=== PATIENT | female | born 1965 | race Caucasian/White ===

== ENCOUNTER 2023-07-02 16:24 | Emergency (ER) | payer BC, OTHER, SELFPAY ==
[2023-07-02 16:40] VITALS: BP 133/91; PULSE 61; RESP 18; TEMP 36.5; O2SAT 100; BMI 34.4
--- NOTE | 2023-07-02 17:03 | ED_ITS ---
Discharge Plan Disposition Patient Disposition: Home, Self-Care Condition: Good Prescriptions Prescriptions: New ibuprofen [IBU] 800 mg tablet 800 mg PO Q8HP PRN (Reason: Moderate Pain) Qty: 30 0RF No Action potassium chloride 10 mEq capsule, extended release 10 meq PO DAILY Patient Comments: TAKE 1 CAPSULE BY MOUTH ONCE DAILY FOR 90 DAYS tizanidine 2 mg tablet See Rx Instructions .ROUTE .COMPLEX Patient Comments: TAKE 1 TABLET BY MOUTH EVERY 6 HOURS FOR 10 DAYS Rx Instructions: TAKE 1 TABLET BY MOUTH EVERY 6 HOURS FOR 10 DAYS atorvastatin 10 mg tablet 10 mg PO DAILY Patient Comments: TAKE 1 TABLET BY MOUTH ONCE DAILY sertraline 100 mg tablet 100 mg PO DAILY Patient Comments: TAKE 1 & 1/2 (ONE & ONE-HALF) TABLETS BY MOUTH ONCE DAILY tramadol 50 mg tablet See Rx Instructions .ROUTE .COMPLEX Patient Comments: TAKE 1 TABLET BY MOUTH EVERY 6 HOURS NEEDED FOR PAIN Rx Instructions: TAKE 1 TABLET BY MOUTH EVERY 6 HOURS NEEDED FOR PAIN gabapentin 800 mg tablet See Rx Instructions .ROUTE .COMPLEX Patient Comments: TAKE 1 TABLET BY MOUTH THREE TIMES DAILY Rx Instructions: TAKE 1 TABLET BY MOUTH THREE TIMES DAILY lisinopril 10 mg tablet 10 mg PO DAILY Patient Comments: TAKE 1 TABLET BY MOUTH ONCE DAILY diclofenac sodium 75 mg tablet,delayed release (DR/EC) See Rx Instructions .ROUTE .COMPLEX Patient Comments: TAKE 1 TABLET BY MOUTH TWICE DAILY Rx Instructions: TAKE 1 TABLET BY MOUTH TWICE DAILY ergocalciferol (vitamin D2) 1,250 mcg (50,000 unit) capsule See Rx Instructions .ROUTE .COMPLEX Patient Comments: TAKE 1 CAPSULE BY MOUTH ONCE A WEEK Rx Instructions: TAKE 1 CAPSULE BY MOUTH ONCE A WEEK prazosin 2 mg capsule 2 mg PO DAILY Patient Comments: TAKE 1 CAPSULE BY MOUTH AT BEDTIME buspirone 15 mg tablet See Rx Instructions .ROUTE .COMPLEX Patient Comments: TAKE 1 TABLET BY MOUTH TWICE DAILY NEEDED Rx Instructions: TAKE 1 TABLET BY MOUTH TWICE DAILY NEEDED aripiprazole 10 mg tablet 10 mg PO DAILY Patient Comments: TAKE 1 TABLET BY MOUTH ONCE DAILY FOR 90 DAYS quetiapine 50 mg tablet 50 mg PO DAILY Patient Comments: TAKE 1 TABLET BY MOUTH ONCE DAILY AT BEDTIME levocetirizine 5 mg tablet 5 mg PO DAILY Patient Comments: TAKE 1 TABLET BY MOUTH ONCE DAILY Ajovy Autoinjector 225 mg/1.5 mL auto-injector See Rx Instructions .ROUTE .COMPLEX Patient Comments: INJECT 1 AUTO INJECTOR SUBCUTANEOUSLY ONCE MONTHLY Rx Instructions: INJECT 1 AUTO INJECTOR SUBCUTANEOUSLY ONCE MONTHLY Referrals Follow up/Referrals: Tayler Bravo [Primary Care Provider] - See instructions Activity Restrictions/Add. Instructions Additional Instructions/Restrictions: Drink plenty of fluids. Take tylenol or ibuprofen for pain or fever. Take the medications as directed. Follow up with your regular doctor within the next 24 to 48 hours. GO TO THE ER FOR ANY WORSENING SYMPTOMS OR CONTINUED SYMPTOMS Clinical Impressions Clinical Impression: Left flank pain Instructions Patient Instructions: DI for Kidney Stones, Ketorolac Injection Discharge ED Provider: Israel Rodriguez [facility] General Stated complaint: abd pain, back pain Time Seen by Provider: 07/02/23 17:13 History of Present Illness Provider Complaint: She states that that for the past 1 day she has had low back pain and left flank pain. She has had a kidney stone in the past and that is what she feels like is happening now. She denies any dysuria. She refuses transfer to the ER at this time. Related Data Home Medications Medication Instructions Recorded Confirmed aripiprazole 10 mg tablet 10 mg PO DAILY 07/02/23 07/02/23 atorvastatin 10 mg tablet 10 mg PO DAILY 07/02/23 07/02/23 buspirone 15 mg tablet See Rx Instructions .Route .COMPLEX 07/02/23 07/02/23 diclofenac sodium 75 mg See Rx Instructions .Route .COMPLEX 07/02/23 07/02/23 tablet,delayed release ergocalciferol (vitamin D2) 1,250 See Rx Instructions .Route .COMPLEX 07/02/23 07/02/23 mcg (50,000 unit) capsule fremanezumab-vfrm 225 mg/1.5 mL See Rx Instructions .Route .COMPLEX 07/02/23 07/02/23 subcutaneous auto-injector (Ajovy) gabapentin 800 mg tablet See Rx Instructions .Route .COMPLEX 07/02/23 07/02/23 levocetirizine 5 mg tablet 5 mg PO DAILY 07/02/23 07/02/23 lisinopril 10 mg tablet 10 mg PO DAILY 07/02/23 07/02/23 potassium chloride 10 mEq 10 meq PO DAILY 07/02/23 07/02/23 capsule,extended release prazosin 2 mg capsule 2 mg PO DAILY 07/02/23 07/02/23 quetiapine 50 mg tablet 50 mg PO DAILY 07/02/23 07/02/23 sertraline 100 mg tablet 100 mg PO DAILY 07/02/23 07/02/23 tizanidine 2 mg tablet See Rx Instructions .Route .COMPLEX 07/02/23 07/02/23 tramadol 50 mg tablet See Rx Instructions .Route .COMPLEX 07/02/23 07/02/23 Previous Rx's Medication Instructions Recorded ibuprofen 800 mg tablet (IBU) 800 mg PO Q8HP PRN Moderate Pain 07/02/23 #30 tabs Allergies Allergy/AdvReac Type Severity Reaction Status Date / Time Penicillins Allergy Verified 07/02/23 17:09 [facility] Disclaimer: The information contained in this section may have been updated after the patient was seen, as this information can be updated by other users. Social History Smoking Status: Never smoker alcohol intake: never current occupational status: retired Travel in the last 8 weeks: None ROS Obtained: Yes All systems reviewed & no additional complaints except as documented Constitutional Constitutional: Denies chills and Denies fever(s) Eyes Eyes: Denies eye discharge ENT Ears, Nose, Mouth, and Throat: Denies dizziness, Denies otalgia and Denies sore throat Cardiovascular Cardiovascular: Denies chest pain Respiratory Respiratory: Denies shortness of breath, Denies chest congestion, Denies cough, Denies stridor and Denies wheezing Gastrointestinal Gastrointestingal: Denies nausea or vomiting Genitourinary Female Genitourinary: Reports as per HPI, Denies difficulty voiding, Denies dysuria, Reports urinary frequency, Denies urinary incontinence, Denies urinary hesitancy and Denies urinary urgency Musculoskeletal Musculoskeletal: Reports system reviewed and no additional complaints, except as documented and Denies arthralgias Integumentary/Breasts Skin/Breast: Denies rash Neurologic Neurologic: Denies dizziness and Denies paresthesias Allergic/Immunologic Allergic/Immunologic: Denies wheezing Physical Exam General General appearance: alert and in no apparent distress Head Head exam: atraumatic, normocephalic and normal inspection Eye Eye exam: Present normal appearance, PERRL and EOMI ENT ENT exam: Present normal exam, normal oropharynx, mucous membranes moist, TM's normal bilaterally and normal external ear exam Neck Neck exam: Present normal inspection, full ROM and trachea midline; Absent meningismus or lymphadenopathy Chest Chest inspection: Present normal inspection and symmetric chest wall rise; Abs ent tenderness Respiratory Respiratory exam: Present normal lung sounds bilaterally; Absent respiratory distress Cardiovascular Cardiovascular exam: Present regular rate and normal rhythm; Absent JVD Abdominal Exam Abdominal exam: Present soft and normal bowel sounds; Absent distention, tenderness, guarding, psoas sign, obturator sign, heel tap sign, Rajput's sign, Rovsing's sign or tenderness at McBurney's Point Extremities Exam Extremities exam: Present normal inspection, full ROM and normal capillary refill; Absent calf tenderness Back Exam Back exam: Present normal inspection; Absent tenderness Neurological Exam Neurological exam: Present alert and oriented X3 Psychiatric Psychiatric exam: Present normal affect and normal mood Skin Skin exam: Present warm, dry, intact and normal color Lymphatic Lymphatic Findings: no adenopathy Medical Decision Making Medical Records Medical records reviewed: No I reviewed the patient's medical records. Tommy Inquiry Pt receiving controlled substance: No Lab Data Lab results reviewed: Yes I reviewed the patient's lab results.
[2023-07-02 17:15] LABS: Apearance,Urine Cloudy (Clear); Color,Urine Dark Yellow (Yellow); PH,Urine 5.5 (5.0-8.5); Protein,Urine 1+ (Negative)
[2023-07-02 17:16] LABS: Bilirubin,Urine 1+ (Negative); Blood, Urine 2+ (Negative); Glucose,Urine (UA) Negative (Negative); Ketones,Urine Negative (Negative); UTC Leukocyte Esterase,Urine Negative (Negative); UTC Nitrate,Urine Negative (Negative); Urobilinogen,Urine 1 EU/dl (0.2)
[2023-07-02] MEDS: KETOROLAC 60MG/2ML VIAL 60 MG IM (17:18)
[2023-07-02 17:46] VITALS: BP 133/91; PULSE 61; RESP 18; TEMP 36.5; O2SAT 100
== END 2023-07-02 17:46 | disposition home or self-care (01) ==
PROVIDERS: Emergency Provider Nurse Practitioner Family; PCP Family Medicine
DX: M54.59 Other low back pain (principal); R10.32 Left lower quadrant pain; B96.89 Other specified bacterial agents as the cause of diseases classified elsewhere; Z87.442 Personal history of urinary calculi
CPT/HCPCS: 81003; 87086; 96372; 99204; 99212; G0463

== ENCOUNTER 2023-07-03 12:19 | Emergency (ER) | payer BC, OTHER, SELFPAY ==
[2023-07-03 12:20] VITALS: BP 121/56; PULSE 71; RESP 16; TEMP 36.8; O2SAT 95; BMI 34.4
--- NOTE | 2023-07-03 12:27 | CT_ITS ---
FINAL REPORT CLINICAL HISTORY: left CVA/flank pain, difficulty urinating COMPARISON: None FINDINGS: Axial CT images of the abdomen and pelvis were obtained without intravenous contrast. Coronal reformatted images were also obtained.This study was performed with techniques to keep radiation doses as low as reasonably achievable (ALARA). Individualized dose reduction techniques using automated exposure control or adjustment of mA and/or kV according to the patient''s size were employed. Abdomen: The lung bases are clear. There are several left renal stones measuring up to 8 mm. No right renal stone is seen. There is mild left hydronephrosis and hydroureter secondary to a 3 mm left UVJ stone. The liver, spleen and pancreas have an unremarkable, unenhanced appearance. No mass or adenopathy is seen. No inflammatory process is identified. There are postoperative changes in the abdomen. Pelvis: Images of the pelvis reveal no evidence of ureteral dilation or ureteral stone.No mass or abnormal fluid collection is identified. There is streak artifact from right hip arthroplasty. There is postoperative change of the lower lumbar spine. IMPRESSION: Mild left hydronephrosis and hydroureter secondary to a 3 mm left UVJ stone. Nonobstructing left renal stones. Reviewed, Interpreted and Dictated by James Galdamez III, MD Transcribed by Patricia Tomlin Authenticated and [facility]
[2023-07-03 12:30] VITALS: BP 110/81; PULSE 76; RESP 20; O2SAT 97
--- NOTE | 2023-07-03 12:35 | HMH.EDGENADL ---
Discharge Plan Disposition Patient Disposition: Home, Self-Care Condition: Good Prescriptions Prescriptions: New ketorolac 10 mg tablet 10 mg PO Q6H PRN (Reason: pain) 5 Days Qty: 20 0RF ondansetron 4 mg tablet,disintegrating 4 mg PO Q8H 4 Days Qty: 12 0RF tamsulosin 0.4 mg capsule 0.4 mg PO DAILY Qty: 14 0RF No Action potassium chloride 10 mEq capsule, extended release 10 meq PO DAILY Patient Comments: TAKE 1 CAPSULE BY MOUTH ONCE DAILY FOR 90 DAYS tizanidine 2 mg tablet See Rx Instructions .ROUTE .COMPLEX Patient Comments: TAKE 1 TABLET BY MOUTH EVERY 6 HOURS FOR 10 DAYS Rx Instructions: TAKE 1 TABLET BY MOUTH EVERY 6 HOURS FOR 10 DAYS atorvastatin 10 mg tablet 10 mg PO DAILY Patient Comments: TAKE 1 TABLET BY MOUTH ONCE DAILY sertraline 100 mg tablet 100 mg PO DAILY Patient Comments: TAKE 1 & 1/2 (ONE & ONE-HALF) TABLETS BY MOUTH ONCE DAILY tramadol 50 mg tablet See Rx Instructions .ROUTE .COMPLEX Patient Comments: TAKE 1 TABLET BY MOUTH EVERY 6 HOURS NEEDED FOR PAIN Rx Instructions: TAKE 1 TABLET BY MOUTH EVERY 6 HOURS NEEDED FOR PAIN gabapentin 800 mg tablet See Rx Instructions .ROUTE .COMPLEX Patient Comments: TAKE 1 TABLET BY MOUTH THREE TIMES DAILY Rx Instructions: TAKE 1 TABLET BY MOUTH THREE TIMES DAILY lisinopril 10 mg tablet 10 mg PO DAILY Patient Comments: TAKE 1 TABLET BY MOUTH ONCE DAILY diclofenac sodium 75 mg tablet,delayed release (DR/EC) See Rx Instructions .ROUTE .COMPLEX Patient Comments: TAKE 1 TABLET BY MOUTH TWICE DAILY Rx Instructions: TAKE 1 TABLET BY MOUTH TWICE DAILY ergocalciferol (vitamin D2) 1,250 mcg (50,000 unit) capsule See Rx Instructions .ROUTE .COMPLEX Patient Comments: TAKE 1 CAPSULE BY MOUTH ONCE A WEEK Rx Instructions: TAKE 1 CAPSULE BY MOUTH ONCE A WEEK prazosin 2 mg capsule 2 mg PO DAILY Patient Comments: TAKE 1 CAPSULE BY MOUTH AT BEDTIME buspirone 15 mg tablet See Rx Instructions .ROUTE .COMPLEX Patient Comments: TAKE 1 TABLET BY MOUTH TWICE DAILY NEEDED Rx Instructions: TAKE 1 TABLET BY MOUTH TWICE DAILY NEEDED aripiprazole 10 mg tablet 10 mg PO DAILY Patient Comments: TAKE 1 TABLET BY MOUTH ONCE DAILY FOR 90 DAYS quetiapine 50 mg tablet 50 mg PO DAILY Patient Comments: TAKE 1 TABLET BY MOUTH ONCE DAILY AT BEDTIME levocetirizine 5 mg tablet 5 mg PO DAILY Patient Comments: TAKE 1 TABLET BY MOUTH ONCE DAILY Ajovy Autoinjector 225 mg/1.5 mL auto-injector See Rx Instructions .ROUTE .COMPLEX Patient Comments: INJECT 1 AUTO INJECTOR SUBCUTANEOUSLY ONCE MONTHLY Rx Instructions: INJECT 1 AUTO INJECTOR SUBCUTANEOUSLY ONCE MONTHLY ibuprofen [IBU] 800 mg tablet 800 mg PO Q8HP PRN (Reason: Moderate Pain) Qty: 30 0RF Referrals Follow up/Referrals: Alejandro Villarreal MD [Staff Physician] - See instructions Tayler Bravo [Primary Care Provider] - See instructions Activity Restrictions/Add. Instructions Additional Instructions/Restrictions: You were seen in the ED today due to kidney stone. You have a 3 mm left-sided stone at the junction of the ureter and the bladder which we expect to pass. Prescriptions for Toradol, Zofran and Flomax have been provided. Do not take Flomax with prazosin. Do not take Toradol with ibuprofen or other nonsteroidal anti-inflammatory drugs. Please drink plenty of water. If you develop any signs concerning for infection such as fever, pain with urination, foul-smelling urine, please return to the ED immediately. Return if symptoms worsen or if any other concerning signs arise. Please contact the urology office for follow-up. Follow-up with your primary care provider as well. Clinical Impressions Clinical Impression: Left flank pain, Kidney stone Instructions Patient Instructions: DI for Kidney Stones Discharge ED Provider: Joshua Lundy General Adult HPI General Chief complaint: PAIN Stated complaint: abd pain/ was in [facility] for kidney stones 07/02/23 Time Seen by Provider: 07/03/23 12:24 Mode of Arrival: Ambulatory Source of Information: Patient Limitations: No Limitations Description of Symptoms (Recalled from ER Triage Doc. by RN): Patient reports being seen in the [facility] yesterday for a possible kidney stone. States that the pain is getting worse so she came to the ER. Complaint of left flank pain. History of Present Illness HPI narrative: Patient is a 57-year-old female with history of HTN, HLD, prior kidney stone who presents due to flank pain. Patient states she began having left back and flank pain yesterday which wraps around to her pelvic region. She was seen at urgent care and was told she may have a kidney stone. Patient states she did have a left-sided kidney stone approximately 4 months ago and this feels identical. States she feels like she has to urinate but has had trouble urinating. Denies any dysuria. States her urine has been browner. Denies any fevers at home. States she has been nauseous but has not had any vomiting. Denies any changes in bowel movements. Related Data Home Medications Medication Instructions Recorded Confirmed aripiprazole 10 mg tablet 10 mg PO DAILY 07/02/23 07/02/23 atorvastatin 10 mg tablet 10 mg PO DAILY 07/02/23 07/02/23 buspirone 15 mg tablet See Rx Instructions .Route .COMPLEX 07/02/23 07/02/23 diclofenac sodium 75 mg See Rx Instructions .Route .COMPLEX 07/02/23 07/02/23 tablet,delayed release ergocalciferol (vitamin D2) 1,250 See Rx Instructions .Route .COMPLEX 07/02/23 07/02/23 mcg (50,000 unit) capsule fremanezumab-vfrm 225 mg/1.5 mL See Rx Instructions .Route .COMPLEX 07/02/23 07/02/23 subcutaneous auto-injector (Ajovy) gabapentin 800 mg tablet See Rx Instructions .Route .COMPLEX 07/02/23 07/02/23 levocetirizine 5 mg tablet 5 mg PO DAILY 07/02/23 07/02/23 lisinopril 10 mg tablet 10 mg PO DAILY 07/02/23 07/02/23 potassium chloride 10 mEq 10 meq PO DAILY 07/02/23 07/02/23 capsule,extended release prazosin 2 mg capsule 2 mg PO DAILY 07/02/23 07/02/23 quetiapine 50 mg tablet 50 mg PO DAILY 07/02/23 07/02/23 sertraline 100 mg tablet 100 mg PO DAILY 07/02/23 07/02/23 tizanidine 2 mg tablet See Rx Instructions .Route .COMPLEX 07/02/23 07/02/23 tramadol 50 mg tablet See Rx Instructions .Route .COMPLEX 07/02/23 07/02/23 Previous Rx's Medication Instructions Recorded ibuprofen 800 mg tablet (IBU) 800 mg PO Q8HP PRN Moderate Pain 07/02/23 #30 tabs ketorolac 10 mg tablet 10 mg PO Q6H PRN pain 5 days #20 07/03/23 tabs ondansetron 4 mg disintegrating 4 mg PO Q8H 4 days #12 tabs 07/03/23 tablet tamsulosin 0.4 mg capsule 0.4 mg PO DAILY #14 caps 07/03/23 Allergies Allergy/AdvReac Type Severity Reaction Status Date / Time Penicillins Allergy Verified 07/02/23 17:09 [facility] Disclaimer: The information contained in this section may have been updated after the patient was seen, as this information can be updated by other users. Social History (Updated 07/02/23 @ 17:40 by Israel Rodriguez APRN) Smoking Status: Never smoker alcohol intake: never current occupational status: retired Travel in the last 8 weeks: None ROS Obtained: Yes All systems reviewed & no additional complaints except as documented Gastrointestinal Gastrointestingal: Reports abdominal pain Genitourinary Female Genitourinary: Reports flank pain, Reports hematuria and Reports urinary urgency Physical Exam General General appearance: alert and in no apparent distress Head Head exam: atraumatic, normocephalic and normal inspection Eye Eye exam: Present normal appearance, PERRL and EOMI ENT ENT exam: Present normal exam, normal oropharynx, mucous membranes moist, TM's normal bilaterally and normal external ear exam Neck Neck exam: Present normal inspection, full ROM and trachea midline; Absent meningismus or lymphadenopathy Chest Chest inspection: Present normal inspection and symmetric chest wall rise; Absent tenderness Respiratory Respiratory exam: Present normal lung sounds bilaterally; Absent respiratory distress Cardiovascular Cardiovascular exam: Present regular rate and normal rhythm; Absent JVD Abdominal Exam Abdominal exam: Present soft, tenderness and normal bowel sounds; Absent distention or guarding Abdominal tenderness: Present LLQ and suprapubic Comment: Tenderness to palpation of left CVA, flank, lower quadrant and suprapubic region. Abdomen soft, nondistended. Extremities Exam Extremities exam: Present normal inspection, full ROM and normal capillary refill; Absent calf tenderness Back Exam Back exam: Present normal inspection; Absent tenderness Neurological Exam Neurological exam: Present alert and oriented X3 Psychiatric Psychiatric exam: Present normal affect and normal mood Skin Skin exam: Present warm, dry, intact and normal color Lymphatic Lymphatic Findings: no adenopathy Medical Decision Making Tommy Inquiry Pt receiving controlled substance: No Vital Signs: 07/03/23 12:20 07/03/23 12:30 Temperature 98.2 F Temperature Source Oral Pulse Rate 76 Pulse Rate [Radial] 71 Respiratory Rate 16 20 Blood Pressure 110/81 Blood Pressure [Right Arm] 121/56 L Blood Pressure Mean 89 Blood Pressure Mean [Right Arm] 77 Blood Pressure Source [Right Arm] Automatic Cuff Blood Pressure Position [Right Arm] Sitting 02 Sat by Pulse Oximetry 95 97 Oxygen Delivery Method Room Air Lab Data Lab Results 07/03/23 12:30: WBC 5.5, RBC 4.64, Hgb 12.9, Hct 40.3, MCV 86.8, MCH 27.8, MCHC 32.0, RDW 13.4, Plt Count 272, MPV 8.6, Neut % (Auto) 52.7, Lymph % (Auto) 37.0, [place] % (Auto) 4.1, Eos % (Auto) 4.6, Baso % (Auto) 1.6, Neut # (Auto) 2.9, Lymph # (Auto) 2.0, [place] # (Auto) 0.2, Eos # (Auto) 0.3, Baso # (Auto) 0.1, Sodium 141, Potassium 4.0, Chloride 111 H, Carbon Dioxide 26, Anion Gap 8.0, BUN 18 H, Creatinine 1.00, Estimated Creat Clear 86, Estimated GFR 58 L, Est GFR ( Amer) 70, Glucose 73 L, Calcium 9.3, Total Bilirubin 0.5, AST 34, ALT 22, Alkaline Phosphatase 76, Total Protein 6.2 L, Albumin 3.7, Globulin 2.5, Albumin/Globulin Ratio 1.5, Lipase 152 07/03/23 14:23: Urine Color Yellow, Urine Appearance Clear, Urine pH 6.0, Ur Specific [place] >= 1.030, Urine Protein Negative, Urine Glucose (UA) Negative, Urine Ketones Negative, Urine Blood 1+, Urine Nitrate Negative, Urine Bilirubin Negative, Urine Urobilinogen 1.0, Ur Leukocyte Esterase 1+ A, Urine RBC 3-5, Urine WBC 3-5, Ur Squamous Epith Cells 3-5, Urine Bacteria Trace 07/03/23 12:30 07/03/23 12:30 Orders (Tests/Meds): ED MEDICATIONS Discontinued Medications Generic Name Dose Route Start Last Admin Trade Name Freq PRN Reason Stop Dose Admin Lactated Ringer's 1,000 mls @ 999 mls/hr 07/03/23 12:27 07/03/23 13:00 Lactated Ringer's 1000 Ml Bag IV 07/03/23 13:27 999 mls/hr .Q1H1M ONE Administration Ketorolac Tromethamine 15 mg 07/03/23 14:58 07/03/23 15:41 Ketorolac 30mg/Ml Vial IV 07/03/23 14:59 15 mg ONCE ONE Administration Morphine Sulfate 4 mg 07/03/23 12:27 07/03/23 12:59 Morphine 4mg/Ml Syringe IV 07/03/23 12:28 4 mg ONCE ONE Administration Ondansetron HCl 4 mg 07/03/23 12:27 07/03/23 12:59 Ondansetron 4mg/2ml Vial IV 07/03/23 12:28 4 mg ONCE ONE Administration Ondansetron HCl 4 mg 07/03/23 14:30 07/03/23 14:42 Ondansetron 4mg/2ml Vial IV 07/03/23 14:31 4 mg ONCE ONE Administration ORDERS Category Date Time Status CT abdomen pelvis wo con Stat Cat Scan 07/03/23 12:27 Taken CBC w/Auto Diff [Complete Blood Count Auto Diff] Stat Lab 07/03/23 12:30 Completed CMP [Comprehensive Metabolic Panel] Stat Lab 07/03/23 12:30 Completed Lipase Stat Lab 07/03/23 12:30 Completed Urinalysis and Microscopic Stat Lab 07/03/23 14:23 Completed Medical Decision Narrative: In summary, patient is a 57-year-old female with history of HTN, HLD, evaluated in the emergency department today due to left flank pain and difficulty urinating. On arrival, patient is hemodynamically stable with normal vital signs. On examination, patient has tenderness to palpation of the left CVA, flank, lower quadrant and suprapubic region. Differential diagnosis includes but is not limited to kidney stone, pyelonephritis, cystitis, pelvic organ dysfunction, aortic pathology, musculoskeletal strain. Patient given 1 L LR bolus, IV morphine, IV Zofran x2, IV Toradol. Workup initiated including CBC, CMP, lipase, urinalysis, CT Abdo/pelvis without contrast. Labs independently interpreted by me and significant for creatinine 1.00, urinalysis with 1+ leuk esterase, negative nitrite, 3-5 WBCs, 3-5 squamous cells. Overall no concern for infection at this time. Imaging independently interpreted by me and significant for CT abdomen/pelvis without contrast showing 3 mm left UVJ stone with resulting mild left hydroureter and hydronephrosis, as well as nonobstructing left renal stones. On reevaluation, patient reports significant improvement in symptoms. Given size of stone and urinalysis not concerning for infection, she is appropriate for discharge with expectant management at this time. Prescriptions for Toradol, Zofran, Flomax provided. Referral for urology provided. Patient counseled on home care, given strict return precautions and agreeable to plan. I considered the utility of obtaining contrasted scan, but decided against this because this would not change of address clerk. I considered the utility of treatment with prescription for narcotics, but decided against this because risks outweigh benefits. I considered admitting the patient to the hospital for observation, and in shared decision-making with patient, decided on outpatient management. Critical Care Critical Care Time Critical Care Time: No
[2023-07-03 12:46] LABS: Chloride 111 mmol/L (98-107); Sodium 141 mmol/L (136-145)
[2023-07-03 12:48] LABS: Basophils # 0.1 K/mm3 (0-0.2); Basophils % 1.6 % (0.1-2.0); Eosinophils # 0.3 K/mm3 (0.0-0.4); Eosinophils % 4.6 % (0.1-12.0); Hematocrit 40.3 % (37.0-47.0); Hemoglobin 12.9 g/dL (12.2-16.2); Mean Corpuscular Hemoglobin 27.8 pg (27.0-31.2); Mean Corpuscular Volume 86.8 fl (81-99); Mean Platelet Volume 8.6 fl (7.4-10.4); Monocytes # 0.2 K/mm3 (0.1-1.0); Monocytes % 4.1 % (1.7-9.3); Neutrophils # 2.9 K/mm3 (1.8-7.8); Neutrophils % 52.7 % (37.0-80.0); Platelet Count 272 K/mm3 (142-424); Red Blood Count 4.64 M/mm3 (4.20-5.40); Red Cell Distribution Width 13.4 % (11.5-17.5); White Blood Count 5.5 K/mm3 (4.8-10.8)
[2023-07-03 12:49] LABS: Alanine Aminotransferase 22 U/L (12-78); Albumin Level 3.7 g/dl (3.5-5.0); Albumin/Globulin Ratio 1.5 (1.1-1.8); Alkaline Phosphatase 76 U/L (38-126); Aspartate Amino Transferase 34 U/L (14-36); Bilirubin,Total 0.5 mg/dl (0.2-1.3); Blood Urea Nitrogen 18 mg/dl (7-17); Calcium 9.3 mg/dl (8.4-10.2); Carbon Dioxide 26 mmol/L (22.0-30.0); Creatinine Clearance Estimated 86 mL/min (50-200); Estimated Glomerular Filt Rate 58 ml/min (>60); GFR (African American) 70 ML/MIN (>60); Globulin 2.5 g/dL (1.3-3.2); Glucose 73 mg/dl (74-100); Total Protein,Serum 6.2 g/dl (6.3-8.2)
[2023-07-03] MEDS: ONDANSETRON 4MG/2ML VIAL 4 MG IV ×2 (12:59→14:42)
[2023-07-03] MEDS: MORPHINE 4MG/ML SYRINGE 4 MG IV (12:59)
[2023-07-03] MEDS: LACTATED RINGERS 1000ML 1,000 ML 999 ML IV (13:00)
[2023-07-03 13:08] LABS: Lipase 152 U/L (23-300)
--- NOTE | 2023-07-03 14:18 | PC.NURSE ---
rounded on pt, she will attempt to give urine sample. She also reports to be still nauseated, notified
[2023-07-03 14:32] LABS: Microscopic, Urine URINE MICROSCOPIC (MICROSCOPIC)
[2023-07-03 14:35] LABS: Appearance,Urine CLEAR (Clear); Bilirubin,Urine Negative (Negative); Blood, Urine 1+ (Negative); Color,Urine YELLOW (Yellow); Glucose,Urine (UA) Negative (Negative); Ketones,Urine Negative (Negative); Leukocyte Esterase,Urine 1+ (Negative); Nitrate,Urine Negative (Negative); Protein,Urine Negative (Negative); Specific Gravity, Urine >= 1.030 (1.005-1.030)
--- NOTE | 2023-07-03 14:40 | PC.NURSE ---
Gave pt zofran and placed back on hemodynamic monitoring.
[2023-07-03 15:41] LABS: Bacteria,Urine Trace /lpf
[2023-07-03] MEDS: KETOROLAC 30MG/ML VIAL 15 MG IV (15:41)
[2023-07-03 15:51] VITALS: BP 114/58; PULSE 60; RESP 18; TEMP 36.4; O2SAT 95
== END 2023-07-03 15:53 | disposition home or self-care (01) ==
PROVIDERS: Emergency Provider Student in an Organized Health Care Education/Training Program; PCP Family Medicine
DX: N13.0 Hydronephrosis with ureteropelvic junction obstruction (principal); R10.32 Left lower quadrant pain; M54.59 Other low back pain; N20.0 Calculus of kidney; I10 Essential (primary) hypertension; E78.5 Hyperlipidemia, unspecified
CPT/HCPCS: 74176; 80053; 81001; 83690; 85025; 96361; 96374; 96375; 96376; 99285; J2405

== ENCOUNTER 2023-07-11 16:11 | Outpatient (CLI) | payer BC, OTHER, SELFPAY ==
--- NOTE | 2023-07-11 16:14 | XR_ITS ---
FINAL REPORT CLINICAL HISTORY: renal stone, left sided pain FINDINGS: ABDOMEN SINGLE VIEW There is a nonspecific, nonobstructive bowel gas pattern. No bowel dilation is identified. Posterior fusion hardware is seen bridging L5-S1. Multiple surgical clips are seen in the abdomen. No definite renal stone is identified. IMPRESSION: No acute process. Reviewed, Interpreted and Dictated by Atul Mathews MD Transcribed by Elsa Goddard Authenticated and [facility]
== END 2023-07-11 23:59 | disposition home or self-care (01) ==
LOC: RAD 16:12
PROVIDERS: PCP Family Medicine; Visit Provider Urology
DX: N20.0 Calculus of kidney (principal)
CPT/HCPCS: 74018

== ENCOUNTER 2023-07-17 11:29 | Outpatient (CLI) | payer BC, OTHER, SELFPAY | END 2023-07-17 23:59 | disposition home or self-care (01) | PROVIDERS: PCP Family Medicine; Visit Provider Urology | DX: N20.0 Calculus of kidney (principal) ==

== ENCOUNTER 2023-08-14 10:55 | Outpatient (POV) | payer BC, OTHER, SELFPAY ==
--- NOTE | 2023-08-14 11:56 | A.OFFVIS_ITS ---
HPI Data of Consult Patient: new to practice Consult date: 08/14/23 Requesting Physician: Lyndsay Siegel APRN Primary Care Provider: Tayler Bravo Consult Narrative Reason for consult: Chronic low back pain History of present illness: Ms. Kelly is a 57 year old female who presents today as a new patient. She is a referral from Dr. Hess's office. Today she rates her pain a 7 out of 10. Patient does state that she continues to have chronic pain throughout her back. Patient denies any radiating symptoms into her legs. Patient states this is been going on for years and progressively worsened over time. Patient has had even a prior lumbar fusion. Patient does describe her pain as a sharp throbbing sensation that is worse with prolonged positioning such as standing or sitting. Patient does state that she frequently has to change positions in order to have any relief. Patient has tried injections in the past and states some of these would help more so than others. Patient has also tried [id number] Tylenol and ibuprofen along with heat and ice. Patient does have an [employer] stimulator i n place and just had it reprogrammed about 3 months ago with no additional relief. Patient is interested in any help we may be able to provide. She states that the pain does interfere with her overall ability to perform activities of daily living such as cooking and cleaning. She is prescribed gabapentin,Diazepam from outside providers. Her Tommy has been reviewed and is appropriate. CC: Lyndsay Siegel APRN [facility] Disclaimer: The information contained in this section may have been updated after the patient was seen, as this information can be updated by other users. Medical History (Updated 08/16/23 @ 08:35 by Lyndsay Siegel APRN) HTN (hypertension) Vitamin D deficiency HLD (hyperlipidemia) Depression Surgical History History of right shoulder replacement History of lumbar surgery History of colonoscopy History of right hip replacement History of bilateral knee replacement History of appendectomy Family History (Updated 08/14/23 @ 12:12 by Leora Vazquez RN) Other Unknown family medical history Social History (Updated 08/14/23 @ 12:13 by Leora Vazquez RN) Smoking Status: Never smoker alcohol intake: never current occupational status: employed Travel in the last 8 weeks: None Review of Systems Review of Systems Review of systems:: pertinent systems reviewed and negative unless documented below Review of systems (narrative): Review of Systems: General: No recent weight changes, no fever, no sleep disturbances Respiratory: No cough, no shortness of air, no recurring pulmonary infections Cardiovascular/peripheral vascular: No chest pain, no palpitations, no edema, no shortness of breath Gastrointestinal: No new onset incontinence, normal bowel movements reported Genitourinary: No new onset incontinence Musculoskeletal: Low back pain Psychiatric: [Normal mood/affect] Neurological: [Denies weakness in extremities], [denies balance issues] Meds Home Medications and Allergies Home Medications Medication Instructions Recorded Confirmed Type aripiprazole 10 mg tablet 10 mg PO DAILY 07/02/23 08/14/23 History atorvastatin 10 mg tablet 10 mg PO DAILY 07/02/23 08/14/23 History buspirone 15 mg tablet See Rx Instructions .Route .COMPLEX 07/02/23 08/14/23 History diclofenac sodium 75 mg See Rx Instructions .Route .COMPLEX 07/02/23 08/14/23 History tablet,delayed release ergocalciferol (vitamin D2) 1,250 See Rx Instructions .Route .COMPLEX 07/02/23 08/14/23 History mcg (50,000 unit) capsule fremanezumab-vfrm 225 mg/1.5 mL See Rx Instructions .Route .COMPLEX 07/02/23 08/14/23 History subcutaneous auto-injector (Ajovy) gabapentin 800 mg tablet See Rx Instructions .Route .COMPLEX 07/02/23 08/14/23 History ibuprofen 800 mg tablet (IBU) 800 mg PO Q8HP PRN Moderate Pain 07/02/23 08/14/23 Rx #30 tabs levocetirizine 5 mg tablet 5 mg PO DAILY 07/02/23 08/14/23 History lisinopril 10 mg tablet 10 mg PO DAILY 07/02/23 08/14/23 History potassium chloride 10 mEq 10 meq PO DAILY 07/02/23 08/14/23 History capsule,extended release prazosin 2 mg capsule 2 mg PO DAILY 07/02/23 08/14/23 History quetiapine 50 mg tablet 50 mg PO DAILY 07/02/23 08/14/23 History sertraline 100 mg tablet 100 mg PO DAILY 07/02/23 08/14/23 History tizanidine 2 mg tablet See Rx Instructions .Route .COMPLEX 07/02/23 08/14/23 History tramadol 50 mg tablet See Rx Instructions .Route .COMPLEX 07/02/23 08/14/23 History ketorolac 10 mg tablet 10 mg PO Q6H PRN pain 5 days #20 07/03/23 08/14/23 Rx tabs ondansetron 4 mg disintegrating 4 mg PO Q8H 4 days #12 tabs 07/03/23 08/14/23 Rx tablet tamsulosin 0.4 mg capsule 0.4 mg PO DAILY #14 caps 07/03/23 08/14/23 Rx New Prescriptions to Start Prescriptions: Allergies Allergy/AdvReac Type Severity Reaction Status Date / Time Penicillins Allergy Verified 08/14/23 10:28 Objective Narrative: Physical Exam: General: Alert and oriented x3, no acute distress, pleasant and cooperative Lungs: Respirations even and unlabored, symmetrical chest expansion Eyes: PERRL Musculoskeletal: Flexion and extension of lumbar [spine] somewhat guarded secondary to pain, [antalgic gait noted] Neurological: Speech clear, no gross sensory deficit Additional findings Additional findings: Lumbar MRI Findings: Transitional lumbosacral anatomy. There are 6 nonrib-bearing bearing lumbar type vertebra bodies. Most inferior is designated as S1. Lumbosacral junction was identified by lumbosacral angle. The iliolumbar ligaments were also used to identify the L5. Alignment unremarkable. Spinal canal developmental stenosis absent. Laminectomy at L5. Bilateral pedicle screws at L5 and S1. There is an intervertebral disc spacer at this level. There does ap pear to be osseous bridging trabeculae along the posterior cortex as seen on image 9 of series 2. Remainder of the osseous structures are intact. SI joints incompletely visualized. Conus medullaris is normal in location terminating at L1-L2. Muscles moderate to marked symmetrical fatty replacement of the inferior erector spinae muscles of the lower back.. Prevertebral soft tissues appear unremarkable. No abnormal enhancement is appreciated. Abdomen and retroperitoneum are unremarkable. T10-11: Disc desiccation central canal and foramen are patent T11-12: Disc desiccation with subtle disc bulge. Canal and foramen are patent T12-L1: Disc desiccation with small disc bulge. Patent central canal and foramina L1-L2: Disc desiccation. Central canal and foramen are patent L2-L3: Disc desiccation with small disc bulge. Central canal and foramen are patent L3-L4: Disc desiccation with small disc bulge. Moderate ligamentum flavum hypertrophy. Central canal is patent. Mild left neuroforaminal narrowing L4-L5: Disc desiccation with small disc bulge. Moderate ligamentum flavum hypertrophy. Central canal and foramen are patent L5-S1: Posterior decompression no recurrent disc herniation there appears to be osseous bridging along the posterior cortex at the L5 and S1 vertebral bodies. Central canal is widely patent. Foramina are patent. Evaluation is slightly limited due to susceptibility artifact from spinal hardware. 07/26/2023 Assessment and Plan *Assessment and plan (1) Degenerative disc disease, lumbar: Status: Acute Category: Medical Code(s): M51.36 - Other intervertebral disc degeneration, lumbar region (2) Chronic low back pain: Status: Acute Qualifiers: Back pain laterality: bilateral Sciatica presence: without sciatica Qualified Code(s): M54.50 - Low back pain, unspecified; G89.29 - Other chronic pain Category: Medical Code(s): M54.50 - Low back pain, unspecified; G89.29 - Other chronic pain Plan Patient does have chronic pain throughout her low back with prior back surgery. I have discussed with patient in future she may benefit from a intrathecal pain pump trial. Risk and benefits were discussed with the patient and she would like to proceed forward with this plan of care. Educational handouts were given on the pain pump trial and symptoms. I will order the patient a psychological evaluation and if she is deemed an appropriate candidate we will proceed forward with a trial at a later date. Patient has tried and failed conservative therapies including prior back surgery. Patient will return to clinic in 1 month for reevaluation of symptoms and plan of care. Patient has been instructed to contact the clinic with any concerns before the next appointment. Dr. Rondon has reviewed this note and agrees with this plan of care. This note was dictated using voice recognition software and make contain errors or omissions.
[2023-08-14 11:57] VITALS: BP 110/81; PULSE 78; RESP 18; O2SAT 100; BMI 33.5
== END 2023-08-14 23:59 | disposition home or self-care (01) ==
LOC: SC.PAIN 10:55
PROVIDERS: PCP Family Medicine; Visit Provider Nurse Practitioner Family
DX: M51.36 Other intervertebral disc degeneration, lumbar region (principal); M54.50 Low back pain, unspecified; G89.29 Other chronic pain
CPT/HCPCS: 99202; G0463

== ENCOUNTER 2023-08-22 16:21 | Outpatient (CLI) | payer BC, OTHER, SELFPAY | END 2023-08-22 23:59 | disposition home or self-care (01) | LOC: LAB 16:22 | PROVIDERS: PCP Family Medicine; Visit Provider Urology | DX: N20.1 Calculus of ureter (principal) ==

== ENCOUNTER 2023-08-27 09:28 | Emergency (ER) | payer BC, OTHER, SELFPAY ==
--- NOTE | 2023-08-27 09:56 | ED_ITS ---
Discharge Plan Disposition Patient Disposition: Home, Self-Care Condition: Good Prescriptions Prescriptions: New azithromycin [Zithromax] 250 mg tablet 250 mg PO UD DOSE PK Qty: 6 0RF Rx Instructions: Take two (2) tablets today, then one (1) tablet days #2 thru #5 fluconazole 150 mg tablet 150 mg PO ONCE Qty: 1 3RF benzonatate 100 mg capsule 100 mg PO TIDP PRN (Reason: Cough) Qty: 30 0RF methylprednisolone 4 mg Tablets,Dose Pack 4 mg PO DIRECTED 6 Days Qty: 21 0RF Rx Instructions: Take 1 pack as directed for 6 days wfxxusga-jyfhridsj-DG 3.5-10,000-1 mg/mL-unit/mL-% solution 4 drp Ear-Left Q8H 7 Days Qty: 10 0RF No Action potassium chloride 10 mEq capsule, extended release 10 meq PO DAILY Patient Comments: TAKE 1 CAPSULE BY MOUTH ONCE DAILY FOR 90 DAYS tizanidine 2 mg tablet See Rx Instructions .ROUTE .COMPLEX Patient Comments: TAKE 1 TABLET BY MOUTH EVERY 6 HOURS FOR 10 DAYS Rx Instructions: TAKE 1 TABLET BY MOUTH EVERY 6 HOURS FOR 10 DAYS atorvastatin 10 mg tablet 10 mg PO DAILY Patient Comments: TAKE 1 TABLET BY MOUTH ONCE DAILY sertraline 100 mg tablet 100 mg PO DAILY Patient Comments: TAKE 1 & 1/2 (ONE & ONE-HALF) TABLETS BY MOUTH ONCE DAILY tramadol 50 mg tablet See Rx Instructions .ROUTE .COMPLEX Patient Comments: TAKE 1 TABLET BY MOUTH EVERY 6 HOURS NEEDED FOR PAIN Rx Instructions: TAKE 1 TABLET BY MOUTH EVERY 6 HOURS NEEDED FOR PAIN gabapentin 800 mg tablet See Rx Instructions .ROUTE .COMPLEX Patient Comments: TAKE 1 TABLET BY MOUTH THREE TIMES DAILY Rx Instructions: TAKE 1 TABLET BY MOUTH THREE TIMES DAILY lisinopril 10 mg tablet 10 mg PO DAILY Patient Comments: TAKE 1 TABLET BY MOUTH ONCE DAILY diclofenac sodium 75 mg tablet,delayed release (DR/EC) See Rx Instructions .ROUTE .COMPLEX Patient Comments: TAKE 1 TABLET BY MOUTH TWICE DAILY Rx Instructions: TAKE 1 TABLET BY MOUTH TWICE DAILY ergocalciferol (vitamin D2) 1,250 mcg (50,000 unit) capsule See Rx Instructions .ROUTE .COMPLEX Patient Comments: TAKE 1 CAPSULE BY MOUTH ONCE A WEEK Rx Instructions: TAKE 1 CAPSULE BY MOUTH ONCE A WEEK prazosin 2 mg capsule 2 mg PO DAILY Patient Comments: TAKE 1 CAPSULE BY MOUTH AT BEDTIME buspirone 15 mg tablet See Rx Instructions .ROUTE .COMPLEX Patient Comments: TAKE 1 TABLET BY MOUTH TWICE DAILY NEEDED Rx Instructions: TAKE 1 TABLET BY MOUTH TWICE DAILY NEEDED aripiprazole 10 mg tablet 10 mg PO DAILY Patient Comments: TAKE 1 TABLET BY MOUTH ONCE DAILY FOR 90 DAYS quetiapine 50 mg tablet 50 mg PO DAILY Patient Comments: TAKE 1 TABLET BY MOUTH ONCE DAILY AT BEDTIME levocetirizine 5 mg tablet 5 mg PO DAILY Patient Comments: TAKE 1 TABLET BY MOUTH ONCE DAILY Ajovy Autoinjector 225 mg/1.5 mL auto-injector See Rx Instructions .ROUTE .COMPLEX Patient Comments: INJECT 1 AUTO INJECTOR SUBCUTANEOUSLY ONCE MONTHLY Rx Instructions: INJECT 1 AUTO INJECTOR SUBCUTANEOUSLY ONCE MONTHLY tamsulosin 0.4 mg capsule 0.4 mg PO DAILY Qty: 14 0RF ropinirole 0.5 mg tablet See Rx Instructions .ROUTE .COMPLEX Patient Comments: TAKE 1/2 TABLET BY MOUTH ONCE DAILY AT BEDTIME FOR 3 DAYS, THEN INCREASE TO 1 TABLET BY MOUTH ONCE DAILY AT BEDTIME Rx Instructions: TAKE 1/2 TABLET BY MOUTH ONCE DAILY AT BEDTIME FOR 3 DAYS, THEN INCREASE TO 1 TABLET BY MOUTH ONCE DAILY AT BEDTIME armodafinil 150 mg tablet 150 mg PO DAILY Patient Comments: TAKE 1 TABLET BY MOUTH ONCE DAILY IN THE MORNING Referrals Follow up/Referrals: Tayler Bravo [Primary Care Provider] - See instructions Activity Restrictions/Add. Instructions Additional Instructions/Restrictions: Drink plenty of fluids. Take tylenol or ibuprofen for pain or fever. Take the medications as directed. Follow up with your regular doctor. GO TO THE ER FOR ANY WORSENING SYMPTOMS Clinical Impressions Clinical Impression: Sinusitis, Bronchitis Instructions Patient Instructions: Sinusitis, DI for Sinusitis Discharge ED Provider: Israel Rodriguez [facility] General Stated complaint: body ache cough congestion fever Time Seen by Provider: 08/27/23 09:56 Related Data Home Medications Medication Instructions Recorded Confirmed aripiprazole 10 mg tablet 10 mg PO DAILY 07/02/23 08/27/23 atorvastatin 10 mg tablet 10 mg PO DAILY 07/02/23 08/27/23 buspirone 15 mg tablet See Rx Instructions .Route .COMPLEX 07/02/23 08/27/23 diclofenac sodium 75 mg See Rx Instructions .Route .COMPLEX 07/02/23 08/14/23 tablet,delayed release ergocalciferol (vitamin D2) 1,250 See Rx Instructions .Route .COMPLEX 07/02/23 08/14/23 mcg (50,000 unit) capsule fremanezumab-vfrm 225 mg/1.5 mL See Rx Instructions .Route .COMPLEX 07/02/23 08/27/23 subcutaneous auto-injector (Ajovy) gabapentin 800 mg tablet See Rx Instructions .Route .COMPLEX 07/02/23 08/27/23 levocetirizine 5 mg tablet 5 mg PO DAILY 07/02/23 08/27/23 lisinopril 10 mg tablet 10 mg PO DAILY 07/02/23 08/27/23 potassium chloride 10 mEq 10 meq PO DAILY 07/02/23 08/27/23 capsule,extended release prazosin 2 mg capsule 2 mg PO DAILY 07/02/23 08/27/23 quetiapine 50 mg tablet 50 mg PO DAILY 07/02/23 08/27/23 sertraline 100 mg tablet 100 mg PO DAILY 07/02/23 08/27/23 tizanidine 2 mg tablet See Rx Instructions .Route .COMPLEX 07/02/23 08/14/23 tramadol 50 mg tablet See Rx Instructions .Route .COMPLEX 07/02/23 08/14/23 armodafinil 150 mg tablet 150 mg PO DAILY 08/27/23 08/27/23 ropinirole 0.5 mg tablet See Rx Instructions .Route .COMPLEX 08/27/23 08/27/23 Previous Rx's Medication Instructions Recorded tamsulosin 0.4 mg capsule 0.4 mg PO DAILY #14 caps 07/03/23 azithromycin 250 mg tablet 250 mg PO UD DOSE PK #6 tabs 08/27/23 (Zithromax) benzonatate 100 mg capsule 100 mg PO TIDP PRN Cough #30 caps 08/27/23 fluconazole 150 mg tablet 150 mg PO ONCE 1 dose #1 tab 08/27/23 methylprednisolone 4 mg tablets in 4 mg PO DIRECTED 6 days #21 tabs 08/27/23 a dose pack ztjzsnxo-qjoqbdjgw-ctmfuggec 3.5 4 drp Ear-Left Q8H 7 days #10 mL 08/27/23 mg/mL-10,000 unit/mL-1 % ear solution Allergies Allergy/AdvReac Type Severity Reaction Status Date / Time Penicillins Allergy Verified 08/27/23 10:09 [facility] Disclaimer: The information contained in this section may have been updated after the patient was seen, as this information can be updated by other users. Medical History (Updated 08/27/23 @ 10:58 by Israel Rodriguez APRN) HTN (hypertension) Vitamin D deficiency HLD (hyperlipidemia) Depression Surgical History History of right shoulder replacement History of lumbar surgery History of colonoscopy History of right hip replacement History of bilateral knee replacement History of appendectomy Family History Other Unknown family medical history Social History Smoking Status: Never smoker alcohol intake: never current occupational status: employed Travel in the last 8 weeks: None ROS Obtained: Yes All systems reviewed & no additional complaints except as documented Constitutional Constitutional: Denies chills and Denies fever(s) Eyes Eyes: Denies eye discharge ENT Ears, Nose, Mouth, and Throat: Denies dizziness, Denies otalgia and Denies sore throat Cardiovascular Cardiovascular: Denies chest pain Respiratory Respiratory: Denies shortness of breath, Denies chest congestion, Denies cough, Denies stridor and Denies wheezing Gastrointestinal Gastrointestingal: Denies nausea or vomiting Musculoskeletal Musculoskeletal: Reports system reviewed and no additional complaints, except as documented and Denies arthralgias Integumentary/Breasts Skin/Breast: Denies rash Neurologic Neurologic: Denies dizziness and Denies paresthesias Allergic/Immunologic Allergic/Immunologic: Denies wheezing Physical Exam General General appearance: alert and in no apparent distress Eye Eye exam: Present normal appearance, PERRL and EOMI ENT ENT exam: Present mucous membranes moist and normal external ear exam Expanded ENT Exam External ear exam: Present normal external inspection TM/Canal exam: Bilateral TM: erythema and bulging Nose exam: Absent sinus tenderness Nasal speculum exam: Bilateral: normal Mouth exam: Present normal external inspection; Absent drooling Teeth exam: Present normal inspection Throat exam: Present tonsillar erythema and tonsillomegaly Neck Neck exam: Present normal inspection, full ROM and trachea midline; Absent tenderness, lymphadenopathy or thyromegaly Chest Chest inspection: Present normal inspection and symmetric chest wall rise; Absent tenderness or rash Respiratory Respiratory exam: Present normal lung sounds bilaterally; Absent respiratory distress, wheezes, stridor or accessory muscle use Cardiovascular Cardiovascular exam: Present regular rate, normal rhythm and normal heart sounds Abdominal Exam Abdominal exam: Present soft; Absent distention, tenderness, guarding, rebound or rigidity Extremities Exam Extremities exam: Present normal inspection, full ROM and normal capillary refill; Absent tenderness or calf tenderness Back Exam Back exam: Present normal inspection and full ROM; Absent tenderness Neurological Exam Neurological exam: Present alert and oriented X3 Psychiatric Psychiatric exam: Present normal affect and normal mood Skin Skin exam: Present warm, dry, intact and normal color Lymphatic Lymphatic Findings: no adenopathy Medical Decision Making Medical Records Medical records reviewed: No I reviewed the patient's medical records. Tommy Inquiry Pt receiving controlled substance: No
[2023-08-27 10:00] VITALS: PULSE 88; RESP 18; TEMP 36.8; O2SAT 100; BMI 32.9
[2023-08-27 11:02] VITALS: BP 0/0; PULSE 88; RESP 18; TEMP 36.8; O2SAT 100
== END 2023-08-27 11:02 | disposition home or self-care (01) ==
PROVIDERS: Emergency Provider Nurse Practitioner Family; PCP Family Medicine
DX: J20.9 Acute bronchitis, unspecified (principal); J01.90 Acute sinusitis, unspecified; R50.9 Fever, unspecified; R05.9 Cough, unspecified; R09.81 Nasal congestion
CPT/HCPCS: 99212; 99214; G0463

== ENCOUNTER 2023-09-14 08:56 | Outpatient (POV) | payer BC, OTHER, SELFPAY ==
--- NOTE | 2023-09-14 09:02 | A.OFFVIS_ITS ---
[facility] Pain Management SOAP Note Subjective:: Patient is a pleasant 57-year-old female who presents today for follow-up of psychological evaluation. Patient states that she did go to this visit recently. Patient states that her pain today and today got out of 10 and denies any new trauma or injury. She states she continues to have the chronic pain throughout her low back. Patient states she did read up on the intrathecal pain pump trial and does want to proceed forward with this option. Patient has had back surgery however did not get significant relief with this. Patient does have an [employer] stimulator in place however she states that the company said that they have done all they could not. Patient is prescribed gabapentin and diazepam from outside providers. Patient is also prescribed Flexeril however she states that she really does not notice any improvement with this. Her Tommy has been reviewed and is appropriate. Review of Systems: General: No recent weight changes, no fever, no sleep disturbances Respiratory: No cough, no shortness of air, no recurring pulmonary infections Cardiovascular/peripheral vascular: No chest pain, no palpitations, no edema, no shortness of breath Gastrointestinal: No new onset incontinence, normal bowel movements reported Genitourinary: No new onset incontinence Musculoskeletal: Low back pain Psychiatric: [Normal mood/affect] Neurological: [Denies weakness in extremities], [denies balance issues] Objective:: Physical Exam: General: Alert and oriented x3, no acute distress, pleasant and cooperative Lungs: Respirations even and unlabored, symmetrical chest expansion Eyes: PERRL Musculoskeletal: Flexion and extension of lumbar [spine] somewhat guarded secondary to pain, [antalgic gait noted] Neurological: Speech clear, no gross sensory deficit Assessment:: Degenerative disc disease of lumbar spine with chronic low back pain Plan:: I did review over with the patient the risk and benefits of the intrathecal pain pump trial and she would like to proceed forward with this plan of care. Patient was told that she was an appropriate candidate for this device and we will call down and get the report where her psychological evaluation was done. Patient has tried and failed conservative treatment such as oral medication, heat and ice, topicals, physical therapy, at home exercising and stretching for longer than 3 months as well as injection therapy and previous back surgery. Patient will be submitted to insurance for the intrathecal pain pump trial and we will do this in [place] due to the fact that Dr. Rondon is not scheduled to be here at our location until October. Patient is agreeable to this plan of care. I will order the patient a compounded cream and standing and baclofen 10 mg 3 times daily with a 14-day supply of this medication. Patient will be scheduled for follow-up of her pump trial here in [place]. Patient has been instructed to contact the clinic with any concerns before the next appointment. Dr. Rondon has reviewed this note and agrees with this plan of care. This note was dictated using voice recognition software and make contain errors or omissions. [facility] Disclaimer: The information contained in this section may have been updated after the patient was seen, as this information can be updated by other users. Medical History (Updated 08/27/23 @ 10:58 by Israel Rodriguez APRN) HTN (hypertension) Vitamin D deficiency HLD (hyperlipidemia) Depression Surgical History History of right shoulder replacement History of lumbar surgery History of colonoscopy History of right hip replacement History of bilateral knee replacement History of appendectomy Family History Other Unknown family medical history Social History Smoking Status: Never smoker alcohol intake: never current occupational status: other Travel in the last 8 weeks: None
[2023-09-14 09:11] VITALS: BP 112/73; PULSE 96; RESP 18; O2SAT 98; BMI 33.3
== END 2023-09-14 23:59 | disposition home or self-care (01) ==
PROVIDERS: PCP Family Medicine; Visit Provider Nurse Practitioner Family
DX: M51.36 Other intervertebral disc degeneration, lumbar region (principal); M54.50 Low back pain, unspecified; G89.29 Other chronic pain
CPT/HCPCS: 99212; G0463

== ENCOUNTER 2023-09-16 16:08 | Emergency (ER) | payer BC, OTHER, SELFPAY ==
[2023-09-16 16:09] VITALS: BP 113/80; PULSE 94; RESP 20; TEMP 37.1; O2SAT 98; BMI 33.5
--- NOTE | 2023-09-16 16:40 | EXP.UTC ---
Discharge Plan Disposition Patient Disposition: Home, Self-Care Condition: Good Prescriptions Prescriptions: New guaifenesin 400 mg tablet 400 mg PO QID PRN (Reason: cough) Qty: 60 0RF No Action potassium chloride 10 mEq capsule, extended release 10 meq PO DAILY Patient Comments: TAKE 1 CAPSULE BY MOUTH ONCE DAILY FOR 90 DAYS tizanidine 2 mg tablet See Rx Instructions .ROUTE .COMPLEX Patient Comments: TAKE 1 TABLET BY MOUTH EVERY 6 HOURS FOR 10 DAYS Rx Instructions: TAKE 1 TABLET BY MOUTH EVERY 6 HOURS FOR 10 DAYS atorvastatin 10 mg tablet 10 mg PO DAILY Patient Comments: TAKE 1 TABLET BY MOUTH ONCE DAILY sertraline 100 mg tablet 100 mg PO DAILY Patient Comments: TAKE 1 & 1/2 (ONE & ONE-HALF) TABLETS BY MOUTH ONCE DAILY tramadol 50 mg tablet See Rx Instructions .ROUTE .COMPLEX Patient Comments: TAKE 1 TABLET BY MOUTH EVERY 6 HOURS NEEDED FOR PAIN Rx Instructions: TAKE 1 TABLET BY MOUTH EVERY 6 HOURS NEEDED FOR PAIN gabapentin 800 mg tablet See Rx Instructions .ROUTE .COMPLEX Patient Comments: TAKE 1 TABLET BY MOUTH THREE TIMES DAILY Rx Instructions: TAKE 1 TABLET BY MOUTH THREE TIMES DAILY lisinopril 10 mg tablet 10 mg PO DAILY Patient Comments: TAKE 1 TABLET BY MOUTH ONCE DAILY diclofenac sodium 75 mg tablet,delayed release (DR/EC) See Rx Instructions .ROUTE .COMPLEX Patient Comments: TAKE 1 TABLET BY MOUTH TWICE DAILY Rx Instructions: TAKE 1 TABLET BY MOUTH TWICE DAILY ergocalciferol (vitamin D2) 1,250 mcg (50,000 unit) capsule See Rx Instructions .ROUTE .COMPLEX Patient Comments: TAKE 1 CAPSULE BY MOUTH ONCE A WEEK Rx Instructions: TAKE 1 CAPSULE BY MOUTH ONCE A WEEK prazosin 2 mg capsule 2 mg PO DAILY Patient Comments: TAKE 1 CAPSULE BY MOUTH AT BEDTIME buspirone 15 mg tablet See Rx Instructions .ROUTE .COMPLEX Patient Comments: TAKE 1 TABLET BY MOUTH TWICE DAILY NEEDED Rx Instructions: TAKE 1 TABLET BY MOUTH TWICE DAILY NEEDED aripiprazole 10 mg tablet 10 mg PO DAILY Patient Comments: TAKE 1 TABLET BY MOUTH ONCE DAILY FOR 90 DAYS quetiapine 50 mg tablet 50 mg PO DAILY Patient Comments: TAKE 1 TABLET BY MOUTH ONCE DAILY AT BEDTIME levocetirizine 5 mg tablet 5 mg PO DAILY Patient Comments: TAKE 1 TABLET BY MOUTH ONCE DAILY Ajovy Autoinjector 225 mg/1.5 mL auto-injector See Rx Instructions .ROUTE .COMPLEX Patient Comments: INJECT 1 AUTO INJECTOR SUBCUTANEOUSLY ONCE MONTHLY Rx Instructions: INJECT 1 AUTO INJECTOR SUBCUTANEOUSLY ONCE MONTHLY tamsulosin 0.4 mg capsule 0.4 mg PO DAILY Qty: 14 0RF baclofen 10 mg tablet 10 mg PO TID Qty: 42 0RF ropinirole 0.5 mg tablet See Rx Instructions .ROUTE .COMPLEX Patient Comments: TAKE 1/2 TABLET BY MOUTH ONCE DAILY AT BEDTIME FOR 3 DAYS, THEN INCREASE TO 1 TABLET BY MOUTH ONCE DAILY AT BEDTIME Rx Instructions: TAKE 1/2 TABLET BY MOUTH ONCE DAILY AT BEDTIME FOR 3 DAYS, THEN INCREASE TO 1 TABLET BY MOUTH ONCE DAILY AT BEDTIME armodafinil 150 mg tablet 150 mg PO DAILY Patient Comments: TAKE 1 TABLET BY MOUTH ONCE DAILY IN THE MORNING azithromycin [Zithromax] 250 mg tablet 250 mg PO UD DOSE PK Qty: 6 0RF Rx Instructions: Take two (2) tablets today, then one (1) tablet days #2 thru #5 fluconazole 150 mg tablet 150 mg PO ONCE Qty: 1 3RF benzonatate 100 mg capsule 100 mg PO TIDP PRN (Reason: Cough) Qty: 30 0RF methylprednisolone 4 mg Tablets,Dose Pack 4 mg PO DIRECTED 6 Days Qty: 21 0RF Rx Instructions: Take 1 pack as directed for 6 days kjpxnqst-zbczioyqg-QG 3.5-10,000-1 mg/mL-unit/mL-% solution 4 drp Ear-Left Q8H 7 Days Qty: 10 0RF Referrals Follow up/Referrals: Tayler Bravo [Primary Care Provider] - See instructions Activity Restrictions/Add. Instructions Additional Instructions/Restrictions: Call in morning for x-ray results. If you have increased shortness of air go to the ER. Follow up with primary care provider on Monday. Clinical Impressions Clinical Impression: Cough present for greater than 3 weeks Instructions Patient Instructions: Cough Discharge ED Provider: Britt Stover [facility] [place] HPI General Stated complaint: Cough,tired,SOA Mode of Arrival: Ambulatory Source of Information: Patient Limitations: No Limitations Time Seen by Provider: 09/16/23 16:40 Description of Symptoms (Recalled from Triage Doc. by RN): COUGH X 1 MONTH WITH SHORTNESS OF BREATH AND FATIGUE HEENT Symptoms (Recalled from RN notes): No Resp Symptoms (Recalled from RN notes): Yes Skin Symptoms (Recalled from RN notes): No MS Symptoms (Recalled from RN notes): No Functional Status (Recalled from RN notes): WNL History of Present Illness Provider Complaint: Pt reports that she has had a cough for the last month. She was treated 20 days ago with a Z-renetta, steroids, Tessalon Perles for her symptoms. She reports that the cough has continued and she will feel SOA at times and has fatigue. Related Data Home Medications Medication Instructions Recorded Confirmed aripiprazole 10 mg tablet 10 mg PO DAILY 07/02/23 09/14/23 atorvastatin 10 mg tablet 10 mg PO DAILY 07/02/23 09/14/23 buspirone 15 mg tablet See Rx Instructions .Route .COMPLEX 07/02/23 09/14/23 diclofenac sodium 75 mg See Rx Instructions .Route .COMPLEX 07/02/23 09/14/23 tablet,delayed release ergocalciferol (vitamin D2) 1,250 See Rx Instructions .Route .COMPLEX 07/02/23 09/14/23 mcg (50,000 unit) capsule fremanezumab-vfrm 225 mg/1.5 mL See Rx Instructions .Route .COMPLEX 07/02/23 09/14/23 subcutaneous auto-injector (Ajovy) gabapentin 800 mg tablet See Rx Instructions .Route .COMPLEX 07/02/23 09/14/23 levocetirizine 5 mg tablet 5 mg PO DAILY 07/02/23 09/14/23 lisinopril 10 mg tablet 10 mg PO DAILY 07/02/23 09/14/23 potassium chloride 10 mEq 10 meq PO DAILY 07/02/23 09/14/23 capsule,extended release prazosin 2 mg capsule 2 mg PO DAILY 07/02/23 09/14/23 quetiapine 50 mg tablet 50 mg PO DAILY 07/02/23 09/14/23 sertraline 100 mg tablet 100 mg PO DAILY 07/02/23 09/14/23 tizanidine 2 mg tablet See Rx Instructions .Route .COMPLEX 07/02/23 09/14/23 tramadol 50 mg tablet See Rx Instructions .Route .COMPLEX 07/02/23 09/14/23 armodafinil 150 mg tablet 150 mg PO DAILY 08/27/23 09/14/23 ropinirole 0.5 mg tablet See Rx Instructions .Route .COMPLEX 08/27/23 09/14/23 Previous Rx's Medication Instructions Recorded tamsulosin 0.4 mg capsule 0.4 mg PO DAILY #14 caps 07/03/23 azithromycin 250 mg tablet 250 mg PO UD DOSE PK #6 tabs 08/27/23 (Zithromax) benzonatate 100 mg capsule 100 mg PO TIDP PRN Cough #30 caps 08/27/23 fluconazole 150 mg tablet 150 mg PO ONCE 1 dose #1 tab 08/27/23 methylprednisolone 4 mg tablets in 4 mg PO DIRECTED 6 days #21 tabs 08/27/23 a dose pack fnicwfgr-sdtbbncbf-utvwjehyn 3.5 4 drp Ear-Left Q8H 7 days #10 mL 08/27/23 mg/mL-10,000 unit/mL-1 % ear solution baclofen 10 mg tablet 10 mg PO TID #42 tabs 09/14/23 guaifenesin 400 mg tablet 400 mg PO QID PRN cough #60 tabs 09/16/23 Allergies Allergy/AdvReac Type Severity Reaction Status Date / Time Penicillins Allergy Verified 08/27/23 10:09 Worker's Comp Is this a Worker's Comp case?: No [facility] Disclaimer: The information contained in this section may have been updated after the patient was seen, as this information can be updated by other users. Medical History (Updated 09/16/23 @ 18:47 by Britt Stover APRN) HTN (hypertension) Vitamin D deficiency HLD (hyperlipidemia) Depression Surgical History History of right shoulder replacement History of lumbar surgery History of colonoscopy History of right hip replacement History of bilateral knee replacement History of appendectomy Family History Other Unknown family medical history Social History Smoking Status: Never smoker alcohol intake: never current occupational status: other Travel in the last 8 weeks: None ROS Obtained: Yes All systems reviewed & no additional complaints except as documented Constitutional Constitutional: Reports system reviewed and no additional complaints, except as documented, Reports fatigue and Reports malaise Eyes Eyes: Reports system reviewed and no additional complaints, except as documented ENT Ears, Nose, Mouth, and Throat: Reports system reviewed and no additional complaints, except as documented Cardiovascular Cardiovascular: Reports system reviewed and no additional complaints, except as documented Respiratory Respiratory: Reports system reviewed and no additional complaints, except as documented, Reports shortness of breath and Reports non-productive cough Gastrointestinal Gastrointestingal: Reports system reviewed and no additional complaints, except as documented Genitourinary Female Genitourinary: Reports system reviewed and no additional complaints, except as documented Musculoskeletal Musculoskeletal: Reports system reviewed and no additional complaints, except as documented Integumentary/Breasts Skin/Breast: Reports system reviewed and no additional complaints, except as documented Neurologic Neurologic: Reports system reviewed and no additional complaints, except as documented Endocrine Endocrine: Reports system reviewed and no additional complaints, except as documented and Reports fatigue Hematologic/Lymphatic Henatologic/Lymphatic: Reports system reviewed and no additional complaints, except as documented Allergic/Immunologic Allergic/Immunologic: Reports system reviewed and no additional complaints, except as documented Physical Exam General General appearance: alert and in no apparent distress Head Head exam: atraumatic and normocephalic Eye Eye exam: Present normal appearance ENT ENT exam: Present normal exam Neck Neck exam: Present normal inspection Chest Chest inspection: Present normal inspection and symmetric chest wall rise Respiratory Respiratory exam: Present normal lung sounds bilaterally Cardiovascular Cardiovascular exam: Present regular rate, normal rhythm and normal heart sounds Abdominal Exam Abdominal exam: Present soft and normal bowel sounds Extremities Exam Extremities exam: Present normal inspection Back Exam Back exam: Present normal inspection Neurological Exam Neurological exam: Present alert and oriented X3 Psychiatric Psychiatric exam: Present normal affect and normal mood Skin Skin exam: Present warm, dry and intact Lymphatic Lymphatic Findings: no adenopathy Medical Decision Making Tommy Inquiry Pt receiving controlled substance: No Tommy was queried for this patient: No Vital Signs: 09/16/23 16:09 Temperature 98.7 F Temperature Source Oral Pulse Rate [Radial] 94 H Respiratory Rate 20 Blood Pressure [Right Arm] 113/80 Blood Pressure Mean [Right Arm] 91 Blood Pressure Source [Right Arm] Automatic Cuff Blood Pressure Position [Right Arm] Sitting 02 Sat by Pulse Oximetry 98 Oxygen Delivery Method Room Air
--- NOTE | 2023-09-16 16:45 | XR_ITS ---
PROCEDURE INFORMATION: Exam: XR Chest Exam date and time: 09/16/2023 4:47 PM Age: 57 years old Clinical indication: Cough TECHNIQUE: Imaging protocol: Radiologic exam of the chest. Views: 2 views. COMPARISON: CR XR KUB 07/11/2023 4:16 PM FINDINGS: Lungs: There is mild coarsening of the bronchovascular markings with hyperinflation suggesting underlying obstructive airways disease. Calcified granuloma in the right mid lung. Pleural spaces: No large effusion or pneumothorax. Heart/Mediastinum: No evidence of mediastinal widening or cardiac silhouette enlargement; the mediastinum and heart appear within normal limits for contour and size. Bones/joints: Status post right shoulder arthroplasty. There are spinal leads. Intraperitoneal space: There are right upper quadrant surgical clips suggesting prior cholecystectomy. IMPRESSION: No dense parenchymal consolidation, pleural effusion, or pneumothorax.
[2023-09-16 18:55] VITALS: BP 117/82; PULSE 90; RESP 20; TEMP 37.1; O2SAT 100
== END 2023-09-16 18:55 | disposition home or self-care (01) ==
PROVIDERS: Emergency Provider Nurse Practitioner Family; PCP Family Medicine
DX: R05.3 Chronic cough (principal); R06.02 Shortness of breath; R53.83 Other fatigue
CPT/HCPCS: 71046; 99212; 99214; G0463

== ENCOUNTER 2023-11-10 16:07 | Outpatient (CLI) | payer BC, SELFPAY ==
[2023-11-10 16:27] LABS: Basophils # 0.1 K/mm3 (0-0.2); Basophils % 2.3 % (0.1-2.0); Eosinophils # 0.1 K/mm3 (0.0-0.4); Eosinophils % 2.5 % (0.1-12.0); Hemoglobin 13.2 g/dL (12.2-16.2); Lymphocytes # 2.1 K/mm3 (0.7-4.5); Lymphocytes % 40.6 % (10-50); Mean Corpuscular HGB Conc 32.1 g/dL (31.8-35.4); Mean Corpuscular Hemoglobin 27.8 pg (27.0-31.2); Mean Corpuscular Volume 86.5 fl (81-99); Mean Platelet Volume 8.4 fl (7.4-10.4); Monocytes # 0.2 K/mm3 (0.1-1.0); Monocytes % 4.4 % (1.7-9.3); Neutrophils # 2.6 K/mm3 (1.8-7.8); Neutrophils % 50.2 % (37.0-80.0); Platelet Count 338 K/mm3 (142-424); Red Blood Count 4.75 M/mm3 (4.20-5.40); Red Cell Distribution Width 14.5 % (11.5-17.5); White Blood Count 5.2 K/mm3 (4.8-10.8)
[2023-11-10 16:48] LABS: Anion Gap 11.1 mEq/L (5-15); Blood Urea Nitrogen 14 mg/dl (7-17); Calcium 9.2 mg/dl (8.4-10.2); Carbon Dioxide 22 mmol/L (22.0-30.0); Chloride 110 mmol/L (98-107); Estimated Glomerular Filt Rate 74 ml/min (>60); GFR (African American) 90 ML/MIN (>60); Glucose 126 mg/dl (74-100); Potassium 4.1 mmoL/L (3.5-5.1); Sodium 139 mmol/L (136-145)
== END 2023-11-10 23:59 | disposition home or self-care (01) ==
PROVIDERS: PCP Family Medicine; Visit Provider Anesthesiology
DX: Z01.818 Encounter for other preprocedural examination (principal); M96.1 Postlaminectomy syndrome, not elsewhere classified
CPT/HCPCS: 36415; 80048; 85025

== ENCOUNTER 2023-11-17 10:17 | Day surgery (SDC) | payer BC, SELFPAY ==
--- OUTSIDE RECORDS SUMMARY | 2023-11-07 16:06 | XMS_ITS | Continuity of Care Document ---
Author Organization [facility] Phone Care Team Providers Care Golf Ball Molder Name Role Phone VINAY BOWMAN Primary Attending TYESHA MUÑIZ Primary Care VINAY BOWMAN Unavailable VINAY BOWMAN Admitting ALLERGIES AND ADVERSE REACTIONS ALLERGIES AND ADVERSE REACTIONS Code System Allergy Substance Adverse Reaction Date Reaction (Severity) Comment Status Reported By [place] [id number] SNOMED CT Penicillins Rash active [id number] on October 11, 2021 2:05:47 PM [facility] [id number] RXNorm CYMBALTA Adverse reaction to substance out of body experience active [id number] on October 11, 2021 2:05:47 PM [facility] FAMILY HISTORY RELATION: Father Status: Cause of : Unknown Age at : Unknown SNOMED-CT Diagnosis Age At Onset [id number] Hypertensive disorder [id number] Hypercholesterolemia RELATION: Mother Status: LIVING SNOMED-CT Diagnosis Age At Onset [id number] Hypertensive disorder [id number] Heart disease TREATMENT PLAN DISCHARGE MEDICATIONS Status RXNORM Medication Dose Route Frequency Dates Comments U pdated By Patient discharge medication information is not available. PATIENT OPEN ORDERS Code System Description Frequency Occurrences Priority [place] [address] [facility] Spine Lumbar MRI W and WO contrast IV ONE TIME 0 Routine July 25, 2023 12:58:0 0 PM [facility] MUSIC VINAY FLEMING [id number] on July 25, 2023 1:56:00 PM [facility] SCHEDULED PROCEDURES Code System Description Status Scheduled Date Upd ated By Patient scheduled procedure information is not available. MEDICATIONS HOME MEDICATIONS Status RXNORM NDC Medication Dose Route Frequency Dates Comments Reported By Updated By Drug Treatment Unknown DISCHARGE MEDICATIONS Status RXNORM NDC Medication Dose Route Frequency Dates Comments Physician Updated By No Discharge Medication Info rmation Available INPATIENT MEDICATIONS Status RXNORM NDC Medication Dose Route Frequency Rat e Quantity Dates Comments Physician Updated By No Inpatient Medication Info rmation Available SOCIAL HISTORY SOCIAL HISTORY SNOMED-CT Social History Element Description Effective Dates Offered Cessation Comment UpdatedBy [id number] Historical Tobacco smoking status Never Smoked [id number] on October 07, 2021 5:39:34 PM [facility] SOCIAL HISTORY - Gender Sex: Female SOCIAL HISTORY - Status : status i nformation is not available Intention in Next Year: intention information is not available SOCIAL HISTORY - Sexual Behavior Sexual Orientation Gender Identity SNOMED-CT Description SNO MED -CT Description Activity Level No of Partners Partner Type UpdatedBy Information is not available HEALTH CONCERNS Problems Concern Status Health Concern problem infor mation not available. Smoking Status Status Years Used Consumed packs p er day Health Concern smoking histo ry information not available. Family History Concern Status Health Concern family histor y information not available. ENCOUNTERS ENCOUNTER INFORMATION Reason for Visit MRI Admission July 25, 2023 12:48:00 PM [place] [id number] Discharge Patient Not Discharg ed ENCOUNTER DIAGNOSES Notes information is not bea ilable. Code System Diagnosis Onset Date Diagnosis information is not available. 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 Role on Team Status Start Date End Date Update d By MARY KAY Roth DO PCP normal July 19, 2023 5:23:52 PM [facility] [id number] on July 19, 2023 5:23:52 PM [facility] COLBY FLEMING Referring normal July 19, 2023 5:23:52 PM [facility] [id number] on July 19, 2023 5:23:52 PM [facility] COLBY FLEMING Attending normal July 19, 2023 5:23:52 PM [facility] [id number] on July 19, 2023 5:23:52 PM [facility] COLBY FLEMING Admitting normal July 19, 2023 5:23:52 PM [facility] [id number] on July 19, 2023 5:23:52 PM [facility]
--- OUTSIDE RECORDS SUMMARY | 2023-11-07 16:06 | XMS_ITS | Continuity of Care Document ---
Author Organization [facility] Phone Care Team Providers Care Collections Curator Name Role Phone VINAY BOWMAN Primary Attending TYESHA MUÑIZ Primary Care VINAY BOWMAN Unavailable VINAY BOWMAN Admitting ALLERGIES AND ADVERSE REACTIONS ALLERGIES AND ADVERSE REACTIONS Code System Allergy Substance Adverse Reaction Date Reaction (Severity) Comment Status Reported By [place] [id number] SNOMED CT Penicillins Rash active [id number] on October 11, 2021 2:05:47 PM [facility] [id number] RXNorm CYMBALTA Adverse reaction to substance out of body experience active [id number] on October 11, 2021 2:05:47 PM [facility] FAMILY HISTORY RELATION: Father Status: Cause of : Unknown Age at : Unknown SNOMED-CT Diagnosis Age At Onset [id number] Hypertensive disorder [id number] Hypercholesterolemia RELATION: Mother Status: LIVING SNOMED-CT Diagnosis Age At Onset [id number] Hypertensive disorder [id number] Heart disease RESULTS Patient: GWEN Joe Date of : November [birth year] LABORATORY RESULTS Information is not available LABORATORY NARRATIVE RESULTS Information is not available RADIOLOGY RESULTS ORDER 100: MRI SPINE LUMBAR WOW (LOINC: 59533-9) ORDER DATE: July 25, 2023 12:58:00 PM [place] PERFORMING LAB: [address] [id number] Final Result Date: July 25 7:00:14 PM [place] (TECH: [id number]) [address] [address] (Phone) IMAGING REPORT Name: STACIA HIDALGO : 1965 Age: 57 Years Patient Type: Outpatient Sex: F Exam Description: MRI SPINE LUMBAR WOW Exam Reason: M54.59 LBP Order Date/Time: 07/25/2023 08:58:00 AM Dictated By: Dilip Chacko MD Ordering Physician: VINAY BOWMAN Attending Physician: VINAY BOWMAN EXAM: MRI SPINE LUMBAR WOW INDICATION: M54.59 LBP COMPARISON: Lumbar spine radiographs from May 16, 2014. TECHNIQUE: Multiplanar multisequence imaging of the lumbar spine was obtained before after intravenous administration of gadolinium based contrast agent. FINDINGS: Transitional lumbosacral anatomy. There are 6 nonrib-bearing lumbar-type vertebral bodies. The most inferior is designated as S1. Lumbosacral junction was identified by lumbosacral angle. The iliolumbar ligaments were also used to identify L5. Alignment: Unremarkable. Spinal Canal: Developmental stenosis: absent. Bone: Laminectomy at L5. Bilateral pedicle screws at L5 and S1. There is an intervertebral disc spacer at this level. There does appear to be osseous bridging trabeculae along the posterior cortex as seen on image PAGE 1 OF 3 Name: STACIA HIDALGO : 1965 Age: 57 Years Patient Type: Outpatient Sex: F Exam Description: MRI SPINE LUMBAR WOW Exam Reason: M54.59 LBP Order Date/Time: 07/25/2023 08:58:00 AM 9 of series 2. Remainder of the osseous structures are intact. Sacroiliac Joints: Incompletely visualized. Conus: Conus medullaris is normal in location terminating at L1-2. Muscles: Moderate to marked symmetrical fatty replacement of the inferior erector spinae muscles. This is a nonspecific finding. Soft Tissues: Postoperative changes in the erector spinae muscles of the lower back. Prevertebral soft tissues appear unremarkable. Postcontrast images: No abnormal enhancement is appreciated. Abdomen/Retroperitoneum: Unremarkable. T10-11: Disc desiccation. Central canal and the foramina are patent. T11-12: Disc desiccation with a subtle disc bulge. Central canal and the foramina are patent. T12-L1: Disc desiccation with a small disc bulge. Patent central canal and foramina. L1-2: Disc desiccation. Central canal and the foramina are patent. L2-3: Disc desiccation with a small disc bulge. Central canal and the foramina are patent. L3-4: Disc desiccation with a small disc bulge. Moderate ligamentum flavum hypertrophy. Central canal is patent. Mild left neural foraminal narrowing. L4-5: Disc desiccation with a small disc bulge. Moderate ligamentum flavum hypertrophy. Central canal and the foramina are patent. PAGE 2 OF 3 : 1965 Age: 57 Years Patient Type: Outpatient Sex: F Exam Description: MRI SPINE LUMBAR WOW Exam Reason: M54.59 LBP Order Date/Time: 07/25/2023 08:58:00 AM L5-S1: Posterior decompression. No recurrent disc herniation. There appears to be osseous bridging along the posterior cortex of the L5 and S1 vertebral bodies. Central canal is widely patent. Foramina are patent. Evaluation is slightly limited due to susceptibility artifact from spinal hardware. IMPRESSION: 1. Transitional lumbosacral anatomy. 2. Postoperative changes at L5-S1. 3. No significant central canal or neural foraminal narrowing. Electronically signed by: Dilip Chacko MD 07/26/2023 03:00 PM EDT [employer] In[employer] Name: Dilip Chacko Provider ID: [id number] PAGE 3 OF 3 PATHOLOGY NARRATIVE RESULTS Information is not available MICROBIOLOGY RESULTS No Micro Labs/Results Exist for Patient BLOOD ADMIN RESULTS Information is not available MEDICATIONS HOME MEDICATIONS Status RXNORM NDC Medication [...] Description Effective Dates Offered Cessation Comment UpdatedBy [id number] Historical Tobacco smoking status Never Smoked [id number] on October 07, 2021 5:39:34 PM [facility] SOCIAL HISTORY - Gender Sex: Female [...] MRI Admission July 25, 2023 12:48:00 PM [place] [id number] Discharge July 25, 2023 4:48:00 PM UTC DI SCHARGED TO HOME OR SELF CARE ENCOUNTER DIAGNOSES Notes information is not bea ilable. Code System Diagnosis Onset Date Diagnosis information is not available. 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
--- NOTE | 2023-11-17 10:30 | EXP.ANES.CKL ---
[facility] Disclaimer: The information contained in this section may have been updated after the patient was seen, as this information can be updated by other users. Medical History Migraine Multiple sclerosis HTN (hypertension) Vitamin D deficiency HLD (hyperlipidemia) Depression Surgical History Hx of cholecystectomy Hx of tonsillectomy H/O: hysterectomy History of right shoulder replacement History of lumbar surgery History of colonoscopy History of right hip replacement History of bilateral knee replacement History of appendectomy Family History Other Unknown family medical history Social History Smoking Status: Never smoker alcohol intake: never substance use type: denies use current occupational status: employed Travel in the last 8 weeks: None [facility] Anesthesia Checklist Patient Identification Patient Identification: Arm Band and Verbal (Name & ) Structural Data Admitted From: Home Planned Operative Procedure/s: Intrathecal pain pump placement Consent for Planned Operative Procedure(s) Verified: Yes Verified Documents: Surgical Consent and History and Physical NPO Status Verified Time NPO: 00:00 Additional verifications Anesthesia Reactions: No Airway Assessment Mallampati Score:: Class II C-Spine Mobility Assessed: Yes TMJ Mobility Assessed: Yes Dentition: Edentulous Neurological Assessment Level of Consciousness: Awake Hx Seizures: No Numbness or tingling in extremities: No Anesthesia Plan Anesthesia Risk discussed: Yes Anesthesia Plan: Verified ASA Class: II Anesthesia Type: MAC
[2023-11-17] MEDS: VANCOMYCIN/WATER FOR INJ (PEG) 1.5 GM/300 ML PIGGYBACK IV (10:38)
[2023-11-17] MEDS: LACTATED RINGERS 1000ML 1,000 ML 50 ML IV (10:38)
[2023-11-17 10:46] VITALS: BMI 31.8
[2023-11-17] MEDS: GENTAMICIN 80 MG/2 ML VIAL 160 MG (11:13)
[2023-11-17] MEDS: LIDOCAINE 1% W/EPI 1:100,000 20ML VIAL 40 ML (11:13)
[2023-11-17] MEDS: SODIUM CHLORIDE 0.9% 20ML VIAL 40 ML IV (11:13)
[2023-11-17 11:49] VITALS: BP 115/64; PULSE 78; RESP 18; TEMP 36.8; O2SAT 98
[2023-11-17 11:59] VITALS: BP 132/76; PULSE 72; RESP 18; O2SAT 98
[2023-11-17 12:09] VITALS: BP 122/72; PULSE 72; RESP 18; O2SAT 98
[2023-11-17 12:19] VITALS: BP 130/72; PULSE 71; RESP 18; O2SAT 98
--- NOTE | 2023-11-17 15:33 | P.OP_ITS ---
Date of procedure: 11/17/23 Pre-op Diagnosis:: Postlaminectomy syndrome lumbar spine with lumbar radiculopathy symptoms Post-op Diagnosis:: Same Procedure performed:: Permanent placement intrathecal pain pump with tunneled intrathecal catheter and pain pump generator placed Surgeon:: Chandan Rondon MD SUPPLIER QUALITY ENGINEER:: Andres De Leon Anesthesia: MAC Estimated blood loss (mL): 5 Clinical Note:: This patient is a pleasant 57-year-old white female who we are treating for low back pain with lumbar radiculopathy symptoms and postlaminectomy syndrome lumbar spine. She has failed all previous conservative treatments including injections, oral medications, physical therapy and she is not a candidate for any further surgery. She has had a successful intrathecal pump trial. She has had a successful psychological evaluation. She presents for permanent placement of intrathecal pain pump today. Operative findings:: None Operative note:: Informed consent was obtained risk and benefits of the procedure with explained to the patient. The patient was taken the operating room placed prone on the procedure table. She was prepped and draped in sterile fashion. C-arm fluoroscopy was used to view of the right flank. Beemer between the 12th rib and iliac crest the skin and subcutaneous tissues were anesthetized using lidocaine. I made an incision and created the pump generator pocket. C arm fluoroscopy was then used to view the lumbar spine at L4-L5. The skin and subcutaneous tissues were anesthetized and we made an incision and dissected down to the lumbar paraspinous fascia. A 17-gauge spinal needle was inserted and advanced into the L4-5 interspace until clear CSF was obtained. After this intrathecal catheter was inserted and advanced very easily to the T8 vertebral body. Catheter was found to be in good location. It was midline and posterior. The stylet of the catheter and the needle were withdrawn. The catheter was secured to the fascia with an anchoring device and 2-0 Prolene. I filled the pump with 20 mL of intrathecal morphine 1 mg/mL. A tunneled catheter from the back to the pump pocket and attached catheter to the pump. We are able to free withdraw clear CSF through the sideport. The pump was then placed in the pocket. This was done with an antibiotic pouch. Both incisions were then closed with 2-0 Vicryl followed by 4-0 nylon and lorena. Patient was placed in an abdominal binder and taken to recovery in stable condition. The patient tolerated the procedure well no complications. Pump was interrogated and started at 100 mcg/day of intrathecal morphine. Patient was discharged home neurologically intact with good relief of pain symptoms. Plan and disposition: Will follow-up with this patient in 1 week for wound check. Will follow-up in 2 to 3 weeks for suture and staple removal. Condition: stable Disposition: PACU Complications:: None
== END 2023-11-17 12:19 | disposition home or self-care (01) ==
PROVIDERS: PCP Family Medicine; Visit Provider Anesthesiology
PROC: (CPT 62350; principal; 2023-11-17 12:30)
DX: M96.1 Postlaminectomy syndrome, not elsewhere classified (principal); M51.16 Intervertebral disc disorders with radiculopathy, lumbar region; Z79.899 Other long term (current) drug therapy
CPT/HCPCS: 62350; 62362; 96374; C1755; C1772; J1580; J2704; J7120

== ENCOUNTER 2023-11-22 08:00 | Outpatient (POV) | payer BC, SELFPAY ==
--- NOTE | 2023-11-22 09:05 | EXP.PAIN.PRO ---
Procedure Date: 11/22/23 Time: 09:05 Anesthesiologist:: Lyndsay Siegel APRN Complications:: None Pre-procedure Diagnosis:: Degenerative disc disease of lumbar spine with lumbar radiculopathy symptoms, chronic pain syndrome Post-procedure Diagnosis:: Same Indications for Procedure:: Patient is a pleasant 58-year-old female who presents today for 1 week postop follow-up of intrathecal pain pump implant on 11/17/2023. She does rate her pain today a 2 out of 10. She states overall she is doing remarkably well and the back pain however she feels like most of her pain today is incisional. Patient did have a blister that popped up at some point and she saw him when she took her dressing off yesterday. Patient is currently managed with morphine 1 mg/mL with a daily dose of 0.0999 mg/day. She denies any side effects from this medication. Patient does have a Christina stimulator in place however is not getting good coverage with this. Patient is prescribed gabapentin and diazepam from outside providers. Her Tommy has been reviewed and is appropriate. Physical Exam: General: Alert and oriented x3, no acute distress, pleasant and cooperative Lungs: Respirations even and unlabored, symmetrical chest expansion Eyes: PERRL Musculoskeletal: Flexion and extension of lumbar [spine] somewhat guarded secondary to pain, [antalgic gait noted] Neurological: Speech clear, no gross sensory deficit Skin: Incision sites are clean, dry, well-approximated with minimal erythema noted, presence of a blister down below her midline incision Procedure Details:: Informed consent was obtained and the risk and benefits of the procedure were explained to the patient. Patient was taken to the procedure room where noninvasive monitoring was placed including noninvasive blood pressure cuff and pulse oximeter. Patient's pump was interrogated and was reprogrammed to morphine 0.1099 mg/day. The patient tolerated the procedure well with no complications. Plan and Disposition:: Patient tolerated her intrathecal increase with no complications and was discharged neurologically intact. I did discuss with the patient that we will have her come back in in 2 weeks for suture and staple removal. Patient was counseled to continue her postop restrictions the full 6 weeks. Patient will return to clinic in 2 weeks for reevaluation of symptoms and plan of care. We will see the patient back in the clinic at the next intrathecal refill. Patient has been instructed to contact the clinic with any concerns before the next appointment. Dr. Rondon has reviewed this note and agrees with this plan of care. This note was dictated using voice recognition software and make contain errors or omissions. -- It Is medically necessary for this patient to continue to have their intrathecal pump refilled at regular intervals. This patient had an intrathecal pain pump implanted after meeting criteria of chronic intractable pain for greater than 3 months and failing conservative treatments. Patient has committed and been compliant to the treatment plan and all planned follow up care. Since implantation of the intrathecal pain pump, the patient has had decreased pain and been more functional. Oral medications have been reduced including intake of oral opioids. Patient continues to do well with intrathecal therapy with decrease in pain symptoms and increase in functional status. Stopping intrathecal medications can lead to life threatening withdrawal, seizures, cardiac arrest, severe pain, and possible . Pumps that are not refilled at regular intervals can be damages and cause and need for replacement. We continually titrate dose and concentration to optimize pain relief and function. We are limited in concentration for certain drugs to safely deliver medications through the pump and stay within the recommendations from the Polyanalgesic Consensus Committee Guidelines. Depending on dose and concentration these pumps may need to be refilled sooner than 3 months as we titrate.
[2023-11-22 09:08] VITALS: BP 133/80; PULSE 70; RESP 18; O2SAT 98; BMI 32.0
== END 2023-11-22 23:59 | disposition home or self-care (01) ==
PROVIDERS: PCP Family Medicine; Visit Provider Nurse Practitioner Family
DX: M51.36 Other intervertebral disc degeneration, lumbar region (principal); G89.4 Chronic pain syndrome
CPT/HCPCS: 62368; 99213; G0463

== ENCOUNTER 2023-12-11 08:49 | Outpatient (POV) | payer BC, SELFPAY ==
[2023-12-11 09:17] VITALS: BP 107/75; PULSE 86; RESP 16; O2SAT 96; BMI 31.6
--- NOTE | 2023-12-11 09:46 | EXP.PAIN.PRO ---
Procedure Date: 12/11/23 Time: : Anesthesiologist:: Lyndsay Siegel APRN Complications:: None Pre-procedure Diagnosis:: Degenerative disc disease of lumbar spine with lumbar radiculopathy symptoms, chronic pain syndrome Post-procedure Diagnosis:: Same Indications for Procedure:: Patient is a pleasant 58-year-old female who presents today for follow-up. Today she rates her pain a 2 out of 10. Patient denies any new trauma or injury. She states she is still doing well for her pump implant and feels like the medicine is helping. Patient is currently managed with morphine 1 mg/mL with a daily dose of 0.1099 mg/day. She denies any side effects from this medication. Patient does also mention that she still has her nonfunctioning Christina stimulator in place and is interested about seeing about having it removed. Patient states that she is really never gotten good coverage with this device or company. Patient is managed with gabapentin and diazepam from outside providers. Her Tommy has been reviewed and is appropriate. Physical Exam: General: Alert and oriented x3, no acute distress, pleasant and cooperative Lungs: Respirations even and unlabored, symmetrical chest expansion Eyes: PERRL Musculoskeletal: Flexion and extension of lumbar [spine] somewhat guarded secondary to pain, [antalgic gait noted] Neurological: Speech clear, no gross sensory deficit Hand: Incisions are clean, dry, well-approximated with minimal erythema noted on the lateral incision, sutures and lorena intact Procedure Details:: Informed consent was obtained and the risk and benefits of the procedure were explained to the patient. Patient was taken to the procedure room where noninvasive monitoring was placed including noninvasive blood pressure cuff and pulse oximeter. Patient's pump was interrogated and was reprogrammed to morphine 0.1208 mg/day. The patient tolerated the procedure well with no complications. Plan and Disposition:: Patient was able to have most of her sutures and lorena removed at today's visit however we did have to keep in about 5 of the lorena. Patient has had a previous reaction to Steri-Strips causing blisters so we are not planning on using these. She was counseled to continue her postop restrictions the full 6 weeks. She acknowledges understanding. I did go over with her the risk and benefits of having her stimulator explanted and she would like to proceed forward with this. I have counseled the patient that since it is nonfunctioning we will plan on removing it however we will also make sure that she is completely healed from the pump implant before we give her an actual surgery date. Patient agrees with this. Patient tolerated her intrathecal increase with no complications and was discharged neurologically intact. Patient has been instructed to contact the clinic with any concerns before the next appointment. Dr. Rondon has reviewed this note and agrees with this plan of care. This note was dictated using voice recognition software and make contain errors or omissions. All injections are used with Lidocaine or Bupivacaine and Depo Medrol.
== END 2023-12-11 23:59 | disposition home or self-care (01) ==
PROVIDERS: PCP Family Medicine; Visit Provider Nurse Practitioner Family
DX: M51.16 Intervertebral disc disorders with radiculopathy, lumbar region (principal); G89.4 Chronic pain syndrome
CPT/HCPCS: 62368; 99213; G0463

== ENCOUNTER 2023-12-20 11:08 | Outpatient (POV) | payer BC, SELFPAY ==
[2023-12-20 11:13] VITALS: BP 122/76; PULSE 103; RESP 16; O2SAT 95; BMI 31.1
--- NOTE | 2023-12-20 11:31 | EXP.PAIN.SOA ---
[facility] Disclaimer: The information contained in this section may have been updated after the patient was seen, as this information can be updated by other users. Medical History Migraine Multiple sclerosis HTN (hypertension) Vitamin D deficiency HLD (hyperlipidemia) Depression Surgical History Hx of cholecystectomy Hx of tonsillectomy H/O: hysterectomy History of right shoulder replacement History of lumbar surgery History of colonoscopy History of right hip replacement History of bilateral knee replacement History of appendectomy Family History Other Unknown family medical history Social History Smoking Status: Never smoker alcohol intake: never substance use type: denies use current occupational status: other Travel in the last 8 weeks: None PM Subjective & Objective Subjective Subjective:: Patient is a pleasant 58-year-old female who presents today to remove the remainder of her lorena. Today she rates her pain a 1 out of 10. Patient does state that at her last visit the increase we did and her pump did seem to improve her overall back pain. She denies any side effects from it. Patient is currently managed with morphine 1 mg/mL with a daily dose of 0.0999 mg/day. She denies any new changes. Patient does state today for clarification that it was not the Steri-Strips that she had a reaction to but skin glue in the past. Her Tommy has been reviewed and is appropriate. Review of Systems: General: No recent weight changes, no fever, no sleep disturbances Respiratory: No cough, no shortness of air, no recurring pulmonary infections Cardiovascular/peripheral vascular: No chest pain, no palpitations, no edema, no shortness of breath Gastrointestinal: No new onset incontinence, normal bowel movements reported Genitourinary: No new onset incontinence Musculoskeletal: Low back pain Psychiatric: [Normal mood/affect] Neurological: [Denies weakness in extremities], [denies balance issues] Pain at rest (0-10 scale): 1 Objective Objective:: Physical Exam: General: Alert and oriented x3, no acute distress, pleasant and cooperative Lungs: Respirations even and unlabored, symmetrical chest expansion Eyes: PERRL Musculoskeletal: Flexion and extension of lumbar [spine] somewhat guarded secondary to pain, [antalgic gait noted] Neurological: Speech clear, no gross sensory deficit Skin: Incision sites are clean, dry, well-approximated with only mild erythema and [address] Has patient had previous pain injection?: No Conservative treatment options previously tried: Home exercise plan Length of treatment: Longer than 6 weeks Meds Home Medications and Allergies Home Medications ?Medication ?Instructions ?Recorded ?Confirmed ?Type aripiprazole 10 mg tablet 10 mg PO DAILY 07/02/23 12/20/23 History atorvastatin 10 mg tablet 10 mg PO DAILY 07/02/23 12/20/23 History buspirone 15 mg tablet 15 mg PO BID 07/02/23 12/20/23 History fremanezumab-vfrm 225 mg/1.5 mL See Rx Instructions .Route .COMPLEX 07/02/23 12/20/23 History subcutaneous auto-injector (Ajovy) gabapentin 800 mg tablet See Rx Instructions .Route .COMPLEX 07/02/23 12/20/23 History levocetirizine 5 mg tablet 5 mg PO DAILY 07/02/23 12/20/23 History potassium chloride 10 mEq 10 meq PO DAILY 07/02/23 12/20/23 History capsule,extended release prazosin 2 mg capsule 2 mg PO DAILY 07/02/23 12/20/23 History sertraline 100 mg tablet 150 mg PO DAILY 07/02/23 12/20/23 History tizanidine 2 mg tablet See Rx Instructions .Route .COMPLEX 07/02/23 12/20/23 History armodafinil 150 mg tablet 150 mg PO DAILY 08/27/23 12/20/23 History ofatumumab 20 mg/0.4 mL 20 mg SQ MONTHLY 11/16/23 12/20/23 History subcutaneous pen injector (Kesimpta Pen) morphine (PF) 1 mg/mL injection 1 mg intrathecal CONT Pain 11/22/23 12/20/23 History solution methylphenidate HCl 5 mg tablet 5 mg PO BID 12/11/23 12/20/23 History New Prescriptions to Start Prescriptions: Allergies Allergy/AdvReac Type Severity Reaction Status Date / Time duloxetine [From Cymbalta] Allergy Verified 11/17/23 10:29 Penicillins Allergy Verified 11/17/23 10:29 Assessment and Plan *Assessment and plan (1) Degenerative disc disease, lumbar: Status: Acute Category: Medical Code(s): M51.36 - Other intervertebral disc degeneration, lumbar region Plan Patient's incisions are doing well. We were able to remove the remaining lorena and I did go over the patient again that the reaction was previously to skin glue and not Steri-Strips. Patient did state this was correct. Patient did only have Steri-Strips applied around her lateral incision. Patient was counseled to continue her postop restrictions the full 6 weeks. Patient will return to clinic in 1 month for reevaluation of symptoms and plan of care. Patient has been instructed to contact the clinic with any concerns before the next appointment. Dr. Rondon has reviewed this note and agrees with this plan of care. This note was dictated using voice recognition software and make contain errors or omissions. All injections are used with Lidocaine or Bupivacaine and Depo Medrol.
== END 2023-12-20 23:59 | disposition home or self-care (01) ==
LOC: SC.PAIN 11:09
PROVIDERS: PCP Family Medicine; Visit Provider Nurse Practitioner Family
DX: M51.36 Other intervertebral disc degeneration, lumbar region (principal); Z96.611 Presence of right artificial shoulder joint; Z96.641 Presence of right artificial hip joint; Z96.653 Presence of artificial knee joint, bilateral
CPT/HCPCS: 99213; G0463

== ENCOUNTER 2024-01-17 10:37 | Outpatient (POV) | payer BC, SELFPAY ==
--- NOTE | 2024-01-17 11:25 | P.PCN_ITS ---
Procedure Date: 01/17/24 Time: 11:25 Anesthesiologist:: Lyndsay Siegel APRN Complications:: None Pre-procedure Diagnosis:: Degenerative disc disease of lumbar spine with lumbar radiculopathy symptoms Post-procedure Diagnosis:: Same Indications for Procedure:: Patient is a pleasant 58-year-old female who presents todayFor follow-up and intrathecal adjustment and reprogram. Today she rates her pain a any new injury however she does state that she was diagnosed with a blood clot in her left leg recently. Patient states she is now on blood thinner. Patient does have a nonfunctioning spinal cord stimulator in place that she would like to have removed. She does also have her intrathecal pain pump and that is working well however she is requesting an increase. She is currently managed with morphine 1 mg/mL with a daily dose of 0.1 to 08 mg/day. She denies any side effects from this medication. Her Tommy has been reviewed and is appropriate. Physical Exam: General: Alert and oriented x3, no acute distress, pleasant and cooperative Lungs: Respirations even and unlabored, symmetrical chest expansion Eyes: PERRL Musculoskeletal: Flexion and extension of lumbar [spine] somewhat guarded secondary to pain, [antalgic gait noted] Neurological: Speech clear, no gross sensory deficit Procedure Details:: Informed consent was obtained and the risk and benefits of the procedure were explained to the patient. Patient was taken to the procedure room where noninvasive monitoring was placed including noninvasive blood pressure cuff and pulse oximeter. Patient's pump was interrogated and was reprogrammed to morphine 0.1329 mg/day. The patient tolerated the procedure well with no complications. Plan and Disposition:: Patient tolerated her intrathecal increase with no complications and was discharged neurologically intact. I did discuss with the patient unfortunately due to the recent blood clot she would not be able to come off her blood thinners for 3 months and that we will have to wait until this timeframe to remove her spinal cord stimulator. Patient is scheduled for her pump refill in February. I did discuss with the patient that we will discuss how everything is progressing at this visit and then proceed forward from there. Patient agrees with this plan of care. We will see the patient back in the clinic at the next intrathecal refill. Patient has been instructed to contact the clinic with any concerns before the next appointment. Dr. Rondon has reviewed this note and agrees with this plan of care. This note was dictated using voice recognition software and make contain errors or omissions. -- It Is medically necessary for this patient to continue to have their intrathecal pump refilled at regular intervals. This patient had an intrathecal pain pump implanted after meeting criteria of chronic intractable pain for greater than 3 months and failing conservative treatments. Patient has committed and been compliant to the treatment plan and all planned follow up care. Since implantation of the intrathecal pain pump, the patient has had decreased pain and been more functional. Oral medications have been reduced including intake of oral opioids. Patient continues to do well with intrathecal therapy with decrease in pain symptoms and increase in functional status. Stopping intrathecal medications can lead to life threatening withdrawal, seizures, cardiac arrest, severe pain, and possible . Pumps that are not refilled at regular intervals can be damages and cause and need for replacement. We continually titrate dose and concentration to optimize pain relief and function. We are limited in concentration for certain drugs to safely deliver medications through the pump and stay within the recommendations from the Polyanalgesic Cons ensus Committee Guidelines. Depending on dose and concentration these pumps may need to be refilled sooner than 3 months as we titrate.
[2024-01-17 11:42] VITALS: BP 119/71; PULSE 94; RESP 18; O2SAT 95; BMI 31.1
== END 2024-01-17 23:59 | disposition home or self-care (01) ==
PROVIDERS: PCP Family Medicine; Visit Provider Nurse Practitioner Family
DX: M51.16 Intervertebral disc disorders with radiculopathy, lumbar region (principal)
CPT/HCPCS: 62368; 99212; 99213; G0463

== ENCOUNTER 2024-03-01 10:10 | Day surgery (SDC) | payer BC, SELFPAY ==
[2024-03-01 10:33] VITALS: BP 113/66; PULSE 111; RESP 18; TEMP 36.8; O2SAT 98; BMI 29.6
[2024-03-01 10:44] VITALS: BP 96/63; PULSE 118; RESP 18; O2SAT 96
[2024-03-01 10:46] VITALS: BP 96/63; PULSE 118; RESP 18; O2SAT 96
--- NOTE | 2024-03-01 10:53 | EXP.PAIN.PRO ---
Procedure Date: 03/01/24 Time: 10:53 Anesthesiologist:: Lyndsay Siegel APRN Complications:: None Pre-procedure Diagnosis:: Degenerative disc disease of lumbar spine with lumbar radiculopathy symptoms Post-procedure Diagnosis:: Same Indications for Procedure:: Patient is a pleasant 58-year-old female who presents today for intrathecal refill and reprogram. Today she does rate her pain a 2 out of 10. Patient does state from our last visit she did end up having an injury to her left thumb where she did fracture it and does present today with cast in place. Patient denies any other changes. Patient is currently managed with morphine 1 mg/mL with a daily dose of 0.1329 mg/day. She denies any side effects from this medication however she is requesting if we can go up on the medication. Patient did recently get diagnosed with a blood clot and is on blood thinner and until she is able to stop this medication we are waiting currently to remove her nonfunctioning spinal cord stimulator. Her Tommy has been reviewed and is appropriate. Physical Exam: General: Alert and oriented x3, no acute distress, pleasant and cooperative Lungs: Respirations even and unlabored, symmetrical chest expansion Eyes: PERRL Musculoskeletal: Flexion and extension of lumbar [spine] somewhat guarded secondary to pain, [antalgic gait noted] Neurological: Speech clear, no gross sensory deficit Procedure Details:: Informed consent was obtained and the risk and benefits of the procedure were explained to the patient. The patient had noninvasive monitoring placed including noninvasive blood pressure cuff and pulse oximeter. Patient's pump was interrogated. The area over the pump was cleansed with chlorhexidine as a cleansing solution. In sterile fashion the pump was accessed with a 22-gauge needle. Approximately 6 mls of the pump solution was removed and discarded appropriately. The pump was then refilled with 20 mL's of morphine 1 mg/mL. The needle was withdrawn and a bandage was placed over the puncture site. The infusion rate was reprogrammed and morphine 0.1528 mg/day. The patient tolerated well with no complication. Plan and Disposition:: Patient tolerated her intrathecal refill and increase with no complications and was discharged neurologically intact. Patient will return to clinic on or before her next intrathecal refill date of June 22, 2024. Patient agrees with this plan of care. We will see the patient back in the clinic at the next intrathecal refill. Patient has been instructed to contact the clinic with any concerns before the next appointment. Dr. Rondon has reviewed this note and agrees with this plan of care. This note was dictated using voice recognition software and make contain errors or omissions. -- It Is medically necessary for this patient to continue to have their intrathecal pump refilled at regular intervals. This patient had an intrathecal pain pump implanted after meeting criteria of chronic intractable pain for greater than 3 months and failing conservative treatments. Patient has committed and been compliant to the treatment plan and all planned follow up care. Since implantation of the intrathecal pain pump, the patient has had decreased pain and been more functional. Oral medications have been reduced including intake of oral opioids. Patient continues to do well with intrathecal therapy with decrease in pain symptoms and increase in functional status. Stopping intrathecal medications can lead to life threatening withdrawal, seizures, cardiac arrest, severe pain, and possible . Pumps that are not refilled at regular intervals can be damages and cause and need for replacement. We continually titrate dose and concentration to optimize pain relief and function. We are limited in concentration for certain drugs to safely deliver medications through the pump and stay within the recommendations from the Polyanalgesic Consensus Committee Guidelines. Depending on dose and concentration these pumps may need to be refilled sooner than 3 months as we titrate.
[2024-03-01 10:56] VITALS: BP 110/66; PULSE 92; RESP 16; O2SAT 94
== END 2024-03-01 10:56 | disposition home or self-care (01) ==
PROVIDERS: PCP Family Medicine; Visit Provider Nurse Practitioner Family
DX: M51.16 Intervertebral disc disorders with radiculopathy, lumbar region (principal)
CPT/HCPCS: 62370

== ENCOUNTER 2024-04-10 12:28 | Outpatient (POV) | payer BC, SELFPAY ==
[2024-04-10 13:28] VITALS: BP 139/77; PULSE 74; RESP 14; O2SAT 99; BMI 28.1
--- NOTE | 2024-04-10 13:37 | P.PCN_ITS ---
Procedure Date: 04/10/24 Time: 13:37 Anesthesiologist:: Lyndsay Siegel APRN Complications:: None Pre-procedure Diagnosis:: Degenerative disc disease of lumbar spine with lumbar radiculopathy symptoms Post-procedure Diagnosis:: Same Indications for Procedure:: Patient is a pleasant 58-year-old female who presents today for intrathecal adjustments and reprogram. Patient rates her pain today a 5 out of 10. She denies any new trauma or injury. She does state that she just feels like she h as a lot more pain in the morning across her low back. She states when she gets up and starts moving around the pain does get better however she is unsure if there is anything specific going on. She does state the pump does an exceptional job overall. She is currently managed with morphine 1 mg/mL with a daily dose of 0.15 to 8 mg/day. She denies any side effects from this medication. Patient does have a nonfunctioning spinal cord stimulator in place that we are waiting to remove once she is able to come off her blood thinner due to a recent blood clot. Her Tommy has been reviewed and is appropriate. Physical Exam: General: Alert and oriented x3, no acute distress, pleasant and cooperative Lungs: Respirations even and unlabored, symmetrical chest expansion Eyes: PERRL Musculoskeletal: Flexion and extension of lumbar [spine] somewhat guarded secondary to pain, [antalgic gait noted] Neurological: Speech clear, no gross sensory deficit Procedure Details:: Informed consent was obtained and the risk and benefits of the procedure were explained to the patient. Patient did have noninvasive monitoring was placed including noninvasive blood pressure cuff and pulse oximeter. Patient's pump was interrogated and was reprogrammed to morphine 0.1683 mg/day. The patient tolerated the procedure well with no complications. Plan and Disposition:: Patient tolerated her intrathecal increase with no complications and was discharged neurologically intact. I did discuss with the patient that I will make sure she has refills on her compounded cream as well as send in a prescription of lidocaine patches 5%. Patient was counseled to make sure her insurance covers these patches and that the cost is minimal before picking these up. She was counseled if they end up being more expensive she can call our office back and I will send a prescription in for the 4% lidocaine patches in place of them. Patient agrees with this plan of care. We did also set her up with her PTM device with 10% overall of her daily dosage and up to 4/day. Patient is already scheduled for her intrathecal refill coming up in May. She was counseled if she needs a sooner that she can call us and make an appointment between now and then. We will see the patient back in the clinic at the next intrathecal refill. Patient has been instructed to contact the clinic with any concerns before the next appointment. Dr. Rondon has reviewed this note and agrees with this plan of care. This note was dictated using voice recognition software and make contain errors or omissions. -- It Is medically necessary for this patient to continue to have their intrathecal pump refilled at regular intervals. This patient had an intrathecal pain pump implanted after meeting criteria of chronic intractable pain for greater than 3 months and failing conservative treatments. Patient has committed and been compliant to the treatment plan and all planned follow up care. Since implantation of the intrathecal pain pump, the patient has had decreased pain and been more functional. Oral medications have been reduced including intake of oral opioids. Patient continues to do well with intrathecal therapy with decrease in pain symptoms and increase in functional status. Stopping intrathecal medications can lead to life threatening withdrawal, seizures, cardiac arrest, severe pain, and possible . Pumps that are not refilled at regular intervals can be damages and cause and need for replacement. We continually titrate dose and concentration to optimize pain relief and function. We are limited in concentration for certain drugs to safely deliver medications through the pump and stay within the recommendations from the Polyanalges[employer] Consensus Committee Guidelines. Depending on dose and concentration these pumps may need to be refilled sooner than 3 months as we titrate. A UDS is needed to verify patient's compliance with our office pain contract. This is ordered based off specific treatments related to chronic pain with the potential to abuse certain medications.
== END 2024-04-10 23:59 | disposition home or self-care (01) ==
PROVIDERS: PCP Family Medicine; Visit Provider Nurse Practitioner Family
DX: M51.16 Intervertebral disc disorders with radiculopathy, lumbar region (principal)
CPT/HCPCS: 62368; 99212; 99213; G0463

== ENCOUNTER 2024-05-17 09:36 | Day surgery (SDC) | payer BC, MEDICARE, SELFPAY ==
[2024-05-17 09:51] VITALS: BP 122/75; PULSE 97; RESP 16; TEMP 36.9; O2SAT 96; BMI 28.3
--- NOTE | 2024-05-17 10:09 | EXP.PAIN.PRO ---
Procedure Date: 05/17/24 Time: 10:15 Anesthesiologist:: Lyndsay Siegel APRN Complications:: None Pre-procedure Diagnosis:: Degenerative disc disease of lumbar spine with lumbar radiculopathy symptoms Post-procedure Diagnosis:: Same Indications for Procedure:: Patient is a pleasant 58-year-old female who presents today for intrathecal refill and reprogram. Today she rates her pain a 3out of 10. She denies any new injuries or falls. Patient is currently managed with morphine 1 mg/mL with a daily dose of 0.1683 mg/day. She denies any side effects from this medication. She is prescribed compounded cream from our office. She denies any side effects. Her Tommy has been reviewed and is appropriate. Physical Exam: General: Alert and oriented x3, no acute distress, pleasant and cooperative Lungs: Respirations even and unlabored, symmetrical chest expansion Eyes: PERRL Musculoskeletal: Flexion and extension of lumbar [spine] somewhat guarded secondary to pain, [antalgic gait noted] Neurological: Speech clear, no gross sensory deficit Procedure Details:: Informed consent was obtained and the risk and benefits of the procedure were explained to the patient. The patient had noninvasive monitoring placed including noninvasive blood pressure cuff and pulse oximeter. Patient's pump was interrogated. The area over the pump was cleansed with chlorhexidine as a cleansing solution. In sterile fashion the pump was accessed with a 22-gauge needle. Approximately 6.6 mls of the pump solution was removed and discarded appropriately. The pump was then refilled with 20 mL's of morphine 1 mg/mL. The needle was withdrawn and a bandage was placed over the puncture site. The infusion rate was reprogrammed and continued at its current dosage. The patient tolerated well with no complication. Plan and Disposition:: Patient tolerated the procedure well with no complications and was discharged neurologically intact. Patient will return to clinic on or before their next intrathecal refill date. We will see the patient back in the clinic at the next intrathecal refill. Patient has been instructed to contact the clinic with any concerns before the next appointment. Dr. Rondon has reviewed this note and agrees with this plan of care. This note was dictated using voice recognition software and make contain errors or omissions. -- It Is medically necessary for this patient to continue to have their intrathecal pump refilled at regular intervals. This patient had an intrathecal pain pump implanted after meeting criteria of chronic intractable pain for greater than 3 months and failing conservative treatments. Patient has committed and been compliant to the treatment plan and all planned follow up care. Since implantation of the intrathecal pain pump, the patient has had decreased pain and been more functional. Oral medications have been reduced including intake of oral opioids. Patient continues to do well with intrathecal therapy with decrease in pain symptoms and increase in functional status. Stopping intrathecal medications can lead to life threatening withdrawal, seizures, cardiac arrest, severe pain, and possible . Pumps that are not refilled at regular intervals can be damages and cause and need for replacement. We continually titrate dose and concentration to optimize pain relief and function. We are limited in concentration for certain drugs to safely deliver medications through the pump and stay within the recommendations from the Polyanalges[employer] Consensus Committee Guidelines. Depending on dose and concentration these pumps may need to be refilled sooner than 3 months as we titrate. A UDS is needed to verify patient's compliance with our office pain contract. This is ordered based off specific treatments related to chronic pain with the potential to abuse certain medications.
[2024-05-17 10:12] VITALS: BP 131/85; PULSE 85; RESP 18; O2SAT 100
[2024-05-17 10:13] VITALS: BP 131/85; PULSE 80; RESP 18; O2SAT 100
[2024-05-17 10:48] VITALS: BP 113/71; PULSE 77; RESP 16; O2SAT 99
== END 2024-05-17 10:48 | disposition home or self-care (01) ==
PROVIDERS: PCP Family Medicine; Visit Provider Nurse Practitioner Family
DX: M51.16 Intervertebral disc disorders with radiculopathy, lumbar region (principal)
CPT/HCPCS: 62370

== ENCOUNTER 2024-07-19 08:27 | Day surgery (SDC) | payer BC, OTHER, SELFPAY ==
[2024-07-19 08:41] VITALS: BP 113/74; PULSE 84; RESP 16; TEMP 36.6; O2SAT 97; BMI 28.7
[2024-07-19 08:45] VITALS: BP 125/75; PULSE 84; RESP 18; O2SAT 97
[2024-07-19 08:47] VITALS: BP 125/75; PULSE 84; RESP 18; O2SAT 97
--- NOTE | 2024-07-19 08:56 | P.HP_ITS ---
History of Present Illness *Admission Date: 07/19/24 *Reason for visit:: Intrathecal refill; degenerative disc disease *History of present illness: Degenerative disc disease [facility] Disclaimer: The information contained in this section may have been updated after the patient was seen, as this information can be updated by other users. Medical History Migraine Multiple sclerosis HTN (hypertension) Vitamin D deficiency HLD (hyperlipidemia) Depression Surgical History Hx of cholecystectomy Hx of tonsillectomy H/O: hysterectomy History of right shoulder replacement History of lumbar surgery History of colonoscopy History of right hip replacement History of bilateral knee replacement History of appendectomy Family History Other Unknown family medical history Social History Smoking Status: Never smoker alcohol intake: never substance use type: denies use current occupational status: other Travel in the last 8 weeks: None Other Medical History Have you received the Flu Vaccine for this season: No Have you received the Pneumonia Vaccine: No Review of Systems Review of Systems Review of systems:: pertinent systems reviewed and negative unless documented below Review of systems (narrative): Review of Systems: General: No recent weight changes, no fever, no sleep disturbances Respiratory: No cough, no shortness of air, no recurring pulmonary infections Cardiovascular/peripheral vascular: No chest pain, no palpitations, no edema, no shortness of breath Gastrointestinal: No new onset incontinence, normal bowel movements reported Genitourinary: No new onset incontinence Musculoskeletal: Low back pain Psychiatric: [Normal mood/affect] Neurological: [Denies weakness in extremities], [denies balance issues] Meds Home Medications and Allergies Home Medications ?Medication ?Instructions ?Recorded ?Confirmed ?Type aripiprazole 10 mg tablet 10 mg PO DAILY 07/02/23 07/19/24 History atorvastatin 10 mg tablet 10 mg PO DAILY 07/02/23 07/19/24 History buspirone 15 mg tablet 15 mg PO BID 07/02/23 07/19/24 History fremanezumab-vfrm 225 mg/1.5 mL See Rx Instructions .Route .COMPLEX 07/02/23 07/19/24 History subcutaneous auto-injector (Ajovy) gabapentin 800 mg tablet See Rx Instructions .Route .COMPLEX 07/02/23 07/19/24 History levocetirizine 5 mg tablet 5 mg PO DAILY 07/02/23 07/19/24 History potassium chloride 10 mEq 10 meq PO DAILY 07/02/23 07/19/24 History capsule,extended release prazosin 2 mg capsule 2 mg PO DAILY 07/02/23 07/19/24 History sertraline 100 mg tablet 150 mg PO DAILY 07/02/23 07/19/24 History tizanidine 2 mg tablet See Rx Instructions .Route .COMPLEX 07/02/23 07/19/24 History armodafinil 150 mg tablet 150 mg PO DAILY 08/27/23 07/19/24 History ofatumumab 20 mg/0.4 mL 20 mg SQ MONTHLY 11/16/23 07/19/24 History subcutaneous pen injector (Kesimpta Pen) morphine (PF) 1 mg/mL injection 1 mg intrathecal CONT Pain 11/22/23 07/19/24 History solution methylphenidate HCl 5 mg tablet 5 mg PO BID 12/11/23 07/19/24 History furosemide 20 mg tablet (Lasix) 20 mg PO DAILY 01/17/24 07/19/24 History potassium chloride 10 mEq 10 meq PO DAILY 01/17/24 07/19/24 History tablet,extended release (Klor-Con) rivaroxaban 15 mg tablet (Xarelto) 15 mg PO DAILY 01/17/24 07/19/24 History lidocaine 5 % topical patch 1 patch topical DAILY #30 ea 04/10/24 07/19/24 Rx New Prescriptions to Start Prescriptions: Allergies Allergy/AdvReac Type Severity Reaction Status Date / Time duloxetine (From Cymbalta) Allergy Unknown Verified 05/17/24 09:50 allergy reaction Penicillins Allergy Unknown Verified 05/17/24 09:50 allergy reaction Exam Data for Last 24 hours Vital signs and Labs for Last 24 Hours: Temp Pulse Resp BP Pulse Ox O2 Del Method 97.9 F 84 18 125/75 97 Room Air 07/19/24 08:41 07/19/24 08:47 07/19/24 08:47 07/19/24 08:47 07/19/24 08:47 07/19/24 08:47 I & O for Last 24 hours: Intake & Output 07/16/24 07/17/24 07/18/24 07/19/24 23:59 23:59 23:59 23:59 Weight 157 lb Constitutional Constitutional: no acute distress *Routine HEENT Exam Head: Present normocephalic Eye: Present PERRL and normal accommodation ENT: Present mucous membranes moist *Routine Respiratory Exam Respiratory: Present CTA bilaterally *Routine Cardiovascular Exam Cardiovascular: Present RRR *Routine Abdominal Exam Abdominal: Present soft *Routine Rectal Exam Rectal:: deferred *Routine Genitalia Exam Genitalia:: normal female Detailed Upper Extremity Exam Shoulder/Upper Arm: bilateral: normal inspection Detailed Lower Extremity Exam Hip: bilateral: normal inspection Detailed Neurological Exam Brainstem reflexes: present: corneal reflex, present: gag reflex and present: oculocephalic reflex Assessment and Plan *Assessment and plan (1) Degenerative disc disease, lumbar: Status: Acute Category: Medical Code(s): M51.369 - Other intervertebral disc degeneration, lumbar region without mention of lumbar back pain or lower extremity pain Plan Patient has been instructed to contact the clinic with any concerns before the next appointment. Dr. Rondon has reviewed this note and agrees with this plan of care. This note was dictated using voice recognition software and make contain errors or omissions. All injections are used with Lidocaine, Bupivacaine and dexamethasone. Occasionally urine drug screen is needed to verify patient's compliance with our office pain contract. This is ordered based off specific treatments related to chronic pain with the potential to abuse certain medications.
[2024-07-19 09:01] VITALS: BP 104/63; PULSE 83; RESP 16; O2SAT 96
--- NOTE | 2024-07-19 09:01 | EXP.PAIN.PRO ---
Procedure Date: 07/19/24 Time: 09:01 Anesthesiologist:: Lyndsay Siegel APRN Complications:: None Pre-procedure Diagnosis:: Degenerative disc disease of lumbar spine with lumbar radiculopathy symptoms Post-procedure Diagnosis:: same Indications for Procedure:: Patient is a pleasant 58-year-old female who presents today for intrathecal refill and reprogram. Today she rates her pain a 5 out of 10. Patient denies any new injuries or falls. Patient is currently managed with morphine 1 mg/mL with a daily dose of 0.1683 mg/day. She denies any side effects. She is also managed with compounded cream. Her Tommy has been reviewed and is appropriate. Patient is requesting an intrathecal increase today. Physical Exam: General: Alert and oriented x3, no acute distress, pleasant and cooperative Lungs: Respirations even and unlabored, symmetrical chest expansion Eyes: PERRL Musculoskeletal: Flexion and extension of lumbar [spine] somewhat guarded secondary to pain, [antalgic gait noted] Neurological: Speech clear, no gross sensory deficit Procedure Details:: Informed consent was obtained and the risk and benefits of the procedure were explained to the patient. The patient had noninvasive monitoring placed including noninvasive blood pressure cuff and pulse oximeter. Patient's pump was interrogated. The area over the pump was cleansed with chlorhexidine as a cleansing solution. In sterile fashion the pump was accessed with a 22-gauge needle. Approximately 8.7 mls of the pump solution was removed and discarded appropriately. The pump was then refilled with 20 mL's of morphine 1 mg/mL. The needle was withdrawn and a bandage was placed over the puncture site. The infusion rate was reprogrammed and increased to morphine 0.1853 mg/day. The patient tolerated well with no complication. Plan and Disposition:: Patient tolerated the procedure well with no complications and was discharged neurologically intact. Patient will return to clinic on or before their next intrathecal refill date. We will see the patient back in the clinic at the next intrathecal refill. Patient has been instructed to contact the clinic with any concerns before the next appointment. Dr. Rondon has reviewed this note and agrees with this plan of care. This note was dictated using voice recognition software and make contain errors or omissions. -- It Is medically necessary for this patient to continue to have their intrathecal pump refilled at regular intervals. This patient had an intrathecal pain pump implanted after meeting criteria of chronic intractable pain for greater than 3 months and failing conservative treatments. Patient has committed and been compliant to the treatment plan and all planned follow up care. Since implantation of the intrathecal pain pump, the patient has had decreased pain and been more functional. Oral medications have been reduced including intake of oral opioids. Patient continues to do well with intrathecal therapy with decrease in pain symptoms and increase in functional status. Stopping intrathecal medications can lead to life threatening withdrawal, seizures, cardiac arrest, severe pain, and possible . Pumps that are not refilled at regular intervals can be damages and cause and need for replacement. We continually titrate dose and concentration to optimize pain relief and function. We are limited in concentration for certain drugs to safely deliver medications through the pump and stay within the recommendations from the Polyanalgesic Consensus Committee Guidelines. Depending on dose and concentration these pumps may need to be refilled sooner than 3 months as we titrate. A UDS is needed to verify patient's compliance with our office pain contract. This is ordered based off specific treatments related to chronic pain with the potential to abuse certain medications.
== END 2024-07-19 09:01 | disposition home or self-care (01) ==
PROVIDERS: PCP Family Medicine; Visit Provider Nurse Practitioner Family
DX: M51.16 Intervertebral disc disorders with radiculopathy, lumbar region (principal)
CPT/HCPCS: 62370; 99221

== ENCOUNTER 2024-07-24 11:20 | Outpatient (CLI) | payer BC, OTHER, SELFPAY ==
--- OUTSIDE RECORDS SUMMARY | 2024-07-24 11:23 | XMS_ITS | Data Portability ---
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 Name Role Phone TYESHA BRAVO Primary Care Provider Assessment Encounter Date Assessment Date Assessment LastModified by Organization Details LastModified Time 04/18/2024 04/18/2024 -concern for polypharmacy contributing to her hypersomnia -d/c Abilify, d/c Seroquel, limit Gabapentin, d/c Prazosin -continue Kesimpta for RRMS -referral to Endocrinology for fatigue, pituitary adenoma -f/u [place] [address] Not available 04/18/2024 15:02:17 Plan of Treatment Reminders Order Date Submit Date Provider Last Modified By Organization Details Last Modified Time Details Appointments OV EST 15 2024 03:00P Tonya Bravo, DO Not available Not available Not available OV EST 15 2024 01:45P Tonya Bravo, DO Not available Not available Not available OV EST 15 2024 09:30A Tonya Baker M.D Not available Not available Not available Lab TSH + free T4, serum 2024 025 [email or web address] [facility] (Lab Registration) , [address] [place] [address] [place], [address], 05/21/2024 09:03:51 CMP, serum or plasma 2024 025 [email or web address] [facility] (Lab Registration) , [address] [place] [address] [place], [address], 05/21/2024 09:03:51 CBC w/ auto diff [address] [facility] (Lab Registration) , [address] [place] [address] [place], [address], 05/21/2024 09:03:51 lipid panel, serum [address] [facility] (Lab Registration) , [address] [place] [address] [place], [address], 05/21/2024 09:03:51 prolacti n, serum 2023 024 [facility] (Lab Registration) , [address] [place] [address] [place], [address], 03/12/2024 10:10:56 TSH + free T4, serum [address] [facility] (Lab Registration) , [address] [place] [address] [place], [address], 03/22/2024 12:34:12 lh + FSH, serum [address] [facility] (Lab Registration) , [address] [place] [address] [place], [address], 03/22/2024 12:34:13 Referral None recorded . Procedures None recorded . Surgeries None recorded . Imaging MRI, pituitar y, w/wo contrast [address] Central Scheduling, [address] [place] [address] [place], [address], 04/05/2024 15:10:03 bone density 2023 024 [facility] (Central Scheduling), [address] [place] [address] [place], [address], 03/22/2024 17:17:23 MAMMO, screenin g, digital, bilatera l 2023 024 [facility] (Central Scheduling), [address] [place] [address] [place], [address], 03/22/2024 11:02:31 Medication Orders alendron ate 70 mg tablet 2024 025 [facility], [address] [place] [address], [address], 05/14/2024 11:02:53 levothyr oxine 25 mcg tablet 2024 025 [facility], [address] [place] [address], [address], 05/14/2024 11:02:55 atorvast atin 10 mg tablet 2024 025 [facility], [address] [place] [address], [address], 05/14/2024 11:02:57 monteluk ast 10 mg tablet 2024 025 [facility], [address] [place] [address], [address], 05/14/2024 11:02:57 fluoxeti ne 20 mg capsule 2024 025 [facility] [address] [place] [address], [address], 06/07/2024 14:04:12 esomepra zole magnesiu m 40 mg capsule, delayed release 2024 025 [facility], [address] [place] [address], [address], 05/14/2024 11:02:54 levoceti rizine 5 mg tablet 2024 025 [facility], [address] [place] [address], [address], 05/14/2024 11:02:58 buspiron e 15 mg tablet 2024 025 [facility], [address] [place] [address], [address], 05/14/2024 11:02:53 Linzess 72 mcg capsule 2024 025 [address] [facility] [address] [place] [address], [address], 05/15/2024 16:09:50 gabapent in 800 mg tablet 2024 025 [facility], [address] [place] [address], [address], 05/14/2024 11:03:14 Valium 10 mg tablet 2023 0[address] [address] [place] [address], [address], 03/13/2024 14:51:33 Linzess 72 mcg capsule 2023 [address], [address] [place] [address], [address], 02/20/2024 12:45:15 prazosin 2 mg capsule 2023 025 [facility], [address] [place] [address], [address], 04/18/2024 15:18:46 sertrali ne 100 mg tablet 2023 025 [facility]6337, [address] [place] [address], [address], 05/14/2024 11:04:55 gabapent in 800 mg tablet 2023 024 [facility], [address] [place] [address], [address], 02/20/2024 08:23:03 Patient TargetsNo targets recorded. Patient InstructionsNo instructions recorded. Reason for Referral None Reported. Results Created Date Observation Date Name Description Value Unit Range Abnormal Flag Note LastModifiedBy Organization Detail LastModifiedTime 03/11/20 24 03/11/2024 T4 FREE T4 free 1.31 NG/dL 0.78-2 .19 Not Available [facility] (Pre-Op Clinic) [address] [place] [address] [place], [address], 03/11/2024 14:50:31 03/11/20 24 03/11/2024 T4 FREE note Unles s other owen noted testi ng perfo [facility]med at: [facility] [address] [place] [address] Wily cottrell MD Not Available [facility] (Pre-Op Clinic) [address] [place] [address] [place], [address], 03/11/2024 14:50:31 03/11/20 24 03/11/2024 TSH thyroid stim hormone 6.10 uIU/m L 0.465- 4.68 high Not Available [facility] (Pre-Op Clinic) [address] [place] [address] [place], [address], 03/11/2024 15:59:07 03/11/20 24 03/11/2024 TSH note Unles s other owen noted testi ng perfo rmed at: [facility] [address] [place] [address] Wily cottrell MD Not Available [facility] (Pre-Op Clinic) [address] [place] [address] [place], [address], 03/11/2024 15:59:07 03/11/20 24 03/11/2024 FSH note Unles s other owen noted testi ng perfo rmed at: [facility] [address] [place] [address] Wily cottrell MD Not Available [facility] (Pre-Op Clinic) [address] [place] [address] [place], [address], 03/12/2024 10:10:53 03/11/20 24 03/12/2024 FSH FSH 65.3 mIU/m L Adult Femal e Range Folli cular phase 3.5 - 12.5 Ovula tion phase 4.7 - 21.5 Lutea l phase 1.7 - 7.7 Postm enopa usal 25.8 - 134.8 Perfo rmed at: - [facility] n [address] [place] [address] Lab Direc tor: Alfonso bernal PhD, Phone : [phone] Not Available [facility] (Pre-Op Clinic) [address] [facility] [place], [address], 03/12/2024 10:10:53 03/11/20 24 03/11/2024 LUTEN IZING HORMO NE (LH) note Unles s other owen noted testi ng perfo rmed at: [facility] [address] [place] [address] Wily cottrell MD Not Available [facility] (Pre-Op Clinic) [address] [place] [address] [place], [address], 03/12/2024 10:10:54 03/11/20 24 03/12/2024 LUTEN IZING HORMO NE (LH) LH 35.7 mIU/m L Adult Femal e Range Folli cular phase 2.4 - 12.6 Ovula tion phase 14.0 - 95.6 Lutea l phase 1.0 - 11.4 Postm enopa usal 7.7 - 58.5 [facility] [address] [place] [address] Lab Direc tor: Alfonso bernal PhD, Phone : [phone] Not Available [facility] (Pre-Op Clinic) [address] [place] [address] [place], [address], 03/12/2024 10:10:54 03/11/20 24 03/11/2024 PROLA CTIN note Unles s other owen noted testi ng perfo rmed at: [facility] [address] [place] [address] Wily cottrell MD Not Available [facility] (Pre-Op Clinic) [address] [place] [address] [place], [address], 03/12/2024 10:10:56 03/11/20 24 03/12/2024 PROLA CTIN prolactin 29.5 NG/mL 3.6-25 .2 high Perfo rmed at: [facility] - [facility] n [address] [place] [address] Lab Dire tor: Alfonso bernal PhD, Phone : [phone] Not Available [facility] (Pre-Op Clinic) [address] [place] [address] [place], [address], 03/12/2024 10:10:56 03/28/19 25 03/28/2024 C-YESENIA CTIVE PROTE IN (CRP) C-reactive protein 10.9 mg/L -10 high Not Available [facility] (Pre-Op Clinic) [address] [place] [address] [place], [address], 03/28/2024 17:14:09 03/28/19 25 03/28/2024 C-YESENIA CTIVE PROTE IN (CRP) note Unles s other owen noted testi ng perfo rmed at: [facility] [address] [place] [address] Wily cottrell MD Not Available [facility] (Pre-Op Clinic) [address] [place] [address] [place], [address], 03/28/2024 17:14:09 03/28/19 25 03/28/2024 SED RATE WESTE RGREN sed rate westergren 24 mm/HR 0-15 high Not Available [facility] (Pre-Op Clinic) [address] [place] [address] [place], [address], 03/28/2024 17:14:10 03/28/19 25 03/28/2024 SED RATE WESTE RGREN note Unles s other owen noted testi ng perfo rmed at: [facility] [address] [place] [address] Wily cottrell MD Not Available [facility] (Pre-Op Clinic) [address] [place] [address] [place], [address], 03/28/2024 17:14:10 03/28/19 25 03/28/2024 RHEUM ATOID ARTHR ITIS FACTO R-RA note Unles s other owen noted testi ng perfo rmed at: [facility] [address] [place] [address] Wily cottrell MD Not Available [facility] (Pre-Op Clinic) [address] [place] [address] [place], [address], 03/30/2024 09:09:29 03/28/1903/30/2024 RHEUM ATOID ARTHR ITIS FACTO R-RA RA latex turbid. 10.1 IU/mL <14.0 Perfo rmed at: - [facility]3] [address] [address] Lab Direc tor: Alfonso bernal PhD, Phone : [phone] Not Available [facility] ([facility]) [address] [place] [address] [place], [address], 03/30/2024 09:09:29 03/28/1903/28/2024 ANIA SCREE N W REFLE X note Unles s other owen noted testi ng perfo rmed at: [facility] [address] [place] [address] Wily cottrell MD Not Available [facility] (Pre-Op Clinic) [address] [place] [address] [place], [address], 04/01/2024 17:09:24 03/28/19 25 04/01/2024 ANIA SCREE N W REFLE X ANIA direct NEGATI VE negati ve Perfo rmed at: [facility] n [address] [facility] [place] [address] Lab Direc tor: Alfonso bernal PhD, Phone : [phone] Not Available [facility] (Pre-Op Clinic) [address] [place] [address] [place], [address], 04/01/2024 17:09:24 05/17/19 25 05/17/2024 CBC W/ AUTO DIFF WBC 6.42 K/uL 4.5-11 .5 Not Available [facility] (Pre-Op Clinic) [address] [place] [address] [place], [address], 05/17/2024 12:48:18 05/17/19 25 05/17/2024 CBC W/ AUTO DIFF RBC 4.31 M/uL 4.0-5. 4 Not Available [facility] (Pre-Op Clinic) [address] [place] [address] [place], [address], 05/17/2024 12:48:18 05/17/19 25 05/17/2024 CBC W/ AUTO DIFF HGB 11.6 g/dL 12.0-1 5.0 low Not Available [facility] (Pre-Op Clinic) [address] [place] [address] [place], [address], 05/17/2024 12:48:18 05/17/19 25 05/17/2024 CBC W/ AUTO DIFF HCT 36.3 % 35-49 Not Available [facility] (Pre-Op Clinic) [address] [place] [address] [place], [address], 05/17/2024 12:48:18 05/17/19 25 05/17/2024 CBC W/ AUTO DIFF MCV 84.2 fL 80.0-1 00.0 Not Available [facility] (Pre-Op Clinic) [address] [place] [address] [place], [address], 05/17/2024 12:48:18 05/17/19 25 05/17/2024 CBC W/ AUTO DIFF MCH 26.9 pg 26.0-3 2.0 Not Available [facility] (Pre-Op Clinic) [address] [place] [address] [place], [address], 05/17/2024 12:48:18 05/17/19 25 05/17/2024 CBC W/ AUTO DIFF MCHC 32.0 g/dL 32.0-3 6.0 Not Available [facility] (Pre-Op Clinic) [address] [place] [address] [place], [address], 05/17/2024 12:48:18 05/17/19 25 05/17/2024 CBC W/ AUTO DIFF RDW 14.2 % 11.5-1 4.5 Not Available [facility] (Pre-Op Clinic) [address] [place] [address] [place], [address], 05/17/2024 12:48:18 05/17/19 25 05/17/2024 CBC W/ AUTO DIFF platelet count 300 K/uL 142-42 4 Not Available [facility] ([facility]Op [facility]) [address] [place] [address] [place], [address], 05/17/2024 12:48:18 05/17/19 25 05/17/2024 CBC W/ AUTO DIFF MPV 10.8 fL 6.8-10 .2 high Not Available [facility] ([facility]Op [facility]) [address] [place] [address] [place], [address], 05/17/2024 12:48:18 05/17/19 25 05/17/2024 CBC W/ AUTO DIFF neutrophil % 53.4 % 50-70 Not Available [facility] (Pre-Op Clinic) [address] [place] [address] [place], [address], 05/17/2024 12:48:18 05/17/19 25 05/17/2024 CBC W/ AUTO DIFF lymphocyte % 31.8 % 18.0-4 2.0 Not Available [facility] (Pre-Op Clinic) [address] [place] [address] [place], [address], 05/17/2024 12:48:18 05/17/19 25 05/17/2024 CBC W/ AUTO DIFF monocyte % 10.6 % 2.0-11 .0 Not Available [facility] (Pre-Op Clinic) [address] [place] [address] [place], [address], 05/17/2024 12:48:18 05/17/19 25 05/17/2024 CBC W/ AUTO DIFF eosinophil % 2.6 % 1.0-3. 0 Not Available [facility] (Pre-Op Clinic) [address] [place] [address] [place], [address], 05/17/2024 12:48:18 05/17/19 25 05/17/2024 CBC W/ AUTO DIFF basophil % 1.1 % 0.0-2. 0 Not Available [facility] ([facility]Op [facility]) [address] [place] [address] [place], [address], 05/17/2024 12:48:18 05/17/19 25 05/17/2024 CBC W/ AUTO DIFF immature granulocytes % 0.5 % 0.0-0. 8 Not Available [facility] ([facility]Op [facility]) [address] [place] [address] [place], [address], 05/17/2024 12:48:18 05/17/19 25 05/17/2024 CBC W/ AUTO DIFF nucleated red blood cells % 0.0 % Not Available [facility] ([facility]Op Clinic) [address] [place] [address] [place], [address], 05/17/2024 12:48:18 05/17/19 25 05/17/2024 CBC W/ AUTO DIFF neutrophil # 3.43 K/uL Not Available [facility] ([facility]Op [facility]) [address] [place] [address] [place], [address], 05/17/2024 12:48:18 05/17/19 25 05/17/2024 CBC W/ AUTO DIFF lymphocyte # 2.04 K/uL Not Available [facility] ([facility]Op [facility]) [address] [place] [address] [place], [address], 05/17/2024 12:48:18 05/17/19 25 05/17/2024 CBC W/ AUTO DIFF monocyte # 0.68 K/uL Not Available [facility] ([facility]) [address] [facility] [place], [address], 05/17/2024 12:48:18 05/17/19 25 05/17/2024 CBC W/ AUTO DIFF eosinophil # 0.17 K/uL Not Available [facility] (Pre-Op Clinic) [address] [facility] [place], [address], 05/17/2024 12:48:18 05/17/19 25 05/17/2024 CBC W/ AUTO DIFF basophil # 0.07 K/uL Not Available [facility] ([facility]) [address] [place] [address] [place], [address], 05/17/2024 12:48:18 05/17/19 25 05/17/2024 CBC W/ AUTO DIFF immature gramulocytes # 0.03 K/uL Not Available [facility] (Pre-Op Clinic) [address] [place] [address] [place], [address], 05/17/2024 12:48:18 05/17/19 25 05/17/2024 CBC W/ AUTO DIFF nucleated red blood cells # 0.00 k/uL Not Available [facility] ([facility]) [address] [place] [address] [place], [address], 05/17/2024 12:48:18 05/17/19 25 05/17/2024 CBC W/ AUTO DIFF manual differential NO Not Available [facility] ([facility]Op [facility]) [address] [place] [address] [place], [address], 05/17/2024 12:48:18 05/17/19 25 05/17/2024 CBC W/ AUTO DIFF note Unles s other owen noted testi ng perfo rmed at: [facility] [address] [place] [address] Wily cottrell MD Not Available [facility] (Pre-Op Clinic) [address] [facility] [place], [address], 05/17/2024 12:48:18 05/17/19 25 05/17/2024 COMP METAB OLIC PANEL sodium 141 mmol/ L 137-14 7 Not Available [facility]) [address] [facility] [place], [address], 05/17/2024 13:31:35 05/17/19 25 05/17/2024 COMP METAB OLIC PANEL potassium 4.1 mmol/ L 3.5-5. 1 Not Available [facility]) [address] [facility] [place], [address], 05/17/2024 13:31:35 05/17/19 25 05/17/2024 COMP METAB OLIC PANEL chloride 104 mmol/ L 98-110 Not Available [facility] (Pre-Op Clinic) [address] [facility] [place], [address], 05/17/2024 13:31:35 05/17/19 25 05/17/2024 COMP METAB OLIC PANEL carbon dioxide 23 mmol/ L 21-30 Not Available [facility]) [address] [place] [address] [place], [address], 05/17/2024 13:31:35 05/17/19 25 05/17/2024 COMP METAB OLIC PANEL anion gap 14 mmol/ L 6-14 Not Available [facility]) [address] [place] [address] [place], [address], 05/17/2024 13:31:35 05/17/19 25 05/17/2024 COMP METAB OLIC PANEL glucose 91 mg/dL 70-115 Not Available [facility]) [address] [place] [address] [place], [address], 05/17/2024 13:31:35 05/17/19 25 05/17/2024 COMP METAB OLIC PANEL BUN 12 mg/dL 7-17 Not Available [facility] (Pre-Op Clinic) [address] [place] [address] [place], [address], 05/17/2024 13:31:35 05/17/19 25 05/17/2024 COMP METAB OLIC PANEL creatinine 0.6 mg/dL 0.5-1. 5 Not Available [facility] (Pre-Op Clinic) [address] [place] [address] [place], [address], 05/17/2024 13:31:35 05/17/19 25 05/17/2024 COMP METAB OLIC PANEL BUN/creatini ne ratio 20 10-20 Not Available [facility] (Pre-Op Clinic) [address] [place] [address] [place], [address], 05/17/2024 13:31:35 05/17/19 25 05/17/2024 COMP METAB OLIC PANEL glom filtration rate 105 mL/mi n >60- GFR LIMIT ATION : The eGFR equat ion CKD-E PI 2020 is not appli cable for pedia tric patie nts or great er than 90 years of age. The follo wing condi tions may alter the GFR resul t: extre mes in body size, malnu triti on or obesi ty, skele angel muscl e disea se, parap legia or quadr ipleg ia, veget diya diet or rapid ly lam ing kiney funct ion. Not Available [facility] (Pre-Op Clinic) [address] [place] [address] [place], [address], 05/17/2024 13:31:35 05/17/19 25 05/17/2024 COMP METAB OLIC PANEL osmolality (calculated) 292 mosmo l/kg 275-30 1 OSMOL ALITY IS A CALCU LATIO N UTILI ZING THE SERUM /PLAS MA SODIU M, GLUCO SE AND UREA NITRO GEN (BUN) LEVEL S. FOR THE MOST ACCUR ATE RESUL T A MEASU RED SERUM OSMOL ALITY IS SUGGE STED. Not Available [facility] (Pre-Op Clinic) [address] [place] [address] [place], [address], 05/17/2024 13:31:35 05/17/19 25 05/17/2024 COMP METAB OLIC PANEL total protein 6.1 g/dL 6.2-8. 2 low Not Available [facility] (Pre-Op Clinic) [address] [place] [address] [place], [address], 05/17/2024 13:31:35 05/17/19 25 05/17/2024 COMP METAB OLIC PANEL albumin 3.8 g/dL 3.5-5. 0 Not Available [facility] (Pre-Op Clinic) [address] [place] [address] [place], [address], 05/17/2024 13:31:35 05/17/19 25 05/17/2024 COMP METAB OLIC PANEL calcium 8.7 mg/dL 8.5-10 .8 Not Available [facility] (Pre-Op Clinic) [address] [place] [address] [place], [address], 05/17/2024 13:31:35 05/17/19 25 05/17/2024 COMP METAB OLIC PANEL bilirubin total 0.6 mg/dL 0.2-1. 3 Not Available [facility]) [address] [place] [address] [place], [address], 05/17/2024 13:31:35 05/17/19 25 05/17/2024 COMP METAB OLIC PANEL AST (SGOT) 22 IU/L 14-36 Not Available [facility] (Pre-Op Clinic) [address] [place] [address] [place], [address], 05/17/2024 13:31:35 05/17/19 25 05/17/2024 COMP METAB OLIC PANEL ALT (SGPT) 9 IU/L 0-35 Pleas e note new refer ence inter suresh for ALT. Due to a recen t manuf actur er metho dolog y lam e, the refer ence inter suresh for ALT is lower effec tive July 16, 2020. Not Available [facility] (Pre-Op Clinic) [address] [facility] [place], [address], 05/17/2024 13:31:35 05/17/19 25 05/17/2024 COMP METAB OLIC PANEL alk phosphatase 95 IU/L 38-126 Not Available [facility] (Pre-Op Clinic) [address] [facility] [place], [address], 05/17/2024 13:31:35 05/17/19 25 05/17/2024 COMP METAB OLIC PANEL note Unles s other owen noted testi ng perfo rmed at: [facility] [address] [place] [address] Wily cottrell MD Not Available [facility] (Pre-Op Clinic) [address] [facility] [place], [address], 05/17/2024 13:31:35 05/17/19 25 05/17/2024 LIPID PANEL cholesterol 228 mg/dL 0-200 high Not Available [facility]) [address] [facility] [place], [address], 05/17/2024 13:31:36 05/17/19 25 05/17/2024 LIPID PANEL HDL 58 mg/dL 40- Not Available [facility] ([facility]) [address] [place] [address] [place], [address], 05/17/2024 13:31:36 05/17/19 25 05/17/2024 LIPID PANEL total chol/HDL ratio 3.9 0-4 Not Available [facility] ([facility]Op [facility]) [address] [place] [address] [place], [address], 05/17/2024 13:31:36 05/17/19 25 05/17/2024 LIPID PANEL triglyceride 150 mg/dL 35-135 high Not Available [facility] ([facility]) [address] [place] [address] [place], [address], 05/17/2024 13:31:36 05/17/19 25 05/17/2024 LIPID PANEL LDL calculated 140 mg/dL 0-130 high Not Available [facility] (Pre-Op Clinic) [address] [place] [address] [place], [address], 05/17/2024 13:31:36 05/17/19 25 05/17/2024 LIPID PANEL VLDL calculated 30 mg/dL 0-40 Not Available [facility] (Pre-Op Clinic) [address] [place] [address] [place], [address], 05/17/2024 13:31:36 05/17/19 25 05/17/2024 LIPID PANEL note Unles s other owen noted testi ng perfo rmed at: [facility] [address] [place] [address] Wily cottrell MD Not Available [facility] (Pre-Op Clinic) [address] [place] [address] [place], [address], 05/17/2024 13:31:36 05/17/19 25 05/17/2024 T4 FREE T4 free 0.91 NG/dL 0.78-2 .19 Not Available [facility] (Pre-Op Clinic) [address] [place] [address] [place], [address], 05/17/2024 13:36:03 05/17/19 25 05/17/2024 T4 FREE note Unles s other owen noted testi ng perfo rmed at: [facility] [address] [place] [address] Wily cottrell MD Not Available [facility] ([facility]Op [facility]) [address] [place] [address] [place], [address], 05/17/2024 13:36:03 05/17/19 25 05/17/2024 TSH thyroid stim hormone 0.94 uIU/m L 0.465- 4.68 Not Available [facility] ([facility]) [address] [place] [address] [place], [address], 05/17/2024 13:53:31 05/17/19 25 05/17/2024 TSH note Unles s other owen noted testi ng perfo rmed at: [facility] [address] [place] [address] Wily cottrell MD Not Available [facility] ([facility]Op [facility]) [address] [place] [address] Dr, [place], [address], 05/17/2024 13:53:31 01/24/20 24 01/24/2024 US, yonathan x, tamanna s, [facility] mity No observ ation record ed. [facility] [address], [place], [address], 01/25/2024 14:12:09 03/22/20 24 03/22/2024 mamm scree la nena 2D [facility] [address] [place] [address] (Phone ) MAMMOG JULIANA REPORT Name: JOHANNE KELLY : 1965 Accoun t #: [id number] Age: 58 Years Patien t Type: Outpat ient Sex: F Access ion#: [id number] Exam Descri ption: MAMM SCREEN ING 2D & 3D Exam Reason : Screen ing Order Date/T santi: 2023 10:18: 00 AM Dictat ed By: Bassem Hickey MD Orderi ng Physic andi: KEILY RUBALCAVA Attend ing Physic andi: KEILY RUBALCAVA Exam: 3-D screen ing mammog theodora includ ing tomosy nthesi s and CAD (Compu ter Assist ed Detect ion). Clinic al indica tion: Asympt omatic screen ing exam Compar diana: Exams to 2016 TECHNI QUE: Routin e bilate ral 2D screen ing mammog juliana with CC and MLO views obtain ed. 3-D tomosy nthesi s and Comput er assist ed detect ion were utiliz ed for this exam. BREAST DENSIT Y: There are scatte red areas of fibrog landul ar densit ies FINDIN GS: No suspic ious mass, orville ectura l distor tion, or suspic ious calcif icatio ns are presen t. IMPRES GISSELLE: No eviden ce of malign elías in either breast Recomm endati on: Annual screen ing mammog theodora recomm ended in one year PAGE 1 OF 2 Name: JOHANNE KELLY : 1965 Accoun t #: [id number] Age: 58 Years Patien t Type: Outpat ient Sex: F Access ion#: [id number] Exam Descri ption: MAMM SCREEN ING 2D & 3D Exam Reason : Screen ing Order Date/T santi: 2023 10:18: 00 AM The result s of this report will be commun icated to the patien t by letter in layman 's terms. ACR BI-RAD S: BI-RAD S assess ment catego ry 1: Negati ve mammog juliana Mammog theodora does not detect approx imatel y 10-15% of breast cancer s. A normal mammog juliana does not exclud e breast cancer in a patien t with palpab le mass or abnorm al findin gs on physic al examin ation. These patien ts may need biopsi es and when clinic ally indica sandie a biopsy should not be postpo jose becaus e of a normal mammog juliana. If the patien t has breast surger y or biopsy , FDA/MQ SA Regula tory Guidel nia mandat e that this facili ty receiv e pathol ogic result s for follow -up correl ation. Electr onical ly signed by: Bassem Hickey MD 2023 10:57 AM EST RP Workst ation: [id number] Princi pal Interp reter Name: Bassem Hickey Provid er ID: [id number] PAGE 2 OF 2 CC'ed Logic: Orderi ng Provid er: ASHLEY PANDEY CC Provid er: ASHLEY PANDEY Attend ing Provid er: ASHLEY PANDEY Referr ing Provid er: ASHLEY PANDEY Admitt ing Provid er: ASHLEY PANDEY [email or web address] [facility] (Central Scheduling) [address] [place] [address] [place], [address], 03/22/2024 18:06:09 03/22/20 24 03/22/2024 MAMMO , scree la nena, digit al, bilat eral No observ ation record ed. [facility] [address] [place] [address] [place], [address], 03/26/2024 10:26:11 03/22/20 24 03/22/2024 bone densi ty [facility] [address] [place] [address] (Phone ) MATT Kelly REPORT Name: JOHANNE KELLY : 1965 Accoun t #: [id number] Age: 58 Years Patien t Type: Outpat ient Sex: F Access ion#: [id number] Exam Descri ption: BONE DENSIT Y Exam Reason : Screen ing Order Date/T santi: 2023 10:18: 00 AM Dictat ed By: Rafael Peralta MD Orderi ng Physic andi: KEILY RUBALCAVA Attend ing Physic andi: KEILY RUBALACVA EXAMIN ATION: DUAL X-RAY ABSORP TIOMET RY (DXA) FOR BONE MINERA L DENSIT Y. CLINIC AL INDICA TION: 58 years old, Female . Postme nopaus al. Z13.82 0. TECHNI QUE: An axial (e.g., hips, spine) and/or append icular (e.g., radius ) exam was perfor med, as approp riate, using [employer] densit ometer . Images are obtain ed for bone minera l densit y measur ement and are not obtain ed for diagno stic purpos es. [id number] COMPAR DIANA: 2021. FINDIN GS: Scan qualit y: Good. LEFT FEMORA L NECK: BMD (in g/cm*2 ): 0.742. T-scor e: -2.1. Z-scor e: -1.2. LEFT TOTAL HIP: BMD (in g/cm*2 ): 0.622. T-scor e: -3.1. Z-scor e: -2.5. Rate of change from previo us exam: -19.3% . PAGE 1 OF 3 Name: JOHANNE KELLY : 1965 Accoun t #: [id number] Age: 58 Years Patien t Type: Outpat ient Sex: F Access ion#: [id number] Exam Descri ption: BONE DENSIT Y Exam Reason : Screen ing Order Date/T santi: 2023 10:18: 00 AM RIGHT FOREAR M (RADIU S 33%): BMD (in g/cm*2 ): 0.685. T-scor e: -2.3. Z-scor e: -1.7. FRAX 10-YEA R PROBAB ILITY OF FRACTU RE: 10-yea r fractu re risk is perfor med using the Univer sitLidia carvajal FRAX calcul ator based on patien t-repo rted risk factor s. Major osteop orotic fractu re: 14.9%. Hip fractu re: 2.2%. IMPRES GISSELLE: Osteop orosis based on BMD. World Health Organi zation criter ia for BMD impres gisselle classi fy patien ts as: - Normal (T-sco re at or above -1.0). - Osteop enia (T-sco re betwee n -1.0 and -2.5). - Osteop orosis (T-sco re at or below -2.5). Per the Bone Health and Osteop orosis Founda tion the FRAX tool is most useful in patien ts with low femora l neck bone minera l densit y (osteo penia) . FRAX is calcul ated per reques t. RECOMM ENDATI ONS: 1. All patien ts should optimi ze their calciu m and vitami n D intake . 2. Consid er FDA-ap proved medica l therap ies in postme nopaus al women and men aged 50 years and older, based on the follow ing: - A hip or verteb ral (clini dm or morpho metric ) fractu re. - T-scor e less than or equal to -2.5 at the femora l neck or spine after approp riate evalua tion to exclud e second young causes . - Low bone densit y (T-sco re betwee n -1.0 and -2.5 at the femora l neck PAGE 2 OF 3 : 1965 Accoun t #: [id number] Age: 58 Years Patien t Type: Outpat ient Sex: F Access ion#: [id number] Exam Descri ption: BONE DENSIT Y Exam Reason : Screen ing Order Date/T santi: 2023 10:18: 00 AM or spine) and a 10-yea r probab ility of a hip fractu re greate r than or equal to 3% or a 10-yea r probab ility of a major osteop orosis -relat ed fractu re greate r than or equal to 20% based on FRAX calcul ation. - Clinic andi randolph nt and/or rose t prefer ences may indica te treatm ent for people with 10-yea r fractu re probab ilitie s above or below these levels . - Heydi tapia ce on treatm ent can be found at the Nation al Osteop orosis Founda tion's websit e boneso urce.o rg. 3. Patien ts with diagno sis of osteop orosis or at high risk for fractu re should have regula r bone minera l densit y tests. For patien ts eligib le for Medica re, routin e testin g is allowe d once every 2 years. The testin g freque ncy can be increa sed to one year for patien ts who have rapidl y progre ssing diseas e, those who are receiv ing or discon tinuin g medica l therap y to restor e bone mass or have additi onal risk factor s. Electr onical ly signed by: Rafael Peralta MD 2023 05:14 PM EST RP Workst ation: [id number] Princi pal Interp reter Name: Rafael Peralta Provid er ID: [id number] PAGE 3 OF 3 CC'ed Logic: Orderi ng Provid er: ASHLEY PANDEY CC Provid er: ASHLEY PANDEY Attend ing Provid er: ASHLEY PANDEY Referr ing Provid er: ASHLEY PANDEY Admitt ing Provid er: ASHLEY PANDEY [email or web address] [facility] (Central Scheduling) [address] [place] [address] [place], [address], 03/25/2024 13:16:45 03/26/20 24 03/26/2024 MRI, brain , w/wo contr ast [facility] [address] [address] (Phone ) MATT G REPORT Name: JOHANNE KELLY : 1965 Accoun t #: [id number] Age: 58 Years Patien t Type: Outpat ient Sex: F Access ion#: [id number] Exam Descri ption: MRI BRAIN WOW - ROUTIN E Exam Reason : 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 COMPAR DIANA: 024 FINDIN GS: * Redemo nstrat ed supras ellar dural based homoge neousl y enhanc ing lesion compat ible with mening ioma measur ing 0.8 x 1.5 x 1.5 cm (serie s 12 image 10/ser ies 10 image 16). Slight intras ellar extens ion at the linseed oil temperer ior margin to abut the anteri or margin of the pituit young gland. Pituit young gland demons trates homoge neous enhanc ement. Pituit young stalk is near the midlin e. Normal optic chiasm . * Stable nonspe cific dural thicke la nena at the fronta l vertex by approx imatel y 5 mm thickn ess. * No additi onal pathol ogic intrac ranial enhanc ement. * Simila r nonspe cific mild to modera te amount of nonspe cific T2 hyperi ntense foci involv ing the deep, perive ntricu lar and subcor tical with consid eratio n for chroni c ischem ic small vessel diseas e, demyel inatin g diseas e, vascul itis and other etiolo gies. 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 * Major flow voids are grossl y preser pedro at the [facility] [place] . * Mild mucosa l thicke la nena of the ethmoi ds. There is mastoi ds. IMPRES GISSELLE: 1. Simila r enhanc ing extra- axial lesion most compat ible with diaphr agma sella mening ioma. Contin ued follow -up sugges sandie. 2. Mild to modera te white matter diseas e compat ible with histor y of multip le sclero sis. No active diseas e or signif icant progre ssion. 3. Nonspe cific pachym eninge al thicke la nena and enhanc ement at the fronta l vertex . Electr onical ly signed by: Benji kwan DO 2023 09:45 PM EST RP Workst ation: [id number] Princi pal Interp reter Name: Benji kwan Provid er ID: [id number] PAGE 2 OF 2 CC'ed Logic: Orderi ng Provid er: ASHLEY PANDEY CC Provid er: ASHLEY PANDEY Attend ing Provid er: ASHLEY PANDEY Referr ing Provid er: ASHLEY PANDEY Admitt ing Provid er: ASHLEY PANDEY [email or web address] [facility] ([facility]) [address] [place] [address] [place], [address], 03/28/2024 20:03:16 Result Notes None recorded. Problems Name Problem SNOMED Code Status Onset Date Resolution Date Notes Provider Name and Address Organization Details Recorded Time Osteoporo sis 57597594 Active 2023 Tyesha Bravo, [address], [address], [place], [address] , [facility] - [facility] - [place] & [place] 4 13:17:02 Constipat ion 19639034 Active 2015 Not Available [employer] 3 07:17:25 Migraine without aura, not refractor y 906903761 Active 2018 Not Available [employer] 3 07:17:26 Postmenop ausal osteoporo sis 001335118 Active 2018 Not Available [facility] 3 07:17:25 Restless legs 69930350 Active 2014 Not Available [facility] 3 07:17:25 Headache 40663539 Active 2020 Headache Not Available [facility] 3 07:17:25 Vitamin D deficienc y 53662452 Active 2019 Vitamin D deficienc y Not Available [facility] 3 07:17:25 Status migrainos 591775080 Active 2021 Not Available [facility] 3 07:17:25 Seasonal allergic rhinitis 792887113 Active 2015 Not Available [facility] 3 07:17:25 Dizziness 485482037 Active 2020 Dizziness Not Available [facility] 3 07:17:26 Solitary nodule of lung 317514536 Active 2020 Solitary nodule of lung Not Available [facility] 3 07:17:26 Clinical finding Active 2020 ICD-10: R93.89 - Abnormal x-ray examinati on Not Available [facility] 3 07:17:25 Cramp in lower limb 875285449 Active 2020 Cramp in lower limb Not Available [facility] 3 07:17:26 Anxiety disorder 638337138 Active 2021 Anxiety disorder Not Available [facility] 3 07:17:25 Obese class II 14833197277 4105 Active 2019 Obese class II Obese class II Not Available [facility] 3 07:17:26 Multiple sclerosis 52139091 Active 2021 Not Available [facility] 3 07:17:25 Refractor y migraine with aura 041749146 Active 2019 Not Available [facility] 3 07:17:26 Long-term current use of drug therapy 035826163 Active 2021 Long-term current use of drug therapy Not Available [facility] 3 07:17:26 Filling defect of urinary bladder 350928038 Active 2015 Not Available [facility] 3 07:17:25 Pain in throat 172568057 Active 2020 Sore throat Not Available [facility] 3 07:17:25 Pain of joint 95352140 Active 2017 Joint pain Not Available [facility] 3 07:17:26 Breast neoplasm screening status 212186342 Active 2015 Not Available [facility] 3 07:17:25 Bacteriur ia 85153596 Active 2020 Bacteriur ia Not Available [facility] 3 07:17:26 Gastroeso phageal reflux disease 519707970 Active 2015 Not Available [facility] 3 07:17:25 Chronic gastritis 6037412 Active 2015 Not Available [facility] 3 07:17:26 Hypertens wilfredo disorder 74943047 Active 2014 Not Available [facility] 3 07:17:25 Disorder of endocrine system 319836804 Active 2019 Disorder of endocrine system Not Available [facility] 3 07:17:25 Neuropath y 983872650 Active 2019 Neuropath y Not Available [facility] 3 07:17:25 Requires vaccinati on 565416133 Active 2019 Requires vaccinati on Not Available [facility] 3 07:17:26 Osteoarth ritis of knee 750595562 Active 2020 Osteoarth ritis of knee Not Available [facility] 3 07:17:25 Depressiv e disorder 09456912 Active 2014 Not Available [facility] 3 07:17:25 Fatigue 23915064 Active 2019 Fatigue Not Available [facility] 3 07:17:26 Insomnia 132085391 Active 2014 Not Available [facility] 3 07:17:25 Gastritis 2912794 Active 2019 Gastritis Not Available [facility] 3 07:17:26 Migraine 86723846 Active 2019 Migraine Not Available [facility] 3 07:17:25 Anxiety 95262494 Active 2021 Not Available [facility] 3 07:17:26 Body mass index 30+ - obesity 266174608 Active 2021 Not Available [facility] 3 07:17:25 Menopausa l flushing 855508788 Active 2014 Not Available [facility] 3 07:17:25 Patient encounter status 385559990 Active 2021 Not Available [facility] 3 07:17:25 Preoperat wilfredo cardiovas cular examinati on Active 2020 Preoperat wilfredo cardiovas cular examinati on Not Available [facility] 3 07:17:26 Diarrhea 67111445 Active 2019 Diarrhea Not Available [facility] 3 07:17:26 Pain of shoulder region 34333444 Active 2016 Shoulder pain Not Available [facility] 3 07:17:26 Left temporoma ndibular joint disorder 97467438525 288128 Active 2022 Not Available [facility] 3 07:17:25 History of bariatric surgical procedure 178289857 Active 2022 Not Available [facility] 3 07:17:26 Daytime hypersomn ia 05582723209 102 Active 2023 Tyesha Bravo, DO [address], [address], [place], [address] , [place] - [facility] [place] & [place] 4 12:41:16 Notes:Some problems listed i n Document: #[id number] could not be added to this patient's chart. Please review this document and add these problems to the patient's chart manually as needed. Problem Notes None recorded. Procedures Surgical History Date Name Laterality Status Provider Name and Address Organization Details Recorded Time 2023 completed Patricia MORROW - [facility] & [place] 5 14:25:02 2023 Most Recent Mammogram completed Patricia MORROW - [facility] - [facility] & [place] 5 14:29:00 2023 Most Recent Bone Density completed Patricia MORROW - [facility] - [facility] & [place] 5 14:29:22 2022 laparoscopic sleeve gastrectomy completed Polina MORROW - [facility] - [place] 3 13:37:47 2022 Date of Last Colonoscopy completed Velia Romano [place] - [facility] - [place] & [place] 3 10:37:10 2022 Colonoscopy completed Velia Rosalina [place] - [facility] - [place] 4 10:50:27 2022 Injection Fascia/Tendon completed Evelyn MORROW - [facility] - [place] 3 08:47:08 2022 Gastrointestinal Surgery completed Velia Lamimaldi [place] - [facility] - [place] & [place] 4 10:48:31 2021 arthroscopic repair of rotator cuff completed Art MORROW - [facility] - [place] & [place] 2 13:27:55 2021 neurostimulation procedure completed Art MORROW - [facility] - [place] & [place] 2 13:29:44 2021 esophagogastroduodenoscopy completed Judy Bravo DO [address], [address], [place], [address], [place] - [facility] [place] 2 11:47:45 2020 total replacement of right knee joint completed Tyesha Bravo [address], [address], [place], [address], [place] [facility] [place] 2 11:46:13 2014 neurostimulation of spinal cord tissue completed Tyesha Bravo [address], [address], [place], [address], [place] [facility] [place] & [place] 2 11:45:18 2013 total replacement of right hip joint completed Tyesha Bravo [address], [address], [place], [address], [place] - [facility] [place] & [place] 2 11:45:02 2013 neurostimulation of spinal cord tissue completed Tyesha Bravo [address], [address], [place], [address], [place] [facility] [place] 2 11:45:42 1999 surgical procedure completed Velia Romano [place] - [facility] [place] 3 10:44:07 1992 Hysterectomy completed Tyesha Bravo [address], [address], [place], [address], [place] [facility] [place] 2 11:43:41 1982 Tonsillectomy/Adenoidectomy completed Albert Bravo [address], [address], [place], [address], [place] [facility] [place] 2 15:28:55 1977 appendectomy completed Tyesha Bravo [address], [address], [place], [address], [place] [facility] [place] 2 11:43:26 Total Colectomy completed Velia MORROW - [facility] - [place] & [place] 3 10:44:31 surgical repair completed Velia Romano [place] - [facility] [place] 3 10:45:13 Cholecystectomy completed Tyesha Bravo , [address], [address], [place], [address], [place] [facility] [place] 2 11:44:09 Carpal tunnel surgery completed Juan Carlos Bravo , [address], [address], [place], [address], [place] [facility] [place] 2 11:44:20 Joint Replacement completed Emely Bravo , [address], [address], [place], [address], [place] [facility] [place] 2 15:28:56 Imaging Results Imaging Date Name Status LastModified by Organiz ation Details LastModified Time 01/24/2024 US, duplex, venous, lower extremity completed [facility] [address], [place], [address], 01/25/2024 14:12:09 03/22/2024 mamm screening 2D completed [address] (Central Scheduling) [address] [place] [address] [place], [address], 03/22/2024 18:06:09 03/22/2024 MAMMO, screening, digital, bilateral completed TORO [facility] [address] [place], [address], 03/26/2024 10:26:11 03/22/2024 bone density completed [address] (Central Scheduling) [address] [place] [address] [place], [address], 03/25/2024 13:16:45 03/26/2024 MRI, brain, w/wo contrast completed [email or web address] (Central Scheduling) [address] [place] [address] [place], [address], 03/28/2024 20:03:16 Procedure Notes None recorded. Medical Equipment None Reported. Allergies Allergen ID Allergen Name Allergen Category Reaction Reaction Severity Criticality Documentation Date Start Date Code Code System Note Provider Name and Address Organization Details Recorded Time 267366 tomato allergeni c extract food edema mild Not available 01/20/2023 20452 9 RxNorm Art Waits [facility] & [place] 3 13:47:52 46516 Product containin g penicilli n (product) medicatio n rash Not available Not available 05/23/2022 28734 8001 SNOMED Velia Romano [facility] & [place] 3 10:42:02 9224 Penicilli n Not available Not available Not available Not available 12/06/2021 27176 RxNorm React ion: rash, sever ity: Unkno wn Not Available [facility] 2 01:57:11 9228 duloxetin e medicatio n Not available Not available Not available 12/06/2021 85409 RxNorm React ion: Unkno wn, sever ity: Unkno wn Not Available [facility] 2 01:57:11 Medications Name Sig Start Date Stop Date Status Note LastModified by Organization Details LastModified Time propylene glycol liquid 12/22 completed Not Available Not Available Not Available Prescript ion - Prior Authoriza tion Request active Not Available Not Available Not Available glycerin liquid 12/22 completed Not Available Not Available Not Available amantadin e HCl 100 mg tablet Take 1 tablet every day by oral route for 11 days. active Not Available Not Available No t Available promethaz ine-DM 6.25 mg-15 mg/5 mL oral syrup TAKE 5 ML BY MOUTH 4 TIMES DAILY NEEDED FOR COUGH FOR UP TO 7 DAYS 10/09 completed Not Available Not Available Not Available nystatin 100,000 unit/mL oral suspensio n Take 5 mL 4 times a day by oral route for 7 days. 10/23 completed Not Available Not Available Not Available potassium chloride ER 10 mEq capsule,e xtended release Take 1 capsule every day by oral route for 90 days. 04/18 completed Not Available Not Available Not Available prednison e 10 mg tablet TAKE 1 TABLET BY MOUTH TWICE A DAY FOR 3 DAYS 11/19 completed Not Available Not Available Not Available venlafaxi ne ER 75 mg capsule,e xtended release 24 hr TAKE 1 CAPSULE BY MOUTH EVERY DAY 04/18 completed Not Available Not Available Not Available doxycycli ne hyclate 100 mg capsule TAKE 1 CAPSULE BY MOUTH TWICE DAILY FOR 5 DAYS 10/23 completed Not Available Not Available Not Available ropinirol e 1 mg tablet TAKE 1 TABLET BY MOUTH AT BEDTIME 01/02 completed Not Available Not Available Not Available magnesium oxide 420 mg tablet TAKE 1 TABLET BY MOUTH EVERY DAY FOR 90 DAYS 01/02 completed Not Available Not Available Not Available ipratropi um 0.5 mg-albute rol 3 mg (2.5 mg base)/3 mL nebulizat ion soln USE 1 AMPULE IN NEBULIZE R EVERY 6 HOURS NEEDED FOR WHEEZING 01/02 completed Not Available Not Available Not Available Depo-Medr ol 40 mg/mL suspensio n for injection Take 20 mg by injectio n route. 09/15 completed left plantar fascial injectio n Not Available Not Available Not Available tizanidin e 2 mg tablet Take 1 tablet twice a day by oral route as needed. 02/07 completed Not Available Not Available Not Available atorvasta tin 10 mg tablet TAKE 1 TABLET BY MOUTH EVERY DAY active Not Available Not Available No t Available azithromy marilyn 250 mg tablet Take 1 dose pk every day by oral route as directed for 5 days. 09/24 completed Not Available Not Available Not Available ibuprofen 800 mg tablet TAKE 1 TABLET BY MOUTH EVERY 8 HOURS NEEDED FOR MODERATE PAIN 08/27 completed Not Available Not Available Not Available Lidocaine Viscous 2 % mucosal solution Take 10 mL by oral route. 10/23 completed Not Available Not Available Not Available tizanidin e 4 mg tablet Take 1 tablet every day by oral route at bedtime for 7 days. 07/12 completed Not Available Not Available Not Available fluconazo le 150 mg tablet 08/27 completed Not Available Not Available Not Available methylphe nidate 10 mg tablet Take 1 tablet twice a day by oral route for 30 days. active Not Available Not Available No t Available hydrocodo ne 5 mg-acetam inophen 325 mg tablet 04/20 completed Not Available Not Available Not Available prazosin 1 mg capsule 09/24 completed Not Available Not Available Not Available meloxicam 15 mg tablet 08/27 completed Not Available Not Available Not Available sucralfat e 1 gram tablet TAKE 1 TABLET (1 G TOTAL) BY MOUTH 4 (FOUR) TIMES DAILY BEFORE MEALS AND NIGHTLY FOR 30 DAYS. 01/02 completed Not Available Not Available Not Available ondansetr on HCl 4 mg tablet 09/24 completed Not Available Not Available Not Available famotidin e 40 mg tablet TAKE 1 TABLET BY MOUTH ONCE DAILY FOR 90 DAYS 10/23 completed Not Available Not Available Not Available methylphe nidate 5 mg tablet TAKE 1 TABLET BY MOUTH THREE TIMES A DAY FOR 30 DAYS 03/08 completed Not Available Not Available Not Available prednison e 20 mg tablet TAKE 3 TABLETS BY MOUTH ONCE DAILY FOR 1 DAY, THEN TAKE 2 TABLETS BY MOUTH ONCE DAILY FOR 5 DAYS 10/23 completed Not Available Not Available Not Available alendrona te 70 mg tablet TAKE 1 TABLET BY MOUTH WEEKLY FOR 28 DAYS active Not Available Not Available No t Available sertralin e 100 mg tablet TAKE 1 1/2 TABLETS BY MOUTH ONCE DAILY 05/14 completed Not Available Not Available Not Available potassium chloride ER 10 mEq tablet,ex tended release take one tablet by mouth daily for 90 days 06/13 completed Not Available Not Available Not Available phentermi ne 37.5 mg tablet TAKE 1/2 TABLET BY MOUTH MID MORNING AND 1/2 TAB MID AFTERNOO N TOLERATE D 02/07 completed Not Available Not Available Not Available acetamino phen 300 mg-codein e 30 mg tablet 12/22 completed Not Available Not Available Not Available sulfameth oxazole 800 mg-trimet hoprim 160 mg tablet 11/19 completed Not Available Not Available Not Available omeprazol e 40 mg capsule,d elayed release Take 1 capsule every day by oral route. 02/07 completed Not Available Not Available Not Available doxycycli ne monohydra te 100 mg tablet TAKE 1 TABLET BY MOUTH TWICE A DAY FOR 7 DAYS active Not Available Not Available No t Available tramadol 50 mg tablet TAKE 1 TABLET BY MOUTH EVERY 8 HOURS NEEDED FOR POST OP PAIN FOR UP TO 7 DAYS 04/18 completed Not Available Not Available Not Available amitripty line 50 mg tablet 04/20 completed Not Available Not Available Not Available acetamino phen 500 mg tablet TAKE 1 TABLET BY MOUTH EVERY 6 HOURS NEEDED FOR 10 DAYS 05/23 completed Not Available Not Available Not Available levothyro xine 25 mcg tablet TAKE 1 TABLET BY MOUTH EVERY DAY active Not Available Not Available No t Available ketorolac 10 mg tablet TAKE 1 TABLET BY MOUTH EVERY 6 HOURS NEEDED FOR PAIN FOR 5 DAYS 08/27 completed Not Available Not Available Not Available tamsulosi n 0.4 mg capsule TAKE 1 CAPSULE BY MOUTH ONCE DAILY 08/27 completed Not Available Not Available Not Available gabapenti n 800 mg tablet TAKE 1 TABLET BY MOUTH THREE TIMES A DAY FOR 90 DAYS active Not Available Not Available No t Available amitripty line 10 mg tablet Take by oral route for 30 days. 12/22 completed Not Available Not Available Not Available baclofen 10 mg tablet 09/24 completed Not Available Not Available Not Available benzonata te 100 mg capsule TAKE 1 CAPSULE BY MOUTH THREE TIMES DAILY FOR 10 DAYS 10/09 completed Not Available Not Available Not Available dexametha sone 2 mg tablet PLEASE SEE ATTACHED FOR DETAILED DIRECTIO NS active Not Available Not Available No t Available cephalexi n 500 mg capsule TAKE 1 CAPSULE BY MOUTH TWICE A DAY 02/07 completed Not Available Not Available Not Available pantopraz ole 40 mg tablet,de layed release TAKE 1 TABLET (40 MG TOTAL) BY MOUTH TWICE A DAY 01/02 completed Not Available Not Available Not Available cyanocoba cheyenne (vit B-12) 1,000 mcg/mL injection solution Inject 1 mL every month by subcutan eous route. 03/09 completed Not Available Not Available Not Available esomepraz ole magnesium 40 mg capsule,d elayed release TAKE 1 CAPSULE BY MOUTH EVERY DAY FOR 90 DAYS active Not Available Not Available No t Available ropinirol e 0.5 mg tablet TAKE 1/2 TABLET BY MOUTH ONCE DAILY AT BEDTIME FOR 3 DAYS, THEN INCREASE TO 1 TABLET BY MOUTH ONCE DAILY AT BEDTIME 09/24 completed Not Available Not Available Not Available lisinopri l 10 mg tablet TAKE 1 TABLET BY MOUTH ONCE DAILY 10/09 completed Not Available Not Available Not Available lansopraz ole 30 mg capsule,d elayed release 04/20 completed Not Available Not Available Not Available cabergoli ne 0.5 mg tablet TAKE 0.5 TABLETS BY MOUTH 2 (TWO) TIMES A WEEK. active Not Available Not Available No t Available omeprazol e 20 mg capsule,d elayed release 09/24 completed Not Available Not Available Not Available budesonid e 0.5 mg/2 mL suspensio n for nebulizat ion USE 1 VIAL IN NEBULIZE R TWICE DAILY 01/02 completed Not Available Not Available Not Available diclofena c sodium 75 mg tablet,de layed release TAKE 1 TABLET BY MOUTH TWICE A DAY 01/02 completed Not Available Not Available Not Available bumetanid e 1 mg tablet TAKE 1 TABLET BY MOUTH EVERY DAY active Not Available Not Available No t Available monteluka st 10 mg tablet TAKE 1 TABLET BY MOUTH EVERY DAY active Not Available Not Available No t Available hydroxyzi ne HCl 25 mg tablet 12/22 completed Not Available Not Available Not Available furosemid e 20 mg tablet TAKE 1 TABLET BY MOUTH TWICE A DAY 02/07 completed Not Available Not Available Not Available ergocalci ferol (vitamin D2) 1,250 mcg (50,000 unit) capsule 11/19 completed Not Available Not Available Not Available diazepam 10 mg tablet TAKE 1 TABLET BY MOUTH 2 TIMES A DAY NEEDED FOR ANXIETY. active Not Available Not Available No t Available benzoyl peroxide 5 % topical cleanser USE WASH 3 DAYS PRIOR TO SHOULDER SURGERY, BRING BOTTLE TO HOSPITAL THE DAY OF SURGERY 05/23 completed Not Available Not Available Not Available levofloxa marilyn 500 mg tablet TAKE 1 TABLET BY MOUTH EVERY 24 HOURS FOR 10 DAYS 05/17 completed Not Available Not Available Not Available methylpre dnisolone 4 mg tablets in a dose pack TAKE 6 TABLETS ON DAY 1 DIRECTED ON PACKAGE AND DECREASE BY 1 TAB EACH DAY FOR A TOTAL OF 6 DAYS 09/24 completed Not Available Not Available Not Available hydrocodo ne 10 mg-chlorp heniramin e 8 mg/5 mL oral susp extend.re l 12hr TAKE 5 MLS BY MOUTH TWICE DAILY NEEDED FOR UP TO 30 DAYS 11/19 completed Not Available Not Available Not Available brompheni ramine-ps eudoephed rine-DM 2 mg-30 mg-10 mg/5 mL oral syrup TAKE 10 ML BY MOUTH EVERY 4 HOURS FOR 10 DAYS active Not Available Not Available No t Available ondansetr on 4 mg disintegr ating tablet 09/24 completed Not Available Not Available Not Available cefdinir 300 mg capsule TAKE 1 CAPSULE BY MOUTH TWICE DAILY FOR 7 DAYS 04/20 completed Not Available Not Available Not Available dexametha sone sodium phosphate 10 mg/mL injection solution Take 8 mg by injectio n route. 09/24 completed Not Available Not Available Not Available fluoxetin e 20 mg capsule TAKE 3 CAPSULES BY MOUTH EVERY DAY active Not Available Not Available No t Available fluticaso ne propionat e 50 mcg/actua tion nasal spray,saloni pension USE 1 SPRAY(S) IN EACH NOSTRIL ONCE DAILY 11/19 completed Not Available Not Available Not Available sertralin e 50 mg tablet TAKE 1 TABLET BY MOUTH ONCE DAILY 04/20 completed Not Available Not Available Not Available prazosin 2 mg capsule TAKE 1 CAPSULE BY MOUTH AT BEDTIME 04/18 completed Not Available Not Available Not Available diazepam 5 mg tablet TAKE 1 TABLET BY MOUTH 30 MINUTES BEFORE MRI AND 1 TAB RIGHT BEFORE 08/27 completed Not Available Not Available Not Available metoclopr amide 10 mg tablet TAKE 1 TABLET BY MOUTH 4 TIMES A DAY (BEFORE MEALS AND AT NIGHT) FOR 30 DAYS active Not Available Not Available No t Available buspirone 15 mg tablet Take 1 tablet twice a day by oral route as needed for 90 days. 2024 active Not Available Not Available Not Avai lable oxycodone 5 mg tablet TAKE 1 TABLET BY MOUTH EVERY 6 HOURS NEEDED FOR PAIN FOR UP TO 7 DAYS MAX 4 TABS DAILY 05/23 completed Not Available Not Available Not Available Giulia-Lant a 200 mg-200 mg-20 mg/5 mL oral suspensio n Take 30 mL by oral route. 10/23 completed Not Available Not Available Not Available azithromy marilyn 500 mg tablet TAKE 1 TABLET BY MOUTH ONCE DAILY FOR 5 DAYS 10/23 completed Not Available Not Available Not Available aripipraz ole 10 mg tablet TAKE 1 TABLET BY MOUTH EVERY DAY 04/18 completed Not Available Not Available Not Available guaifenes in 400 mg tablet 09/24 completed Not Available Not Available Not Available aripipraz ole 5 mg tablet 12/22 completed Not Available Not Available Not Available Klor-Con M10 mEq tablet,ex tended release TAKE 1 TABLET BY MOUTH EVERY DAY active Not Available Not Available No t Available ketorolac 60 mg/2 mL intramusc ular syringe Inject 60 mg by intramus cular route. 09/15 completed Not Available Not Available Not Available levalbute rol HFA 45 mcg/actua tion aerosol inhaler INHALE 2 PUFFS BY MOUTH EVERY 4 HOURS NEEDED FOR SHORTNES S OF BREATH AND FOR WHEEZING 01/02 completed Not Available Not Available Not Available omeprazol e 01/20 completed Not Available Not Available Not Available BD Ultra-Fin e Short Pen Needle 31 gauge x 5/16 USE DIRECTED 12/23 completed Not Available Not Available Not Available quetiapin e 50 mg tablet TAKE 1 TABLET BY MOUTH EVERY DAY AT BEDTIME active Not Available Not Available No t Available levocetir izine 5 mg tablet Take 1 tablet every day by oral route. active Not Available Not Available No t Available oxycodone 10 mg tablet TAKE 1 TABLET BY MOUTH EVERY 8 HOURS 12/22 completed Not Available Not Available Not Available diclofena c 1 % topical gel 08/27 completed Not Available Not Available Not Available armodafin il 150 mg tablet 01/02 completed Not Available Not Available Not Available armodafin il 250 mg tablet Take 1 tablet every day by oral route in the morning for 30 days. 04/18 completed Not Available Not Available Not Available Mucus Relief ER 600 mg tablet, extended release TAKE 2 TABLETS BY MOUTH TWICE DAILY FOR 14 DAYS 11/19 completed Not Available Not Available Not Available Gilenya 0.5 mg capsule Take 1 capsule every day by oral route. 09/24 completed Not Available Not Available Not Available Xarelto 20 mg tablet TAKE 1 TABLET BY MOUTH DAILY WITH BREAKFAS T active Not Available Not Available No t Available Saxenda 3 mg/0.5 mL (18 mg/3 mL) subcutane ous pen injector 07/18 completed Not Available Not Available Not Available Linzess 72 mcg capsule Take 1 capsule every day by oral route for 90 days. 2024 active Not Available Not Available Not Avai lable Ozempic 0.25 mg or 0.5 mg (2 mg/1.5 mL) subcutane ous pen injector INJECT 0.25 MG UNDER THE SKIN ONCE EVERY WEEK active Not Available Not Available No t Available Ubrelvy 100 mg tablet Take 1 tablet every day by oral route as needed. 10/23 completed Not Available Not Available Not Available [facility] 75 mg disintegr ating tablet DISSOLVE 1 TABLET BY MOUTH ONCE DAILY NEEDED FOR HEADACHE active Not Available Not Available No t Available Ajovy 225 mg/1.5 mL subcutane ous auto-inje ctor INJECT 1 PEN SUBCUTAN EOUSLY MONTHLY active Not Available Not Available No t Available Kesimpta Pen 20 mg/0.4 mL subcutane ous pen injector INJECT 1 PEN UNDER THE SKIN EVERY MONTH 2024 active Not Available Not Available Not Avai lable Ozempic 1 mg/dose (4 mg/3 mL) subcutane ous pen injector Inject 1 mg every week by sub-q route. 04/20 completed Not Available Not Available Not Available Ozempic 0.25 mg or 0.5 mg (2 mg/3 mL) subcutane ous pen injector 09/15 completed Not Available Not Available Not Available Vitals Date Recorded Body height Body mass index (BMI) Body weight Body temperature Oxygen saturation Oxygen saturation in Arterial blood by Pulse oximetry Heart rate Systolic blood pressure Diastolic blood pressure Provider Name and Address Organization Details Last Updated DateTime 4 160.02 cm 29.1 kg/m2 33967.1 5 g 97.8 [degF] 98 % 98 % 86 /min 100 mm[Hg] 60 mm[Hg] Karli MORROW - [facility] - [place] & [place] 4 08:10:23 Date Recorded Body height Body mass index (BMI) Body weight Body temperature Oxygen saturation Oxygen saturation in Arterial blood by Pulse oximetry Heart rate Respiratory rate Systolic blood pressure Diastolic blood pressure Provider Name and Address Organization Details Last Updated DateTime 4 160.02 cm 28.1 kg/m2 04260.7 5 g 96.4 [degF] 98 % 98 % 80 /min 18 /min 110 mm[Hg] 66 mm[Hg] [facility] & [place] 4 15:55:28 Date Recorded Body height Body temperature Oxygen saturation Oxygen saturation in Arterial blood by Pulse oximetry Heart rate Systolic blood pressure Diastolic blood pressure Provider Name and Address Organization Details Last Updated DateTime 5 160.02 cm 98 [degF] 96 % 96 % 118 /min 122 mm[Hg] 70 mm[Hg] Evelyn Asher [facility] & [place] 5 14:36:05 Date Recorded Body height Body mass index (BMI) Body weight Oxygen saturation Oxygen saturation in Arterial blood by Pulse oximetry Heart rate Respiratory rate Body temperature Systolic blood pressure Diastolic blood pressure Provider Name and Address Organization Details Last Updated DateTime 5 160.02 cm 28.1 kg/m2 82355.0 3 g 98 % 98 % 84 /min 18 /min 96.9 [degF] 114 mm[Hg] 72 mm[Hg] [facility] & [place] 5 15:16:36 Date Recorded Body height Body weight Body temperature Oxygen saturation Oxygen saturation in Arterial blood by Pulse oximetry Heart rate Body mass index (BMI) Respiratory rate Systolic blood pressure Diastolic blood pressure Provider Name and Address Organization Details Last Updated DateTime 5 160.02 cm 49979.3 4 g 96.8 [degF] 99 % 99 % 79 /min 28.3 kg/m2 18 /min 122 mm[Hg] 68 mm[Hg] [facility] & [place] 5 10:10:47 Social History Question Answer Notes LastModified by Organizat ion Details LastModified Time Tobacco Smoking Status Never Smoker Not Available [employer] 12/06/2021 09:52:05 Do You Have An Advance Directive? No [email or web address] Information not available 12/25/2021 What Is Your Level Of Alcohol Consumption? None Information not available 12/22/2021 Are You Blind Or Do You Have Difficulty Seeing? No Glasses Information not available 12/23/2021 Have You Been To An Area Known To Be High Risk For COVID-19? No Information not available 04/20/2023 Are You Currently Employed? Yes Information not available 04/20/2023 Are You Deaf Or Do You Have Serious Difficulty Hearing? No Information not available 04/20/2023 Have You Processed Blood Or Body Fluids From An Ebola Virus Disease Patient Without Appropriate PPE? No Information not available 04/20/2023 Do You Reside In Or Have You Traveled To An Area Where Ebola Virus Transmission Is Active? No Information not available 04/20/2023 Have There Been Any Changes To Your Family Or Social Situation? No Information not available 04/20/2023 Have You Recently Or Are You Planning To Travel To An Area With Zika Virus? No Information not available 04/20/2023 What Was The Date Of Your Most Recent Tobacco Screening? 05/14/2024 Information not available 05/14/2024 Do You Have Any Pets? Yes Information not available 04/20/2023 Do You Have Smoke And Carbon Monoxide Detectors In Your Home? Yes Information not available 04/20/2023 Are You Passively Exposed To Smoke? No Information not available 04/20/2023 Do You Or Have You Ever Used Smokeless Tobacco? Never Used Smokeless Tobacco Information not available 05/24/2023 How Much Tobacco Do You Smoke? No Information not available 05/24/2023 Do You Feel Stressed (tense, Restless, Nervous, Or Anxious, Or Unable To Sleep At Night)? [id number] Information not available 05/24/2023 Do You Use Any Illicit Or Recreational Drugs? No Information not available 12/22/2021 Has Tobacco Cessation Counseling Been Provided? No Information not available 04/20/2023 How Many Years Have You Smoked Tobacco? 0 Information not available 11/14/2023 Are You Currently In School? No Information not available 04/20/2023 Do You Or Have You Ever Used Any Other Forms Of Tobacco Or Nicotine? No Information not available 04/20/2023 Sex: Female Functional Status Question Answer Note LastModified by Organizat ion Details LastModified Time Do you have difficulty walking or climbing stairs? No Information not available 04/20/2023 Do you have transportation difficulties? No Information not available 04/20/2023 Are you able to walk? YESWOREST Information not available 04/20/2023 Do you have difficulty doing errands alone? No Information not available 04/20/2023 Are you able to care for yourself? Yes Information not available 04/20/2023 Do you have difficulty dressing or bathing? No Information not available 04/20/2023 What is your exercise level? None Information not available 11/14/2023 Mental Status Question Answer Note LastModified by Organization D etails LastModified Time Do you have difficulty concentrating, remembering or making decisions? No Information no t available 04/20/2023 Family History Relationship Description Onset Age of this Age Resolved Age Notes LastModified by Organization Details LastModified Time Father Malignant tumor of gallbladder [email or web address] Not available 04/27 09:32:46 Father Father Cancer [email or web address] Not available 2024 09:32:46 Father Chronic obstructive pulmonary disease pt. added direct ly (10/28) [email or web address] Not available 10/29/2023 16:58:58 Father Gastroesopha geal reflux disease pt. added direct ly (10/28) [email or web address] Not available 10/29/2023 16:59:27 Mother Chronic obstructive pulmonary disease pt. added direct ly (10/28) [email or web address] Not available 10/29/2023 16:58:58 Mother Gastroesopha geal reflux disease pt. added direct ly (10/28) [email or web address] Not available 10/29/2023 16:59:27 Paternal Grandmother Disorder of endocrine system pt. added direct ly (10/28) [email or web address] Not available 10/29/2023 16:59:18 Paternal Grandfather Disorder of endocrine system pt. added direct ly (10/28) [email or web address] Not available 10/29/2023 16:59:18 Maternal Uncle Disorder of endocrine system pt. added direct ly (10/28) [email or web address] Not available 10/29/2023 16:59:18 Daughter Headache pt. added direct ly (10/28) [email or web address] Not available 10/29/2023 16:59:38 Medical History Condition Response Coronary Artery Disease N None N Other N Gout N Blood Diseases N Kidney Stones N Hyperthyroidism N Breast Cancer N Blood Transfusion N Hernia N COPD N Depression N Hypothyroidism N Lung Disease N Defects or Inherited Disease N Developmental or Behavioral Disorders N Breast Problem N Difficulty Swallowing N Anesthesia Complications N Anxiety Disorder N Meniere's disease N Muscle, Joint, or Bone Problems N Obesity N Vision or Eye Problems N Arthritis N Infertility N Polyps N Cancer N Stroke N Varicosities N Endometriosis N Bladder or Kidney Problems N High Cholesterol N Liver Disease N Headaches N Fibromyalgia N Kidney Disease N Allergies/Hayfever N Heart Problems N Weight loss or gain N Ear or Hearing Problems N Hospitalizations N Thyroid Problems N GI Problems N ADD/ADHD N Eating Disorder N Skin Problems N Osteoporosis/Osteopenia Y Anemia N Constipation N Mental Illness N Neurological Problems Y Diabetes N Ovarian Cancer N Bedwetting N Seizures/Epilepsy N Tuberculosis N Eczema N Back Problems Y Abuse/Domestic Violence N Diverticulitis N Asthma N Reflux/GERD N Jaundice N Sleep Apnea N GERD/Reflux N Hepatitis N Heart Disease N Pulmonary Embolism N Chronic Ear Infections N Pre-Eclampsia N Hypertension N Chicken Pox N Autism Spectrum Disorder (ASD) N Osteoporosis N Thrombophilias N Gynecological History Statement/Question Response Abnormal Pap N 03/26/2024 Date of Last Colonoscopy 09/15/2022 Most Recent Bone Density 03/22/2024 Date of LMP 05/01/1991 Sexually Active? N Menses Monthly N Most Recent Mammogram 03/22/2024 Obstetrics History GPAL:G 0 P 0 0 0 0 Immunizations Vaccine Type Date Status Note Provider Nam e and Address Organization Details Recorded Time Influenza, split virus, quadrivalent, preservative 3 completed Tyesha Bravo, [address], [address] [facility], [place], [address], [facility] & [place] 12/23/2022 20:43:31 Hep A, unspecified formulation 8 completed Not Available [facility] 03/23/2023 07:17:26 zoster recombinant 9 completed Not Available [facility] 03/23/2023 07:17:26 Influenza, recombinant, quadrivalent, PF 0 completed Not Available [facility] 03/23/2023 07:17:26 Influenza, split virus, trivalent, PF 6 completed Not Available [facility] 03/23/2023 07:17:26 Influenza, split virus, quadrivalent, PF 1 completed Not Available [facility] 03/23/2023 07:17:26 COVID-19, mRNA, LNP-S, PF, 30 mcg/0.3 mL dose 1 completed Patricia edgar, [place] - [facility] - [place] & [place] 04/23/2024 14:30:03 Hep A, adult 9 completed Not Available [facility] 03/23/2023 07:17:26 TST-PPD intradermal 5 completed Not Available [facility] 03/23/2023 07:17:26 COVID-19, mRNA, LNP-S, PF, 30 mcg/0.3 mL dose 1 completed Patricia edgar [place] - [facility] - [place] & [place] 04/23/2024 14:30:03 zoster recombinant 9 completed Not Available [facility] 03/23/2023 07:17:26 Influenza, split virus, quadrivalent, PF 8 completed Not Available [facility] 03/23/2023 07:17:26 COVID-19, mRNA, LNP-S, PF, 100 mcg/0.5mL dose or 50 mcg/0.25mL dose 1 completed Patricia edgar [place] - [facility] - [place] & [place] 04/23/2024 14:30:03 COVID-19, mRNA, LNP-S, PF, marilu-sucrose, 30 mcg/0.3 mL 4 completed Patricia edgar, [place] - [facility] - [place] & [place] 04/23/2024 14:30:03 Influenza, MDCK, trivalent, PF 4 completed [place] Woo - [facility] - [place] & [place] 04/23/2024 14:30:03 COVID-19, mRNA, LNP-S, bivalent, PF, 50 mcg/0.5 mL or 25mcg/0.25 mL dose 2 completed Not Available [facility] 03/23/2023 07:17:26 Influenza, split virus, quadrivalent, PF 2 completed Not Available [facility] 03/23/2023 07:17:26 Past Encounters Encounter ID Performer Location Encounter Start Date Encounter Closed Date Diagnosis/Indication Diagnosis SNOMED-CT Code Diagnosis ICD10 Code Diagnosis Note [id number] Tyesha Bravo DO [facility] Family Medicine- Floor 2, [address] [facility],[address] [place] [id number] 12/23/2021 13:14:43 12/23/2021 14:06:05 Anxiety 32617532 F41.9 Constipation 91852256 K5 9.00 Gastroesop hageal reflux disease 945145429 K21.9 Hypertensive disorder 38 403750 I10 Had labs done today Neuropathy 289474022 G62 .9 UDS and MARK reviewed. Restless legs 91614500 G 25.81 Vitamin D deficiency 347 87728 E55.9 Seasonal a llergic rhinitis 680825614 J30.2 Migraine 71926467 G43.90 9 Pain of joint 23186448 M 25.50 Multiple sclerosis 28940 007 G35 Body mass index 30+ - obesity 736765896 Z68.39 [id number] Tyesha Bravo DO [facility] Family Medicine- Floor 2, [address] [facility],[address] [place] [id number] 02/03/2022 08:10:28 02/03/2022 08:40:10 Body mass index 30+ - obesity 136048050 Z68.39 Continue Saxenda. Hyperesthesia 84110341 R 20.3 Hypertensive disorder 38 023376 I10 [id number] Tyesha Bravo DO [facility] Family Medicine- Floor 2, [address] [place] [id number] 03/10/2022 10:22:48 03/10/2022 11:17:07 Neuropathy 489810617 G62.9 UDS and MARK reviewed. Anxiety 09431499 F41.9 Hypertensive disorder 38 658000 I10 Pain of joint 51966940 M 25.50 Multiple sclerosis 45119 007 G35 Gastroesop hageal reflux disease 064853469 K21.9 Seasonal a llergic rhinitis 514438975 J30.2 Body mass index 30+ - obesity 470835632 Z68.39 Continue Saxenda. Migraine 08399081 G43.90 9 Preoperati ve cardiovascular examination 358252939 Z01.810 Apr 04, [facility] and then will ok for surgery.No issues with anesthesia in the past.No issues with needing blood transfusio ns in the past.EKG no change from previous Long-term drug therapy 082882698 Z79.899 [id number] Tyesha Bravo DO [facility] Family Medicine- Floor 2, [address] [place] [address] Drive[address] [place] [id number] 05/23/2022 15:50:13 05/23/2022 16:48:12 Body mass index 30+ - obesity 925730617 Z68.39 Continue Saxenda.BM I now 35.5 Hypertensive disorder 38 991417 I10 [id number] Tyesha Bravo DO [facility] Family Medicine- Floor 2, [address] [place] [address] Drive,[address] JUST[address] Roth [place] [address] 05/31/2022 09:31:17 05/31/2022 09:48:03 Serous otitis media 70185739 H65.92 Body mass index 30+ - obesity 007967727 Z68.34 [id number] Tyesha Bravo DO [facility] Family Medicine- Floor 2, [address] [place] [address] Drive,[address] JUST[address] Roth [place] [address] 06/17/2022 10:38:52 06/17/2022 11:16:36 Temporomandibular joint disorder 92449793 M26.609 leftAlread y on Diclofenac [id number] YARELY CASTRO MD [facility] ENT [address] [place] [address] 07/15/2022 07:58:54 07/15/2022 08:13:18 Left temporomandibular joint disorder 0842766568 4235332 M26.602 - It was explained to the patient that the ear pain is most likely due to issues related to jaw joint- Recommend avoidance of crunchy/ch ewy food, warm compresses as needed, and dental evaluation for dental guard or OTC bite guard- Recommend NSAIDs as needed for pain. Massage with icy hot as instructed - A handout with stretching exercises was provided to the patient- Discussed if the above measures do not improve pain, can discuss PT referral- Return to clinic in 1 month [id number] Tyesha Bravo, DO [facility] Family Medicine- Floor 2, 615 [address] [facility] [address] [place] [address] 07/18/2022 15:20:13 07/18/2022 16:04:47 Migraine 10224908 G43.909 Pain in lower limb 94556 006 M79.604 M79.605 [id number] YARELY CASTRO MD [facility] ENT [address] [place] [address] 08/12/2022 08:11:29 08/12/2022 08:21:31 Left temporomandibular joint disorder 4648596346 4688961 M26.602 - Instructed patient to obtain ice guard tester. Given her pain seems to be associated with joint inflammati on rather than muscle pain this is going to be more helpful for her as opposed to stretching exercises- If symptoms still not improved at follow up will refer to oral surgeon for possible joint injection- Refill for mobic sent to pharmacy [id number] Daniela Queen DPM [facility] Podiatry 225 [facility] [address] [place] [address] 09/02/2022 08:09:36 09/02/2022 08:54:40 Pain in left foot 2277712331 47169 M79.672 Radiograph s performed today. Findings reviewed and discussed with patient. Plantar fasciitis 20271027 003 M72.2 Demonstrat ed and dispensed handout regarding appropriat e stretching program for his/her condition. Instructed patient to perform without shoe gear at least twice daily. Also discussed benefit of anti-infla mmatories, ice massage and arch supportPat ient consents for injection into symptomati c heel today. Patient tolerated well. Patient instructed to refrain from strenuous activity including stretching program x at least 24 hours post injection to reduce risk of plantar fascial injury. Patient verbalizes understand ing.Methyl prednisolo ne Acetate 400mg per 10ml. Lot#[id number] . [facility]# [address] -03. Expiration 07/19. Achilles tendinitis 1165 4001 M76.62 Pain posterior heel < plantar heel. Consider PT pending progress. [id number] Tyesha Bravo DO [facility] Family Medicine- Floor 2, [address] [place] [address],[facility] te [address] [place] [address] 09/15/2022 14:30:12 09/15/2022 15:04:09 Neuropathy 354652505 G62.9 UDS and AMRK reviewed. Anxiety 66651118 F41.9 Hypertensive disorder 38 910650 I10 Pain of joint 86380175 M 25.50 Multiple sclerosis 14213 007 G35 Gastroesop hageal reflux disease 335351604 K21.9 Seasonal a llergic rhinitis 563304978 J30.2 Body mass index 30+ - obesity 395050809 Z68.39 Migraine 32395094 G43.90 9 [id number] Daniela Queen DPM [facility] Podiatry 225 [facility] [address] [place] [address] 10/17/2022 08:39:51 10/17/2022 09:17:37 Pain in left foot 1915753310 54539 M79.672 Plantar fasciitis 880735 003 M72.2 Discussed treatment options including PT and Medrol pack versus rest in BK boot. Pt elects for boot. Feels her symptoms are becoming more constant with WBing.Disp ensed pneumatic walking boot with instructio flaquito for applicatio n and use. An arch pad was added for comfort. Patient may remove pneumatic boot to bathe and sleep. This director medical economics is medically necessary to treat this patient's condition. A copy of DME POS supplier standards was dispensed with this device and the return policy was discussed. Patient verbalizes understand ing of applicatio n and removal of device and admits comfort with today's applicatio n. Patient/gu arantor sign for receipt of this device. Instructed patient to remove boot if must drive. Consider addition of crutches if pain persist in boot.Hold stretches for 1 week, then resume BID out of boot.Akshat nue BK boot with ambulation until pain improved. Counseled regarding slow transition out of BK boot once symptoms resolved.D ispensed order for crutches versus knee walker in case needed. Achilles tendinitis 1165 4001 M76.62 Strain of foot 088280902 0 9 S96.912A reduce WBing activities in BK boot until symptoms improve [id number] YARELY CASTRO MD [facility] ENT [address] [place] [address] 11/14/2022 08:08:01 11/14/2022 08:57:53 Left temporomandibular joint disorder 0795419284 9076984 M26.602 - Continues to have pain over left TMJ. Seems largely associated with the joint capsule rather than muscular. Has failed treatment with bite guard, NSAIDs, and warm compresses - Will refer to orofacial pain clinic for evaluation [id number] Francheska Azul APRN [facility] Immediate Care- Floor 1, 607 225 [facility] [address] [place] [address] 12/04/2022 09:19:45 12/04/2022 10:12:26 Submental lymphadenopathy 039823595 R59.0 Complete medication as directed. Push fluids, especially water. Encouraged salt water gargles BID. Acute pharyngitis 605506 003 J02.9 Take medication as directed. Monitor BP as we discussed, discontinu e with elevated readings. [id number] Tyesha Bravo DO [facility]- Floor 2, 615 225 [facility] [address] [employer] [place] [address] 12/23/2022 08:23:06 12/23/2022 09:01:06 Hypertensive disorder 48391479 I10 Anxiety 99104868 F41.9 Pain of joint 39656452 M 25.50 Neuropathy 536954050 G62 .9 UDS and MARK reviewed. Gastroesop hageal reflux disease 333469494 K21.9 Failed Lansoprazo le Seasonal a llergic rhinitis 907546397 J30.2 Influenza vaccine needed 0622613001 106 Z23 Body mass index 30+ - obesity 075978517 Z68.36 Screening for malignant neoplasm of breast 959187054 Z12.39 [id number] Tyesha Bravo DO [facility] Family Medicine- Floor 2, [address] [place] [address],[address] [place] [address] 01/20/2023 13:38:12 01/20/2023 14:10:22 Insomnia 989087330 G47.00 Stop Amitriptyl ine [id number] Tyesha Bravo DO [facility] Family Medicine- Floor 2, [address] [place] [address],[address] [place] [address] 02/20/2023 13:23:22 02/20/2023 14:21:04 Insomnia 566975750 G47.00 Stopped Amitriptyl ineSeroque l doing well. History of bariatric surgical procedure 045900190 Z98.84 [id number] Daniela Queen DPM [facility] Podiatry [address] [place] [address],[address] [place] [address] 02/10/2023 08:36:28 02/10/2023 09:28:23 Pain in left foot 2975451683 95490 M79.672 Counseled regarding potential benefit of anti-infla mmatories to reduce symptoms. Discussed varieties available including topical forms, OTC and prescripti on options and natural remedies including risks and benefits of each. Also provided recommenda tions for dosing. Plantar fasciitis 20271027 003 M72.2 Discussed benefit of increased support with ambulation . [facility] ed power step inserts in office today. Explained patient would need to remove prefab liners from shoes and replace with arch support.Pt reports her pain is significan t at times. Chart review reveals she wore a BK boot some with her last episode. Recommend returning to the boot during day until symptoms improve. Remove boot for HEP BID. Also dispensed order for PT, begin after 1 week. Achilles tendinitis 1165 4001 M76.62 [facility] ed again and dispensed handout regarding appropriat e stretching program for his/her condition. Instructed patient to perform without shoe gear at least twice daily. Also discussed benefit of anti-infla mmatories, ice massage and arch support. [id number] Tyesha Bravo DO [facility] Family Medicine- Floor 2, [address] [place] [address],[address] [place] [address] 04/20/2023 08:34:10 04/20/2023 09:25:04 Insomnia 326833754 G47.00 Seroquel doing well. Cough 48488155 R05.1 Acute bronchitis 7352385 2 J20.9 Work note today and tomorrow. [id number] [facility] Neurology [address] [place] [address] 05/17/2023 10:39:55 05/17/2023 11:36:57 Chronic intractable migraine without aura 7988968596 68857 G43.719 Attacks of weakness 2482 03878 R53.1 Demyelinat ing disease of central nervous system 7689360 G37.9 Mixed anxi ety and depressive disorder 983599726 F41.8 [id number] Tyesha Bravo DO [facility] [place] [address], [address] [place] [address] 200 [place] [address] 06/14/2023 09:02:48 06/14/2023 10:04:30 Insomnia 619950042 G47.00 Hypertensive disorder 38 632845 I10 Seasonal a llergic rhinitis 284721537 J30.2 Anxiety 50347078 F41.9 Pain of joint 34130101 M 25.50 Low back pain 105842616 M54.50 [id number] [facility] Neurology [address] [place] [address] 07/18/2023 13:25:42 07/18/2023 14:05:36 Refractory migraine without aura 073314315 G43.019 Idiopathic hypersomnia 1424994809 107 G47.11 Multiple sclerosis 24071 007 G35 [id number] Tyesha Bravo DO [facility] 2, [address] [place] [address] te [address] [place] [address] 08/28/2023 15:33:40 08/28/2023 16:47:29 Neuropathy 607673488 G62.9 Hypertensive disorder 38 131225 I10 Anxiety 23128836 F41.9 Pain of joint 08772420 M 25.50 Gastroesop hageal reflux disease 378047817 K21.9 Failed Lansoprazo le Seasonal a llergic rhinitis 464361693 J30.2 Insomnia 856702914 G47.0 0 Acute sinusitis 20892081 J01.90 Cough 70986823 R05.1 Long-term current use of drug therapy 086184786 Z79.687 [id number] Tyesha Bravo DO [facility] Family Medicine- Floor 2, [address] [employer] [address] 09/25/2023 15:52:36 09/25/2023 17:11:18 Chronic obstructive pulmonary disease 82510705 J44.9 Sample for Trelegy 100 Lesion of skin of face 8958639033 06 L98.9 Left side of face [id number] Tyesha Bravo DO [facility] Medicine- Floor 2, [address] JUST[address] [employer] [address] 10/10/2023 15:38:32 10/10/2023 16:25:17 Cough 63182637 R05.1 Stop Phentermin e.GI cocktail.O nly thing I can add is thinking could be GI related. Will add H2 parker and give GI cocktail. [id number] Tyesha Bravo DO [facility] Medicine- Floor 2, [address] JUST[address] [employer] [place] [address] 10/24/2023 11:10:23 10/24/2023 11:50:06 Unexplained chronic cough 4258669089 R05.3 Fatigue 90261295 R53.83 Cut Seroquel in 1/2Do labs that were ordered, hasn't done yetNo [facility] Nuvigil and sleep referralOf f work 4 wks. Daytime hypersomnia 3177 529593 8821 G47.19 [id number] Tyesha Bravo DO [facility] Medicine- Floor 2, [address] [employer] [place] [address] 2023 10:24:57 2023 11:00:12 Hypertensive disorder 72114469 I10 Seasonal a llergic rhinitis 679424992 J30.2 Cough 87600945 R05.1 Anxiety 52027396 F41.9 Neuropathy 377699998 G62 .9 Hyperlipidemia 92566694 E78.5 Long-term current use of drug therapy 733975312 Z79.899 Excessive daytime sleepiness - normal night sleep 080540293 G47.19 Undergoing sleep study and further testing with Dr. Monet [id number] Manoj Monet MD [facility] [address] [place] [address] 11/01/2023 15:10:13 11/01/2023 16:14:04 Hypersomnia 56777077 G47.10 Pro.found hypersomni a. I do not think narcolepsy he has been effectivel y ruled out in this patient she carries labeled of idiopathic hypersomni a but says never had a PSG are MSLT. She does not have cataplexy but she does have some hypnagogic and hypnopompi c hallucinat ions we will make arrangemen ts for in-lab sleep study and next day MSLT. She has been advised to hold her stimulants for awhile to get an accurate test. Migraine 50936531 G43.90 9 [id number] yTesha Bravo, [facility] Family Medicine- Floor 2, [address] [place] [address],[facility] [address] [place] [address] 02/20/2024 08:00:10 02/20/2024 08:29:39 Neuropathy 900240541 G62.9 Anxiety disorder 9946337 06 F41.9 Constipation 16472146 K5 9.00 From pain meds (pain pump) Screening for osteoporosis 539544722 Z13.820 Screening for malignant neoplasm of breast 638568548 Z12.39 [id number] Manoj Monet MD [facility] [address] [place] [address] 11/30/2023 15:04:03 11/30/2023 16:00:22 Hypersomnia 93242161 G47.10 She has a very positive MSLT. No sleep onset REM so diagnosis been narcolepsy not establishe d. I have advised the patient to restart her armodafini l and we will add Ritalin twice a day for her pulse dosing for peak times of sedation. I have spoke with both her primary care provider in her neurologis t they have asked me to write this medication . She will need in her into a controlled substance contract with me. I will see her in my [place] [facility] face-to-fa ce at which time we will urine drug screen if this is not effective then she will most likely need referral to sleep Medicine physicians who specialize in narcolepsy or hypersomni a to make definitive diagnosis. [id number] Manoj Monet MD [facility] [address] [facility] [address] 01/02/2024 14:48:06 01/02/2024 15:19:57 Idiopathic hypersomnia 9637594541 107 G47.11 Continue on modafinil and Ritalin 5 mg for breakthrou gh hypersomni a symptoms. Clinical improvemen t reported by the patient. She is a follow-up in 3 months. She is already interested into a controlled substance contract with my clinic for this particular medication s. Long-term drug therapy 999220925 Z79.861 [id number] Tyesha Bravo DO [facility] Family Medicine- Floor 2, [address] [place] [address],[address] [place] [address] 01/03/2024 08:21:07 01/03/2024 09:07:03 Soft tissue swelling of knee joint 484879701 M25.469 Edema of l ower extremity 827281854 R60.0 leftCompre ssion stocking [id number] Manoj Monet MD [facility] [address] [facility] [place] [address] 02/08/2024 09:39:16 02/08/2024 10:13:08 Idiopathic hypersomnia 7530896481 107 G47.11 Add Effexor. I think I am going to have her evaluated by a sleep neurologis t to see if she will be a candidate for xyrem. [id number] Tyesha Bravo DO [facility] Family Medicine- Floor 2, [address] [facility] [address] [place] [address] 03/08/2024 15:44:25 03/08/2024 16:24:24 Pituitary microadenoma 771491163 D35.2 [id number] Joey Baker M.D [facility] Neurology [facility] [address] [place] [address] 04/18/2024 13:57:04 04/18/2024 15:10:33 Idiopathic hypersomnia 3065016830 107 G47.11 At [facility] risk of polypharmacy 493420717 Z91.89 Intracrani al meningioma 132046716 D32.0 Pituitary adenoma 420823 000 D35.2 Multiple sclerosis 33014 007 G35 [id number] Tyesha Bravo DO [facility] Family Medicine- Floor 2, [address] [place] [address] 04/18/2024 15:09:24 04/18/2024 15:42:50 Pituitary adenoma 337910648 D35.2 Has referral to Endocrine (from Neurologis t) Intracrani al meningioma 814841285 D32.0 Will be fitted for radiation mask soon. Hypersomnia 34212607 G47 .10 Still do no recc driving or rtw at this time. [id number] Tyesha Bravo DO [facility] Family Medicine- Floor 2, [address] [place] [address] 05/14/2024 09:29:10 05/14/2024 11:08:43 Anxiety disorder 435221926 F41.9 Will stop Sertraline 150mg and change to Fluoxetine (anxious about upcoming radiation) Cough 66735385 R05.1 Constipation 29807453 K5 9.00 From pain meds (pain pump) Subclinica l hypothyroidism 75283806 E02 Seasonal a llergic rhinitis 936037183 J30.2 Neuropathy 523540456 G62 .9 Gastroesop hageal reflux disease 163026490 K21.9 Failed Lansoprazo le Pituitary microadenoma 316750518 D35.2 Anxiety 08005088 F41.9 Hypertensive disorder 38 387644 I10 Osteoporosis 86838630 M8 1.0 Health Concerns Section Related Observation LastModified by Organization Detai ls LastModified Time None Recorded Concern Status LastModified by Organization Details LastModified Time None Recorded Advance Directives Directive N: Payers Encounter Date Sequence Insurance Name Policy Number Policy Davis Covered Member ID Davis Member ID Guarantor Name 02/20/2024 1 [place] [id number] [place] Johanne D Robin [id number] Johanne D Robin 03/08/2024 1 [place] [id number] [place] Johanne D Robin [id number] Johanne D Robin 04/18/2024 1 [place] [id number] [place] Johanne D Roibn [id number] Johanne D Robin 04/18/2024 2 [place]FS/TRADITIONA L Johanne D Robin [id number] Johanne D Robin 04/18/2024 1 [place] [id number] AA Johanne D Robin [id number] Johanne D Robin 04/18/2024 2 [place] [facility] - FFS/TRADITIONA L Johanne D Robin [id number] Johanne D Robin 05/14/2024 1 [place] [id number] AA Johanne D Robin [id number] Johanne D Robin 05/14/2024 2 [facility] ([place]AC[place] - [place]) [id number] Johanne D Robin [id number] Johanne D Robin Notes Date Note Type Note Provider Name and Address Organization Details Recorded Time 02/20/2024 text/html Since last visit : Dr. Schwartz (blood clot in leg, on Xarelto and fluid pill, 1/2 of Bumex). F/u in Apr. Mar 08, referred to in [place] Dr. Monet added Effexor last wk. Still has episodes of nodding off. F/u neuropathy, controlled on Gabapentin. F/u anxiety, stable. Needs refills (got from [place], Prazosin and Sertraline) C/o constipation, tried otc stool softners and not helping. Flu shot and COVID shot at [facility] Tyesha Bravo, [address], [address], [place], [address], [facility] [place] & [place] 02/20/2024 12:47:06 03/08/2024 text/html Pt states Dr. Monet referred to Dr. Stoner (Neurology/[facility]). --May appt (couldn't wait).Pulm/Sleep: [facility] ([facility]) seenWanted to do repeat sleep study, Dr. Stoner and f/u in 1 month. She did not like Dr Sawyer and states will not go back.Reviewed last MRI and ? area of enhancement that needs f/u.Still very sleepy and easily can fall asleep driving and feels unsafe.Will put on FMLA until additional workup can be completed.MRI 05/2023Numerous bifrontal white matter lesions with measurements asabove, none of which are associated with enhancement. Thesecould be sequela of previous MS although nonspecific.Anterior suprasellar enhancing mass differential considerationsare meningioma versus suprasellar pituitary adenoma. RecommendMRI follow-up in 6 months along with neurosurgical consultation. Tyesha Bravo, [address], [address], [place], [address], [facility] & [place] 03/13/2024 14:54:51 04/18/2024 text/html Ms. Johanne Kelly is a 58 y/o F who presents for new visit today. She has been having migraine headaches since she was 20 years old but they are much more frequent and severe over the past year. She describes frequent throbbing right temporal and frontal headaches associated with photophobia, phonophobia, and nausea lasting hours to days only somewhat relieved by lying in a quiet, dark room. She has tried several medications w/out benefit.She was told in the past that she may have MS due to right sided weakness and bilateral lower extremity weakness. She was treated with Gilenya for MS for several years but stopped it recently. Has a spinal cord stimulator for chronic pain.She has depression and anxiety; since last visit she stopped Abilify as recommended.MRI brain showed stable T2WM burden and also shows an enhancing area consistent with a sella meningioma and possible pituitary adenoma. She is seeing Neurosurgery and Rad Onc for this and has planned treatment next month. Is on Armodafinil but continues to have hypersomnia. Joey Baker M.D [address], [address], [place], [address], [facility] & [place] 04/18/2024 15:02:52 04/18/2024 text/html Pt needs note fo r work at present with : No return to work dateShe is currently undergoing treatment for meningioma/and will be doing radiation. She has been referred to Endocrine for pituitary adenoma. She no longer drives (has someone bring/take her) as she falls asleep with driving despite current medications. Neuro would like her to try to wean off of some of her sedating medication. Tyesha Bravo, DO [address], [address], [place], [address], [facility] & [place] 04/23/2024 11:40:42 05/14/2024 text/html F/u neuropathy: stable F/u GERD, stable. F/u HTN, stable. F/u hypothyroidism, on meds, still tired. F/u osteoporosis, on Alendronate and doing well. Anxiety: increased over the past month, doesn't want medication raised Depression: increased over the past month, doesn't want medication raised Dr. Quick discontinued seroquel, apiprazole, and prazosin last month due to suspicion of medication induced somnolence. (hasn't helped) Pituitary Adenoma: Patient has been having increased episodes of daytime somnolence for the past few months. A pituitary adenoma found on past couple of months on repeat MRI, patient waiting until insurance approves radiation treatment. Tyesha Bravo DO [address], [address], [place], [address], [facility] & [place] 05/15/2024 16:13:02 OBGyn Episode No OBEpisode recorded.
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
--- OUTSIDE RECORDS SUMMARY | 2024-07-24 11:24 | XMS_ITS | Continuity of Care Document ---
Author Organization [facility] Phone Care Team Providers Care Film Waxer Name Role Phone TYESHA MUÑIZ Unavailable TYESHA MUÑIZ Primary Attending TYESHA MUÑIZ Admitting [phone] TYESHA MUÑIZ Primary Care ALLERGIES AND ADVERSE REACTIONS ALLERGIES AND ADVERSE REACTIONS Code System Allergy Substance Adverse Reaction Date Reaction (Severity) Comment Status Reported By [place] [id number] SNOMED CT Penicillins Rash active [id number] on October 11, 2021 2:05:47 PM [place] [id number] RXNorm CYMBALTA Adverse reaction to substance out of body experience active [id number] on October 11, 2021 2:05:47 PM [place] FAMILY HISTORY RELATION: Father Status: Cause of : Unknown Age at : Unknown SNOMED-CT Diagnosis Age At Onset [id number] Hypertensive disorder [id number] Hypercholesterolemia RELATION: Mother Status: LIVING SNOMED-CT Diagnosis Age At Onset [id number] Hypertensive disorder [id number] Heart disease RESULTS Patient: GWEN Joe Date of : [birth year] LABORATORY RESULTS ORDER 100: TSH (LOINC: 77077 -0) ORDER DATE: May 17, 2024 4:45:00 PM [place] Specimen Source: Serum/Plasm a Specimen Type: Acellular blo od (serum or plasma) specimen PERFORMING LAB: [address] [id number] Result Comment: Final Result Date: May 17, 2024 6:51:00 PM UT (TECH: EAB) LOINC TEST [place] [address]-2 Thyrotropin receptor Ab [Units/volume] in Serum by Immunoassay N 0.94 uIU/mL 0.465 uIU/mL - 4.68 uIU/mL May 17, 2024 6:51:00 PM UTC (TECH: EAB) ORDER 200: T4 FREE (LOINC: 3 024-7) ORDER DATE: May 17, 2024 4:45:00 PM UTC Specimen Source: Serum Specimen Type: Serum specime n PERFORMING LAB: [address] [id number] Result Comment: Final Result Date: May 17, 2024 6:34:00 PM UTC (TECH: A/V) LOINC TEST FLAG RESULT REFERENCE [place] 3024-7 Thyroxine (T4) free [Mass/volume] in Serum or Plasma N 0.91 ng/dl 0.78 ng/dl - 2.19 ng/dl May 17, 2024 6:34:00 PM UTC (TECH: A/V) ORDER 300: COMP METABOLIC PA MINDA (LOINC: 15284-3) ORDER DATE: May 17, 2024 4:45:00 PM UTC Specimen Source: Serum Specimen Type: Serum specime n PERFORMING LAB: [address] [id number] Result Comment: Final Result Date: May 17, 2024 6:30:00 PM UTC (TECH: JW2) LOINC TEST FLAG RESULT REFERENCE RANGE UPDA HAN BY 2951-2 Sodium [Moles/volume ] in Serum or Plasma N 141 mmol/L 137 mmol/L - 147 mmol/L May 17, 2024 6:30:00 PM UTC (TECH: JW2) 2823-3 Potassium [Moles/volume] in Serum or Plasma N 4.1 mmol/L 3.5 mmol/L - 5.1 mmol/L May 17, 2024 6:30:00 PM UTC (TECH: JW2) 5-0 Chloride [Moles/volume] in Serum or Plasma N 104 mmol/L 98 mmol/L - 110 mmol/L May 17, 2024 6:30:00 PM UTC (TECH: JW2) 8-9 Carbon dioxide, tota l [Moles/volume] in Serum or Plasma N 23 mmol/L 21 mmol/L - 30 mmol/L May 17, 2024 6:30:00 PM UTC (TECH: JW2) 00685-4 Anion gap in Serum o r Plasma N 14 mmol/L 6 mmol/L - 14 mmol/L May 17, 2024 6:30:00 PM UTC (TECH: JW2) 2345-7 Glucose [Mass/volume ] in Serum or Plasma N 91 mg/dL 70 mg/dL - 115 mg/dL May 17, 2024 6:30:00 PM UT (TECH: Sanitors2) 3094-0 Urea nitrogen [Mass/volume] in Serum or Plasma N 12 mg/dL 7 mg/dL - 17 mg/dL May 17, 2024 6:30:00 PM UT (TECH: Sanitors2) 2160-0 Creatinine [Mass/volume] in Serum or Plasma N 0.6 mg/dL 0.5 mg/dL - 1.5 mg/dL May 17, 2024 6:30:00 PM UT (TECH: Sanitors2) 3097-3 Urea nitrogen/Creatinine [Mass Ratio] in Serum or Plasma N 20 - May 17, 2024 6:30:00 PM [facility] (TECH: Sanitors2) 13033-3 Glomerular filtratio n rate/1.73 sq M.predicted N 105 mL/min >60 May 17, 2024 6:30:00 PM UT (TECH: Sanitors2) 69042-1 Osmolality of Serum or Plasma by calculation N 292 mOsmol/Kg 275 mOsmol/Kg - 301 mOsmol/Kg May 17, 2024 6:30:00 PM UT (TECH: Sanitors2) 2885-2 Protein [Mass/volume ] in Serum or Plasma L 6.1 g/dL 6.2 g/dL - 8.2 g/dL May 17, 2024 6:30:00 PM UT (TECH: Sanitors2) 1751-7 Albumin [Mass/volume ] in Serum or Plasma N 3.8 g/dL 3.5 g/dL - 5.0 g/dL May 17, 2024 6:30:00 PM UT (TECH: Sanitors2) 56321-8 Calcium [Mass/volume ] in Serum or Plasma N 8.7 mg/dL 8.5 mg/dL - 10.8 mg/dL May 17, 2024 6:30:00 PM [facility] (TECH: Sanitors2) 1975-2 Bilirubin.total [Mass/volume] in Serum or Plasma N 0.6 mg/dL 0.2 mg/dL - 1.3 mg/dL May 17, 2024 6:30:00 PM UT (TECH: JW2) 1920-8 Aspartate aminotransferase [Enzymatic activity/volume] in Serum or Plasma N 22 IU/L 14 IU/L - 36 IU/L May 17, 2024 6:30:00 PM UTC (TECH: Sanitors2) 1742-6 Alanine aminotransferase [Enzymatic activity/volume] in Serum or Plasma N 9 IU/L 0 IU/L - 35 IU/L May 17, 2024 6:30:00 PM UTC (TECH: [email or web address]) 39205-4 Alkaline phosphatase.bile [Enzymatic activity/volume] in Serum or Plasma N 95 IU/L 38 IU/L - 126 IU/L May 17, 2024 6:30:00 PM UTC (TECH: Sanitors2) ORDER 400: CBC W/ AUTO DIFF (LOINC: 61986-8) ORDER DATE: May 17, 2024 4:45:00 PM UTC Specimen Source: Whole Blood Specimen Type: Whole blood s ample PERFORMING LAB: [address] [id number] Result Comment: Final Result Date: May 17, 2024 5:46:00 PM UTC (TECH: [employer]) LOINC TEST FLAG RESULT REFERENCE RANGE UPDA HAN BY 6690-2 Leukocytes [#/volume ] in Blood by Automated count N 6.42 K/uL 4.5 K/uL - 11.5 K/uL May 17, 2024 5:46:00 PM UTC (TECH: [employer]) 789-8 Erythrocytes [#/volume] in Blood by Automated count N 4.31 M/uL 4.0 M/uL - 5.4 M/uL May 17, 2024 5:46:00 PM UTC (TECH: [employer]) 718-7 Hemoglobin [Mass/volume] in Blood L 11.6 g/dL 12.0 g/dL - 15.0 g/dL May 17, 2024 5:46:00 PM UTC (TECH: [employer]) 4544-3 Hematocrit [Volume Fraction] of Blood by Automated count N 36.3 % 35 % - 49 % May 17, 2024 5:46:00 PM UTC (TECH: [employer]) 787-2 Erythrocyte mean corpuscular volume [Entitic volume] by Automated count N 84.2 fL 80.0 fL - 100.0 fL May 17, 2024 5:46:00 PM UTC (TECH: BG) 785-6 Erythrocyte mean corpuscular hemoglobin [Entitic mass] by Automated count N 26.9 pg 26.0 pg - 32.0 pg May 17, 2024 5:46:00 PM UTC (TECH: BG) 786-4 Erythrocyte mean corpuscular hemoglobin concentration [Mass/volume] by Automated count N 32.0 g/dL 32.0 g/dL - 36.0 g/dL May 17, 2024 5:46:00 PM UTC (TECH: BG) 788-0 Erythrocyte distribution width [Ratio] by Automated count N 14.2 % 11.5 % - 14.5 % May 17, 2024 5:46:00 PM UTC (TECH: BG) 777-3 Platelets [#/volume] in Blood by Automated count N 300 K/uL 142 K/uL - 424 K/uL May 17, 2024 5:46:00 PM UTC (TECH: BG) 17313-8 Platelet mean volume [Entitic volume] in Blood by Automated count H 10.8 fL 6.8 fL - 10.2 fL May 17, 2024 5:46:00 PM UTC (TECH: BG) 37486-0 Neutrophils/100 leukocytes in Blood N 53.4 % 50 % - 70 % May 17, 2024 5:46:00 PM UTC (TECH: BG) 85928-3 Lymphocytes/100 leukocytes in Blood N 31.8 % 18.0 % - 42.0 % May 17, 2024 5:46:00 PM UTC (TECH: BG) 68510-3 Monocytes/100 leukocytes in Blood N 10.6 % 2.0 % - 11.0 % May 17, 2024 5:46:00 PM UTC (TECH: BG) 29351-3 Eosinophils/100 leukocytes in Blood N 2.6 % 1.0 % - 3.0 % May 17, 2024 5:46:00 PM UTC (TECH: BG) 47575-3 Basophils/100 leukocytes in Blood N 1.1 % 0.0 % - 2.0 % May 17, 2024 5:46:00 PM UTC (TECH: BG) 85916-4 Immature granulocytes/100 leukocytes in Blood by Automated count N 0.5 % 0.0 % - 0.8 % May 17, 2024 5:46:00 PM UTC (TECH: BG) 12375-3 Nucleated cells [#/volume] in Blood N 0.0 % May 17, 2024 5:46:00 PM UTC (TECH: BG) 13881-5 Neutrophils [#/volume] in Blood N 3.43 K/uL May 17, 2024 5:46:00 PM UTC (TECH: BG) 53460-3 Lymphocytes [#/volume] in Blood N 2.04 K/uL May 17, 2024 5:46:00 PM UTC (TECH: BG) 82487-4 Monocytes [#/volume] in Blood N 0.68 K/uL May 17, 2024 5:46:00 PM UTC (TECH: BG) 29694-2 Eosinophils [#/volume] in Blood N 0.17 K/uL May 17, 2024 5:46:00 PM UTC (TECH: BG) 704-7 Basophils [#/volume] in Blood by Automated count N 0.07 K/uL May 17, 2024 5:46:00 PM UTC (TECH: BG) 98716-0 Immature granulocyte s [#/volume] in Blood N 0.03 K/uL May 17, 2024 5:46:00 PM UTC (TECH: BG) 79245-2 Nucleated cells [#/volume] in Blood N 0.00 k/uL May 17, 2024 5:46:00 PM UTC (TECH: BG) 74820-4 Manual differential comment [interpretation] in Blood Narrative N NO May 17, 2024 5:46:00 PM UTC (TECH: BG) ORDER 500: LIPID PANEL (LOIN C: 99644-1) ORDER DATE: May 17, 2024 4:45:00 PM UTC Specimen Source: Serum/Plasm a Specimen Type: Acellular blo od (serum or plasma) specimen PERFORMING LAB: [address] [id number] Result Comment: Final Result Date: May 17, 2024 6:30:00 PM UTC (TECH: JW2) LOINC TEST FLAG RESULT REFERENCE RANGE UPDA HAN BY 2093-3 Cholesterol [Mass/volume] in Serum or Plasma H 228 mg/dL 0 mg/dL - 200 mg/dL May 17, 2024 6:30:00 PM UTC (TECH: JW2) 50395-7 Cholesterol in HDL [Mass or Moles/volume] in Serum or Plasma N 58 mg/dL 40 mg/dL May 17, 2024 6:30:00 PM [facility] (TECH: [email or web address]) 2095-8 Cholesterol in HDL/Cholesterol.total [Mass Ratio] in Serum or Plasma N 3.9 0 - 4 May 17 6:30:00 PM [facility] (TECH: [email or web address]) 3048-6 Triglyceride [Mass/volume] in Serum or Plasma --fasting H 150 mg/dL 35 mg/dL - 135 mg/dL uar 2024 6:30:00 PM [facility] (TECH: [email or web address]) 80687-2 Cholesterol in LDL [Mass/volume] in Serum or Plasma by calculation H 140 mg/dL 0 mg/dL - 130 mg/dL May 17, 2024 6:30:00 PM [facility] (TECH: [email or web address]) 36731-9 Cholesterol in VLDL [Mass/volume] in Serum or Plasma by calculation N 30 mg/dL 0 mg/dL - 40 mg/dL May 17, 2024 6:30:00 PM [facility] (TECH: Sanitors2) LABORATORY NARRATIVE RESULTS Information is not available RADIOLOGY RESULTS Information is not available PATHOLOGY NARRATIVE RESULTS Information is not available [...] Description Effective Dates Offered Cessation Comment UpdatedBy [id number] Historical Tobacco smoking status Never Smoked [id number] on October 07, 2021 5:39:34 PM [facility] SOCIAL HISTORY - Gender Sex: Female SOCIAL [...] available. ENCOUNTERS ENCOUNTER INFORMATION Reason for Visit LDO Admission May 17, 2024 4:44:[address] [id number] Discharge May 17, 2024 4:44:00 PM [facility] DISCHARGED TO HOME OR SELF CARE ENCOUNTER DIAGNOSES Notes information is not bea ilable. Code System Diagnosis Onset Date Diagnosis information is not available. ABSTRACT DIAGNOSES Code System Diagnosis Updated By E02 ICD10 SUBCLINICAL IODI NE-DEFICIENCY HYPOTHYROIDISM [id number] on May 20, 2024 8:06:16 AM [place] I10 ICD10 ESSENTIAL (PRIMARY) HYPERTEN JANKI [id number] on May 20, 2024 8:06:16 AM [facility] E02 ICD10 SUBCLINICAL IODI NE-DEFICIENCY HYPOTHYROIDISM [id number] on May 20, 2024 8:06:16 AM [facility] I10 ICD10 ESSENTIAL (PRIMARY) HYPERTEN JANKI [id number] on May 20, 2024 8:06:16 AM [facility] CARE TEAM Care Film Waxer Role TYESHA MUÑIZ Referring TYESHA MUÑIZ Primary Attending TYESHA MUÑIZ Admitting TYESHA MUÑIZ Primary Care CARE TEAM CARE casino dealer Role on Team Status Start Date End Date Update d By MARY KAY Roth DO Referring normal May 17, 2024 5:00:00 AM [facility] May 17, 2024 4:44:00 PM [facility] [id number] on May 18, 2024 10:58:52 AM [facility] MARY KAY Roth DO Attending normal May 17, 2024 5:00:00 AM [facility] May 17, 2024 4:44:00 PM [facility] [id number] on May 18, 2024 10:58:52 AM [facility] MARY KAY Rtoh DO Admitting normal May 17, 2024 5:00:00 AM [facility] May 17, 2024 4:44:00 PM [facility] [id number] on May 18, 2024 10:58:52 AM [facility] MARY KAY Roth DO PCP normal May 17, 2024 5:00:00 AM [facility] May 17, 2024 4:44:00 PM [facility] [id number] on May 18, 2024 10:58:52 AM [facility]
--- NOTE | 2024-07-24 12:02 | ECG_ITS ---
APPROVED REPORT Exam: Resting ECG HR:79 bpm ECG Measurements Heart Rate 79 AXES MA 119 P 45 QRSd 126 QRS 67 QT 430 T 43 QTc 465 Conclusion SINUS RHYTHM WITH SHORT MA INTERVAL RIGHT BUNDLE BRANCH BLOCK [120+ ms QRS DURATION, UPRIGHT V1, 40+ ms S IN I/aVL/V4/V5/V6] MODERATE T-WAVE ABNORMALITY, CONSIDER LATERAL ISCHEMIA [-0.1+ mV T-WAVE IN I/aVL/V5/V6] ABNORMAL ECG UNCONFIRMED REPORT Electronically signed by : Rishi Caputo MD 07/25/2024 11:32:20
[2024-07-24 12:03] VITALS: BMI 28.7
[2024-07-24 13:55] LABS: Basophils # 0.1 K/mm3 (0-0.2); Basophils % 1.1 % (0.1-2.0); Eosinophils # 0.2 Kmm3 (0.0-0.4); Eosinophils % 4.3 % (0.1-12.0); Hematocrit 41.9 % (37.0-47.0); Hemoglobin 13.4 g/dL (12.2-16.2); Lymphocytes # 2.4 K/mm3 (0.7-4.5); Lymphocytes % 45.7 % (10-50); Mean Corpuscular Hemoglobin 27.4 pg (27.0-31.2); Mean Corpuscular Volume 85.7 fl (81-99); Mean Platelet Volume 9.9 fl (7.4-10.4); Monocytes # 0.6 K/mm3 (0.1-1.0); Monocytes % 10.8 % (1.7-9.3); Neutrophils % 37.7 % (37.0-80.0); Nucleated Red Blood Cells # 0 10^3/uL; Nucleated Red Blood Cells % 0 %; Platelet Count 362 K/mm3 (142-424); Red Blood Count 4.89 M/mm3 (4.20-5.40); Red Cell Distribution Width 14.1 % (11.5-17.5); Red Cell Distribution Width-SD 44.1 fL; White Blood Count 5.3 K/mm3 (4.8-10.8)
[2024-07-24 13:57] LABS: Chloride 102 mmol/L (98-107); Potassium 3.5 mmoL/L (3.5-5.1); Sodium 139 mmol/L (136-145)
[2024-07-24 14:00] LABS: Anion Gap 10.5 mEq/L (5-15); Blood Urea Nitrogen 10 mg/dl (7-17); Calcium 9.7 mg/dl (8.4-10.2); Carbon Dioxide 30 mmol/L (22.0-30.0); Creatinine Clearance Estimated 88 mL/min (50-200); Estimated Glomerular Filt Rate 74 ml/min (>60); GFR (African American) 90 ML/MIN (>60); Glucose 72 mg/dl (74-100)
--- NOTE | 2024-07-29 08:39 | PC.NURSE ---
R/t pt allergy to PCN, notified Dr. Rondon, stated to use Clindamycin 900 mg per IV one time dose for pre-op antibiotic. Order read back and verified with Dr. Rondon via phone.
== END 2024-07-24 23:59 | disposition home or self-care (01) ==
LOC: PREOP 11:21
PROVIDERS: PCP Family Medicine; Visit Provider Anesthesiology
DX: Z01.810 Encounter for preprocedural cardiovascular examination (principal); I45.10 Unspecified right bundle-branch block; R94.31 Abnormal electrocardiogram [ECG] [EKG]
CPT/HCPCS: 80048; 85025; 93005

== ENCOUNTER 2024-08-02 08:20 | Day surgery (SDC) | payer BC, OTHER, SELFPAY ==
[2024-07-24 14:06] VITALS: BMI 28.7
[2024-08-02 08:41] VITALS: BP 138/70; PULSE 69; RESP 16; TEMP 36.8; O2SAT 98
[2024-08-02] MEDS: LACTATED RINGERS 1000ML 1,000 ML 25 ML IV (08:41)
--- NOTE | 2024-08-02 09:03 | EXP.ANES.CKL ---
[facility] Disclaimer: The information contained in this section may have been updated after the patient was seen, as this information can be updated by other users. Medical History History of DVT (deep vein thrombosis) History of pituitary adenoma Hypothyroid Migraine Multiple sclerosis HTN (hypertension) Vitamin D deficiency HLD (hyperlipidemia) Depression Surgical History History of gastric bypass Hx of cholecystectomy Hx of tonsillectomy H/O: hysterectomy History of right shoulder replacement History of lumbar surgery History of colonoscopy History of right hip replacement History of bilateral knee replacement History of appendectomy Family History Other Family history of cancer Family history of diabetes mellitus Family history of heart disease Social History Smoking Status: Never smoker alcohol intake: never substance use type: denies use current occupational status: employed and disabled Travel in the last 8 weeks?: None Have you lived/traveled outside US in past 30 days?: No Contact w/someone who lives/traveled outside US past 30 days?: No Exposure to someone with infectious disease in past 14 days?: No Do you have a fever (greater than 100.4 F or 38 C)?: No Have you tested positive for COVID-19?: No Exposed to someone with COVID-19 in past 14 days?: No Do you have a sore throat?: No Do you have a cough?: No Do you have any weakness?: No Do you have any diarrhea?: No Are you experiencing any unusual bleeding?: No Do you have any muscle aches/pain?: No Do you have any abdominal pain?: No Are you experiencing loss of taste or smell?: No [facility] Anesthesia Checklist Patient Identification Patient Identification: Arm Band Structural Data Admitted From: Home Planned Operative Procedure/s: Spinal Cord Stimulator Explant Consent for Planned Operative Procedure(s) Verified: Yes Verified Documents: Surgical Consent and History and Physical NPO Status Verified Time NPO: 00:00 Additional verifications Anesthesia Reactions: No Hx Blood Transfusions: No Blood Transfusion Reaction: No Airway Assessment Mallampati Score:: Class II C-Spine Mobility Assessed: Yes TMJ Mobility Assessed: Yes Dentition: Edentulous Neurological Assessment Level of Consciousness: Awake, Alert and Appropriate Anesthesia Plan Anesthesia Risk discussed: Yes Anesthesia Plan: Verified ASA Class: II Anesthesia Type: MAC
[2024-08-02] MEDS: LIDOCAINE 1% W/EPI 1:100,000 20ML VIAL 40 ML (09:42)
[2024-08-02] MEDS: CLINDAMYCIN PHOSPHATE/D5W 900 MG/50 ML PIGGYBACK 100 MG IV (09:42)
[2024-08-02] MEDS: SODIUM CHLORIDE 0.9% 20ML VIAL 40 ML IV (09:46)
[2024-08-02] MEDS: GENTAMICIN 80 MG/2 ML VIAL (09:47)
[2024-08-02 10:00] VITALS: BP 108/67; PULSE 64; RESP 16; TEMP 36.3; O2SAT 94
[2024-08-02 10:10] VITALS: BP 97/64; PULSE 60; RESP 16; O2SAT 94
[2024-08-02 10:20] VITALS: BP 103/69; PULSE 61; RESP 16; O2SAT 95
[2024-08-02 10:30] VITALS: BP 122/82; PULSE 60; RESP 16; O2SAT 96
--- NOTE | 2024-08-02 10:48 | EXP.OP.NOTE ---
Date of procedure: 08/02/24 Pre-op Diagnosis:: Nonfunctioning spinal cord stimulator system Post-op Diagnosis:: Same Procedure performed:: Explant spinal cord stimulator generator. We could not explant leads as it was a paddle lead. Surgeon:: Chandan Rondon MD PROFESSOR OF NURSING:: Other Anesthesia: MAC Estimated blood loss (mL): 5 Clinical Note:: This patient is a pleasant 58-year-old white female who we are treating for degenerative disease of lumbar spine with lumbar radiculopathy symptoms. She has a intrathecal pain pump in place. She has a nonfunctioning spinal cord stimulator in place. We did discover she does have paddle lead so we will remove her generator today as it is causing her discomfort. Operative findings:: None Operative note:: Informed consent was obtained risk and benefits of the procedure were explained to the patient. The patient was taken the operating room placed prone on the procedure table. She was prepped and draped in sterile fashion. C-arm fluoroscopy was used to view the paddle lead and generator. The skin and subcutaneous tissues overlying the generator were anesthetized using lidocaine. I made an incision dissected out the spinal cord stimulator generator. We did leave the leads in place in case the patient ever wanted to place another generator. We were not able to remove the paddle leads. Patient tolerated the procedure well with no complications. Patient was discharged home neurologic intact with good relief of pain symptoms. Condition: stable Disposition: PACU Complications:: None
== END 2024-08-02 10:40 | disposition home or self-care (01) ==
PROVIDERS: PCP Family Medicine; Visit Provider Anesthesiology
PROC: (CPT 63688; principal; 2024-08-02 10:00)
DX: T85.193A Other mechanical complication of implanted electronic neurostimulator, generator, initial encounter (principal); Y75.3 Surgical instruments, materials and neurological devices (including sutures) associated with adverse incidents; M51.16 Intervertebral disc disorders with radiculopathy, lumbar region
CPT/HCPCS: 63688; 96374; J0736; J1580; J2003; J2004; J2250; J2405; J2704; J7120

== ENCOUNTER 2024-08-08 08:56 | Outpatient (POV) | payer BC, OTHER, SELFPAY ==
--- OUTSIDE RECORDS SUMMARY | 2024-08-08 08:58 | XMS_ITS | Data Portability ---
Author Organization [facility], [facility] [place] [facility] Address [address] [place] [address] Care Team Providers Care Finisher [employer]board [employer]aster[employer] Name Role Phone DAVIDFELICITAS SURY Referring Provider [phone] NEYMAR ALCARAZ Neurologist [phone] KRISH SINHA Etl [employer] Architect Assessment No assessment recorded. Plan of Treatment [...] ast No observ ation record ed. [email or web address]_ [facility] [address] , [place], [address], 09/30/2021 03:51:02 12/23/19 20 12/23/2019 nerve condu ction study /EMG, upper extre mity (PROC ) No observ ation record ed. [email or web address]_ Not Available 09/30/2021 03:48:38 Result Notes None recorded. Procedures Surgical History Date Name Laterality Status Provider Name and Address Organization Details Recorded Time Appendectomy completed [facility] 11/08/2019 10:34:[address] [facility] 11/08/2019 10:34:[address] [facility] 11/08/2019 10:34:35 total replacement of hip completed [facility] 11/08/2019 10:34:[address] [facility] 11/08/2019 10:34:52 lumbar spinal fusion completed [facility] 11/08/2019 10:34:[address] [facility] 11/08/2019 10:35:07 Imaging Results Imaging Date Name Status LastModified by Organiz ation Details LastModified Time 10/30/2019 MRI, upper extremity, w/o contrast completed [email or web address] [facility] [address], [place], [address], 09/30/2021 03:51:02 12/23/2019 nerve conduction study/EMG, upper extremity (PROC) completed [email or web address] Information not available 09/30/2021 03:48:38 Procedure Notes None recorded. Medical Equipment None Reported. Allergies Allergen ID Allergen Name Allergen Category Reaction Reaction Severity Criticality Documentation Date Start Date Code Code System Note Provider Name and Address Organization Details Recorded Time [id number] acetamino phen / oxycodone medicatio n itching Not available Not available 02/18/20162011 25714 3 RxNorm React ion: ITCHI NG; Comme nt: Creat ed By: Asher cannonCr eated Date: 2011 8:52: 49 AM; Not Available [facility] 6 10:48:09 [id number] Product containin g penicilli n (product) medicatio n rash Not available Not available 02/19/20162011 64830 8001 SNOMED React ion: RASH; Comme nt: [...] Updated DateTime 11/08/2019 160.02 cm 35.4 kg/m2 59894.47 g Shelby Lackey [facility] 11/08/2019 10:32:40 Date Recorded Body height Body mass index (BMI) Body weight Pain severity - 0-10 verbal numeric rating [Score] - Reported Systolic blood pressure Diastolic blood pressure Provider Name and Address Organization Details Last Updated DateTime 0 160.02 cm 35.4 kg/m2 53889.4 7 g 4 120 mm[Hg] 80 mm[Hg] Tayler Monet [facility] 0 10:54:49 Social History Question Answer Notes LastModified by Organizat ion Details LastModified Time Tobacco Smoking Status Never Smoker Shelby Lackey [facility] 11/08/2019 10:33:57 Accident Related Injury Yes [email or web address] Information not available 12/06/2019 What Is Your Level Of Caffeine Consumption? Moderate [email or web address] Information not available 12/06/2019 How Much Tobacco Do You Chew? None [email or web address] Information not available 11/08/2019 Which Of Your Hands Is Dominant? Right [email or web address] Information not available 11/08/2019 Which Hand Is Involved? Left Information not available 12/06/2019 Rate The Severity Of Your Symptoms: (0-10 With 0=none And 10=worst Possible) 4 [email or web address] Information not available 12/06/2019 Date Of Injury: 09/19/2019 [email or web address] Information not available 12/06/2019 Have You Been Treated For This Problem Before? Yes [email or web address] Information not available 12/06/2019 How Long Have You Had These Symptoms? 09/19/2019 [email or web address] Information not available 12/06/2019 Will This Be Filed As Workers' Compensation? Yes [email or web address] Information not available 12/06/2019 Marital Status [email or web address] Informatio n not available 12/06/2019 What Was The Date Of Your Most Recent Tobacco Screening? 12/06/2019 [email or web address] Information not available 12/06/2019 How Much Tobacco Do You Smoke? No [email or web address] Information not available 12/06/2019 How Many Years Have You Smoked Tobacco? 0 [email or web address] Information not available 12/06/2019 Work Related Injury? Yes [email or web address] Information not available 12/06/2019 Sex: Unknown Functional Status Question Answer Note LastModified by Organizat ion Details LastModified Time Do you use any illicit or recreational drugs? No [email or web address] Information not available 12/06/2019 What is your level of alcohol consumption? None [email or web address] Information not available 12/06/2019 Do you or have you ever used smokeless tobacco? Never used smokeless tobacco [email or web address] Information not available 12/06/2019 Are you currently employed? Yes light duty [email or web address] Information not available 12/06/2019 What is your occupation? [employer] Work[employer] [email or web address] Information not available 12/06/2019 Do you or have you ever used e-cigarettes or vape? Never used electronic cigarettes [email or web address] Information not available 11/08/2019 Mental Status None recorded. Family History Relationship Description Onset Age of this Age Resolved Age Notes LastModified by Organization Details LastModified Time Father No current problems or disability Not available 11/25 10:55:05 Mother No current problems or disability [email or web address] Not available 11/25 10:55:05 Medical History Condition Response Allergies/Hayfever Y Anxiety/Depression Y Other N Gout N Thyroid Disease N Heart Conditions N Kidney Stones N Hernia N Migraines Y COPD N Glaucoma N Pneumonia N Skin Problems N Immune System Disorder N Anesthesia Complications N Heart Attack (IA) N Mental Illness N Neurological Problems N [...] SNOMED-CT Code Diagnosis ICD10 Code Diagnosis Note [id number] QM[facility] [address] 06/27/2016 19:36:47 06/27/2016 19:36:47 [id number] SURY MONTENEGRO MD [facility] [address] [place] [address] 11/08/2019 09:20:17 11/08/2019 11:09:00 Strain of intrinsic muscle of finger 533159628 S66.519A Left long finger intrinsic strain/tea r [...] think that this is likely nonsurgica l. [id number] SURY MONTENEGRO MD [facility] [address] [place] [address] 12/06/2019 10:06:41 12/06/2019 11:31:08 Strain of intrinsic muscle of finger [id number] S66.519A Left long finger intrinsic strain/tea r [...] Recorded Advance Directives Directive None Recorded Payers Insurance Date Sequence Insurance Name Policy Number Policy Davis Covered Member ID Davis Member ID Guarantor Name 11/06/2023 2 MAT Manjarrez (O) Johanne D Robin [id number] Johanne D Robin 05/28/2018 1 *SELF PAY* Kaykay maribell Joe Robin 11/08/2019 [employer] Johanne D Robin 11/06/2023 1 [place] [id number] Johanne Kelly [id number] Johanne Kelly Notes Date Note Type Note Provider [...] of surgery: Surgeon (if known): 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 {{Yes* No}}; light duty Is this injury associated with a Workers Compensation claim? {{Yes* No}} Patient arrived in: {{brace; removed for exam # cast splint surg ical dressing OTC brace}} Senior Laboratory Technician Strength: right: left: Patient arrived for left [...] to sleep and shower. 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 {{Yes* No}}; light duty Is this injury associated with a Workers Compensation claim? {{Yes* No}} Patient arrived in: {{brace; removed for exam # cast splint surg ical dressing OTC brace}} Senior Laboratory Technician Strength: right: left: SURY MONTENEGRO MD [address] [place], [address], [facility] 12/06/2019 11:08:50 OBGyn Episode No OBEpisode recorded.
[2024-08-08 09:04] VITALS: BP 118/76; PULSE 88; RESP 18; O2SAT 100; BMI 28.7
--- NOTE | 2024-08-08 09:17 | A.OFFVIS_ITS ---
[facility] Disclaimer: The information contained in this section may have been updated after the patient was seen, as this information can be updated by other users. Medical History History of DVT (deep vein thrombosis) History of pituitary adenoma Hypothyroid Migraine Multiple sclerosis HTN (hypertension) Vitamin D deficiency HLD (hyperlipidemia) Depression Surgical History History of gastric bypass Hx of cholecystectomy Hx of tonsillectomy H/O: hysterectomy History of right shoulder replacement History of lumbar surgery History of colonoscopy History of right hip replacement History of bilateral knee replacement History of appendectomy Family History Other Family history of cancer Family history of diabetes mellitus Family history of heart disease Social History Smoking Status: Never smoker alcohol intake: never substance use type: denies use current occupational status: other Travel in the last 8 weeks?: None PM Subjective & Objective Subjective Subjective:: Patient is a pleasant 58-year-old female who presents today for 1 week follow-up of her spinal cord stimulator generator removal on 08/02/2024. Patient rates her pain a 2 out of 10. She denies any new trauma or injury. Patient does states overall she has been doing well but did have questions why her leads were not removed. Her Tommy has been reviewed and is appropriate. Review of Systems: General: No recent weight changes, no fever, no sleep disturbances Respiratory: No cough, no shortness of air, no recurring pulmonary infections Cardiovascular/peripheral vascular: No chest pain, no palpitations, no edema, no shortness of breath Gastrointestinal: No new onset incontinence, normal bowel movements reported Genitourinary: No new onset incontinence Musculoskeletal: Low back pain Psychiatric: [Normal mood/affect] Neurological: [Denies weakness in extremities], [denies balance issues] Pain at rest (0-10 scale): 2 Objective Objective:: Physical Exam: General: Alert and oriented x3, no acute distress, pleasant and cooperative Lungs: Respirations even and unlabored, symmetrical chest expansion Eyes: PERRL Musculoskeletal: Flexion and extension of lumbar [spine] somewhat guarded secondary to pain Neurological: Speech clear, no gross sensory deficit Skin: Incision site is clean, dry, well-approximated with minimal erythema and sutures and lorena intact Has patient had previous pain injection?: No Conservative treatment options previously tried: Home exercise plan Length of treatment: Longer than 12 weeks Meds Home Medications and Allergies Home Medications ?Medication ?Instructions ?Recorded ?Confirmed ?Type atorvastatin 10 mg tablet 10 mg PO DAILY 07/02/23 08/08/24 History buspirone 15 mg tablet 15 mg PO BID 07/02/23 08/08/24 History fremanezumab-vfrm 225 mg/1.5 mL See Rx Instructions .Route .COMPLEX 07/02/23 08/08/24 History subcutaneous auto-injector (Ajovy) gabapentin 800 mg tablet See Rx Instructions .Route .COMPLEX 07/02/23 08/08/24 History levocetirizine 5 mg tablet 5 mg PO DAILY 07/02/23 08/08/24 History potassium chloride 10 mEq 10 meq PO DAILY 07/02/23 08/08/24 History capsule,extended release ofatumumab 20 mg/0.4 mL 20 mg SQ MONTHLY 11/16/23 08/08/24 History subcutaneous pen injector (Kesimpta Pen) morphine (PF) 1 mg/mL injection 1 mg intrathecal CONT Pain 11/22/23 08/08/24 History solution potassium chloride 10 mEq 10 meq PO DAILY 01/17/24 08/08/24 History tablet,extended release (Klor-Con) alendronate 70 mg tablet 70 mg PO WEEKLY 07/24/24 08/08/24 History cabergoline 0.5 mg tablet 0.5 mg PO DAILY 07/24/24 08/08/24 History dexamethasone 1.5 mg (39 tabs) 1.5 mg PO DAILY 07/24/24 08/08/24 History tablets in a dose pack fluoxetine 20 mg capsule 20 mg PO DAILY 07/24/24 08/08/24 History levothyroxine 25 mcg tablet 25 mcg PO DAILY 07/24/24 08/08/24 History linaclotide 72 mcg capsule 72 mcg PO DAILY 07/24/24 08/08/24 History (Linzess) montelukast 10 mg tablet 10 mg PO DAILY 07/24/24 08/08/24 History rimegepant 75 mg disintegrating 75 mg PO WEEKLY 07/24/24 08/08/24 History tablet (Nurtec ODT) New Prescriptions to Start Prescriptions: Allergies Allergy/AdvReac Type Severity Reaction Status Date / Time duloxetine (From Cymbalta) Allergy Other Verified 08/02/24 08:38 Penicillins Allergy Rash Verified 08/02/24 08:38 Assessment and Plan *Assessment and plan (1) Degenerative disc disease, lumbar: Status: Acute Category: Medical Code(s): M51.369 - Other intervertebral disc degeneration, lumbar region without mention of lumbar back pain or lower extremity pain Plan I did review over with the patient that she is still on her 6-week postop restrictions and to continue to follow those the full-time. Patient ac knowledges understanding agrees with plan of care. Patient was also counseled that we were unable to take out the leads due to the fact that this was a paddle stimulator. Patient did state that she saw Dr. Hess who was the one who originally placed this. I did discuss the possibility that we can send a referral to him if she still would like the paddle removed. Patient knowledges understanding. Patient will return to clinic in 1 week for suture and staple removal. Patient has been instructed to contact the clinic with any concerns before the next appointment. Dr. Rondon has reviewed this note and agrees with this plan of care. This note was dictated using voice recognition software and make contain errors or omissions. All injections are used with Lidocaine, Bupivacaine and dexamethasone. Occasionally urine drug screen is needed to verify patient's compliance with our office pain contract. This is ordered based off specific treatments related to chronic pain with the potential to abuse certain medications.
== END 2024-08-08 23:59 | disposition home or self-care (01) ==
LOC: SC.PAIN 08:57
PROVIDERS: PCP Family Medicine; Visit Provider Nurse Practitioner Family
DX: M51.369 Other intervertebral disc degeneration, lumbar region without mention of lumbar back pain or lower extremity pain (principal); Z96.611 Presence of right artificial shoulder joint; Z96.641 Presence of right artificial hip joint; Z96.653 Presence of artificial knee joint, bilateral
CPT/HCPCS: 99212; G0463

== ENCOUNTER 2024-08-15 09:32 | Outpatient (POV) | payer BC, OTHER, SELFPAY ==
--- OUTSIDE RECORDS SUMMARY | 2024-08-15 09:35 | XMS_ITS | Continuity of Care Document ---
Author Organization [facility], [facility] Family Medicine- Floor 2, [address] [place] [address] Care Team Providers Care Electronic Scale Tester Name Role Phone TAYLER BRAVO Primary Care Provider Assessment No assessment recorded. Plan of Treatment Reminders Order Date Submit Date Provider Last Modified By Organization Details Last Modified Time Details Appointments OV EST 15 2024 01:45P Tonya Bravo, DO Not available Not available Not available OV EST 15 2024 09:30A Tonya Baker M.D Not available Not available Not available Lab CMP, serum or plasma 2024 025 [facility] (Lab Registration) , [address] [place] [address] [place], [address], 08/12/2024 15:40:38 TSH + free T4, serum 2024 025 [facility] (Lab Registration) , [address] [place] [address] [place], [address], 08/12/2024 15:40:38 lipid panel, serum 2024 025 [facility] (Lab Registration) , [address] [place] [address] [place], [address], 08/12/2024 15:40:38 drug screen, urine 2024 025 [facility] Family Medicine- Floor 2, [address], [address], [address], [place], [address], 08/12/2024 15:16:38 Referral None recorded . Procedures None recorded . Surgeries None recorded . Imaging None recorded . Medication Orders alendron ate [address] [facility], [address] [place] [address], [address], 08/12/2024 15:16:42 levothyr oxine 25 mcg tablet [address] [facility], [address] [place] [address], [address], 08/12/2024 15:16:43 potassiu m chloride ER 10 mEq capsule, extended release [address] [facility], [address] [place] [address], [id number], 08/12/2024 15:16:42 atorvast atin 10 mg tablet [address] [facility], [address] [place] [address], [id number], 08/12/2024 15:16:43 fluoxeti ne 20 mg capsule [address] [facility], [address] [place] [address], [id number], 08/12/2024 15:16:42 esomepra zole magnesiu m 40 mg capsule, delayed release 2024 025 [facility], [address] [place] [address], [address], 08/12/2024 15:16:42 buspiron e 15 mg tablet 2024 025 [facility], [address] [place] [address], [address], 08/12/2024 15:16:42 monteluk ast 10 mg tablet [address] [facility], [address] [place] [address], [address], 08/12/2024 15:16:42 levoceti rizine 5 mg tablet [address] [facility], [address] [place] [address], [address], 08/12/2024 15:16:41 Linzess 72 mcg capsule [address] [facility], [address] [place] [address], [id number], 08/12/2024 15:16:42 gabapent in 800 mg tablet [address] [facility], [address] [place] [address], [id number], 08/12/2024 15:16:44 Patient TargetsNo targets recorded. Patient InstructionsNo instructions recorded. Reason for Referral None Reported. Results Created Date Observation Date Name Description Value Unit Range Abnormal Flag Note LastModifiedBy Organization Detail LastModifiedTime 08/13/1908/12/2024 drug scree n, urine Barbiturates negati ve Not Available [facility] Medicine- Floor 2, [address] [place] [address] [place] [address], [address], 08/12/2024 14:56:52 08/13/19 25 08/12/2024 drug scree n, urine Amphetamines negati ve Not Available [facility]- Floor 2, 615 [address] [facility] [address], [place], [address], 08/12/2024 14:56:52 08/13/19 25 08/12/2024 drug scree n, urine Buprenorphin e negati ve Not Available [facility] Medicine- Floor 2, [address], [place], [address], 08/12/2024 14:56:52 08/13/19 25 08/12/2024 drug scree n, urine Benzodiazepi riki positi ve Not Available [facility]- Floor 2, [address], [place], [address], 08/12/2024 14:56:52 08/13/19 25 08/12/2024 drug scree n, urine Cocaine negati ve Not Available [facility] Medicine- Floor 2, [address], [place], [address], 08/12/2024 14:56:52 08/13/19 25 08/12/2024 drug scree n, urine Methamphetam ine negati ve Not Available [facility]- Floor 2, [address], [place], [address], 08/12/2024 14:56:52 08/13/19 25 08/12/2024 drug scree n, urine Ecstasy negati ve Not Available [facility]- Floor 2, [address], [place], [address], 08/12/2024 14:56:52 08/13/19 25 08/12/2024 drug scree n, urine Methadone negati ve Not Available [facility]- Floor 2, [address], [place], [address], 08/12/2024 14:56:52 08/13/19 25 08/12/2024 drug scree n, urine Morphine/ Opiates negati ve Not Available [facility]- Floor 2, [address], [place], [address], 08/12/2024 14:56:52 08/13/19 25 08/12/2024 drug scree n, urine Phencyclidin e negati ve Not Available [facility]- Floor 2, [address], [place], [address], 08/12/2024 14:56:52 08/13/19 25 08/12/2024 drug scree n, urine Oxycodone negati ve Not Available [facility] Family Medicine- Floor 2, [address], [place], [address], 08/12/2024 14:56:52 08/13/19 25 08/12/2024 drug scree n, urine Marijuana negati ve Not Available [facility] Medicine- Floor 2, [address], [place], [address], 08/12/2024 14:56:52 07/26/19 25 07/24/2024 lab* No observ ation record ed. [email or web address] [facility] [address], [place], [address], 07/25/2024 13:07:35 Result Notes None recorded. Problems Name Problem SNOMED Code Status Onset Date Resolution Date Notes Provider Name and Address Organization Details Recorded Time Osteoporo sis 22301896 Active 2023 Tayler Bravo, DO [address], [address], [place], [address] , [facility] - [place] & [place] 4 13:17:02 Constipat ion 49257104 Active 2015 Not Available [facility] 3 07:17:25 Migraine without aura, not refractor y 757716197 Active 2018 Not Available [facility] 3 07:17:26 Postmenop ausal osteoporo sis 548532276 Active 2018 Not Available [facility] 3 07:17:25 Restless legs 05514028 Active 2014 Not Available [facility] 3 07:17:25 Headache 73590551 Active 2020 Headache Not Available [facility] 3 07:17:25 Vitamin D deficienc y 37211183 Active 2019 Vitamin D deficienc y Not Available [facility] 3 07:17:25 Status migrainos us 831907270 Active 2021 Not Available [facility] 3 07:17:25 Seasonal allergic rhinitis 271142747 Active 2015 Not Available [facility] 3 07:17:25 Dizziness 432303494 Active 2020 Dizziness Not Available [facility] 3 07:17:26 Solitary nodule of lung 592050078 Active 2020 Solitary nodule of lung Not Available [facility] 3 07:17:26 Clinical finding Active 2020 ICD-10: R93.89 - Abnormal x-ray examinati on Not Available [facility] 3 07:17:25 Cramp in lower limb 722172474 Active 2020 Cramp in lower limb Not Available [facility] 3 07:17:26 Anxiety disorder 267286677 Active 2021 Anxiety disorder Not Available [facility] 3 07:17:25 Obese class II 81575914064 4105 Active 2019 Obese class II Obese class II Not Available [facility] 3 07:17:26 Multiple sclerosis 41323099 Active 2021 Not Available [facility] 3 07:17:25 Refractor y migraine with aura 622805540 Active 2019 Not Available [facility] 3 07:17:26 Long-term current use of drug therapy 899030607 Active 2021 Long-term current use of drug therapy Not Available [facility] 3 07:17:26 Filling defect of urinary bladder 480693887 Active 2015 Not Available [facility] 3 07:17:25 Pain in throat 488332131 Active 2020 Sore throat Not Available [facility] 3 07:17:25 Pain of joint 16082032 Active 2017 Joint pain Not Available [facility] 3 07:17:26 Breast neoplasm screening status 999052151 Active 2015 Not Available [facility] 3 07:17:25 Bacteriur ia 94831980 Active 2020 Bacteriur ia Not Available [facility] 3 07:17:26 Gastroeso phageal reflux disease 644868832 Active 2015 Not Available [facility] 3 07:17:25 Chronic gastritis 1594442 Active 2015 Not Available [facility] 3 07:17:26 Hypertens wilfredo disorder 59452093 Active 2014 Not Available [facility] 3 07:17:25 Disorder of endocrine system 802615193 Active 2019 Disorder of endocrine system Not Available [facility] 3 07:17:25 Neuropath y 971969743 Active 2019 Neuropath y Not Available [facility] 3 07:17:25 Requires vaccinati on 844497032 Active 2019 Requires vaccinati on Not Available [facility] 3 07:17:26 Osteoarth ritis of knee 089923640 Active 2020 Osteoarth ritis of knee Not Available [facility] 3 07:17:25 Depressiv e disorder 59718993 Active 2014 Not Available [facility] 3 07:17:25 Fatigue 58194082 Active 2019 Fatigue Not Available [facility] 3 07:17:26 Insomnia 948480161 Active 2014 Not Available [facility] 3 07:17:25 Gastritis 8551213 Active 2019 Gastritis Not Available [facility] 3 07:17:26 Migraine 14233659 Active 2019 Migraine Not Available [facility] 3 07:17:25 Anxiety 80655935 Active 2021 Not Available [facility] 3 07:17:26 Body mass index 30+ - obesity 664621983 Active 2021 Not Available [facility] 3 07:17:25 Menopausa l [place] 708524749 Active 2014 Not Available [facility] 3 07:17:25 Patient encounter status 029390248 Active 2021 Not Available [facility] 3 07:17:25 Preoperat wilfredo cardiovas cular examinati on Active 2020 Preoperat wilfredo cardiovas cular examinati on Not Available [facility] 3 07:17:26 Diarrhea 71766853 Active 2019 Diarrhea Not Available [facility] 3 07:17:26 Pain of shoulder region 73867793 Active 2016 Shoulder pain Not Available [facility] 3 07:17:26 Left temporoma ndibular joint disorder 36404953372 429242 Active 2022 Not Available [facility] 3 07:17:25 History of bariatric surgical procedure 385828292 Active 2022 Not Available [facility] 3 07:17:26 Daytime hypersomn ia 15546873655 102 Active 2023 Tayler Bravo, [address], [address], [place], [address] , [facility] - [place] [facility] [place] 4 12:41:16 Notes:Some problems listed i n Document: #[id number] could not be added to this patient's chart. Please review this document and add these problems to the patient's chart manually as needed. Problem Notes None recorded. Procedures Surgical History Date Name Laterality Status Provider Name and Address Organization Details Recorded Time 2023 completed Patricia Herr [facility] - [place] [facility] [place] 5 14:25:02 2023 Most Recent Mammogram completed Patricia KIRKLAND [facility] & [place] 5 14:29:00 2023 Most Recent Bone Density completed Patricia K[facility]KL[facility] - [place] 5 14:29:22 2022 laparoscopic sleeve gastrectomy completed Polina KIRKLAND [facility] & [place] 3 13:37:47 2022 Date of Last Colonoscopy completed Velia MORROW - [facility] - [place] & [place] 3 10:37:10 2022 Colonoscopy completed Velia MORROW - [facility] - [place] & [place] 4 10:50:27 2022 Injection Fascia/Tendon completed Evelyn Martinez [facility] - [facility] - [place] & [place] 3 08:47:08 2022 Gastrointestinal Surgery completed Velia MORROW - [facility] - [place] & [place] 4 10:48:31 2021 arthroscopic repair of rotator cuff completed Art Fraga [facility] - [facility] & [place] 2 13:27:55 2021 neurostimulation procedure completed [facility] - [facility] & [place] 2 13:29:44 2021 esophagogastroduodenoscopy completed Judy Bravo , [address], [address], [place], [address], [place] - [facility] - [place] 2 11:47:45 2020 total replacement of right knee joint completed Tayler Bravo [address], [address], [place], [address], [place] - [facility] [place] 2 11:46:13 2014 neurostimulation of spinal cord tissue completed Tayler Bravo [address], [address], [place], [address], [place] - [facility] - [place] 2 11:45:18 2013 total replacement of right hip joint completed Tayler Bravo [address], [address], [place], [address], [place] - [facility] - [place] 2 11:45:02 2013 neurostimulation of spinal cord tissue completed Tayler Bravo DO [address], [address], [place], [address], [place] [facility] [place] 2 11:45:42 1999 surgical procedure completed Velia MORROW - [facility] - [place] & [place] 3 10:44:07 1992 Hysterectomy completed Tayler Bravo , [address] [facility], [address], [place], [address], [place] - [facility] - [place] 2 11:43:41 1982 Tonsillectomy/Adenoidectomy completed Albert Bravo [facility], [address], [place], [address], [place] - [facility] - [place] 2 15:28:55 1977 appendectomy completed Tayler Bravo , [address], [address], [place], [address], [place] - [facility] - [place] 2 11:43:26 Total Colectomy completed Velia MORROW - [facility] - [place] & [place] 3 10:44:31 surgical repair completed Velia MORROW - [facility] - [place] & [place] 3 10:45:13 Cholecystectomy completed Tayler Bravo [facility], [address], [place], [address], [place] - [facility] - [place] 2 11:44:09 Carpal tunnel surgery completed Juan Carlos Bravo [address], [address], [place], [address], [place] - [facility] - [place] 2 11:44:20 Joint Replacement completed Emely Bravo [address], [address], [place], [address], [place] [facility] [place] & [place] 2 15:28:56 Imaging Results None recorded. Procedure Notes None recorded. Medical Equipment None Reported. Allergies Allergen ID Allergen Name Allergen Category Reaction Reaction Severity Criticality Documentation Date Start Date Code Code System Note Provider Name and Address Organization Details Recorded Time 853315 tomato allergeni c extract food edema mild Not available 01/20/2023 18524 9 RxNorm Art Augusta [facility] & [place] 3 13:47:52 40833 Product containin g penicilli n (product) medicatio n rash Not available Not available 05/23/2022 02703 8001 SNOMED Velia Romano [facility] & [place] 3 10:42:02 9224 Penicilli n Not available Not available Not available Not available 12/06/2021 34193 RxNorm React ion: rash, sever ity: Unkno wn Not Available [facility] 2 01:57:11 9228 duloxetin e medicatio n Not available Not available Not available 12/06/2021 53179 RxNorm React ion: Unkno wn, sever ity: Unkno wn Not Available [facility] 2 01:57:11 Medications Name Sig Start Date [...] day by oral route for 11 days. 08/12 completed Not Available Not Available Not Available promethaz ine-DM 6.25 mg-15 mg/5 mL [...] Not Available Not Available Not Avai lable prednison e 10 mg tablet 05/19 /2025 completed Not Available Not Available Not Available venlafaxi ne ER 75 mg capsule,e xtended release 24 hr TAKE 1 CAPSULE BY MOUTH EVERY DAY 04/18 completed Not Available Not Available Not Available doxycycli ne hyclate 100 mg capsule TAKE 1 CAPSULE BY MOUTH TWICE DAILY FOR 5 DAYS 10/23 completed Not Available Not Available Not Available ropinirol e 1 mg tablet 08/12 completed Not Available Not Available Not Available magnesium oxide 420 mg tablet TAKE 1 TABLET BY MOUTH EVERY DAY FOR 90 DAYS 01/02 completed Not Available Not Available Not Available ipratropi um 0.5 mg-albute rol 3 mg (2.5 mg base)/3 mL nebulizat ion soln 08/12 completed Not Available Not Available Not Available [...] Not Available atorvasta tin 10 mg tablet Take 1 tablet every day by oral route for 90 days. 2024 active Not Available Not Available Not Avai lable azithromy marilyn 250 mg tablet Take 1 [...] day by oral route for 30 days. 08/12 completed Not Available Not Available Not Available hydrocodo ne 5 mg-acetam inophen 325 [...] Not Available alendrona te 70 mg tablet Take 1 tablet every week by oral route for 28 days. 2024 active Not Available Not Available Not Avai lable sertralin e 100 mg tablet 08/12 completed Not Available Not Available Not Available [...] Not Available levothyro xine 25 mcg tablet Take 1 tablet every day by oral route for 90 days. 2024 active Not Available Not Available Not Avai lable ketorolac 10 mg tablet TAKE 1 TABLET BY MOUTH EVERY 6 HOURS NEEDED FOR PAIN FOR 5 DAYS 08/27 completed Not Available Not Available Not Available tamsulosi n 0.4 mg capsule TAKE 1 CAPSULE BY MOUTH ONCE DAILY 08/27 completed Not Available Not Available Not Available gabapenti n 800 mg tablet Take 1 tablet 3 times a day by oral route for 90 days. 2024 active Not Available Not Available Not Avai lable amitripty line 10 mg tablet Take by [...] PLEASE SEE ATTACHED FOR DETAILED DIRECTIO NS 08/12 completed Not Available Not Available Not Available cephalexi n 500 mg capsule TAKE [...] ole magnesium 40 mg capsule,d elayed release Take 1 capsule every day by oral route for 90 days. 2024 active Not Available Not Available Not Avai lable ropinirol e 0.5 mg tablet TAKE 1/2 TABLET BY MOUTH ONCE DAILY AT BEDTIME FOR 3 DAYS, THEN INCREASE TO 1 TABLET BY MOUTH ONCE DAILY AT BEDTIME 09/24 completed Not Available Not Available Not Available dexametha sone 4 mg tablet PLEASE SEE ATTACHED FOR DETAILED DIRECTIO NS 08/12 completed Not Available Not Available Not Available [...] mg/2 mL suspensio n for nebulizat ion 08/12 completed Not Available Not Available Not Available diclofena c sodium 75 mg tablet,de layed release TAKE 1 TABLET BY MOUTH TWICE A DAY 01/02 completed Not Available Not Available Not Available bumetanid e 1 mg tablet TAKE 1 TABLET BY MOUTH EVERY DAY active Not Available Not Available No t Available monteluka st 10 mg tablet Take 1 tablet every day by oral route for 90 days. 2024 active Not Available Not Available Not Avai lable hydroxyzi ne HCl 25 mg tablet 12/22 [...] 2 TIMES A DAY NEEDED FOR ANXIETY. 08/12 completed Not Available Not Available Not Available benzoyl peroxide 5 % topical cleanser [...] MOUTH EVERY 4 HOURS FOR 10 DAYS 08/12 completed Not Available Not Available Not Available ondansetr on 4 mg disintegr ating [...] TAKE 3 CAPSULES BY MOUTH EVERY DAY 2024 active Not Available Not Available Not Avai lable fluticaso ne propionat e 50 mcg/actua tion nasal spray,saloni pension 08/12 completed Not Available Not Available Not Available sertralin e 50 mg tablet TAKE 1 TABLET BY MOUTH ONCE DAILY 04/20 completed Not Available Not Available Not Available prazosin 2 mg capsule 08/12 completed Not Available Not Available Not Available diazepam 5 mg tablet TAKE 1 TABLET BY MOUTH 30 MINUTES BEFORE MRI AND 1 TAB RIGHT BEFORE 08/27 completed Not Available Not Available Not Available metoclopr amide 10 mg tablet TAKE 1 TABLET BY MOUTH 4 TIMES A DAY (BEFORE MEALS AND AT NIGHT) FOR 30 DAYS 08/12 completed Not Available Not Available Not Available buspirone 15 mg tablet Take 1 [...] TAKE 1 TABLET BY MOUTH EVERY DAY 08/12 completed Not Available Not Available Not Available ketorolac 60 mg/2 mL intramusc ular syringe Inject 60 mg by intramus cular route. 09/15 completed Not Available Not Available Not Available levalbute rol HFA 45 mcg/actua tion aerosol inhaler 08/12 completed Not Available Not Available Not Available omeprazol e 01/20 completed Not Available Not Available Not Available BD Ultra-Fin e Short Pen Needle 31 gauge x 5/16 USE DIRECTED 12/23 completed Not Available Not Available Not Available quetiapin e 50 mg tablet Take 1 tablet every day by oral route at bedtime for 90 days. 04/18 completed Not Available Not Available Not Available levocetir izine 5 mg tablet Take 1 tablet every day by oral route. 2024 active Not Available Not Available Not Avai lable oxycodone 10 mg tablet TAKE 1 TABLET BY MOUTH EVERY 8 HOURS 12/22 completed Not Available Not Available Not Available diclofena c 1 % topical gel 08/27 completed Not Available Not Available Not Available Nuvigil 250 mg tablet Take 1 tablet every day by oral route. 08/12 completed Not Available Not Available Not Available [...] completed Not Available Not Available Not Available [facility] mg disintegr ating tablet DISSOLVE 1 TABLET BY MOUTH ONCE DAILY NEEDED FOR HEADACHE active Not Available Not Available No t Available Ajovy 225 mg/1.5 mL subcutane ous auto-inje ctor INJECT 1 PEN SUBCUTAN EOUSLY MONTHLY active Not Available Not Available No t Available Kesimpta Pen 20 mg/0.4 mL subcutane ous pen injector active Not Available Not Available Not Available Ozempic 1 mg/dose (4 mg/3 mL) subcutane [...] Details Last Updated DateTime 5 160.02 cm 28.9 kg/m2 93234.2 7 g 98 % 98 % 80 /min 18 /min 118 mm[Hg] 78 mm[Hg] Art MORROW - [facility] & [place] 5 14:52:16 Social History Question Answer Notes LastModified by Organizat ion Details LastModified Time Tobacco Smoking Status Never Smoker Not Available [facility] 12/06/2021 09:52:05 Do You Have An Advance Directive? No [email or web address] Information not available 12/25/2021 Are You Blind Or Do You Have Difficulty Seeing? No Glasses Information not available 12/23/2021 Have You Been To An Area Known To Be High Risk For COVID-19? No Information not available 04/20/2023 Are You Deaf [...] Your Family Or Social Situation? No Information no t available 04/20/2023 Have You Recently Or Are You Planning To Travel To An Area With Zika Virus? No Information not available 04/20/2023 What Was The Date Of Your Most Recent Tobacco Screening? 08/12/2024 Information not available 08/12/2024 Do You Have Any Pets? Yes Information not available 04/20/2023 Do You Have Smoke And Carbon Monoxide Detectors In Your Home? Yes Information not available 04/20/2023 Are You Passively Exposed To Smoke? No Information no t available 04/20/2023 How Much Tobacco Do You Smoke? No Information not available 05/24/2023 Has Tobacco Cessation Counseling Been Provided? No Information not available 04/20/2023 How Many Years Have You Smoked Tobacco? 0 Information not available 11/14/2023 Do You Have Difficulty Walking Or Climbing Stairs? No Information not available 04/20/2023 Are You Currently In School? No Information not available 04/20/2023 Sex: Female Functional Status Question Answer Note LastModified by Organizat ion Details LastModified Time Do you use any illicit or recreational drugs? No Information not available 12/22/2021 Do you or have you ever used any other forms of tobacco or nicotine? No Information not available 04/20/2023 What is your level of alcohol consumption? None Information not available 12/22/2021 Do you or have you ever used smokeless tobacco? Never used smokeless tobacco Information not available 05/24/2023 Are you currently employed? Yes Information not available 04/20/2023 Do you have transportation difficulties? No Information not available 04/20/2023 Are you able to walk? YESWOREST Information not available 04/20/2023 Do you have difficulty doing errands alone? No Information not available 04/20/2023 Are you able to care for yourself? Yes Information n ot available 04/20/2023 Do you have difficulty dressing or bathing? No Information not available 04/20/2023 What is your exercise level? None Information not available 11/14/2023 Mental Status Question Answer Note LastModified by Organizat ion Details LastModified Time Do you feel stressed (tense, restless, nervous, or anxious, or unable to sleep at night)? [id number] Information not available 05/24/2023 Do you have difficulty concentrating, remembering or making decisions? No Information no t available 04/20/2023 Family History Relationship Description Onset Age of this Age Resolved Age Notes LastModified by Organization Details LastModified Time Father Malignant tumor of gallbladder [email or web address] Not available 14:40:09 Father Father Cancer [email or web address] Not available 08/12 14:40:09 Father Chronic obstructive pulmonary disease pt. added [...] History Condition Response Coronary Artery Disease N Other N None N Gout N Kidney Stones N Blood Diseases N Hyperthyroidism N Blood Transfusion N Breast Cancer N Hernia N Lung Disease N COPD N Hypothyroidism N Depression N Developmental or Behavioral Disorders N Defects or Inherited Disease N Breast Problem N Difficulty Swallowing N Anesthesia Complications N Meniere's disease N Anxiety Disorder N Muscle, Joint, or Bone Problems N Obesity N Vision or Eye Problems N Arthritis N Polyps N Infertility N Cancer N Varicosities N Stroke N Endometriosis N Bladder or Kidney Problems N High Cholesterol N Liver Disease N Headaches N Fibromyalgia N Kidney Disease N Allergies/Hayfever N Heart Problems N Weight loss or gain N Ear or Hearing Problems N Hospitalizations N Thyroid Problems N GI Problems N ADD/ADHD N Skin Problems N Eating Disorder N Osteoporosis/Osteopenia Y Anemia N Constipation N Mental Illness N Neurological Problems Y Ovarian Cancer N Diabetes N Bedwetting N Seizures/Epilepsy N Tuberculosis N Eczema N Back Problems Y Diverticulitis N Abuse/Domestic Violence N Asthma N Reflux/GERD N Jaundice N [...] Influenza, split virus, quadrivalent, preservative 3 completed Tayler Bravo, [address], [address], [place], [address], [place] [facility] [place] 12/23/2022 20:43:31 Hep A, unspecified formulation 8 completed Not Available [facility] 03/23/2023 07:17:26 zoster recombinant 9 completed Not Available [facility] 03/23/2023 07:17:26 Influenza, recombinant, quadrivalent, PF 0 completed Not Available [facility] 03/23/2023 07:17:26 Influenza, split virus, trivalent, PF 6 completed Not Available [facility] 03/23/2023 07:17:26 Influenza, split virus, quadrivalent, PF 1 completed Not Available [facility] 03/23/2023 07:17:26 COVID-19, mRNA, LNP-S, PF, 30 mcg/0.3 mL dose 1 completed Patricia edgar, [place] [facility] [place] 04/23/2024 14:30:03 Hep A, adult 9 completed Not Available [facility] 03/23/2023 07:17:26 TST-PPD intradermal 5 completed Not Available [facility] 03/23/2023 07:17:26 COVID-19, mRNA, LNP-S, PF, 30 mcg/0.3 mL dose 1 completed Patricia edgar, [place] [facility] [place] 04/23/2024 14:30:03 zoster recombinant 9 completed Not Available [facility] 03/23/2023 07:17:26 Influenza, split virus, quadrivalent, PF 8 completed Not Available [facility] 03/23/2023 07:17:26 COVID-19, mRNA, LNP-S, PF, 100 mcg/0.5mL dose or 50 mcg/0.25mL dose 1 completed Patricia edgar, [place] [facility] [place] 04/23/2024 14:30:03 COVID-19, mRNA, LNP-S, PF, marilu-sucrose, 30 mcg/0.3 mL 4 completed Patricia Lopez [place], [place] [facility] [place] 04/23/2024 14:30:03 Influenza, MDCK, trivalent, PF 4 completed Patricia Lopez [place]ve, [place] [facility] [place] 04/23/2024 14:30:03 COVID-19, mRNA, LNP-S, bivalent, PF, 50 mcg/0.5 mL or 25mcg/0.25 mL dose 2 completed Not Available [facility] 03/23/2023 07:17:26 Influenza, split virus, quadrivalent, PF 2 completed Not Available [facility] 03/23/2023 07:17:26 Past Encounters Encounter ID Performer Location Encounter Start Date Encounter Closed Date Diagnosis/Indication Diagnosis SNOMED-CT Code Diagnosis ICD10 Code Diagnosis Note [id number] Tayler Bravo DO [facility] Family Medicine- Floor 2, [address] [place] [address],[place] [address] [facility] [id number] 08/12/2024 14:40:03 08/12/2024 15:20:28 Left temporomandibular joint disorder 1830831730 7170411 M26.602 Hypertensive disorder 38 991437 I10 Constipation 60841013 K5 9.00 From pain meds (pain pump) [facility] hypothyroidism 59780216 E02 Seasonal a llergic rhinitis 824031406 J30.2 Neuropathy 300771468 G62 .9 Anxiety disorder 9446558 06 F41.9 Gastroesop hageal reflux disease 719769367 K21.9 Failed Lansoprazo le Anxiety 27294279 F41.9 Osteoporosis 40921382 M8 1.0 Long-term current use of drug therapy 310823157 Z79.899 Pt has script for Diazepam prn Health Concerns Section Related Observation LastModified by Organization Detai ls LastModified Time None Recorded Concern Status LastModified by Organization Details LastModified Time None Recorded Payers Encounter Date Sequence Insurance Name Policy Number Policy Davis Covered Member ID Davis Member ID Guarantor Name 08/12/2024 1 [place] [place] [id number] Johanne Kelly [id number] Johanne Kelly 08/12/2024 2 [id number] Johanne Kelly [id number] Johanne Kelly Notes Date Note Type Note Provider Name and Address Organization Details Recorded Time 5 text/html F/u neuropathy: stable on Gabapentin. F/u GERD, stable. F/u HTN, stable. F/u hypothyroidism, on meds, still tired. F/u osteoporosis, on Alendronate and doing well. Anxiety: increased over health Depression: increased over health Pituitary Adenoma: Patient has been having increased episodes of daytime somnolence for the past few months. A pituitary adenoma found on past couple of months on repeat MRI, patient waiting until insurance approves radiation treatment.Had 5 radiation treatment, f/u August 26. 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 Prolactin coming down. Not feeling any better. Eye sight is getting worse and legally blindNeuroopthalmolgist at September 11 Tayler Bravo, [address], [address], [place], [address], [facility] - [place] 08/12/2024 16:16:14 OBGyn Episode No OBEpisode recorded.
--- OUTSIDE RECORDS SUMMARY | 2024-08-15 09:36 | XMS_ITS | Data Portability ---
Author Organization [facility], [facility] [place] [facility] Address [address] [place] [address] Care Team Providers Care House Coordinator Name Role Phone DAVIDFELICITAS SURY Referring Provider NEYMAR ALCARAZ Neurologist [phone] KRISH SINHA Wildlife Technician [phone] Assessment No assessment recorded. Plan of Treatment [...] ast No observ ation record ed. [email or web address] [facility] [address] , [place], [address], 09/30/2021 03:51:02 12/23/19 20 12/23/2019 nerve condu ction study /EMG, upper extre mity (PROC ) No observ ation record ed. [email or web address]_ Not Available 09/30/2021 03:48:38 Result Notes None recorded. Procedures Surgical History Date Name Laterality Status Provider Name and Address Organization Details Recorded Time [place] [facility] [place] 10:34:18 tonsillectomy [place] [facility] [place] 11/08/2019 10:34:23 total knee replacement [place] [facility] [place] 11/08/2019 10:34:35 total replacement of hip [place] [facility] [place] 11/08/2019 10:34:46 cholecystectomy [place] [facility] [place] 11/08/2019 10:34:52 lumbar spinal fusion completed [facility] [place] 11/08/2019 10:34:58 hysterectomy completed [facility] [place] 11/08/2019 10:35:07 Imaging Results Imaging Date Name Status LastModified by Organiz ation Details LastModified Time 10/30/2019 MRI, upper extremity, w/o contrast completed [email or web address] [facility] [address], [place], [address], 09/30/2021 03:51:02 12/23/2019 nerve conduction study/EMG, upper extremity (PROC) completed [email or web address] Information not available 09/30/2021 03:48:38 Procedure Notes None recorded. Medical Equipment None Reported. Allergies Allergen ID Allergen Name Allergen Category Reaction Reaction Severity Criticality Documentation Date Start Date Code Code System Note Provider Name and Address Organization Details Recorded Time 809854 acetamino phen / oxycodone medicatio n itching Not available Not available 02/18/20162011 57196 3 RxNorm React ion: ITCHI NG; Comme nt: Creat ed By: Asher cannonCr eated Date: 2011 8:52: 49 AM; Not Available [facility] 6 10:48:09 161999 Product containin g penicilli n (product) medicatio n rash Not available Not available 02/19/20162011 00086 8001 SNOMED React ion: RASH; Comme nt: [...] Updated DateTime 11/08/2019 160.02 cm 35.4 kg/m2 44060.47 g Shleby Lackey [facility] 11/08/2019 10:32:40 Date Recorded Body height Body mass index (BMI) Body weight Systolic blood pressure Diastolic blood pressure Provider Name and Address Organization Details Last Updated DateTime 12/06/2019 160.02 cm 35.4 kg/m2 06741.47 g 120 mm[Hg] 80 mm[Hg] Tayler Monet [facility] 0 10:54:49 Social History Question Answer Notes LastModified by Organizat ion Details LastModified Time Tobacco Smoking Status Never Smoker Shelby Lackey [facility] 11/08/2019 10:33:57 Accident Related Injury Yes [email or web address] Information not available 12/06/2019 What Is Your Level Of Caffeine Consumption? Moderate Information not available 12/06/2019 How Much Tobacco Do You Chew? None [email or web address] Information not available 11/08/2019 Which Of Your Hands Is Dominant? Right [email or web address] Information not available 11/08/2019 Which Hand Is Involved? Left [email or web address] Information not available 12/06/2019 Rate The Severity Of Your Symptoms: (0-10 With 0=none And 10=worst Possible) 4 [email or web address] Information not available 12/06/2019 Date Of Injury: 09/19/2019 [email or web address] Information not available 12/06/2019 Have You Been Treated For This Problem Before? Yes [email or web address] Information not available 12/06/2019 How Long Have You Had These Symptoms? 09/19/2019 [email or web address] Information not available 12/06/2019 Will This Be Filed As Workers' Compensation? Yes Information not available 12/06/2019 Marital Status [email or web address] Informatio n not available 12/06/2019 What Was The Date Of Your Most Recent Tobacco Screening? 12/06/2019 [email or web address] Information not available 12/06/2019 How Much Tobacco Do You Smoke? No [email or web address] Information not available 12/06/2019 How Many Years Have You Smoked Tobacco? 0 [email or web address] Information not available 12/06/2019 Work Related Injury? Yes [email or web address] Information not available 12/06/2019 Sex: Unknown Functional Status Question Answer Note LastModified by Organizat ion Details LastModified Time Do you use any illicit or recreational drugs? No Information not available 12/06/2019 What is your level of alcohol consumption? None Information not available 12/06/2019 Do you or have you ever used smokeless tobacco? Never used smokeless tobacco [email or web address] Information not available 12/06/2019 Are you currently employed? 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 Never used electronic cigarettes [email or web address] Information not available 11/08/2019 Mental Status None recorded. Family History Relationship Description Onset Age of this Age Resolved Age Notes LastModified by Organization Details LastModified Time Father No current problems or disability [email or web address] Not available 11/25 10:55:05 Mother No current problems or disability [email or web address] Not available 11/25 10:55:05 Medical History Condition Response Allergies/Hayfever Y Anxiety/Depression Y Gout N Other N Thyroid Disease N Heart Conditions N Kidney Stones N Hernia N Migraines Y Glaucoma N COPD N Pneumonia N Skin Problems N Immune System Disorder N Anesthesia Complications N Heart Attack ([place]) N Mental Illness N Neurological Problems N Diabetes N Bleeding Disorder N Seizures/Epilepsy N Arthritis Y Blood Clot N Tuberculosis N Genetic Disorder N AIDS/HIV N Cancer N Stroke N Asthma N Blood Thinners N Sleep Apnea N Alcohol Overuse/Alcohol Abuse N High Cholesterol N Liver Disease N Included as Review of Systems Y Hypertension N Osteoporosis N Kidney Disease N Gynecological HistoryNo gynecological history recorded. Obstetrics History GPAL:G 0 P 0 0 0 0 Past Encounters Encounter ID Performer Location Encounter Start Date Encounter Closed Date Diagnosis/Indication Diagnosis SNOMED-CT Code Diagnosis ICD10 Code Diagnosis Note [id number] [facility] [address] 06/27/2016 19:36:47 06/27/2016 19:36:47 [id number] SURY MONTENEGRO MD [facility] [address] [address] 11/08/2019 09:20:17 11/08/2019 11:09:00 Strain of intrinsic muscle of finger 321410523 S66.519A Left long finger intrinsic strain/tea r [...] think that this is likely nonsurgica l. [id number] SURY MONTENEGRO MD [facility] [address] [place] [address] 12/06/2019 10:06:41 12/06/2019 11:31:08 Strain of intrinsic muscle of finger 875855185 S66.519A Left long finger intrinsic strain/tea r [...] ID Guarantor Name 11/06/2023 2 MAT Manjarrez ([facility] Johanne Kelly [id number] Johanne Kelly 05/28/2018 1 *SELF PAY* Kaykay maribell Joe Robin 11/08/2019 [employer] Johanne D Robin 11/06/2023 1 [employer]: [employer] [place] BLUE ACCESS (PPO) [id number] A Johanne Tatyana Kelly [id number] Johanne Kelly Notes Date Note Type Note Provider Name and Address Organization Details Recorded Time 11/08/2019 text/html Consult demarco joe by:Dr. 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 {{Yes* No}}; light duty Is this injury associated with a Workers Compensation claim? {{Yes* No}} Patient arrived in: {{brace; removed for exam # cast splint surg ical dressing OTC brace}} Interlocking And Signal Mechanic Strength: right: left: Patient arrived for left [...] to sleep and shower. 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 {{Yes* No}}; light duty Is this injury associated with a Workers Compensation claim? {{Yes* No}} Patient arrived in: {{brace; removed for exam # cast splint surg ical dressing OTC brace}} Interlocking And Signal Mechanic Strength: right: left: SURY MONTENEGRO MD [facility] [place], [address], [facility] 12/06/2019 11:08:50 OBGyn Episode No OBEpisode recorded.
--- OUTSIDE RECORDS SUMMARY | 2024-08-15 09:36 | XMS_ITS | Data Portability ---
Author Organization [place] - [facility] - [place] & [facility] ADMIN Address [address] [place] [id number] Care Team Providers Care Air Crew Member Name Role Phone TYESHA BRAVO Primary Care Provider Assessment Encounter Date Assessment Date Assessment LastModified by Organization Details LastModified Time 04/18/2024 04/18/2024 -concern for polypharmacy contributing to her hypersomnia -d/c Abilify, d/c Seroquel, limit Gabapentin, d/c Prazosin -continue Kesimpta for RRMS -referral to Endocrinology for fatigue, pituitary adenoma -f[place] [address] Not available 04/18/2024 15:02:17 Plan of Treatment Reminders Order Date Submit Date Provider Last Modified By Organization Details Last Modified Time Details Appointments OV EST 15 2024 01:45P Tonya Bravo, DO Not available Not available Not available OV EST 15 2024 09:30A Tonya Baker M.D Not available Not available Not available Lab CMP, serum or plasma 2024 025 [facility] (Lab Registration) , [address] [place] [address] [place], [address], 08/12/2024 15:40:38 TSH + free T4, serum 2024 025 [facility] (Lab Registration) , [address] [place] [address] [place], [address], 08/12/2024 15:40:38 lipid panel, serum 2024 025 [facility] (Lab Registration) , [address] [facility] [place], [address], 08/12/2024 15:40:38 drug screen, urine 2024 025 [facility] [address] [facility]- Floor 2, [address], [address], [address], [place], [address], 08/12/2024 15:16:38 TSH + free T4, serum [id number] [facility] [address] [facility] (Lab Registration) , [address] [facility] [place], [address], 05/21/2024 09:03:51 CMP, serum or plasma [address] [facility] (Lab Registration) , [address] [facility] [place], [address], 05/21/2024 09:03:51 CBC w/ auto diff [address] [facility] (Lab Registration) , [address] [facility] [place], [address], 05/21/2024 09:03:51 lipid panel, serum [address] [facility] (Lab Registration) , [address] [facility] [place], [address], 05/21/2024 09:03:51 prolacti n, serum 2023 024 [facility] (Lab Registration) , [address] [place] [address] [place], [address], 03/12/2024 10:10:56 TSH + free T4, serum [email or web address] [facility] (Lab Registration) , [address] [place] [address] [place], [address], 03/22/2024 12:34:12 lh + FSH, serum [address] (Lab Registration) , [address] [place] [address] [place], [address], 03/22/2024 12:34:13 Referral None recorded . Procedures None recorded . Surgeries None recorded . Imaging MRI, pituitar y, w/wo contrast [address] Central Scheduling, [address] [place] [address] [place], [address], 04/05/2024 15:10:03 Medication Orders alendron ate 70 mg tablet 2024 025 [facility], [address] [place] [address], [address], 08/12/2024 15:16:42 levothyr oxine 25 mcg tablet 2024 025 [facility], [address] [place] [address], [address], 08/12/2024 15:16:43 potassiu m chloride ER 10 mEq capsule, extended release 2024 025 [facility], [address] [place] [address], [address], 08/12/2024 15:16:42 atorvast atin 10 mg tablet 2024 025 [facility] [address] [place] [address], [address], 08/12/2024 15:16:43 fluoxeti ne 20 mg capsule 2024 025 [facility] [address] [place] [address], [address], 08/12/2024 15:16:42 esomepra zole magnesiu m 40 mg capsule, delayed release 2024 025 [facility], [address] [place] [address], [address], 08/12/2024 15:16:42 buspiron e 15 mg tablet 2024 025 [facility]acy #6337, [address] [place] [address], [address], 08/12/2024 15:16:42 monteluk ast 10 mg tablet 2024 025 [facility]armacy #6337, [address] [place] [address], [address], 08/12/2024 15:16:42 levoceti rizine 5 mg tablet 2024 025 [facility]/Pharmacy #6337, [address] [place] [address], [address], 08/12/2024 15:16:41 Linzess 72 mcg capsule 2024 025 [facility]/Pharmacy #6337, [address] [place] [address], [address], 08/12/2024 15:16:42 gabapent in 800 mg tablet 2024 025 [facility]acy #6337, [address] [place] [address], [address], 08/12/2024 15:16:44 alendron ate 70 mg tablet 2024 025 [facility]armacy #6337, [address] [place] [address], [address], 05/14/2024 11:02:53 levothyr oxine 25 mcg tablet 2024 025 [facility]/Pharmacy #6337, [address] [place] [address], [address], 05/14/2024 11:02:55 atorvast atin 10 mg tablet 2024 025 [facility] [address] [place] [address], [address], 05/14/2024 11:02:57 monteluk ast 10 mg tablet 2024 025 [facility] [address] [place] [address], [address], 05/14/2024 11:02:57 fluoxeti ne 20 mg capsule 2024 025 [address], [address] [place] [address], [address], 06/07/2024 14:04:12 esomepra zole magnesiu m 40 mg capsule, delayed release 2024 025 [facility] [address] [place] [address], [address], 05/14/2024 11:02:54 levoceti rizine 5 mg tablet 2024 025 [facility] [address] [place] [address], [address], 05/14/2024 11:02:58 buspiron e 15 mg tablet 2024 025 [facility]/Pharmacy #6337, [address] [place] [address], [address], 05/14/2024 11:02:53 Linzess 72 mcg capsule [address]/Pharmacy #6337, [address] [place] [address], [address], 05/15/2024 16:09:50 gabapent in 800 mg tablet 2024 025 [facility]/Pharmacy #6337, [address] [place], [address], 05/14/2024 11:03:14 Valium 10 mg tablet 2023 025 [facility]/Pharmacy #6337, [address] [place], [address], 08/12/2024 14:53:44 Patient TargetsNo targets recorded. Patient InstructionsNo instructions recorded. Reason for Referral None Reported. Results Created Date Observation Date Name Description Value Unit Range Abnormal Flag Note LastModifiedBy Organization Detail LastModifiedTime 03/11/20 24 03/11/2024 T4 FREE T4 free 1.31 NG/dL 0.78-2 .19 Not Available [facility] (Pre-Op Clinic) [address] [place] [address] [place], [address], 03/11/2024 14:50:31 03/11/20 24 03/11/2024 T4 FREE note Emely owen noted testi ng perfo [facility]med at: [facility] [address] [place] [address] Wily cottrell MD Not Available [facility] (Pre-Op Clinic) [address] [place] [address] [place], [address], 03/11/2024 14:50:31 03/11/20 24 03/11/2024 TSH thyroid stim hormone 6.10 uIU/m L 0.465- 4.68 high Not Available [facility] (Pre-Op Clinic) [address] [place] [address] [place], [address], 03/11/2024 15:59:07 03/11/20 24 03/11/2024 TSH note Emely owen noted testi ng perfo rmed at: [facility] [address] [place] [address] Wily cottrell MD Not Available [facility] (Pre-Op Clinic) [address] [place] [address] [place], [address], 03/11/2024 15:59:07 03/11/20 24 03/11/2024 FSH note Unles s other owen noted testi ng perfo rmed at: [facility] [address] [place] [address] Wily cottrell MD Not Available [facility] (Pre-Op Clinic) [address] [place] [address] [place], [address], 03/12/2024 10:10:53 03/11/20 24 03/12/2024 FSH FSH 65.3 mIU/m L Adult Femal e Range Folli cular phase 3.5 - 12.5 Ovula tion phase 4.7 - 21.5 Lutea l phase 1.7 - 7.7 Postm enopa usal 25.8 - 134.8 Perfo rmed at: [facility] [place] [address] [facility] [employer] [place] [address] Lab Direc tor: Alfonso bernal PhD, Phone : [phone] Not Available [facility] (Pre-Op Clinic) [address] [place] [address] [place], [address], 03/12/2024 10:10:53 03/11/20 24 03/11/2024 LUTEN IZING HORMO NE (LH) note Unljoe s other owen noted testi ng perfo rmed at: [facility] [address] [place] [address] Wily cottrell MD Not Available [facility] (Pre-Op Clinic) [address] [place] [address] [place], [address], 03/12/2024 10:10:54 03/11/20 24 03/12/2024 LUTEN IZING HORMO NE (LH) LH 35.7 mIU/m L Adult Femal e Range Folli cular phase 2.4 - 12.6 Ovula tion phase 14.0 - 95.6 Lutea l phase 1.0 - 11.4 Postm enopa usal 7.7 - 58.5 Perfo rmed at: [facility] [place] [address] [facility] [employer] [place] [address] Lab Direc tor: Alfonso bernal PhD, Phone : [phone] Not Available [facility] (Pre-Op Clinic) [address] [place] [address] [place], [address], 03/12/2024 10:10:54 03/11/20 24 03/11/2024 PROLA CTIN note Unles s other owen noted testi ng perfo rmed at: [facility] [address] [place] [address] Wily cottrell MD Not Available [facility] (Pre-Op Clinic) [address] [place] [address] [place], [address], 03/12/2024 10:10:56 03/11/20 24 03/12/2024 PROLA CTIN prolactin 29.5 NG/mL 3.6-25 .2 high Perfo rmed at: [facility] [address] [place] [address] Lab Direc tor: Alfonso bernal PhD, Phone : [phone] Not Available [facility] (Pre-Op Clinic) [address] [place] [address] [place], [address], 03/12/2024 10:10:56 03/28/19 25 03/28/2024 C-YESENIA CTIVE PROTE IN (CRP) C-reactive protein 10.9 mg/L -10 high Not Available [facility] (Pre-Op Clinic) [address] [place] [address] [place], [address], 03/28/2024 17:14:09 03/28/19 25 03/28/2024 C-YESENIA CTIVE PROTE IN (CRP) note Emely cottrell other owen noted testi ng perfo rmed at: [facility] [address] [place] [address] Wily cottrell MD Not Available [facility] (Pre-Op Clinic) [address] [place] [address] [place], [address], 03/28/2024 17:14:09 01/02/20 25 03/28/2024 SED RATE WESTE RGREN sed rate westergren 24 mm/HR 0-15 high Not Available [facility] (Pre-Op Clinic) [address] [place] [address] [place], [address], 03/28/2024 17:14:10 03/28/19 25 03/28/2024 SED RATE WESTE RGREN note Unles s other owen noted testi ng perfo rmed at: [facility] [address] [place] [address] Wily cottrell MD Not Available [facility] (Pre-Op Clinic) [address] [place] [address] [place], [address], 03/28/2024 17:14:10 03/28/19 25 03/28/2024 RHEUM ATOID ARTHR ITIS FACTO R-RA note Unles s other owen noted testi ng perfo rmed at: [facility] [address] [place] [address] Wily cottrell MD Not Available [facility] (Pre-Op Clinic) [address] [place] [address] [place], [address], 03/30/2024 09:09:29 03/28/1903/30/2024 RHEUM ATOID ARTHR ITIS FACTO R-RA RA latex turbid. 10.1 IU/mL <14.0 Perfo rmed at: - [facility] [address] [place] [address] Lab Direc tor: Alfonso bernal PhD, Phone : [phone] Not Available [facility] (Pre-Op Clinic) [address] [place] [address] [place], [address], 03/30/2024 09:09:29 03/28/1903/28/2024 ANIA SCREE N W REFLE X note Unles s other owen noted testi ng perfo rmed at: [facility] [address] [place] [address] Wily cottrell MD Not Available [facility] (Pre-Op Clinic) [address] [place] [address] [place], [address], 04/01/2024 17:09:24 03/28/19 25 04/01/2024 ANIA SCREE N W REFLE X ANIA direct NEGATI VE negati ve Perfo rmed at: - [facility] [address], [place] [address] Lab Direc tor: Alfonso bernla PhD, Phone : [phone] Not Available [facility] (Pre-Op Clinic) [address] [place] [address] [place], [address], 04/01/2024 17:09:24 05/17/19 25 05/17/2024 CBC W/ AUTO DIFF WBC 6.42 K/uL 4.5-11 .5 Not Available [facility] (Pre-Op Clinic) [address] [place] [address] [place], [address], 05/17/2024 12:48:18 05/17/19 25 05/17/2024 CBC W/ AUTO DIFF RBC 4.31 M/uL 4.0-5. 4 Not Available [facility] (Pre-Op Clinic) [address] [place] [address] [place], [address], 05/17/2024 12:48:18 05/17/19 25 05/17/2024 CBC W/ AUTO DIFF HGB 11.6 g/dL 12.0-1 5.0 low Not Available [facility] (Pre-Op Clinic) [address] [place] [address] [place], [address], 05/17/2024 12:48:18 05/17/19 25 05/17/2024 CBC W/ AUTO DIFF HCT 36.3 % 35-49 Not Available [facility] (Pre-Op Clinic) [address] [place] [address] [place], [address], 05/17/2024 12:48:18 05/17/19 25 05/17/2024 CBC W/ AUTO DIFF MCV 84.2 fL 80.0-1 00.0 Not Available [facility] (Pre-Op Clinic) [address] [place] [address] [place], [address], 05/17/2024 12:48:18 05/17/19 25 05/17/2024 CBC W/ AUTO DIFF MCH 26.9 pg 26.0-3 2.0 Not Available [facility] (Pre-Op Clinic) [address] [place] [address] [place], [address], 05/17/2024 12:48:18 05/17/19 25 05/17/2024 CBC W/ AUTO DIFF MCHC 32.0 g/dL 32.0-3 6.0 Not Available [facility] (Pre-Op Clinic) [address] [place] [address] [place], [address], 05/17/2024 12:48:18 05/17/19 25 05/17/2024 CBC W/ AUTO DIFF RDW 14.2 % 11.5-1 4.5 Not Available [facility] (Pre-Op Clinic) [address] [place] [address] [place], [address], 05/17/2024 12:48:18 05/17/19 25 05/17/2024 CBC W/ AUTO DIFF platelet count 300 K/uL 142-42 4 Not Available [facility] (Pre-Op Clinic) [address] [place] [address] [place], [address], 05/17/2024 12:48:18 05/17/19 25 05/17/2024 CBC W/ AUTO DIFF MPV 10.8 fL 6.8-10 .2 high Not Available [facility] (Pre-Op Clinic) [address] [place] [address] [place], [address], 05/17/2024 12:48:18 05/17/19 25 05/17/2024 CBC W/ AUTO DIFF neutrophil % 53.4 % 50-70 Not Available [facility] (Pre-Op Clinic) [address] [place] [address] [place], [address], 05/17/2024 12:48:18 05/17/19 25 05/17/2024 CBC W/ AUTO DIFF lymphocyte % 31.8 % 18.0-4 2.0 Not Available [facility] (Pre-Op Clinic) [address] [facility] [place], [address], 05/17/2024 12:48:18 05/17/19 25 05/17/2024 CBC W/ AUTO DIFF monocyte % 10.6 % 2.0-11 .0 Not Available [facility] (Pre-Op Clinic) [address] [facility] [place], [address], 05/17/2024 12:48:18 05/17/19 25 05/17/2024 CBC W/ AUTO DIFF eosinophil % 2.6 % 1.0-3. 0 Not Available [facility] (Pre-Op Clinic) [address] [place] [address] [place], [address], 05/17/2024 12:48:18 05/17/19 25 05/17/2024 CBC W/ AUTO DIFF basophil % 1.1 % 0.0-2. 0 Not Available [facility] (Pre-Op Clinic) [address] [facility] [place], [address], 05/17/2024 12:48:18 05/17/19 25 05/17/2024 CBC W/ AUTO DIFF immature granulocytes % 0.5 % 0.0-0. 8 Not Available [facility] (Pre-Op Clinic) [address] [place] [address] [place], [address], 05/17/2024 12:48:18 05/17/19 25 05/17/2024 CBC W/ AUTO DIFF nucleated red blood cells % 0.0 % Not Available [facility] (Pre-Op Clinic) [address] [place] [address] [place], [address], 05/17/2024 12:48:18 05/17/19 25 05/17/2024 CBC W/ AUTO DIFF neutrophil # 3.43 K/uL Not Available [facility] (Pre-Op Clinic) [address] [place], [address], 05/17/2024 12:48:18 05/17/19 25 05/17/2024 CBC W/ AUTO DIFF lymphocyte # 2.04 K/uL Not Available [facility] (Pre-Op Clinic) [address] [place] [address] [place], [address], 05/17/2024 12:48:18 05/17/19 25 05/17/2024 CBC W/ AUTO DIFF monocyte # 0.68 K/uL Not Available [facility] (Pre-Op Clinic) [address] [place] [address] [place], [address], 05/17/2024 12:48:18 05/17/19 25 05/17/2024 CBC W/ AUTO DIFF eosinophil # 0.17 K/uL Not Available [facility] ([facility]-Op [facility]) [address] [place] [address] [place], [address], 05/17/2024 12:48:18 05/17/19 25 05/17/2024 CBC W/ AUTO DIFF basophil # 0.07 K/uL Not Available [facility] ([facility]Op [facility]) [address] [place] [address] [place], [address], 05/17/2024 12:48:18 05/17/19 25 05/17/2024 CBC W/ AUTO DIFF immature gramulocytes # 0.03 K/uL Not Available [facility] ([facility]Op [facility]) [address] [place] [address] [place], [address], 05/17/2024 12:48:18 05/17/19 25 05/17/2024 CBC W/ AUTO DIFF nucleated red blood cells # 0.00 k/uL Not Available [facility] ([facility]Op [facility]) [address] [place] [address] [place], [address], 05/17/2024 12:48:18 05/17/19 25 05/17/2024 CBC W/ AUTO DIFF manual differential NO Not Available [facility] (Pre-Op Clinic) [address] [facility] [place], [address], 05/17/2024 12:48:18 05/17/19 25 05/17/2024 CBC W/ AUTO DIFF note Unles s other owen noted testi ng perfo rmed at: [facility] [address] [facility] [address] [facility] [address] [facility] [place] [address] Wily cottrell MD Not Available [facility] (Pre-Op Clinic) [address] [facility] [place], [address], 05/17/2024 12:48:18 05/17/19 25 05/17/2024 COMP METAB OLIC PANEL sodium 141 mmol/ L 137-14 7 Not Available [facility] (Pre-Op Clinic) [address] [place] [address] [place], [address], 05/17/2024 13:31:35 05/17/19 25 05/17/2024 COMP METAB OLIC PANEL potassium 4.1 mmol/ L 3.5-5. 1 Not Available [facility] (Pre-Op Clinic) [address] [place] [address] [place], [address], 05/17/2024 13:31:35 05/17/19 25 05/17/2024 COMP METAB OLIC PANEL chloride 104 mmol/ L 98-110 Not Available [facility] (Pre-Op [facility]) [address] [place] [address] [place], [address], 05/17/2024 13:31:35 05/17/19 25 05/17/2024 COMP METAB OLIC PANEL carbon dioxide 23 mmol/ L 21-30 Not Available [facility] (Pre-Op [facility]) [address] [place] [address] [place], [address], 05/17/2024 13:31:35 05/17/19 25 05/17/2024 COMP METAB OLIC PANEL anion gap 14 mmol/ L 6-14 Not Available [facility] ([facility]Op [facility]) [address] [place] [address] [place], [address], 05/17/2024 13:31:35 05/17/19 25 05/17/2024 COMP METAB OLIC PANEL glucose 91 mg/dL 70-115 Not Available [facility] (Pre-Op [facility]) [address] [place] [address] [place], [address], 05/17/2024 13:31:35 05/17/19 25 05/17/2024 COMP METAB OLIC PANEL BUN 12 mg/dL 7-17 Not Available [facility] (Pre-Op [facility]) [address] [place] [address] [place], [address], 05/17/2024 13:31:35 05/17/19 25 05/17/2024 COMP METAB OLIC PANEL creatinine 0.6 mg/dL 0.5-1. 5 Not Available [facility] (Pre[facility]Op [facility]) [address] [place] [address] [place], [address], 05/17/2024 13:31:35 05/17/19 25 05/17/2024 COMP METAB OLIC PANEL BUN/creatini ne ratio 20 10-20 Not Available [facility] (Pre-Op [facility]) [address] [place] [address] [place], [address], 05/17/2024 13:31:35 05/17/19 25 05/17/2024 COMP METAB [...] lam ing kiney funct ion. Not Available [facility] (Pre-Op [facility]) [address] [place] [address] [place], [address], 05/17/2024 13:31:35 05/17/19 25 05/17/2024 COMP METAB OLIC PANEL osmolality (calculated) 292 mosmo l/kg 275-30 1 OSMOL ALITY IS A CALCU LATIO N UTILI ZING THE SERUM /PLAS MA SODIU M, GLUCO SE AND UREA NITRO GEN (BUN) LEVEL S. FOR THE MOST ACCUR ATE RESUL T A MEASU RED SERUM OSMOL ALITY IS SUGGE STED. Not Available [facility] (Pre-Op Clinic) [address] [facility] [place], [address], 05/17/2024 13:31:35 05/17/19 25 05/17/2024 COMP METAB OLIC PANEL total protein 6.1 g/dL 6.2-8. 2 low Not Available [facility] (Pre-Op [facility]) [address] [place] [address] [place], [address], 05/17/2024 13:31:35 05/17/19 25 05/17/2024 COMP METAB OLIC PANEL albumin 3.8 g/dL 3.5-5. 0 Not Available [facility] (Pre[facility]Op [facility]) [address] [place] [address] [place], [address], 05/17/2024 13:31:35 05/17/19 25 05/17/2024 COMP METAB OLIC PANEL calcium 8.7 mg/dL 8.5-10 .8 Not Available [facility] ([facility]Op [facility]) [address] [place] [address] [place], [address], 05/17/2024 13:31:35 05/17/19 25 05/17/2024 COMP METAB OLIC PANEL bilirubin total 0.6 mg/dL 0.2-1. 3 Not Available [facility] ([facility]Op [facility]) [address] [place] [address] [place], [address], 05/17/2024 13:31:35 05/17/19 25 05/17/2024 COMP METAB OLIC PANEL AST (SGOT) 22 IU/L 14-36 Not Available [facility] ([facility]Op [facility]) [address] [place] [address] [place], [address], 05/17/2024 13:31:35 05/17/19 25 05/17/2024 COMP METAB OLIC PANEL ALT (SGPT) 9 IU/L 0-35 Pleas e note new refer ence inter suresh for ALT. Due to a recen t manuf actur er metho dolog y lam e, the refer ence inter suresh for ALT is lower effec tive July 16, 2020. Not Available [facility] (Pre-Op [facility]) [address] [place] [address] [place], [address], 05/17/2024 13:31:35 05/17/19 25 05/17/2024 COMP METAB OLIC PANEL alk phosphatase 95 IU/L 38-126 Not Available [facility] (Pre-Op Clinic) [address] [place] [address] [place], [address], 05/17/2024 13:31:35 05/17/19 25 05/17/2024 COMP METAB OLIC PANEL note Unles s other owen noted testi ng perfo rmed at: [facility] [address] [place] [address] Wily cottrell MD Not Available [facility] (Pre-Op Clinic) [address] [place] [address] [place], [address], 05/17/2024 13:31:35 05/17/19 25 05/17/2024 LIPID PANEL cholesterol 228 mg/dL 0-200 high Not Available [facility] ([facility]Op [facility]) [address] [place] [address] [place], [address], 05/17/2024 13:31:36 05/17/19 25 05/17/2024 LIPID PANEL HDL 58 mg/dL 40- Not Available [facility] (Pre-Op [facility]) [address] [place] [address] [place], [address], 05/17/2024 13:31:36 05/17/19 25 05/17/2024 LIPID PANEL total chol/HDL ratio 3.9 0-4 Not Available [facility] (Pre-Op Clinic) [address] [place] [address] [place], [address], 05/17/2024 13:31:36 05/17/19 25 05/17/2024 LIPID PANEL triglyceride 150 mg/dL 35-135 high Not Available [facility] (Pre-Op [facility]) [address] [facility] [place], [address], 05/17/2024 13:31:36 05/17/19 25 05/17/2024 LIPID PANEL LDL calculated 140 mg/dL 0-130 high Not Available [facility] (Pre[facility]Op [facility]) [address] [place] [address] [place], [address], 05/17/2024 13:31:36 05/17/19 25 05/17/2024 LIPID PANEL VLDL calculated 30 mg/dL 0-40 Not Available [facility] ([facility]) [address] [place] [address] [place], [address], 05/17/2024 13:31:36 05/17/19 25 05/17/2024 LIPID PANEL note Unles s other owen noted testi ng perfo [facility]med at[facility] [address] [place] [address] Wily cottrell MD Not Available [facility] ([facility]) [address] [place] [address] [place], [address], 05/17/2024 13:31:36 05/17/19 25 05/17/2024 T4 FREE T4 free 0.91 NG/dL 0.78-2 .19 Not Available [facility] (Pre-Op Clinic) [address] [place] [address] [place], [address], 05/17/2024 13:36:03 05/17/19 25 05/17/2024 T4 FREE note Unles s other owen noted testi ng perfo rmed at: [facility] [address] [place] [address] Wily cottrell MD Not Available [facility] (Pre-Op Clinic) [address] [place] [address] [place], [address], 05/17/2024 13:36:03 05/17/19 25 05/17/2024 TSH thyroid stim hormone 0.94 uIU/m L 0.465- 4.68 Not Available [facility] (Pre-Op Clinic) [address] [place] [address] [place], [address], 05/17/2024 13:53:31 05/17/19 25 05/17/2024 TSH note Unles s other owen noted testi ng perfo [facility]med at: [facility] [address] [place] [address] Wily cottrell MD Not Available [facility] (Pre-Op Clinic) [address] [place] [address] [place], [address], 05/17/2024 13:53:31 08/13/19 25 08/12/2024 drug scree n, urine Barbiturates negati ve Not Available [facility]- Floor 2, [address], [place], [address], 08/12/2024 14:56:52 08/13/19 25 08/12/2024 drug scree n, urine Amphetamines negati ve Not Available [facility]- Floor 2, [address], [place], [address], 08/12/2024 14:56:52 08/13/19 25 08/12/2024 drug scree n, urine Buprenorphin e negati ve Not Available [facility]- Floor 2, [address], [place], [address], 08/12/2024 14:56:52 08/13/19 25 08/12/2024 drug scree n, urine Benzodiazepi riki positi ve Not Available [facility]- Floor 2, [address], [place], [address], 08/12/2024 14:56:52 08/13/19 25 08/12/2024 drug scree n, urine Cocaine negati ve Not Available [facility]- Floor 2, [address], [place], [address], 08/12/2024 14:56:52 08/13/19 25 08/12/2024 drug scree n, urine Methamphetam ine negati ve Not Available [facility]- Floor 2, [address], [place], [address], 08/12/2024 14:56:52 08/13/19 25 08/12/2024 drug scree n, urine Ecstasy negati ve Not Available [facility]- Floor 2, [address], [place], [address], 08/12/2024 14:56:52 08/13/19 25 08/12/2024 drug scree n, urine Methadone negati ve Not Available [facility]- Floor 2, [address], [place], [address], 08/12/2024 14:56:52 08/13/19 25 08/12/2024 drug scree n, urine Morphine/ Opiates negati ve Not Available [facility]- Floor 2, [address], [place], [address], 08/12/2024 14:56:52 08/13/19 25 08/12/2024 drug scree n, urine Phencyclidin e negati ve Not Available [facility]- Floor 2, [address], [place], [address], 08/12/2024 14:56:52 08/13/19 25 08/12/2024 drug scree n, urine Oxycodone negati ve Not Available [facility]- Floor 2, [address], [place], [address], 08/12/2024 14:56:52 08/13/19 25 08/12/2024 drug scree n, urine Marijuana negati ve Not Available [facility]- Floor 2, [address] [address], [place], [address], 08/12/2024 14:56:52 03/22/20 24 03/22/2024 mamm scree la nena 2D [facility] [address] [place] [address] [phone] (Phone ) MAMMOG JULIANA REPORT Name: JOHANNE KELLY : 1965 Accoun t #: [id number] Age: 58 Years Patien t Type: Outpat ient Sex: F Access ion#: [id number] Exam Descri ption: MAMM SCREEN ING 2D & 3D Exam Reason : Screen ing Order Date/T santi: 2023 10:18: 00 AM Dictat ed By: Bassem Hickey MD Orderi Physic andi: KEILY RUBALCAVA Attend ing Physic [...] JOHANNE KELLY : 1965 Accoun t #: [id number] Age: 58 Years Patien t Type: Outpat ient Sex: F Access ion#: [id number] Exam Descri ption: MAMM SCREEN ING 2D [...] PANDEY Admitt ing Provid er: ASHLEY PANDEY [facility] (Central Scheduling) [address] [place] [address] [place], [address], 03/22/2024 18:06:09 03/22/20 24 03/22/2024 MAMMO , scree la nena, digit al, bilat eral No observ ation record ed. [facility] Registration [address] [place] [address] [place], [address], 03/26/2024 10:26:11 03/22/20 24 03/22/2024 bone densi ty [facility] [address] [place] [address] (Phone ) MATT Kelly REPORT Name: JOHANNE KELLY : 1965 Accoun t #: [id number] Age: 58 Years Patien t Type: Outpat ient Sex: F Access ion#: [id number] Exam Descri ption: BONE DENSIT Y Exam Reason : Screen ing Order Date/T santi: 2023 10:18: 00 AM Dictat ed By: Rafael Peralta MD Orderi ng Physic andi: KEILY RUBALCAVA Attend ing Physic andi: KEILY RUBALCAVA EXAMIN ATION: DUAL X-RAY ABSORP TIOMET RY (DXA) FOR BONE MINERA L DENSIT Y. CLINIC AL INDICA TION: 58 years old, Female . Postme nopaus al. Z13.82 0. TECHNI QUE: An axial (e.g., hips, spine) and/or append icular (e.g., radius ) exam was perfor med, as approp riate, using [employer] densit ometer . [...] JOHANNE KELLY : 1965 Accoun t #: [id number] Age: 58 Years Patien t Type: Outpat ient Sex: F Access ion#: [id number] Exam Descri ption: BONE DENSIT Y Exam Reason : Screen ing Order Date/T santi: 2023 10:18: 00 AM RIGHT FOREAR M (RADIU S 33%): BMD (in g/cm*2 ): 0.685. T-scor e: -2.3. Z-scor e: -1.7. FRAX 10-YEA R PROBAB ILITY OF FRACTU RE: 10-yea r fractu re risk is perfor med using the Smita carvajal FRAX calcul ator based on patien [...] OF 3 : 1965 Accoun t #: [id number] Age: 58 Years Patien t Type: Outpat ient Sex: F Access ion#: [id number] Exam Descri ption: BONE DENSIT Y Exam [...] on FRAX calcul ation. - Clinic andi toñitome nt and/or patien t prefer ences may indica te treatm ent for people with 10-yea r fractu re probab ilitie s above or below these levels . - Heydi tapia ce on treatm ent can be found at the [facility]'s websit e [...] PANDEY Admitt ing Provid er: ASHLEY PANDEY [email or web address] [facility] (Central Scheduling) [address] [place] [address] [place], [address], 03/25/2024 13:16:45 03/26/20 24 03/26/2024 MRI, brain , w/wo contr ast 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 INDICA TION: D35.2 BENIGN NEOPLA SM OF [...] Slight intras ellar extens ion at the cloth sponger ior margin to abut the anteri or [...] JOHANNE KELLY : 1965 Accoun t #: [id number] Age: 58 Years Patien t Type: Outpat ient Sex: F Access ion#: [id number] Exam Descri ption: MRI BRAIN WOW - ROUTIN E Exam Reason : D35.2 BENIGN NEOPLA SM OF [place] YOUNG Order Date/T santi: 2023 02:54: 00 PM * No hydroc ephalu s, midlin e shift or abnorm al extra- axial fluid collec tion. * Major flow voids are grossl y preser pedro at the [place] [facility] [place] . * Mild mucosa l [...] RPBGWR [id number] Princi pal Interp reter Name: Benjimelvin kwan Provid er ID: [id number] PAGE 2 OF 2 CC'ed Logic: Orderi ng Provid er: ASHLEY PANDEY CC Provid er: ASHLEY PANDEY Attend ing Provid er: ASHLEY PANDEY Referr ing Provid er: ASHLEY PANDEY Admitt ing Provid er: ASHLEY PANDEY [email or web address] [facility] ([facility]) [address] [place] [address] [place], [address], 03/28/2024 20:03:16 07/26/19 25 07/24/2024 lab* No observ ation record ed. [email or web address] [facility] [address], [place], [address], 07/25/2024 13:07:35 Result Notes None recorded. Problems Name Problem SNOMED Code Status Onset Date Resolution Date Notes Provider Name and Address Organization Details Recorded Time Osteoporo sis 26484057 Active 2023 Tyesha Bravo DO [address], [address], [place], [address] , [place] [facility] - [place] & [place] 4 13:17:02 Constipat ion 40536386 Active 2015 Not Available [facility] 3 07:17:25 Migraine without aura, not refractor y 942094831 Active 2018 Not Available [facility] 3 07:17:26 Postmenop ausal osteoporo sis 535417792 Active 2018 Not Available [facility] 3 07:17:25 Restless legs 47235918 Active 2014 Not Available [facility] 3 07:17:25 Headache 29326830 Active 2020 Headache Not Available [facility] 3 07:17:25 Vitamin D deficienc y 44437799 Active 2019 Vitamin D deficienc y Not Available [facility] 3 07:17:25 Status migrainos 315767719 Active 2021 Not Available [facility] 3 07:17:25 Seasonal allergic rhinitis 242475667 Active 2015 Not Available [facility] 3 07:17:25 Dizziness 283898978 Active 2020 Dizziness Not Available [facility] 3 07:17:26 Solitary nodule of lung 606485239 Active 2020 Solitary nodule of lung Not Available [facility] 3 07:17:26 Clinical finding Active 2020 ICD-10: R93.89 - Abnormal x-ray examinati on Not Available [facility] 3 07:17:25 Cramp in lower limb 075183147 Active 2020 Cramp in lower limb Not Available [facility] 3 07:17:26 Anxiety disorder 364507087 Active 2021 Anxiety disorder Not Available [facility] 3 07:17:25 Obese class II 41157355688 4105 Active 2019 Obese class II Obese class II Not Available [facility] 3 07:17:26 Multiple sclerosis 53713690 Active 2021 Not Available [facility] 3 07:17:25 Refractor y migraine with aura 995276525 Active 2019 Not Available [facility] 3 07:17:26 Long-term current use of drug therapy 119189204 Active 2021 Long-term current use of drug therapy Not Available [facility] 3 07:17:26 Filling defect of urinary bladder 364017780 Active 2015 Not Available [facility] 3 07:17:25 Pain in throat 533809355 Active 2020 Sore throat Not Available [facility] 3 07:17:25 Pain of joint 13127076 Active 2017 Joint pain Not Available [facility] 3 07:17:26 Breast neoplasm screening status 877511725 Active 2015 Not Available [facility] 3 07:17:25 Bacteriur ia 75261191 Active 2020 Bacteriur ia Not Available [facility] 3 07:17:26 Gastroeso phageal reflux disease 887220003 Active 2015 Not Available [facility] 3 07:17:25 Chronic gastritis 2453510 Active 2015 Not Available [facility] 3 07:17:26 Hypertens wilfredo disorder 57330002 Active 2014 Not Available [facility] 3 07:17:25 Disorder of endocrine system 718730834 Active 2019 Disorder of endocrine system Not Available [facility] 3 07:17:25 Neuropath y 389281947 Active 2019 Neuropath y Not Available [facility] 3 07:17:25 Requires vaccinati on 731056649 Active 2019 Requires vaccinati on Not Available [facility] 3 07:17:26 Osteoarth ritis of knee 935574816 Active 2020 Osteoarth ritis of knee Not Available [facility] 3 07:17:25 Depressiv e disorder 34335453 Active 2014 Not Available [facility] 3 07:17:25 Fatigue 40303940 Active 2019 Fatigue Not Available [facility] 3 07:17:26 Insomnia 953889908 Active 2014 Not Available [facility] 3 07:17:25 Gastritis 9387542 Active 2019 Gastritis Not Available [facility] 3 07:17:26 Migraine 74717008 Active 2019 Migraine Not Available [facility] 3 07:17:25 Anxiety 79996955 Active 2021 Not Available [facility] 3 07:17:26 Body mass index 30+ - obesity 812776365 Active 2021 Not Available [facility] 3 07:17:25 Menopausa l [place] 152181058 Active 2014 Not Available [facility] 3 07:17:25 Patient encounter status 406538835 Active 2021 Not Available [facility] 3 07:17:25 Preoperat wilfredo cardiovas cular examinati on Active 2020 Preoperat wilfredo cardiovas cular examinati on Not Available [facility] 3 07:17:26 Diarrhea 03688941 Active 2019 Diarrhea Not Available [facility] 3 07:17:26 Pain of shoulder region 33659717 Active 2016 Shoulder pain Not Available [facility] 3 07:17:26 Left temporoma ndibular joint disorder 00281208148 925169 Active 2022 Not Available [facility] 3 07:17:25 History of bariatric surgical procedure 217635163 Active 2022 Not Available [facility] 3 07:17:26 Daytime hypersomn ia 86304554041 102 Active 2023 Tyesha Bravo, [address], [address], [place], [address] , [facility] - [place] & [place] 4 12:41:16 Notes:Some problems listed i n Document: #[id number] could not be added to this patient's chart. Please review this document and add these problems to the patient's chart manually as needed. Problem Notes None recorded. Procedures Surgical History Date Name Laterality Status Provider Name and Address Organization Details Recorded Time 2023 completed Patricia MORROW - [facility] [place] 5 14:25:02 2023 Most Recent Mammogram completed Patricia [facility] [place] 5 14:29:00 2023 Most Recent Bone Density completed Patricia MORROW - [facility] - [place] 5 14:29:22 2022 laparoscopic sleeve gastrectomy completed Polina MORROW - [facility] - [place] 3 13:37:47 2022 Date of Last Colonoscopy completed Velia MORROW - [facility] - [place] 3 10:37:10 2022 Colonoscopy completed Velia Herr [facility] - [place] 4 10:50:27 2022 Injection Fascia/Tendon completed Evelyn MORROW - [facility] - [place] 3 08:47:08 2022 Gastrointestinal Surgery completed Velia Herr [facility] - [place] 4 10:48:31 2021 arthroscopic repair of rotator cuff completed Art Herr [facility] - [place] 2 13:27:55 2021 neurostimulation procedure completed Art Herr [facility] - [place] 2 13:29:44 2021 esophagogastroduodenoscopy completed Judy Bravo DO [facility] [address], [place], [address] [facility] [place] - [place] - [place] 2 11:47:45 2020 total replacement of right knee joint completed Tyesha Bravo DO [address], [address], [place], [address], [place] - [facility] - [place] 2 11:46:13 2014 neurostimulation of spinal cord tissue completed Tyesha Bravo [facility], [address], [place], [address], [place] [facility] [place] 2 11:45:18 2013 total replacement of right hip joint completed Tyesha Bravo [address], [address], [place], [address], [place] [facility] [place] 2 11:45:02 2013 neurostimulation of spinal cord tissue completed Tyesha Bravo [address], [address], [place], [address], [place] [facility] [place] 2 11:45:42 1999 surgical procedure completed Velia MORROW - [facility] - [place] 3 10:44:07 1992 Hysterectomy completed Tyesha Bravo [facility], [address], [place], [address], [place] [facility] [place] 2 11:43:41 1982 Tonsillectomy/Adenoidectomy completed Albert Bravo [facility] [address], [place], [address], [place] [facility] [place] 2 15:28:55 1977 appendectomy completed Tyesha Bravo [facility] [address], [place], [address], [place] [facility] [place] 2 11:43:26 Total Colectomy completed Velia MORROW - [facility] - [place] & [place] 3 10:44:31 surgical repair completed Velia MORROW - [facility] & [place] 3 10:45:13 Cholecystectomy completed Tyesha Bravo , DO [address], [address], [place], [address], [place] [facility] [place] 2 11:44:09 Carpal tunnel surgery completed Juan Carlos Bravo , DO [address], [address], [place], [address], [place] [facility] [place] 2 11:44:20 Joint Replacement completed Emely Bravo , DO [address], [address], [place], [address], [place] [facility] [place] 2 15:28:56 Imaging Results Imaging Date Name Status LastModified by Organiz ation Details LastModified Time 03/22/2024 mamm screening 2D completed [address] (Central Scheduling) [address] [place] [address] [place], [address], 03/22/2024 18:06:09 03/22/2024 MAMMO, screening, digital, bilateral completed [facility] Registration [address] [place], [address], 03/26/2024 10:26:11 03/22/2024 bone density completed [address] (Central Scheduling) [address] [place] [address] [place], [address], 03/25/2024 13:16:45 03/26/2024 MRI, brain, w/wo contrast completed [email or web address] [place] [address] (Central Scheduling) [address] [place] [address] [place], [address], 03/28/2024 20:03:16 07/24/2024 lab* completed [address], [place], [address], 07/25/2024 13:07:35 Procedure Notes None recorded. Medical Equipment None Reported. Allergies Allergen ID Allergen Name Allergen Category Reaction Reaction Severity Criticality Documentation Date Start Date Code Code System Note Provider Name and Address Organization Details Recorded Time 548227 tomato allergeni c extract food edema mild Not available 01/20/2023 76153 9 RxNorm Art Augusta edgar, [facility] & [place] 3 13:47:52 75418 Product containin g penicilli n (product) medicatio n rash Not available Not available 05/23/2022 33233 8001 SNOMED Velia Romano [facility] & [place] 3 10:42:02 9224 Penicilli n Not available Not available Not available Not available 12/06/2021 26234 RxNorm React ion: rash, sever ity: Unkno wn Not Available [facility] 2 01:57:11 9228 duloxetin e medicatio n Not available Not available Not available 12/06/2021 12209 RxNorm React ion: Unkno wn, sever ity: Unkno wn Not Available [facility] 2 01:57:11 Medications Name Sig Start Date [...] Avai lable prednison e 10 mg tablet 08/12 completed Not Available Not [...] completed Not Available Not Available Not Available [facility] O[facility] 75 mg disintegr ating tablet DISSOLVE [...] Updated DateTime 4 160.02 cm 28.1 kg/m2 00752.7 5 g 96.4 [degF] 98 % 98 % 80 /min 18 /min 110 mm[Hg] 66 mm[Hg] Art MORROW [facility] & [place] 4 15:55:28 Date Recorded Body height Body temperature Oxygen saturation Oxygen saturation in Arterial blood by Pulse oximetry Heart rate Systolic blood pressure Diastolic blood pressure Provider Name and Address Organization Details Last Updated DateTime 5 160.02 cm 98 [degF] 96 % 96 % 118 /min 122 mm[Hg] 70 mm[Hg] Evelyn Sterling [facility] & [place] 5 14:36:05 Date Recorded Body height Body mass index (BMI) Body weight Oxygen saturation Oxygen saturation in Arterial blood by Pulse oximetry Heart rate Respiratory rate Body temperature Systolic blood pressure Diastolic blood pressure Provider Name and Address Organization Details Last Updated DateTime 5 160.02 cm 28.1 kg/m2 23407.0 3 g 98 % 98 % 84 /min 18 /min 96.9 [degF] 114 mm[Hg] 72 mm[Hg] Art [facility] & [place] 5 15:16:36 Date Recorded Body height Body weight Body temperature Oxygen saturation Oxygen saturation in Arterial blood by Pulse oximetry Heart rate Body mass index (BMI) Respiratory rate Systolic blood pressure Diastolic blood pressure Provider Name and Address Organization Details Last Updated DateTime 5 160.02 cm 72615.3 4 g 96.8 [degF] 99 % 99 % 79 /min 28.3 kg/m2 18 /min 122 mm[Hg] 68 mm[Hg] Art [facility] & [place] 5 10:10:47 Date Recorded Body height Body mass index (BMI) Body weight Oxygen saturation Oxygen saturation in Arterial blood by Pulse oximetry Heart rate Respiratory rate Systolic blood pressure Diastolic blood pressure Provider Name and Address Organization Details Last Updated DateTime 5 160.02 cm 28.9 kg/m2 40159.2 7 g 98 % 98 % 80 /min 18 /min 118 mm[Hg] 78 mm[Hg] [facility] & [place] 5 14:52:16 Social History Question Answer Notes LastModified by Organizat ion Details LastModified Time Tobacco Smoking Status Never Smoker Not Available [facility] 12/06/2021 09:52:05 Do You Have An Advance Directive? No [email or web address] Information not available 12/25/2021 Are You Blind [...] anxious, or unable to sleep at night)? [id number] Information not available 05/24/2023 Do you have difficulty concentrating, remembering or making decisions? No [email or web address] Information no t available 04/20/2023 Family History [...] virus, quadrivalent, preservative 3 completed Tyesha Bravo, [address], [address], [place], [address], [facility] & [place] 12/23/2022 20:43:31 Hep A, unspecified formulation 8 completed Not Available [facility] 03/23/2023 07:17:26 zoster recombinant 9 completed Not Available [facility] 03/23/2023 07:17:26 Influenza, recombinant, quadrivalent, PF 0 completed Not Available [facility] 03/23/2023 07:17:26 Influenza, split virus, trivalent, PF 6 completed Not Available [facility] 03/23/2023 07:17:26 Influenza, split virus, quadrivalent, PF 1 completed Not Available [facility] 03/23/2023 07:17:26 COVID-19, mRNA, LNP-S, PF, 30 mcg/0.3 mL dose 1 completed Patricia edgar, [place] - [facility] [place] 04/23/2024 14:30:03 Hep A, adult 9 completed Not Available [facility] 03/23/2023 07:17:26 TST-PPD intradermal 5 completed Not Available [facility] 03/23/2023 07:17:26 COVID-19, mRNA, LNP-S, PF, 30 mcg/0.3 mL dose 1 completed Patricia edgar, [place] [facility] [place] 04/23/2024 14:30:03 zoster recombinant 9 completed Not Available [facility] 03/23/2023 07:17:26 Influenza, split virus, quadrivalent, PF 8 completed Not Available [facility] 03/23/2023 07:17:26 COVID-19, mRNA, LNP-S, PF, 100 mcg/0.5mL dose or 50 mcg/0.25mL dose 1 completed Patricia edgar, [place] [facility] - [place] 04/23/2024 14:30:03 COVID-19, mRNA, LNP-S, PF, marilu-sucrose, 30 mcg/0.3 mL 4 completed Patricia edgar, [place] [facility] [place] 04/23/2024 14:30:03 Influenza, MDCK, trivalent, PF 4 completed [place] - [facility] - [place] [facility] [place] 04/23/2024 14:30:03 COVID-19, mRNA, LNP-S, bivalent, PF, 50 mcg/0.5 mL or 25mcg/0.25 mL dose 2 completed Not Available [facility] 03/23/2023 07:17:26 Influenza, split virus, quadrivalent, PF 2 completed Not Available [facility] 03/23/2023 07:17:26 Past Encounters Encounter ID Performer Location Encounter Start Date Encounter Closed Date Diagnosis/Indication Diagnosis SNOMED-CT Code Diagnosis ICD10 Code Diagnosis Note [id number] Tyesha Bravo DO [facility] Family Medicine- Floor 2, [address] [facility] [place] [address] 12/23/2021 13:14:43 12/23/2021 14:06:05 Anxiety 22084259 F41.9 Constipation 63168799 K5 9.00 Gastroesop hageal reflux disease 874212064 K21.9 Hypertensive disorder 38 173623 I10 Had labs done today Neuropathy 974470010 G62 .9 UDS and MARK reviewed. Restless legs 31401063 G 25.81 Vitamin D deficiency 347 77813 E55.9 Seasonal a llergic rhinitis 050260074 J30.2 Migraine 63804632 G43.90 9 Pain of joint 47932664 M 25.50 Multiple sclerosis 08445 007 G35 Body mass index 30+ - obesity 558153363 Z68.39 [id number] Tyesha Bravo DO [facility] Family Medicine- Floor 2, [address] [place] [address] 02/03/2022 08:10:28 02/03/2022 08:40:10 Body mass index 30+ - obesity 239629988 Z68.39 Continue Saxenda. Hyperesthesia 39462133 R 20.3 Hypertensive disorder 38 447149 I10 [id number] Tyesha Bravo DO [facility] Family Medicine- Floor 2, [address] [facility],[address] [place] [address] 03/10/2022 10:22:48 03/10/2022 11:17:07 Neuropathy 368946128 G62.9 UDS and MARK reviewed. Anxiety 20616397 F41.9 Hypertensive disorder 38 137609 I10 Pain of joint 75790507 M 25.50 Multiple sclerosis 02261 007 G35 Gastroesop hageal reflux disease 620407420 K21.9 Seasonal a llergic rhinitis 551305409 J30.2 Body mass index 30+ - obesity 025040514 Z68.39 Continue Saxenda. Migraine 01177762 G43.90 9 Preoperati ve cardiovascular examination 330987108 Z01.810 Apr 04, [facility]22 and then will ok for surgery.No issues with anesthesia in the past.No issues with needing blood transfusio ns in the past.EKG no change from previous Long-term drug therapy 651527670 Z79.899 [id number] Tyesha Bravo DO [facility] Family Medicine- Floor 2, [address] [place] [address] Drive,[address] [place] [address] 05/23/2022 15:50:13 05/23/2022 16:48:12 Body mass index 30+ - obesity 183427922 Z68.39 Continue Saxenda.BM I now 35.5 Hypertensive disorder 38 375670 I10 [id number] Tyesha Bravo DO [facility] Family Medicine- Floor 2, [address] [place] [address],[address] [place] [address] 05/31/2022 09:31:17 05/31/2022 09:48:03 Serous otitis media 75843223 H65.92 Body mass index 30+ - obesity 975250209 Z68.34 [id number] Tyesha Bravo DO [facility] Family Medicine- Floor 2, [address] [place] [address],[address] [place] [address] 06/17/2022 10:38:52 06/17/2022 11:16:36 Temporomandibular joint disorder 21732632 M26.609 leftAlread y on Diclofenac [id number] YARELY CASTRO MD [facility] ENT [address] [place] [place] [address] 07/15/2022 07:58:54 07/15/2022 08:13:18 Left temporomandibular joint disorder 4929583487 1137900 M26.602 - It was explained to the [...] referral- Return to clinic in 1 month [id number] Tyesha Bravo, DO [facility] Family Medicine- Floor 2, [address] [place] [address],[facility] te [address] [place] [address] 07/18/2022 15:20:13 07/18/2022 16:04:47 Migraine 45869299 G43.909 Pain in lower limb 93775 006 M79.604 M79.605 [id number] YARELY CASTRO MD [facility] ENT [address] [place] [address] 08/12/2022 08:11:29 08/12/2022 08:21:31 Left temporomandibular joint disorder 3266335487 8849055 M26.602 - Instructed patient to obtain guard lieutenant. Given her pain seems to be associated with joint inflammati on rather than muscle pain this is going to be more helpful for her as opposed to stretching exercises- If symptoms still not improved at follow up will refer to oral surgeon for possible joint injection- Refill for mobic sent to pharmacy [id number] Daniela Queen DPM [facility] Pod[facility]ry [address] [facility] [address] [place] [address] 09/02/2022 08:09:36 09/02/2022 08:54:40 Pain in left foot 0062794173 64670 M79.672 Radiograph s performed today. Findings reviewed [...] ing.Methyl prednisolo ne Acetate 400mg per 10ml. Lot#[id number] . [facility]# [id number] -03. Expiration 07/19. Achilles tendinitis 1165 4001 M76.62 Pain posterior heel < plantar heel. Consider PT pending progress. [id number] Tyesha Bravo, [facility] Family Medicine- Floor 2, 615 [address] [facility] [address] [place] [address] 09/15/2022 14:30:12 09/15/2022 15:04:09 Neuropathy 264211771 G62.9 UDS and MARK reviewed. Anxiety 03469412 F41.9 Hypertensive disorder 38 484907 I10 Pain of joint 84964077 M 25.50 Multiple sclerosis 26043 007 G35 Gastroesop hageal reflux disease 940481070 K21.9 Seasonal a llergic rhinitis 251152156 J30.2 Body mass index 30+ - obesity 455909085 Z68.39 Migraine 93985033 G43.90 9 [id number] Daniela Queen DPM [facility] [address] [facility] [address] [place] [address] 10/17/2022 08:39:51 10/17/2022 09:17:37 Pain in left foot 4506865173 95498 M79.672 Plantar fasciitis 786107 003 M72.2 Discussed treatment options including PT and Medrol pack versus rest in BK boot. Pt elects for boot. Feels her symptoms are becoming more constant with WBing.Disp ensed pneumatic walking boot with instructio ns for applicatio n and use. An arch pad was added for comfort. Patient may remove pneumatic boot to bathe and sleep. This medical office coordinator is medically necessary to treat this patient's [...] tendinitis 1165 4001 M76.62 Strain of foot 115950908 0 9 S96.912A reduce WBing activities in BK boot until symptoms improve [id number] YARELY CASTRO MD [facility] ENT [address] [place] [address] 11/14/2022 08:08:01 11/14/2022 08:57:53 Left temporomandibular joint disorder 2741808810 0789844 M26.602 - Continues to have pain over left TMJ. Seems largely associated with the joint capsule rather than muscular. Has failed treatment with bite guard, NSAIDs, and warm compresses - Will refer to orofacial pain clinic for evaluation [id number] Francheska Azul APRN [facility]- Floor 1, 607 [address] [facility] [address] [place] [address] 12/04/2022 09:19:45 12/04/2022 10:12:26 Submental lymphadenopathy 640020204 R59.0 Complete medication as directed. Push fluids, especially water. Encouraged salt water gargles BID. Acute pharyngitis 534174 003 J02.9 Take medication as directed. Monitor BP as we discussed, discontinu e with elevated readings. [id number] Tyesha Bravo DO [facility]- Floor 2, 615 [address] [facility] [address] [place] [address] 12/23/2022 08:23:06 12/23/2022 09:01:06 Hypertensive disorder 92618454 I10 Anxiety 69027169 F41.9 Pain of joint 61871207 M 25.50 Neuropathy 606833947 G62 .9 UDS and MARK reviewed. Gastroesop hageal reflux disease 713904055 K21.9 Failed Lansoprazo le Seasonal a llergic rhinitis 363079724 J30.2 Influenza vaccine needed 7866837683 106 Z23 Body mass index 30+ - obesity 110693238 Z68.36 Screening for malignant neoplasm of breast 156997844 Z12.39 [id number] Tyesha Bravo DO [facility] Family Medicine- Floor 2, [address] [place] [address] 01/20/2023 13:38:12 01/20/2023 14:10:22 Insomnia 222960639 G47.00 Stop Amitriptyl ine [id number] Tyesha Bravo DO [facility] Family Medicine- Floor 2, [address] [place] [address] 02/20/2023 13:23:22 02/20/2023 14:21:04 Insomnia 052789378 G47.00 Stopped Amitriptyl ineSeroque l doing well. History of bariatric surgical procedure 887177363 Z98.84 [id number] Daniela Queen DPM [facility] [address] [facility],[address] [place] [address] 02/10/2023 08:36:28 02/10/2023 09:28:23 Pain in left foot 9224667881 29047 M79.672 Counseled regarding potential benefit of anti-infla mmatories to reduce symptoms. Discussed varieties available including topical forms, OTC and prescripti on options and natural remedies including risks and benefits of each. Also provided recommenda tions for dosing. Plantar fasciitis 20271027 003 M72.2 Discussed benefit of increased support with ambulation . [facility] ed power step inserts in office today. [...] 1 week. Achilles tendinitis 1165 4001 M76.62 [facility] ed again and dispensed handout regarding appropriat e stretching program for his/her condition. Instructed patient to perform without shoe gear at least twice daily. Also discussed benefit of anti-infla mmatories, ice massage and arch support. [id number] Tyesha Bravo DO [facility] Family Medicine- Floor 2, [address] [place] [address] 04/20/2023 08:34:10 04/20/2023 09:25:04 Insomnia 418329849 G47.00 Seroquel doing well. Cough 22768853 R05.1 Acute bronchitis 5612664 2 J20.9 Work note today and tomorrow. [id number] Joey Baker M.D [facility] Neurology [address],[facility] [address] [place] [address] 05/17/2023 10:39:55 05/17/2023 11:36:57 Chronic intractable migraine without aura 2078379138 57771 G43.719 Attacks of weakness 2482 69873 R53.1 Demyelinat ing disease of central nervous system 0898968 G37.9 Mixed anxi ety and depressive disorder 513377545 F41.8 [id number] Tyesha Bravo DO [facility] Medicine- Floor 2, [address] [place] [address],[facility] [address] [place] [address] 06/14/2023 09:02:48 06/14/2023 10:04:30 Insomnia 684060122 G47.00 Hypertensive disorder 38 256704 I10 Seasonal a llergic rhinitis 464855396 J30.2 Anxiety 02831927 F41.9 Pain of joint 26776436 M 25.50 Low back pain 283903430 M54.50 [id number] Joaquin Ramirez [facility] Neurology [address],[facility] [address] [place] [address] 07/18/2023 13:25:42 07/18/2023 14:05:36 Refractory migraine without aura 959237557 G43.019 Idiopathic hypersomnia 2162536309 107 G47.11 Multiple sclerosis 73735 007 G35 [id number] Tyesha Bravo DO [facility] Family Medicine- Floor 2, [address] [place] [address],[address] [place] [address] 08/28/2023 15:33:40 08/28/2023 16:47:29 Neuropathy 357607688 G62.9 Hypertensive disorder 38 448935 I10 Anxiety 48362314 F41.9 Pain of joint 73637173 M 25.50 Gastroesop hageal reflux disease 738434193 K21.9 Failed Lansoprazo le Seasonal a llergic rhinitis 443131759 J30.2 Insomnia 772445028 G47.0 0 Acute sinusitis 94122749 J01.90 Cough 85677615 R05.1 Long-term current use of drug therapy 526258930 Z79.446 [id number] Tyesha Bravo DO [facility] Family Medicine- Floor 2, [address] [place] [address] 09/25/2023 15:52:36 09/25/2023 17:11:18 Chronic obstructive pulmonary disease 99918486 J44.9 Sample for Trelegy 100 Lesion of skin of face 2905803205 06 L98.9 Left side of face [id number] Tyesha Bravo DO [facility] Medicine- Floor 2, [address] [place] [address] 10/10/2023 15:38:32 10/10/2023 16:25:17 Cough 48823155 R05.1 Stop Phentermin e.GI cocktail.O nly thing I can add is thinking could be GI related. Will add H2 parker and give GI cocktail. [id number] Tyesha Bravo DO [facility] Medicine- Floor 2, [address] [place] [address] 10/24/2023 11:10:23 10/24/2023 11:50:06 Unexplained chronic cough 7685723418 R05.3 Fatigue 49497874 R53.83 Cut Seroquel in 1/2Do labs that were ordered, hasn't done yetNo [facility] Nuvigil and sleep referralOf f work 4 wks. Daytime hypersomnia 3177 785546 0799 G47.19 [id number] Tyesha Bravo DO [facility] Medicine- Floor 2, [address] [place] [address] 2023 10:24:57 2023 11:00:12 Hypertensive disorder 09976389 I10 Seasonal a llergic rhinitis 615581069 J30.2 Cough 19605645 R05.1 Anxiety 47317979 F41.9 Neuropathy 840745081 G62 .9 Hyperlipidemia 48652807 E78.5 Long-term current use of drug therapy 711624111 Z79.899 Excessive daytime sleepiness - normal night sleep 660840713 G47.19 Undergoing sleep study and further testing with Dr. Monet [id number] [facility] [address] [facility] [address] [place] [address] 11/01/2023 15:10:13 11/01/2023 16:14:04 Hypersomnia 69568903 G47.10 Pro.found hypersomni a. I do not [...] awhile to get an accurate test. Migraine 75268497 G43.90 9 [id number] Tyesha Bravo DO [facility] Family Medicine- Floor 2, [address] [place] [address],[address] [address] 02/20/2024 08:00:10 02/20/2024 08:29:39 Neuropathy 585317131 G62.9 Anxiety disorder 2346382 06 F41.9 Constipation 40642549 K5 9.00 From pain meds (pain pump) Screening for osteoporosis 814750750 Z13.820 Screening for malignant neoplasm of breast 031601111 Z12.39 [id number] Manoj Monet MD [facility] [address] [facility] [address] [place] [address] 11/30/2023 15:04:03 11/30/2023 16:00:22 Hypersomnia 26152756 G47.10 She has a very positive MSLT. [...] me. I will see her in my [place] [facility] face-to-fa ce at which time we will urine drug screen if this is not effective then she will most likely need referral to sleep Medicine physicians who specialize in narcolepsy or hypersomni a to make definitive diagnosis. [id number] Manoj Monet MD [facility] [address] [place] [address] 01/02/2024 14:48:06 01/02/2024 15:19:57 Idiopathic hypersomnia 4978512756 107 G47.11 Continue on modafinil and Ritalin 5 mg for breakthrou gh hypersomni a symptoms. Clinical improvemen t reported by the patient. She is a follow-up in 3 months. She is already interested into a controlled substance contract with my clinic for this particular medication s. Long-term drug therapy 026009553 Z79.220 [id number] Tyesha Bravo DO [facility] Family Medicine- Floor 2, [address] [place] [address],[address] [place] [address] 01/03/2024 08:21:07 01/03/2024 09:07:03 Soft tissue swelling of knee joint 917112028 M25.469 Edema of l ower extremity 859533489 R60.0 leftCompre ssion stocking [id number] Manoj Monet MD [facility] [address] [place] [address] 02/08/2024 09:39:16 02/08/2024 10:13:08 Idiopathic hypersomnia 2446588966 107 G47.11 Add Effexor. I think I am going to have her evaluated by a sleep neurologis t to see if she will be a candidate for xyrem. [id number] Tyesha Bravo DO [facility] Family Medicine- Floor 2, [address] [place] [address],[address] [place] [address] 03/08/2024 15:44:25 03/08/2024 16:24:24 Pituitary microadenoma 646037637 D35.2 [id number] Joey Bkaer M.D [facility] [address] [place] [address] 04/18/2024 13:57:04 04/18/2024 15:10:33 Idiopathic hypersomnia 0272788976 107 G47.11 At [facility] risk of polypharmacy 201217379 Z91.89 Intracrani al meningioma 161670460 D32.0 Pituitary adenoma 699763 000 D35.2 Multiple sclerosis 04044 007 G35 [id number] Tyesha Bravo DO [facility] Family Medicine- Floor 2, [address] [place] [address] 04/18/2024 15:09:24 04/18/2024 15:42:50 Pituitary adenoma 688078220 D35.2 Has referral to Endocrine (from Neurologis t) Intracrani al meningioma 819674531 D32.0 Will be fitted for radiation mask soon. Hypersomnia 77789651 G47 .10 Still do no recc driving or rtw at this time. [id number] Tyesha Bravo DO [facility] Family Medicine- Floor 2, [address] [place] [address] 05/14/2024 09:29:10 05/14/2024 11:08:43 Anxiety disorder 736151118 F41.9 Will stop Sertraline 150mg and change to Fluoxetine (anxious about upcoming radiation) Cough 63700944 R05.1 Constipation 82010349 K5 9.00 From pain meds (pain pump) Subclinica l hypothyroidism 85646711 E02 Seasonal a llergic rhinitis 421779026 J30.2 Neuropathy 834049893 G62 .9 Gastroesop hageal reflux disease 341346750 K21.9 Failed Lansoprazo le Pituitary microadenoma 684487313 D35.2 Anxiety 99723421 F41.9 Hypertensive disorder 38 991802 I10 Osteoporosis 09856290 M8 1.0 [id number] Tyesha Bravo DO [facility] Family Medicine- Floor 2, [address] [place] [address] 08/12/2024 14:40:03 08/12/2024 15:20:28 Left temporomandibular joint disorder 3955743845 9973383 M26.602 Hypertensive disorder 38 024609 I10 Constipation 89822704 K5 9.00 From pain meds (pain pump) Subclinica l hypothyroidism 75666846 E02 Seasonal a llergic rhinitis 688266768 J30.2 Neuropathy 543394164 G62 .9 Anxiety disorder 9977358 06 F41.9 Gastroesop hageal reflux disease 895187269 K21.9 Failed Lansoprazo le Anxiety 84509101 F41.9 Osteoporosis 27604896 M8 1.0 Long-term current use of drug therapy 757340118 Z79.899 Pt has script for Diazepam prn Health Concerns Section Related Observation LastModified by Organization Detai ls LastModified Time None Recorded Concern Status LastModified by Organization Details LastModified Time None Recorded Advance Directives Directive N: Payers Insurance Date Sequence Insurance Name Policy Number Policy Davis Covered Member ID Davis Member ID Guarantor Name 05/04/2024 2 MEDICAID-[facility] CHOICES - FFS/TRADITIONAL Johanne Kelly [id number] Johanne Kelly 02/20/2024 SLIDING FEE SCHEDULE - DISCOUNT Johanne Kelly 11/16/2023 3 [employer] (MEDICARE SUPPLEMENT) Johanne Kelly [id number] Johanne Kelly 11/16/2023 3 [place] Johanne Kelly [id number] Johanne Kelly 11/16/2023 1 [employer] (MEDICARE REPLACEMENT/ADV ANTAGE - HMO) Johanne Brewsterpton [id number] Johanne Kelly 11/16/2023 1 [employer] (MEDICARE REPLACEMENT/ADV ANTAGE - PPO) Johanne Brewsterpton [id number] Johanne Kelly 08/09/2024 2 [facility] [place] - [place] Johanne Kelly [id number] Johanne Kelly 11/16/2023 1 [employer]ET[employer] (POS) [id number] Johanne Kelly [id number] Johanne Kelly 11/16/2023 2 [employer] Johanne Brewsterpton [id number] Johanne Kelly 11/16/2023 2 [employer] (PPO) Johanne Hollowayer [id number] Johanne Joe Robin 11/16/2023 3 [place] [facility] - FFS/TRADITIONAL Johanne Joe Robin [id number] Johanne Joe Robin 11/16/2023 2 [employer] - PHCS (PPO) Johanne Joe Robin [id number] Johanne Joe Robin 11/16/2023 1 ADMINISTRATIVE CONCEPTS - MULTIPLAN (INDEMNITY) Johanne Joe Robin [id number] Johanne D Robin 11/16/2023 3 [employer] (MEDICARE SUPPLEMENT) Johanne Gates [id number] Johanne Joe Robin 11/16/2023 3 MEDICAID-[place]: [facility] Johanne Gates [id number] Johanne Tatyana Robin 11/16/2023 3 [employer] (MEDICARE SUPPLEMENT) Johanne Gates [id number] Johanne Joe Robin 08/10/2024 1 [place] [id number] Johanne Joe Robin [id number] Johanne Joe Robin 11/16/2023 3 [facility] Joh[facility] Gates [id number] Johanne Joe Robin Notes Date Note Type Note Provider Name and Address Organization Details Recorded Time 4 text/htm l Pt states Dr. Monet referred to Dr. Stoner (Neurology/[facility]). --May appt (couldn't wait).Pulm/Sleep: [facility] ([facility]) seenWanted to do repeat sleep study, Dr. [...] months along with neurosurgical consultation. Tyesha Bravo, [address], [address], [place], [address], [facility] 03/13/2024 14:54:51 5 text/htm l Ms. Johanne Kelly is a 58 y/o [...] to have hypersomnia. Joey Baker M.D [address], [address], [place], [address], [facility] 04/18/2024 15:02:52 5 text/htm l Pt needs note for work at present with : No return to work dateShe is currently undergoing treatment for meningioma/and will be doing radiation. She has been referred to Endocrine for pituitary adenoma. She no longer drives (has someone bring/take her) as she falls asleep with driving despite current medications. Neuro would like her to try to wean off of some of her sedating medication. Tyesha Bravo, [address], [address], [place], [address], [facility] 04/23/2024 11:40:42 5 text/htm l F/u neuropathy: stable F/u GERD, stable. F/u [...] waiting until insurance approves radiation treatment. Tyesha Bravo, [address], [address], [place], [address], [facility] 05/15/2024 16:13:02 5 text/htm l F/u neuropathy: stable on Gabapentin. F/u GERD, [...] worse and legally blindNeuroopthalmolgist at September 11 Tyesha Bravo, [address], [address], [place], [address], [facility] 08/12/2024 16:16:14 OBGyn Episode No OBEpisode recorded.
[2024-08-15 09:51] VITALS: BP 119/83; PULSE 90; RESP 14; O2SAT 100; BMI 29.8
--- NOTE | 2024-08-15 10:03 | EXP.PAIN.SOA ---
[facility] Disclaimer: The information contained in this section may have been updated after the patient was seen, as this information can be updated by other users. Medical History History of DVT (deep vein thrombosis) History of pituitary adenoma Hypothyroid Migraine Multiple sclerosis HTN (hypertension) Vitamin D deficiency HLD (hyperlipidemia) Depression Surgical History History of gastric bypass Hx of cholecystectomy Hx of tonsillectomy H/O: hysterectomy History of right shoulder replacement History of lumbar surgery History of colonoscopy History of right hip replacement History of bilateral knee replacement History of appendectomy Family History Other Family history of cancer Family history of diabetes mellitus Family history of heart disease Social History Smoking Status: Never smoker alcohol intake: never substance use type: denies use current occupational status: other Travel in the last 8 weeks?: None PM Subjective & Objective Subjective Subjective:: Patient is a pleasant 58-year-old female who presents today for suture and staple removal. She rates her pain today a 2 out of 10. She denies any new trauma or injury. She does state overall she is still doing well. Patient did have her spinal cord stimulator generator removed on 08 02. Her Tommy has been reviewed and is appropriate review of Systems: General: No recent weight changes, no fever, no sleep disturbances Respiratory: No cough, no shortness of air, no recurring pulmonary infections Cardiovascular/peripheral vascular: No chest pain, no palpitations, no edema, no shortness of breath Gastrointestinal: No new onset incontinence, normal bowel movements reported Genitourinary: No new onset incontinence Musculoskeletal: Low back pain Psychiatric: [Normal mood/affect] Neurological: [Denies weakness in extremities], [denies balance issues]. Pain at rest (0-10 scale): 2 Objective Objective:: Physical Exam: General: Alert and oriented x3, no acute distress, pleasant and cooperative Lungs: Respirations even and unlabored, symmetrical chest expansion Eyes: PERRL Musculoskeletal: Flexion and extension of lumbar [spine] within normal limits Neurological: Speech clear, no gross sensory deficit Skin: Incision site is clean, dry, well-approximated with no erythema noted Has patient had previous pain injection?: No Conservative treatment options previously tried: Home exercise plan Length of treatment: Longer than 12 weeks Meds Home Medications and Allergies Home Medications ?Medication ?Instructions ?Recorded ?Confirmed ?Type atorvastatin 10 mg tablet 10 mg PO DAILY 07/02/23 08/15/24 History buspirone 15 mg tablet 15 mg PO BID 07/02/23 08/15/24 History fremanezumab-vfrm 225 mg/1.5 mL See Rx Instructions .Route .COMPLEX 07/02/23 08/15/24 History subcutaneous auto-injector (Ajovy) gabapentin 800 mg tablet See Rx Instructions .Route .COMPLEX 07/02/23 08/15/24 History levocetirizine 5 mg tablet 5 mg PO DAILY 07/02/23 08/15/24 History potassium chloride 10 mEq 10 meq PO DAILY 07/02/23 08/15/24 History capsule,extended release ofatumumab 20 mg/0.4 mL 20 mg SQ MONTHLY 11/16/23 08/15/24 History subcutaneous pen injector (Kesimpta Pen) morphine (PF) 1 mg/mL injection 1 mg intrathecal CONT Pain 11/22/23 08/15/24 History solution potassium chloride 10 mEq 10 meq PO DAILY 01/17/24 08/15/24 History tablet,extended release (Klor-Con) alendronate 70 mg tablet 70 mg PO WEEKLY 07/24/24 08/15/24 History cabergoline 0.5 mg tablet 0.5 mg PO DAILY 07/24/24 08/15/24 History dexamethasone 1.5 mg (39 tabs) 1.5 mg PO DAILY 07/24/24 08/15/24 History tablets in a dose pack fluoxetine 20 mg capsule 20 mg PO DAILY 07/24/24 08/15/24 History levothyroxine 25 mcg tablet 25 mcg PO DAILY 07/24/24 08/15/24 History linaclotide 72 mcg capsule 72 mcg PO DAILY 07/24/24 08/15/24 History (Linzess) montelukast 10 mg tablet 10 mg PO DAILY 07/24/24 08/15/24 History rimegepant 75 mg disintegrating 75 mg PO WEEKLY 07/24/24 08/15/24 History tablet (Nurtec ODT) New Prescriptions to Start Prescriptions: Allergies Allergy/AdvReac Type Severity Reaction Status Date / Time duloxetine (From Cymbalta) Allergy Other Verified 08/02/24 08:38 Penicillins Allergy Rash Verified 08/02/24 08:38 Assessment and Plan *Assessment and plan (1) Degenerative disc disease, lumbar: Status: Acute Category: Medical Code(s): M51.369 - Other intervertebral disc degeneration, lumbar region without mention of lumbar back pain or lower extremity pain Plan Patient was able to have all of her sutures and lorena removed and Steri-Strips with skin glue applied. Patient tolerated the procedure well. I did counselor at law her that she is still on her postop restrictions the full 6 weeks. She was counseled to still continue to only shower and not submerge in water until her incisions are fully healed, patient was counseled to be mindful of bending, twisting and lifting. Patient was given more leeway with her abdominal binder as there is no seroma noted at today's visit. Patient will return to clinic in 1 month. Patient has been instructed to contact the clinic with any concerns before the next appointment. Dr. Rondon has reviewed this note and agrees with this plan of care. This note was dictated using voice recognition software and make contain errors or omissions. All injections are used with Lidocaine, Bupivacaine and dexamethasone. Occasionally urine drug screen is needed to verify patient's compliance with our office pain contract. This is ordered based off specific treatments related to chronic pain with the potential to abuse certain medications.
== END 2024-08-15 23:59 | disposition home or self-care (01) ==
LOC: SC.PAIN 09:34
PROVIDERS: PCP Family Medicine; Visit Provider Nurse Practitioner Family
DX: M51.369 Other intervertebral disc degeneration, lumbar region without mention of lumbar back pain or lower extremity pain (principal); Z96.611 Presence of right artificial shoulder joint; Z96.641 Presence of right artificial hip joint; Z96.653 Presence of artificial knee joint, bilateral
CPT/HCPCS: 62368; 99212; 99213; G0463

== ENCOUNTER 2024-09-20 08:53 | Day surgery (SDC) | payer BC, OTHER, SELFPAY ==
--- NOTE | 2024-09-20 08:56 | EXP.PM.HP ---
History of Present Illness *Admission Date: 09/20/24 *Reason for visit:: Intrathecal refill; DDD *History of present illness: Same [facility] Disclaimer: The information contained in this section may have been updated after the patient was seen, as this information can be updated by other users. Medical History History of DVT (deep vein thrombosis) History of pituitary adenoma Hypothyroid Migraine Multiple sclerosis HTN (hypertension) Vitamin D deficiency HLD (hyperlipidemia) Depression Surgical History History of gastric bypass Hx of cholecystectomy Hx of tonsillectomy H/O: hysterectomy History of right shoulder replacement History of lumbar surgery History of colonoscopy History of right hip replacement History of bilateral knee replacement History of appendectomy Family History Other Family history of cancer Family history of diabetes mellitus Family history of heart disease Social History Smoking Status: Never smoker alcohol intake: never substance use type: denies use current occupational status: other Travel in the last 8 weeks?: None Have you lived/traveled outside US in past 30 days?: No Contact w/someone who lives/traveled outside US past 30 days?: No Exposure to someone with infectious disease in past 14 days?: No Do you have a fever (greater than 100.4 F or 38 C)?: No Have you tested positive for COVID-19?: No Exposed to someone with COVID-19 in past 14 days?: No Do you have a sore throat?: No Do you have a cough?: No Do you have any weakness?: No Do you have any diarrhea?: No Are you experiencing any unusual bleeding?: No Do you have any muscle aches/pain?: No Do you have any abdominal pain?: No Are you experiencing loss of taste or smell?: No Other Medical History Have you received the Flu Vaccine for this season: Yes Have you received the Pneumonia Vaccine: No Review of Systems Review of Systems Review of systems:: pertinent systems reviewed and negative unless documented below Review of systems (narrative): Review of Systems: General: No recent weight changes, no fever, no sleep disturbances Respiratory: No cough, no shortness of air, no recurring pulmonary infections Cardiovascular/peripheral vascular: No chest pain, no palpitations, no edema, no shortness of breath Gastrointestinal: No new onset incontinence, normal bowel movements reported Genitourinary: No new onset incontinence Musculoskeletal: Chronic back pain Psychiatric: [Normal mood/affect] Neurological: [Denies weakness in extremities], [denies balance issues] Meds Home Medications and Allergies Home Medications ?Medication ?Instructions ?Recorded ?Confirmed ?Type atorvastatin 10 mg tablet 10 mg PO DAILY 07/02/23 08/15/24 History buspirone 15 mg tablet 15 mg PO BID 07/02/23 08/15/24 History fremanezumab-vfrm 225 mg/1.5 mL See Rx Instructions .Route .COMPLEX 07/02/23 08/15/24 History subcutaneous auto-injector (Ajovy) gabapentin 800 mg tablet See Rx Instructions .Route .COMPLEX 07/02/23 08/15/24 History levocetirizine 5 mg tablet 5 mg PO DAILY 07/02/23 08/15/24 History potassium chloride 10 mEq 10 meq PO DAILY 07/02/23 08/15/24 History capsule,extended release ofatumumab 20 mg/0.4 mL 20 mg SQ MONTHLY 11/16/23 08/15/24 History subcutaneous pen injector (Kesimpta Pen) morphine (PF) 1 mg/mL injection 1 mg intrathecal CONT Pain 11/22/23 08/15/24 History solution potassium chloride 10 mEq 10 meq PO DAILY 01/17/24 08/15/24 History tablet,extended release (Klor-Con) alendronate 70 mg tablet 70 mg PO WEEKLY 07/24/24 08/15/24 History cabergoline 0.5 mg tablet 0.5 mg PO DAILY 07/24/24 08/15/24 History dexamethasone 1.5 mg (39 tabs) 1.5 mg PO DAILY 07/24/24 08/15/24 History tablets in a dose pack fluoxetine 20 mg capsule 20 mg PO DAILY 07/24/24 08/15/24 History levothyroxine 25 mcg tablet 25 mcg PO DAILY 07/24/24 08/15/24 History linaclotide 72 mcg capsule 72 mcg PO DAILY 07/24/24 08/15/24 History (Linzess) montelukast 10 mg tablet 10 mg PO DAILY 07/24/24 08/15/24 History rimegepant 75 mg disintegrating 75 mg PO WEEKLY 07/24/24 08/15/24 History tablet (Nurtec ODT) New Prescriptions to Start Prescriptions: Allergies Allergy/AdvReac Type Severity Reaction Status Date / Time duloxetine (From Cymbalta) Allergy Other Verified 08/02/24 08:38 Penicillins Allergy Rash Verified 08/02/24 08:38 Exam Constitutional Constitutional: no acute distress *Routine HEENT Exam Head: Present normocephalic and atraumatic Eye: Present PERRL ENT: Present mucous membranes moist *Routine Neck Exam Neck: Present supple *Routine Respiratory Exam Respiratory: Present CTA bilaterally *Routine Cardiovascular Exam Cardiovascular: Present RRR *Routine Abdominal Exam Abdominal: Present soft *Routine Rectal Exam Rectal:: deferred *Routine Genitalia Exam Genitalia:: deferred Routine Back/Spine/Pelvis Exam Back/Spine: Present pain with flexion *Routine Skin Exam Skin: Present intact and warm *Routine Neurological Exam Neurological: Present alert and oriented X3 Routine Psychiatric Exam Psychiatric: Present normal affect and normal thought process Assessment and Plan *Assessment and plan (1) Degenerative disc disease, lumbar: Status: Acute Category: Medical Code(s): M51.369 - Other intervertebral disc degeneration, lumbar region without mention of lumbar back pain or lower extremity pain (2) Chronic low back pain: Status: Acute Qualifiers: Back pain laterality: bilateral Sciatica presence: without sciatica Qualified Code(s): M54.50 - Low back pain, unspecified; G89.29 - Other chronic pain Category: Medical Code(s): M54.50 - Low back pain, unspecified; G89.29 - Other chronic pain Plan Patient has been instructed to contact the clinic with any concerns before the next appointment. Dr. Rondon has reviewed this note and agrees with this plan of care. This note was dictated using voice recognition software and make contain errors or omissions. All injections are used with Lidocaine, Bupivacaine and dexamethasone. Occasionally urine drug screen is needed to verify patient's compliance with our office pain contract. This is ordered based off specific treatments related to chronic pain with the potential to abuse certain medications.
--- OUTSIDE RECORDS SUMMARY | 2024-09-20 08:57 | XMS_ITS | Encounter Summary ---
Author Organization Healthcare Address [address] [place] [address] Care Team Providers Care Dip Lube Operator Name Role Phone Festus Isidropatricia DDMarianna Primary Care Provider Reason for Referral * Consultation (Routine) - Closed Specialty Diagnoses / Procedures Referred By Contact Referred To Contact Dentist / Pain Medicine Diagnoses Left temporomandibular joint disorder, unspecified Sara Garcia MD [address] [place] [address] Phone: tel: fax:[phone] [facility] [address] [place] [address] Phone: tel: fax: Referral ID Status Reason Start Date Expiration Date Visits Re quested Visits Authorized [id number] Closed 11/14/2022 05/15/2024 1 1 Encounter Details Date Type Department Care Team (Latest Contact Info) Description 11/14/2022 [facility] [address] [place] [address] Sara Garcia MD [address] [place] [address] Left temporomandibular joint disorder, unspecified (Primary Dx) Social History Tobacco Use Types Packs/Day Years Used Date Smoking Tobacco: Never Assessed Comments Unknown Sex and Gender Information Value Date Recorded Sex Assigned at Not on file Legal Sex Female 8:14 PM EDT Gender Identity Not on file Sexual Orientation Not on file documented as of this encounter Plan of Treatment Upcoming Encounters Date Type Department Care Team (Late st Contact Info) Description 11/13/2024 1:15 PM EDT Office Visit [facility] [address] [place] [address] Nicolette Cervantes MD [address] [place] [address] Scheduled Referrals Name Type Priority Associated Diagnoses Orde r Schedule Ambulatory Referral to [facility] Referral Routine Left temporomandibular joint disorder, unspecified Expected: 11/14/2022 (Approximate), Expires: 05/17/2024 documented as of this encounter Visit Diagnoses Diagnosis Left temporomandibular joint disorder, unspecified- Primary documented in this encounter Care Teams Dip Lube Operator Relationship Specialty Start Date End Date Teresa Isidro DDS [address] [facility] [address] [place] [address] PCP - General Dentist 12/15/22 documented as of this encounter
--- OUTSIDE RECORDS SUMMARY | 2024-09-20 08:57 | XMS_ITS | Encounter Summary ---
Author Organization Healthcare Address [address] [place] [address] Care Team Providers Care Automobile Taillight Assembler Name Role Phone Teresa Isidro DDMarianna Primary Care Provider Encounter Details Date Type Department Care Team (Late Contact Info) Description 02/27/2023 Orders Only External Location [address] [place] [address] Provider, External Social History Tobacco Use Types Packs/Day Years Used Date Smoking Tobacco: Never Smokeless Tobacco: Never Alcohol Use Standard Drinks/Week Comments Never 0 (1 standard drink = 0.6 oz pur e alcohol) Comments Unknown Sex and Gender Information Value Date Recorded Sex Assigned at Not on file Legal Sex Female 8:14 PM EDT Gender Identity Not on file Sexual Orientation Not on file documented as of this encounter Plan of Treatment Upcoming Encounters Date Type Department Care Team (Late Contact Info) Description 11/13/2024 1:15 PM EDT Office Visit [facility] [address] [place] [phone] Nicolette Cervantes MD [address] [place] [phone] documented as of this encounter Procedures Procedure Name Priority Date/Time Associated Diagnosis Comments CT MSK OUTSIDE IMAGES 02/27/2023 1:10 PM EST documented in this encounter Results * CT MSK OUTSIDE IMAGES (02/27/2023 1:10 PM EST) Anatomical Region Laterality Modality Computed Tomogra phy 02/27/2023 1:10 PM EST us External Provider IMG CT PROCEDURES Final Result documented in this encounter Visit Diagnoses Not on filedocumented in this encounter Additional Health Concerns Assessment Noted Time A Body Mass Index follow-up plan has been documented for the patient 12/15/2022 12:25 PM EDT documented as of this encounter Care Teams Automobile Taillight Assembler Relationship Specialty Start Date End Date Teresa Isidro DDS [address] [phone] PCP - General Dentist 12/15/22 documented as of this encounter
--- OUTSIDE RECORDS SUMMARY | 2024-09-20 08:57 | XMS_ITS | Data Portability ---
Author Organization [facility] MUKESH Valadez [place] CLOSED Address [address] [place] [address] Care Team Providers Care Paediatric Physiotherapist Name Role Phone [email or web address] Referring Provider NEYMAR ALCARAZ Neurologist KRISH SINHA Abseiling Instructor Assessment No assessment recorded. Plan of Treatment [...] ast No observ ation record ed. [email or web address]_ [facility] [address] , [place], [address], 09/30/2021 03:51:02 12/23/19 20 12/23/2019 nerve condu ction study /EMG, upper extre mity (PROC ) No observ ation record ed. [email or web address]_ Not Available 09/30/2021 03:48:38 Result Notes None recorded. Procedures Surgical History Date Name Laterality Status Provider Name and Address Organization Details Recorded Time Appendectomy completed [facility] 11/08/2019 10:34:18 [facility] [place] [facility] 11/08/2019 10:34:23 total knee replacement [place] [facility] 11/08/2019 10:34:35 total replacement of hip completed [facility] 11/08/2019 10:34:46 cholecystectomy [place] [facility] 11/08/2019 10:34:52 lumbar spinal fusion [place] [facility] 11/08/2019 10:34:58 hysterectomy [place] [facility] 11/08/2019 10:35:07 Imaging Results None recorded. Procedure Notes None recorded. Medical Equipment None Reported. Allergies Allergen ID Allergen Name Allergen Category Reaction Reaction Severity Criticality Documentation Date Start Date Code Code System Note Provider Name and Address Organization Details Recorded Time 888828 acetamino phen / oxycodone medicatio n itching Not available Not available 02/18/20162011 82965 3 RxNorm React ion: ITCHI NG; Comme nt: Creat ed By: Asher león;Cr eated Date: 2011 8:52: 49 AM; Not Available [facility] 6 10:48:09 642730 Product containin g penicilli n (product) medicatio n rash Not available Not available 02/19/20162011 78953 8001 SNOMED React ion: RASH; Comme nt: Creat ed By: Asher león;Cr eated Date: 2011 8:52: 35 AM; Not Available [facility] 6 08:34:51 Medications Name Sig Start Date [...] Updated DateTime 11/08/2019 160.02 cm 35.4 kg/m2 25002.47 g Shelby Lackey [facility] 11/08/2019 10:32:40 Date Recorded Body height Body mass index (BMI) Body weight Systolic blood pressure Diastolic blood pressure Provider Name and Address Organization Details Last Updated DateTime 12/06/2019 160.02 cm 35.4 kg/m2 77010.47 g 120 mm[Hg] 80 mm[Hg] Tayler Chkii [facility] 0 10:54:49 Social History Question Answer Notes LastModified by Organizat ion Details LastModified Time Tobacco Smoking Status Never Smoker Shelby Lackey [facility] 11/08/2019 10:33:57 Accident Related Injury Yes Information not available 12/06/2019 What Is Your Level Of Caffeine Consumption? Moderate [email or web address] Information not available 12/06/2019 How Much Tobacco Do You Chew? None [email or web address] Information not available 11/08/2019 Which Of Your Hands Is Dominant? Right [email or web address] Information not available 11/08/2019 Which Hand Is Involved? Left [email or web address] Information not available 12/06/2019 Rate The Severity Of Your Symptoms: (0-10 With 0=none And 10=worst Possible) 4 Information not available 12/06/2019 Date Of Injury: 09/19/2019 [email or web address] Information not available 12/06/2019 Have You Been Treated For This Problem Before? Yes [email or web address] Information not available 12/06/2019 How Long Have You Had These Symptoms? 09/19/2019 [email or web address] Information not available 12/06/2019 Will This Be Filed As Workers' Compensation? Yes [email or web address] Information not available 12/06/2019 Marital Status [email or web address] Informatio n not available 12/06/2019 What Was The Date Of Your Most Recent Tobacco Screening? 12/06/2019 [email or web address] Information not available 12/06/2019 How Much Tobacco Do You Smoke? No [email or web address] Information not available 12/06/2019 How Many Years Have You Smoked Tobacco? 0 Information not available 12/06/2019 Work Related Injury? Yes Information not available 12/06/2019 Sex: Unknown Functional Status Question Answer Note LastModified by Organizat ion Details LastModified Time Do you use any illicit or recreational drugs? No [email or web address] Information not available 12/06/2019 What is your level of alcohol consumption? None [email or web address] Information not available 12/06/2019 Do you or have you ever used smokeless tobacco? Never used smokeless tobacco [email or web address] Information not available 12/06/2019 Are you currently employed? 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 Never used electronic cigarettes [email or web address] Information not available 11/08/2019 Mental Status None recorded. Family History Relationship Description Onset Age of this Age Resolved Age Notes LastModified by Organization Details LastModified Time Father No current problems or disability [email or web address] Not available 11/25 10:55:05 Mother No current problems or disability [email or web address] Not available 11/25 10:55:05 Medical History Condition Response Allergies/Hayfever Y Anxiety/Depression Y Other N Gout N Thyroid Disease N Heart Conditions N Kidney Stones N Hernia N Migraines Y COPD N Glaucoma N Pneumonia N Skin Problems N Immune System Disorder N Anesthesia Complications N Heart Attack (RI) N Mental Illness N Neurological Problems N [...] SNOMED-CT Code Diagnosis ICD10 Code Diagnosis Note [id number] QM[place] [address] 06/27/2016 19:36:47 06/27/2016 19:36:47 [id number] SURY MONTENEGRO [facility] [address] [address] 11/08/2019 09:20:17 11/08/2019 11:09:00 Strain of intrinsic muscle of finger [id number] S66.519A Left long finger intrinsic strain/tea r left long finger, which occurred at work while typing. Recommend splint 7-10 days to let it rest and then begin hand therapy including intrinsic stretching and strengthen ing. We will look up the MRI report. Follow-up 4 weeks for reevaluati on, she will bring her MRI back. I think that this is likely nonsurgica l. [id number] SURY MONTENEGRO MD [facility] [address] [place] [address] 12/06/2019 10:06:41 12/06/2019 11:31:08 Strain of intrinsic muscle of finger [id number] S66.519A Left long finger intrinsic strain/tea r [...] Davis Member ID Guarantor Name 11/06/2023 2 [employer] (O) Johanne Kelly [id number] Johanne Kelly 05/28/2018 1 *SELF PAY* Kaykay Kelly 11/08/2019 [employer] Johanne Kelly 11/06/2023 1 [place] ([facility]) [id number] Johanne Kelly [id number] Johanne Kelly Notes Date Note Type Note Provider Name and Address Organization Details Recorded Time 11/08/2019 text/html Consult requeste d by:Dr. RON MOON Primary Care Physician: Hand dominance: Right Location: LEFT LF/RF Pain level: Date of injury:09-19-19 Duration: 7 week(s) Recent Surgery: No Procedure: Date of surgery: Duration: In office procedure? No Previous upper extremity surgery? 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 Yes Patient arrived in: brace; removed for exam Tripe Washer Strength: right: left: Patient arrived for left [...] sleep and shower. SURY MONTENEGRO MD [address] [place], [address], [facility] 11/08/2019 11:04:58 12/06/2019 text/html Consult requeste d by:Dr. RON MOON Primary Care Physician: Tayler Bravo MD. Hand dominance: Right Location: LEFT LF/RF Pain level: Date of injury:09-19-19 Duration: 2.5 month(s) Recent Surgery: No Procedure: Date of surgery: Duration: In office procedure? No Previous upper extremity surgery? 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 Yes Patient arrived in: brace; removed for exam Tripe Washer Strength: right: left: SURY MONTENEGRO MD [address] [place], [address], [facility] 12/06/2019 11:08:50 OBGyn Episode No OBEpisode recorded.
--- OUTSIDE RECORDS SUMMARY | 2024-09-20 08:57 | XMS_ITS | Clinical Summary ---
Author Organization [employer] Address [address] [place] [address] Care Team Providers Care Lecturer Of Portuguese Name Role Phone Tayler Bravo DO Primary Care Provider + Tayler Bravo DO Unavailable [phone] Allergies Active Allergy Reactions Criticality Noted Date Comments Duloxetine 11/24/2022 Zombie like Duloxetine Hcl 08/18/2015 Enbucrilate Rash Low 02/21/2023 Penicillin Rash Low 11/24/2022 Penicillins Other (See Comments) 11/08/2023 Tomato Swelling High 10/06/2023 Medications gabapentin (NEURONTIN) 800 MG tablet Take 1 tablet (800 mg total) by mouth 3 (three) times daily. Active atorvastatin (LIPITOR) 10 MG tablet Take 1 tablet (10 mg total) by mouth daily. Active montelukast (SINGULAIR) 10 mg tablet Take 1 tablet (10 mg total) by mouth daily. Active Ajovy Autoinjector 225 mg/1.5 mL AtIn Inject subcutaneously. Active Nurtec ODT 75 mg TbDL Take 1 tablet by mouth daily as needed. Active ofatumumab (Kesimpta Pen) 20 mg/0.4 mL pnij Inject 20 mg subcutaneously every 28 days. Active levothyroxine (SYNTHROID) 25 MCG tablet Take 1 tablet (25 mcg total) by mouth daily. Active fLUoxetine (PROzac) 20 MG capsule Take 3 capsules (60 mg total) by mouth daily. Active busPIRone (BUSPAR) 15 MG tablet Take 1 tablet (15 mg total) by mouth 2 (two) times daily. Active linaCLOtide (Linzess) 72 mcg cap Take 1 capsule (72 mcg total) by mouth daily. Active cabergoline (DOSTINEX) 0.5 mg tablet Take 0.5 tablets (0.25 mg total) by mouth twice a week. Active alendronate (FOSAMAX) 70 MG tablet Take 1 tablet (70 mg total) by mouth once a week. 025 Active esomeprazole (NexIUM) 40 MG capsule Take 1 capsule (40 mg total) by mouth daily. 025 Active rivaroxaban (Xarelto) 20 mg tabletIndicatio ns:Deep vein thrombosis (DVT) of right lower extremity, unspecified chronicity, unspecified vein (HCC) Take 1 tablet (20 mg total) by mouth daily with breakfast. 30 tablet 5 025 Active bumetanide (BUMEX) 1 MG tablet TAKE 1 TABLET BY MOUTH EVERY DAY 90 tablet 1 025 Active bumetanide (BUMEX) 1 MG tablet TAKE 1 TABLET BY MOUTH EVERY DAY 90 tablet 1 024 2024 Discontinued Active Problems Problem Noted Date Diagnosed Date Closed nondisplaced fracture of distal phalanx of left thumb with routine healing, subsequent encounter 02/09/2024 Dyspepsia 11/14/2023 Cough, unspecified type 11/14/2023 Shortness of breath 10/25/2023 Degeneration of lumbar intervertebral disc 10/1711/13/2023 Lumbar post-laminectomy syndrome 10/18/2023 11/13/2023 Lumbar radiculopathy 10/18/2023 11/13/2023 Lumbar spondylosis 10/18/2023 11/13/2023 Bundle branch block, right 10/05/202310/04 Chest pain 10/05/2023 10/05/2023 Edema 10/05/2023 10/05/2023 Palpitations 10/05/2023 10/05/2023 Multiple sclerosis 02/14/2023 Status post bariatric surgery 02/14/2023 Primary osteoarthritis involving multiple joints 02/06/2023 Disorder of left temporomandibular joint 023 10/05/2023 S/P reverse total shoulder arthroplasty, right 0 04/20/2022 S/P shoulder surgery 04/05/2022 Overview (04/05/2022): Right total shoulder arthroplasty with Dr. Vivas on 04/04/21 Hyperlipidemia, unspecified hyperlipidemia type 04/04/2022 Primary osteoarthritis of right shoulder 022 Other chronic pain 11/16/2021 Ventricular premature depolarization 11/16/2021 Absence of both cervix and uterus, acquired 10/2610/05/2023 Acquired absence of other sp ecified parts of digestive tract 11/16/2021 10/05/2023 Encounter for other orthopedic aftercare 022 10/05/2023 History of falling 11/16/2021 10/05/2023 Personal history of (healed) traumatic fracture 11/16/2021 10/05/2023 Presence of artificial knee joint, bilateral 10/05/2023 Type 2 diabetes mellitus without complications 0 11/16/2021 10/05/2023 Anxiety disorder 09/24/2021 Overview (10/05/2023): 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 drug 202110/05/2023 Overview (10/05/2023): Long-term current use of drug therapy Encounter for general adult medical examination without abnormal findings 06/25/2021 10/05/2023 Bacteriuria 10/21/2020 10/05/2023 Overview (10/05/2023): Bacteriuria Osteoarthritis of knee 10/21/2020 Overview (10/05/2023): Osteoarthritis of knee Cramps of lower extremity 09/01/20202023 Overview (10/05/2023): Cramp in lower limb Solitary pulmonary nodule 08/21/20202023 Overview (10/05/2023): Solitary nodule of lung Arthralgia of multiple joints 06/18/2020 Overview (10/05/2023): Joint pain Joint stiffness 06/18/2020 10/05/2023 Headache 04/21/2020 Overview (10/05/2023): MIGRAINE Headache Dizziness 04/21/2020 10/05/2023 Overview (10/05/2023): Dizziness Pain in throat 04/21/2020 10/05/2023 Overview (10/05/2023): Sore throat Fatigue 03/05/2020 10/05/2023 Overview (10/05/2023): Fatigue Need for vaccination 01/03/2020 10/05/2023 Overview (10/05/2023): Requires vaccination Vitamin D deficiency 01/03/2020 10/05/2023 Overview (10/05/2023): Vitamin D deficiency Diarrhea 12/10/2019 10/05/2023 Overview (10/05/2023): Diarrhea Disorder of endocrine system 10/03/201901/2024 Overview (10/05/2023): Disorder of endocrine system Refractory migraine with aura 09/05/2019 Status migrainosus 07/29/2019 Overview (10/05/2023): Migraine Neuropathy 07/04/2019 10/05/2023 Overview (10/05/2023): Neuropathy Postmenopausal osteoporosis 10/03/201809/24 Migraine without aura, not refractory 07/27/2018 10/05/2023 Shoulder pain 08/08/2016 10/05/2023 Overview (10/05/2023): Shoulder pain Gastroesophageal reflux disease 10/21/2015 Overview (10/05/2023): CONTROLLED Gastritis Bladder filling defect 08/12/2015 4 Constipation 08/12/2015 10/05/2023 Seasonal allergic rhinitis 08/12/201510/04 Encounter for general adult medical examination without abnormal findings 07/09/2015 10/05/2023 Insomnia 03/25/2015 10/05/2023 Menopausal flushing 03/25/2015 10/05/2023 Restless legs 03/25/2015 10/05/2023 Depressive disorder 03/02/2015 Resolved Problems Problem Noted Date Diagnosed Date Resolved Date Morbid obesity due to excess calories 02/06/2023 08/16/2023 Class 2 obesity 10/03/2019 10/05/2023 02/28/2024 Overview (10/05/2023): Obese class II Obese class II Hypertension 03/25/2015 11/13/2023 Encounters Date Type Department Care Team Description 09/08/[address] [address] Unruly Sterling PA-C 06/20/2024 1:30 PM EDT Office Visit [address] [address] Unruly Sterling PA-C Deep vein thrombosis (DVT) of right lower extremity, unspecified chronicity, unspecified vein (HCC); Pituitary adenoma (HCC); Primary hypertension from Last 3 Months Family History Medical History Relation Name Comments Heart attack Maternal Grandmother Atrial fibrillation Mother Arthritis Other Cancer Other Hyperlipidemia Other Breast cancer Paternal Aunt Silvia Rice Heart attack Paternal Grandmother Relation Name Status Comments Maternal Grandmother Mother Other Paternal Aunt Silvia Rice Paternal Grandmother Social History Tobacco Use Types Packs/Day Years Used Date Smoking Tobacco: Never Smokeless Tobacco: Never Tobacco Cessation:Counseling Given: Not Answered Alcohol Use Standard Drinks/Week Comments Not Currently 0 (1 standard drink = 0.6 oz pur e alcohol) Interpersonal Safety Answer Date Record ed Family or friends hurt you Not on file 04/07 Family or friends insult you Not on file 02/2024 Family or friends threaten you Not on file 0 04/07/2023 Family or friends scream or curse at you Not on file 04/07/2023 Housing Stability Answer Date Recorded Living situation today Not on file Living situation problems Not on file 2023 Family and Community Support Answer Smith e Recorded Help with Day to Day Activities Not on file 04/07/2023 Feeling Lonely or Isolated Not on file 04/07 Educational Attainment Answer Date Mak rded Speak language other than Argentine at home Not on file 04/07/2023 Want help with school or training Not on file 04/07/2023 Depression Answer Date Recorded PHQ-2 Risk Not on file 04/07/2023 Disabilities Answer Date Recorded Difficulty concentrating Not on file 024 Difficulty doing errands alone Not on file 0 04/07/2023 Substance Use Answer Date Recorded Used prescription meds for non-medical reasons N ot on file 04/07/2023 Used illegal drugs past 12 months Not on file 04/07/2023 Comments No Sex and Gender Information Value Date Recorded Sex Assigned at Not on file Legal Sex Female 5:05 PM CDT Gender Identity Female 02/14/2023 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 Sexual Orientation Straight 02/14/2023 11 :29 AM 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 TEACHER Last Filed Vital Signs Vital Sign Reading Time Taken Comments Blood Pressure 100/62 06/20/2024 1:47 PM EDT Pulse 75 06/20/2024 1:47 PM EDT Temperature 36.9 C (98.4 F) 01/09/2024 8:52 AM EDT Respiratory Rate 16 12/06/2023 8:00 AM EDT Oxygen Saturation 95% 01/09/2024 8:52 AM EDT Inhaled Oxygen Concentration - - Weight 71.3 kg (157 lb 1.6 oz) 06/20/2024 1:47 P M EDT Height 157.5 cm (5' 2 ) 06/20/2024 1:47 PM EDT Body Mass Index 28.73 06/20/2024 1:47 PM EDT Plan of Treatment Upcoming Encounters Date Type Department Care Team (Late st Contact Info) Description 11/05/2024 12:00 PM EDT Office Visit [facility] Cardiology - [place] [address] [place] [address] Go Schwartz DO [address] [place] [address] 02/26/2025 8:30 AM EST Office Visit [facility] Bariatric Services [address] [place] [address] Thelma Arrington MD [address] [place] [address] Health Maintenance Due Date Last Done Comments CT Colonography 1967 Colonoscopy 1967 Colorectal Cancer Screening 1967 Diabetic Kidney Health Evalu ation (KED) 1967 FOBT/FIT 1967 Fit-DNA (Cologuard) 1967 Sigmoidoscopy 1967 Diabetic Eye Exam 11/19/1977 Diabetic foot exam 11/19/1977 HIV Screening 11/19/1982 Hepatitis C Screening 11/19/1985 DTAP/TDAP/TD VACCINES (1 - Tdap) 11/19/1986 Pneumococcal 50+ years (1 of 2 - PCV) 11/19/1986 Breast Cancer Screening 2007 Shingles Vaccine (Zoster) (1 of 2) 11/19/2017 Hemoglobin A1C 10/05/2023 12/09/2022 COVID-19 VACCINE ( - season) 2023 02/09/2021, 08/07/2020, 07/14/2020 Influenza Vaccine (Season Ended) 2024 Tobacco Cessation Counseling and Screening (12+) 06/20/2025 06/20/2024 Lipid Panel 12/09/2025 12/09/2022 Medical Devices Implanted Type Area Tar Worker Device Identifier Shelf Expiration Date Model / Serial / Lot Simplex Pro Speedset Shemar F Dos 6192-1-010 - [id number] Implanted:Qty : 1 on 04/04/2022 at [facility] IMPLANTS Right: Shoulder LUCIEN:[employer] 12/24/2022 6192-- 0 / / [id number] Pegged Glenoid Cortiloc [id number] - [id number] Implanted:Qty : 1 on 04/04/2022 at [facility] IMPLANTS Right: Shoulder TORNIER 01/20/2025 [id number] / [id number] / Stem Hum Sz 2+ Short Dwx2ps - [id number] Implanted:Qty : 1 on 04/04/2022 at [facility] IMPLANTS Right: Shoulder TORNIER 02/08/2027 [id number] / [id number] / Simplex Pro Speedset Shemar F Dos 6192-1-010 - [id number] Implanted:Qty : 1 on 04/04/2022 at [facility] IMPLANTS Right: Shoulder LUCIEN:[employer] 12/24/2022 6192 0 / / [id number] Cplr Hum Hd Off Cent [id number] - [id number] Implanted:Qty : 1 on 04/04/2022 at [facility] IMPLANTS Right: Shoulder TORNIER 10/26/2026 [id number] / [id number] / Head Hum Cocr 46mm H19 [id number] - [id number] Implanted:Qty : 1 on 04/04/2022 at [facility] IMPLANTS Right: Shoulder TORNIER 05/20/2025 [id number] / [id number] / [id number] Restric Shemar 24mm [id number] - [id number] Implanted:Qty : 1 on 04/04/2022 at [facility] IMPLANTS Right: Shoulder TORNIER 08/30/2026 [id number] / / [id number] Procedures Procedure Name Priority Date/Time Associated Diagnosis Comments HEMOGLOBIN A1C Routine 12/09/2022 11:26 AM EDT Disorder of iron metabolism LIPID PANEL Routine 12/09/2022 11:26 AM EDT Disorder of iron metabolism from Last 3 Months or Most Recently Relevant to Health Maintenance Results * Hemoglobin A1c, Whole Blood (12/09/2022 11:26 AM EDT) Hemoglobin A1C 5.2 4.2 - 6.3 % 12/09/2022 1:47 PM EDT [facility] Comment: Hemoglobin A1C levels are related to mean glucose during the preceding 2-3 months. Less than 7% demonstrates glycemic control in diabetic patients. Hemoglobin AlC % Suggested Diagnosis > or = 6.5 Diabetic 5.7 - 6.4 Prediabetic <5.7 Non-diabetic eAVG Glucose 102.54 mg/dL 12/09/2022 1:47 PM EDT [facility] Blood Venipuncture / Unknown 12/09/2022 11:26 AM EDT 12/09/2022 11:26 AM EDT Angela Harman PA-C LAB BLOOD ORDERABLES Fi nal Result Performing Organization Address City/State/[facility] Co de Phone Number [facility] [address] [phone] * (ABNORMAL) Lipid panel (12/09/2022 11:26 AM EDT) Triglycerides 101 0 - 249 mg/dL 12/09/2022 1:20 PM EDT [facility] Cholesterol 231(H) 0 - 199 mg/dL 12/09/2022 1:20 PM EDT [facility] Comment: 200 to 239 mg/dL = Moderate (borderline) >239 mg/dL = High HDL Cholesterol 64 >=40 mg/dL 12/09/2022 1:20 PM EDT [facility] Comment: >=60 mg/dL = Desirable <40 mg/dL = Increased Risk All other components are listed individually or are calculations VLDL Cholesterol 20.2 5 - 40 mg/dL 12/09/2022 1:20 PM EDT [facility] Cholesterol/HDL ratio 3.6(H) 0.0 - 3.2 12/09/2022 1:20 PM EDT [facility] LDl/HDL Ratio 2 0 - 4 12/09/2022 1:20 PM EDT [facility] RISK COMP 4 12/09/2022 1:20 PM EDT [facility] LDL Cholesterol, Calculated 147(H) 0 - 99 mg/dL 12/09/2022 1:20 PM EDT [facility] Blood Venipuncture / Unknown 12/09/2022 11:26 AM EDT 12/09/2022 11:26 AM EDT us Agnela Harman PA-C LAB BLOOD ORDERABLES Fi nal Result [facility] [address] [place] [address], [facility] [phone] from Last 3 Months or Most Recently Relevant to Health Maintenance Insurance BLUE CROSS/BLUE SHIELD BLUE CROSS/BLUE SHIELD [facility] [place] Advance Directives For more information, please contact: [phone] * Full Code (Latest Code Status on File) Date Activated Date Inactivated Comments 10/31/2023 11:10 AM 10/31/2023 3:38 PM * Full Code Date Activated Date Inactivated Comments 02/14/2023 10:37 AM 02/15/2023 3:33 PM * Full Code Date Activated Date Inactivated Comments 02/14/2023 5:16 AM 02/14/2023 10:37 AM * Full Code Date Activated Date Inactivated Comments 04/04/2022 4:24 PM 04/05/2022 11:23 AM * Full Code Date Activated Date Inactivated Comments 04/04/2022 10:15 AM 04/04/2022 4:24 PM Care Teams Lecturer Of Portuguese Relationship Specialty Start Date End Date Tayler Bravo DO [address] [place] [address] Dr [address] [place] [address] PCP - General Family Medicine 11/24/22 Tayler Bravo DO [address] [place] [address] Dr [address] [place] [address] Family Medicine 11/24/22
--- OUTSIDE RECORDS SUMMARY | 2024-09-20 08:57 | XMS_ITS | Encounter Summary ---
Author Organization Healthcare Address [address] [place] [address] Care Team Providers Care An/Syq 13 Nav/C2 Operator Name Role Phone IsidroFestuspatricia ISATUMarianna Primary Care Provider [phone] Encounter Details Date Type Department Care Team (Latest Contact Info) Description 09/04/2024 Travel Social History Tobacco Use Types Packs/Day Years [...] Description 11/13/2024 1:15 PM EDT Office Visit [facility] [address] [place] [address] Nicolette Cervantes MD [address] [place] [address] documented as of this encounter Visit Diagnoses Not on filedocumented in this encounter Additional Health Concerns Assessment Noted Time A Body Mass Index follow-up plan has been documented for the patient 12/15/2022 12:25 PM EDT documented as of this encounter Care Teams An/Syq 13 Nav/C2 Operator Relationship Specialty Start Date End Date Teresa Isidro, TOOTIE [address] [facility] [address] [place] [address] PCP - General Dentist 12/15/22 documented as of this encounter
--- OUTSIDE RECORDS SUMMARY | 2024-09-20 08:57 | XMS_ITS | Continuity of Care Document ---
Author Organization [facility], [facility] Family Medicine- Floor 2, [address] [place] [address] Care Team Providers Care Measurer Machine Name Role Phone TAYLER BRAVO Primary Care [...] Lab CMP, serum or plasma [address] (Lab Registration) , [address] [place] [address] [place], [address], 08/21/2024 13:44:40 TSH + free T4, serum [address] (Lab Registration) , [address] [place] [address] [place], [address], 08/21/2024 13:44:40 lipid panel, serum [address] (Lab Registration) , [address] [place] [address] [place], [address], 08/21/2024 13:44:40 drug screen, urine 2024 025 [facility] 43 [facility] Family Medicine- Floor 2, [address], [address], [address], [place], [address], 08/12/2024 15:16:38 Referral None recorded . Procedures None recorded . Surgeries None recorded . Imaging None recorded . Medication Orders alendron ate 70 mg tablet 2024 025 [facility], [address] [place] [address], [id number], 08/12/2024 15:16:42 levothyr oxine 25 mcg tablet 2024 025 [facility], [address] [place] [address], [id number], 08/12/2024 15:16:43 potassiu m chloride ER 10 mEq capsule, extended release 2024 025 [facility], [address] [place] [address], [address], 08/12/2024 15:16:42 atorvast atin 10 mg tablet 2024 025 [facility], [address] [place] [address], [address], 08/12/2024 15:16:43 fluoxeti ne 20 mg capsule 2024 025 [facility], [address] [place] [address], [id number], 08/12/2024 15:16:42 esomepra zole magnesiu m 40 mg capsule, delayed release 2024 025 [facility], [address] [place] [address], [id number], 08/12/2024 15:16:42 buspiron e 15 mg tablet 2024 025 [facility], [address] [place] [address], [address], 08/12/2024 15:16:42 monteluk ast 10 mg tablet 2024 025 [facility], [address] [place] [address], [id number], 08/12/2024 15:16:42 levoceti rizine 5 mg tablet 2024 025 [facility], [address] [place] [address], [id number], 08/12/2024 15:16:41 Linzess 72 mcg capsule 2024 025 [facility], [address] [place] [address], [id number], 08/12/2024 15:16:42 gabapent in 800 mg tablet 2024 025 [facility], [address] [place] [address], [id number], 08/12/2024 15:16:44 Patient TargetsNo targets recorded. Patient InstructionsNo instructions recorded. Reason for Referral None Reported. Results Created Date Observation Date Name Description Value Unit Range Abnormal Flag Note LastModifiedBy Organization Detail LastModifiedTime 08/13/1908/12/2024 drug scree n, urine Barbiturates negati ve Not Available [facility] Medicine- Floor 2, [address] [place] [address] [place] [address], [address], 08/12/2024 14:56:52 08/13/19 25 08/12/2024 drug scree n, urine Amphetamines negati ve Not Available [facility]- Floor 2, [address] [place] [address] [place] [address], [address], 08/12/2024 14:56:52 08/13/19 25 08/12/2024 drug scree n, urine Buprenorphin e negati ve Not Available [facility]- Floor 2, [address], [place], [address], 08/12/2024 14:56:52 08/13/19 25 08/12/2024 drug scree n, urine Benzodiazepi riki positi ve Not Available [facility] Medicine- Floor 2, [address], [place], [address], 08/12/2024 14:56:52 08/13/19 25 08/12/2024 drug scree n, urine Cocaine negati ve Not Available [facility] Medicine- Floor 2, [address], [place], [address], 08/12/2024 14:56:52 08/13/19 25 08/12/2024 drug scree n, urine Methamphetam ine negati ve Not Available [facility] Medicine- Floor 2, [address], [place], [address], 08/12/2024 14:56:52 08/13/19 25 08/12/2024 drug scree n, urine Ecstasy negati ve Not Available [facility] Medicine- Floor 2, [address], [place], [address], 08/12/2024 14:56:52 08/13/19 25 08/12/2024 drug scree n, urine Methadone negati ve Not Available [facility] Family Medicine- Floor 2, [address], [place], [address], 08/12/2024 14:56:52 08/13/19 25 08/12/2024 drug scree n, urine Morphine/ Opiates negati ve Not Available [facility] Medicine- Floor 2, [address], [place], [address], 08/12/2024 14:56:52 08/13/19 25 08/12/2024 drug scree n, urine Phencyclidin e negati ve Not Available [facility] Family Medicine- Floor 2, [address], [place], [address], 08/12/2024 14:56:52 08/13/19 25 08/12/2024 drug scree n, urine Oxycodone negati ve Not Available [facility] Family Medicine- Floor 2, [address], [place], [address], 08/12/2024 14:56:52 08/13/19 25 08/12/2024 drug scree n, urine Marijuana negati ve Not Available [facility] Family Medicine- Floor 2, [address], [place], [address], 08/12/2024 14:56:52 07/26/19 25 07/24/2024 lab* No observ ation record ed. [email or web address] [facility] [address], [place], [address], 07/25/2024 13:07:35 Result Notes None recorded. Problems Name Problem SNOMED Code Status Onset Date Resolution Date Notes Provider Name and Address Organization Details Recorded Time Osteoporo sis 94845971 Active 2023 Tayler Bravo, DO [address], [address], [place], [address] , [facility] [place] [facility] [place] 4 13:17:02 Constipat ion 19508987 Active 2015 Not Available [facility] 3 07:17:25 Migraine without aura, not refractor y 999338773 Active 2018 Not Available [facility] 3 07:17:26 Postmenop ausal osteoporo sis 673519774 Active 2018 Not Available [facility] 3 07:17:25 Restless legs 69898529 Active 2014 Not Available [facility] 3 07:17:25 Headache 71574474 Active 2020 Headache Not Available [facility] 3 07:17:25 Vitamin D deficienc y 25443216 Active 2019 Vitamin D deficienc y Not Available [facility] 3 07:17:25 Status migrainos us 370290958 Active 2021 Not Available [facility] 3 07:17:25 Seasonal allergic rhinitis 056269644 Active 2015 Not Available [facility] 3 07:17:25 Dizziness 445014712 Active 2020 Dizziness Not Available [facility] 3 07:17:26 Solitary nodule of lung 910062745 Active 2020 Solitary nodule of lung Not Available [facility] 3 07:17:26 Clinical finding Active 2020 ICD-10: R93.89 - Abnormal x-ray examinati on Not Available [facility] 3 07:17:25 Cramp in lower limb 604975503 Active 2020 Cramp in lower limb Not Available [facility] 3 07:17:26 Anxiety disorder 329860911 Active 2021 Anxiety disorder Not Available [facility] 3 07:17:25 Obese class II 65432276202 4105 Active 2019 Obese class II Obese class II Not Available [facility] 3 07:17:26 Multiple sclerosis 84832983 Active 2021 Not Available [facility] 3 07:17:25 Refractor y migraine with aura 602938318 Active 2019 Not Available [facility] 3 07:17:26 Long-term current use of drug therapy 113427634 Active 2021 Long-term current use of drug therapy Not Available [facility] 3 07:17:26 Filling defect of urinary bladder 402739151 Active 2015 Not Available [facility] 3 07:17:25 Pain in throat 423491038 Active 2020 Sore throat Not Available [facility] 3 07:17:25 Pain of joint 76574788 Active 2017 Joint pain Not Available [facility] 3 07:17:26 Breast neoplasm screening status 865509893 Active 2015 Not Available [facility] 3 07:17:25 Bacteriur ia 74788587 Active 2020 Bacteriur ia Not Available [facility] 3 07:17:26 Gastroeso phageal reflux disease 099564741 Active 2015 Not Available [facility] 3 07:17:25 Chronic gastritis 8050139 Active 2015 Not Available [facility] 3 07:17:26 Hypertens wilfredo disorder 48835346 Active 2014 Not Available [facility] 3 07:17:25 Disorder of endocrine system 981838339 Active 2019 Disorder of endocrine system Not Available [facility] 3 07:17:25 Neuropath y 415459580 Active 2019 Neuropath y Not Available [facility] 3 07:17:25 Requires vaccinati on 472045510 Active 2019 Requires vaccinati on Not Available [facility] 3 07:17:26 Osteoarth ritis of knee 411168809 Active 2020 Osteoarth ritis of knee Not Available [facility] 3 07:17:25 Depressiv e disorder 18053068 Active 2014 Not Available [facility] 3 07:17:25 Fatigue 39335438 Active 2019 Fatigue Not Available [facility] 3 07:17:26 Insomnia 102399711 Active 2014 Not Available [facility] 3 07:17:25 Gastritis 8230203 Active 2019 Gastritis Not Available [facility] 3 07:17:26 Migraine 77705700 Active 2019 Migraine Not Available [facility] 3 07:17:25 Anxiety 12558461 Active 2021 Not Available [facility] 3 07:17:26 Body mass index 30+ - obesity 976017669 Active 2021 Not Available [facility] 3 07:17:25 Menopausa l [place]ushing 680746413 Active 2014 Not Available [facility] 3 07:17:25 Patient encounter status 797747870 Active 2021 Not Available [facility] 3 07:17:25 Preoperat wilfredo cardiovas cular examinati on Active 2020 Preoperat wilfredo cardiovas cular examinati on Not Available [facility] 3 07:17:26 Diarrhea 73426851 Active 2019 Diarrhea Not Available [facility] 3 07:17:26 Pain of shoulder region 52833125 Active 2016 Shoulder pain Not Available [facility] 3 07:17:26 Left temporoma ndibular joint disorder 23322492845 584144 Active 2022 Not Available [facility] 3 07:17:25 History of bariatric surgical procedure 327540714 Active 2022 Not Available [facility] 3 07:17:26 Daytime hypersomn ia 62711963649 102 Active 2023 Tayler Bravo, [address], [address], [place], [address] , [facility] - [place] & [place] 4 12:41:16 Notes:Some problems listed i n Document: #[id number] could not be added to this patient's chart. Please review this document and add these problems to the patient's chart manually as needed. Problem Notes None recorded. Procedures Surgical History Date Name Laterality Status Provider Name and Address Organization Details Recorded Time 2023 completed Patricia KIRKLAND - [place] 5 14:25:02 2023 Most Recent Mammogram completed Patricia KIRKLAND - [place] 5 14:29:00 2023 Most Recent Bone Density completed Patricia KIRKLAND - [place] 5 14:29:22 2022 laparoscopic sleeve gastrectomy completed Polina KIRKLAND - [place] & [place] 3 13:37:47 2022 Date of Last Colonoscopy completed Velia MORROW - [facility] - [place] & [place] 3 10:37:10 2022 Colonoscopy completed Velia MORROW - [facility] - [place] & [place] 4 10:50:27 2022 Injection Fascia/Tendon completed Evelyn Martinez [facility] - [facility] - [place] & [place] 3 08:47:08 2022 Gastrointestinal Surgery completed Velia MORROW - [facility] - [place] & [place] 4 10:48:31 2021 arthroscopic repair of rotator cuff completed Art Fraga [facility] - [facility] & [place] 2 13:27:55 [address] [facility] - [facility] - [place] & [place] 2 13:29:44 2021 esophagogastroduodenoscopy completed Judy Bravo , [address], [address], [place], [address], [place] - [facility] - [place] 2 11:47:45 2020 total replacement of right knee joint completed Tayler Bravo [address], [address], [place], [address], [place] [facility] [place] 2 11:46:13 2014 neurostimulation of spinal cord tissue completed Tayler Bravo [address], [address], [place], [address], [place] [facility] [place] 2 11:45:18 2013 total replacement of right hip joint completed Tayler Bravo [address], [address], [place], [address], [place] [facility] [place] 2 11:45:02 2013 neurostimulation of spinal cord tissue completed Tayler Bravo DO [address], [address], [place], [address], [place] [facility] [place] 2 11:45:42 1999 surgical procedure completed Velia MORROW - [facility] - [place] & [place] 3 10:44:07 1992 Hysterectomy completed Tayler Bravo , [facility], [address], [place], [address], [place] [facility] - [place] 2 11:43:41 1982 Tonsillectomy/Adenoidectomy completed Albert Bravo , [facility] [address], [address], [place], [address], [place] - [facility] - [place] & [place] 2 15:28:55 1977 appendectomy [address] [facility], [address], [place], [address], [place] - [facility] - [place] & [place] 2 11:43:26 Total Colectomy completed Velia MORROW - [facility] - [place] & [place] 3 10:44:31 surgical repair completed Velia MORROW - [facility] & [place] 3 10:45:13 Cholecystectomy completed Tayler Bravo [facility], [address], [place], [address], [place] - [facility] - [place] & [place] 2 11:44:09 Carpal tunnel surgery completed Juan Carlos Bravo , [address], [address], [place], [address], [place] [facility] - [place] & [place] 2 11:44:20 Joint Replacement completed Emely Bravo , [address], [address], [place], [address], [place] [facility] - [place] & [place] 2 15:28:56 Imaging Results None recorded. Procedure Notes None recorded. Medical Equipment None Reported. Allergies Allergen ID Allergen Name Allergen Category Reaction Reaction Severity Criticality Documentation Date Start Date Code Code System Note Provider Name and Address Organization Details Recorded Time 603278 tomato allergeni c extract food edema mild Not available 01/20/2023 08872 9 RxNorm Art Augusta [facility] [place] 3 13:47:52 16677 Product containin g penicilli n (product) medicatio n rash Not available Not available 05/23/2022 32618 8001 SNOMED Velia Romano [facility] & [place] 3 10:42:02 9224 Penicilli n Not available Not available Not available Not available 12/06/2021 45972 RxNorm React ion: rash, sever ity: Unkno wn Not Available [facility] 2 01:57:11 9228 duloxetin e medicatio n Not available Not available Not available 12/06/2021 09969 RxNorm React ion: Unkno wn, sever ity: Unkno wn Not Available [facility] 2 01:57:11 Medications Name Sig Start [...] chloride ER 10 mEq capsule,e xtended release TAKE 1 CAPSULE BY MOUTH EVERY DAY FOR 90 DAYS active Not Available Not Available No t Available prednison e 10 mg tablet 08/12 completed [...] doxycycli ne monohydra te 100 mg tablet Take 1 tablet twice a day by oral route for 7 days. 12/23 completed Not Available Not Available Not Available tramadol 50 mg tablet TAKE 1 [...] tablet TAKE 1 TABLET BY MOUTH 30 MIN PRE-OP FOR 1 DOSE. active Not Available Not Available No t [...] t Available levocetir izine 5 mg tablet TAKE 1 TABLET BY MOUTH EVERY DAY 2024 active Not [...] completed Not Available Not Available Not Available [facility] mg disintegr ating [...] Updated DateTime 5 160.02 cm 28.9 kg/m2 12638.2 7 g 98 % 98 % 80 /min 18 /min 118 mm[Hg] 78 mm[Hg] Art Deras [facility] & [place] 5 14:52:16 Social History Question Answer Notes LastModified by Organizat ion Details LastModified Time Tobacco Smoking Status Never Smoker Not Available [facility] 12/06/2021 09:52:05 Do You Have An Advance Directive? No [email or web address] Information not available 12/25/2021 Are You Blind [...] anxious, or unable to sleep at night)? [id number] Information not available 05/24/2023 Do you have [...] Diseases N Kidney Stones N Hyperthyroidism N Blood Transfusion N Breast Cancer N Hernia N COPD N Depression N Lung Disease N Hypothyroidism N Defects or Inherited Disease N Developmental [...] virus, quadrivalent, preservative 3 completed Tayler Bravo, [address], [address], [place], [address], [facility] 12/23/2022 20:43:31 Hep A, unspecified formulation 8 completed Not Available [facility] 03/23/2023 07:17:26 zoster recombinant 9 completed Not Available [facility] 03/23/2023 07:17:26 Influenza, recombinant, quadrivalent, PF 0 completed Not Available [facility] 03/23/2023 07:17:26 Influenza, split virus, trivalent, PF 6 completed Not Available [facility] 03/23/2023 07:17:26 Influenza, split virus, quadrivalent, PF 1 completed Not Available [facility] 03/23/2023 07:17:26 COVID-19, mRNA, LNP-S, PF, 30 mcg/0.3 mL dose 1 completed Patricia edgar, [place] - [facility] & [place] 04/23/2024 14:30:03 Hep A, adult 9 completed Not Available [facility] 03/23/2023 07:17:26 TST-PPD intradermal 5 completed Not Available [facility] 03/23/2023 07:17:26 COVID-19, mRNA, LNP-S, PF, 30 mcg/0.3 mL dose 1 completed Patricia edgar [place] - [facility] & [place] 04/23/2024 14:30:03 zoster recombinant 9 completed Not Available [facility] 03/23/2023 07:17:26 Influenza, split virus, quadrivalent, PF 8 completed Not Available [facility] 03/23/2023 07:17:26 COVID-19, mRNA, LNP-S, PF, 100 mcg/0.5mL dose or 50 mcg/0.25mL dose 1 completed Patricia edgar [place] - [facility] - [place] & [place] 04/23/2024 14:30:03 COVID-19, mRNA, LNP-S, PF, marilu-sucrose, 30 mcg/0.3 mL 4 completed Patricia edgar [place] - [facility] - [place] & [place] 04/23/2024 14:30:03 Influenza, MDCK, trivalent, PF 4 completed Patricia [place]gar, [place] - [facility] - [place] & [place] 04/23/2024 14:30:03 COVID-19, mRNA, LNP-S, bivalent, PF, 50 mcg/0.5 mL or 25mcg/0.25 mL dose 2 completed Not Available [facility] 03/23/2023 07:17:26 Influenza, split virus, quadrivalent, PF 2 completed Not Available [facility] 03/23/2023 07:17:26 Past Encounters Encounter ID Performer Location Encounter Start Date Encounter Closed Date Diagnosis/Indication Diagnosis SNOMED-CT Code Diagnosis ICD10 Code Diagnosis Note [id number] DO [facility]- Floor 2, [address] [place] [address] 08/12/2024 14:40:03 08/12/2024 15:20:28 Left temporomandibular joint disorder 5328232972 4241956 M26.602 Hypertensive disorder 38 958732 I10 Constipation 52971032 K5 9.00 From pain meds (pain pump) [facility] hypothyroidism 83568876 E02 Seasonal a llergic rhinitis 920111465 J30.2 Neuropathy 323398259 G62 .9 Anxiety disorder 9617192 06 F41.9 Gastroesop hageal reflux disease 707508127 K21.9 Failed Lansoprazo le Anxiety 68391690 F41.9 Osteoporosis 32231532 M8 1.0 Long-term current use of drug therapy 423333984 Z79.899 Pt has script for Diazepam prn Health Concerns Section Related Observation LastModified by Organization Detai ls LastModified Time None Recorded Concern Status LastModified by Organization Details LastModified Time None Recorded Payers Encounter Date Sequence Insurance Name Policy Number Policy Davis Covered Member ID Davis Member ID Guarantor Name 08/12/2024 1 [place] [id number] Johanne Kelly [id number] Johanne Kelly 08/12/2024 2 [facility] Johanne Kelly [id number] Johanne Kelly Notes Date Note Type Note [...] legally blindNeuroopthalmolgist at September 11 Tayler Bravo, [address], [address], [place], [address], [facility] - [place] - [place] & [place] 08/12/2024 16:16:14 OBGyn Episode No OBEpisode recorded.
--- OUTSIDE RECORDS SUMMARY | 2024-09-20 08:57 | XMS_ITS | Encounter Summary ---
Author Organization [employer] Address [address] [place] [address] Care Team Providers Care Video Coordinator Name Role Phone Tayler Bravo DO Primary Care Provider + Tayler Bravo DO Primary Care Provider + Tayler Bravo DO Unavailable [phone] Reason for Referral * Consultation (Routine) - Closed Specialty Diagnoses / Procedures Referred By Paras sanchez Referred To Contact Physical Therapy Diagnoses Status post replacement of right shoulder joint Israel Vivas MD [address] [place] [address] Phone: tel: fax: [facility] [address] [place] [address] Phone: tel: fax: Referral ID Status Reason Start Date Expiration Date V isits Requested Visits Authorized [id number] Closed Specialty Services Required 03/27/2022 03/26/2023 60 60 Encounter Details Date Type Department Care Team (Late st Contact Info) Description 04/06/2022 Outside Orders [facility] [address] [place] [phone] Israel Vivas MD [address] [place] [phone] Status post replacement of right shoulder joint (Primary Dx) Social History Tobacco Use Types Packs/Day Years Used Date Smoking Tobacco: Never Smokeless Tobacco: Never Alcohol Use Standard Drinks/Week Comments Not Currently 0 (1 standard drink = 0.6 oz pur e alcohol) Comments Unknown Sex and Gender Information Value Date Recorded Sex Assigned at Not on file Legal Sex Female 5:05 PM CDT Gender Identity Female 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 No / Unsure 04/04/2022 10:55 AM EST documented as of this encounter Plan of Treatment Upcoming Encounters Date Type Department Care Team (Late st Contact Info) Description 11/05/2024 12:00 PM EDT Office Visit [facility] [address] [place] [address] Go Schwartz DO [address] [place] [address] 02/26/2025 8:30 AM EST Office Visit [facility] [address] [facility] [address] [place] [address] Thelma Arrington MD [address] [facility] [address] [place] [address] Scheduled Referrals Name Type Priority Associated Diagnoses Orde r Schedule AMB REFERRAL TO PHYSICAL THERAPY EVALUATE, TREAT AND PLAN OF CARE Outpatient Referral Routine Status post replacement of right shoulder joint Expected: 04/06/2022, Expires: 04/06/2023 documented as of this encounter Visit Diagnoses Diagnosis Status post replacement of right shoulder joint- Primary documented in this encounter Care Teams Video Coordinator Relationship Specialty Start Date End Date Tayler Bravo DO [address] [place] [address] [address] [place] [address] PCP - General Family Medicine 01/31/22 11/23/22 Tayler Bravo DO [address] [place] [address] [address] [place] [address] PCP - General Family Medicine 11/24/22 Tayler Bravo DO [address] [place] [address] [address] [place] [address] Family Medicine 11/24/22 documented as of this encounter
--- OUTSIDE RECORDS SUMMARY | 2024-09-20 08:57 | XMS_ITS | Referral Summary ---
Author Organization [employer] Address [address] [place] [address] Care Team Providers Care Cosmetic Chemist Name Role Phone Tayler Bravo DO Primary Care Provider + Tayler Bravo DO Unavailable [phone] Encounters Date Type Department Care Team Description 09/08/[address] [address] Unruly Sterling PA-C 06/20/2024 1:30 PM EDT Office Visit [address] [address] Unruly Sterling, EMILIA Deep vein thrombosis (DVT) of right lower extremity, unspecified chronicity, unspecified vein (HCC); Pituitary adenoma (HCC); Primary hypertension from Last 3 Months Allergies Active Allergy Reactions Criticality Noted Date Comments Duloxetine 11/24/2022 Zombie like Duloxetine Hcl 08/18/2015 Enbucrilate Rash Low 02/21/2023 Penicillin Rash Low 11/24/2022 Penicillins Other (See Comments) 11/08/2023 Tomato Swelling High 10/06/2023 Medications gabapentin (NEURONTIN) 800 MG tablet Take 1 tablet (800 mg total) by mouth 3 (three) times daily. 023 Active atorvastatin (LIPITOR) 10 MG tablet Take 1 tablet (10 mg total) by mouth daily. 024 Active montelukast (SINGULAIR) 10 mg tablet Take [...] mg total) by mouth once a week. Active esomeprazole (NexIUM) 40 MG capsule Take 1 capsule (40 mg total) by mouth daily. Active rivaroxaban (Xarelto) 20 mg tabletIndicatio ns:Deep vein thrombosis (DVT) of right lower extremity, unspecified chronicity, unspecified vein (HCC) Take 1 tablet (20 mg total) by mouth daily with breakfast. 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 202110/05/2023 Overview [...] (10/05/2023): CONTROLLED Gastritis Bladder filling defect 08/12/2015 Constipation 08/12/2015 10/05/2023 Seasonal allergic rhinitis 08/12/201510/04 [...] II Obese class II Hypertension 03/25/2015 11/13/2023 Social History Tobacco Use Types Packs/Day Years [...] Date Mak rded Speak language other than Bengali at home Not on file 04/07/2023 Want [...] CDT Gender Identity Female 02/14/2023 11:29 AM TURNER OFF Sexual Orientation Straight 02/14/2023 11 :29 AM TURNER OFF Last Filed Vital Signs Vital Sign Reading [...] Description 11/05/2024 12:00 PM EDT Office Visit [facility] Cardiology [address] [address] Go Schwartz DO [address] [place] [address] 02/26/2025 8:30 AM EST Office Visit [facility] [address] [address] [place] [address] Thelma Arrington MD [address] [facility] [address] [place] [address] Medical Devices Implanted Type Area Bookbinding Machine Operator Device Identifier Shelf Expiration Date Model / Serial / Lot Simplex Pro Speedset Shemar F Dos 6192-1-010 - [id number] Implanted:Qty : 1 on 04/04/2022 at [facility] IMPLANTS Right: Shoulder LUCIEN:[employer] 12/24/20226191-03- 0 / / [id number] Pegged Glenoid Cortiloc Pjb274 - [id number] Implanted:Qty : 1 on 04/04/2022 at [facility] IMPLANTS Right: Shoulder TORNIER 01/20/2025 [id number] / [id number] / Stem Hum Sz 2+ Short Dwx2ps - [id number] Implanted:Qty : 1 on 04/04/2022 at [facility] IMPLANTS Right: Shoulder TORNIER 02/08/2027 [id number] / [id number] / Simplex Pro Speedset Shemar F Dos 6192-1-010 - [id number] Implanted:Qty : 1 on 04/04/2022 at [facility] IMPLANTS Right: Shoulder LUCIEN:[employer] 12/24/20226191-03- 0 / / [id number] Cplr Hum Hd Off Cent Dvb046 - [id number] Implanted:Qty : 1 on 04/04/2022 at [facility] IMPLANTS Right: Shoulder TORNIER 10/26/2026 [id number] / [id number] / Head Hum Cocr 46mm H19 [id number] - [id number] Implanted:Qty : 1 on 04/04/2022 at [facility] IMPLANTS Right: Shoulder TORNIER 05/20/2025 [id number] / [id number] / [id number] Restric Shemar 24mm [id number] - [id number] Implanted:Qty : 1 on 04/04/2022 at [facility] IMPLANTS Right: Shoulder TORNIER 08/30/2026 [id number] / / [id number] Procedures Procedure Name Priority Date/Time Associated Diagnosis Comments HEMOGLOBIN A1C Routine 12/09/2022 11:26 AM EDT Disorder of iron metabolism LIPID PANEL Routine 12/09/2022 11:26 AM EDT Disorder of iron metabolism from Last 3 Months or Most Recently Relevant to Health Maintenance Results * Hemoglobin A1c, Whole Blood (12/09/2022 11:26 AM EDT) Hemoglobin A1C 5.2 4.2 - 6.3 % 12/09/2022 1:47 PM EDT [facility] Comment: Hemoglobin A1C levels are related to mean glucose during the preceding 2-3 months. Less than 7% demonstrates glycemic control in diabetic patients. Hemoglobin AlC % Suggested Diagnosis > or = 6.5 Diabetic 5.7 - 6.4 Prediabetic <5.7 Non-diabetic eAVG Glucose 102.54 mg/dL 12/09/2022 1:47 PM EDT [facility] Blood Venipuncture / Unknown 12/09/2022 11:26 AM EDT 12/09/2022 11:26 AM EDT us Angela Harman PA-C LAB BLOOD ORDERABLES Fi nal Result [facility] [address] [place], [place] [address] [phone] * (ABNORMAL) Lipid panel (12/09/2022 11:26 AM EDT) Triglycerides 101 0 - 249 mg/dL 12/09/2022 1:20 PM EDT [facility] Cholesterol 231(H) 0 - 199 mg/dL 12/09/2022 1:20 PM EDT [facility] Comment: 200 to 239 mg/dL = Moderate (borderline) >239 mg/dL = High HDL Cholesterol 64 >=40 mg/dL 12/09/2022 1:20 PM EDT [facility] Comment: >=60 mg/dL = Desirable <40 mg/dL = Increased Risk All other components are listed individually or are calculations VLDL Cholesterol 20.2 5 - 40 mg/dL 12/09/2022 1:20 PM EDT [facility] Cholesterol/HDL ratio 3.6(H) 0.0 - 3.2 12/09/2022 1:20 PM EDT [facility] LDl/HDL Ratio 2 0 - 4 12/09/2022 1:20 PM EDT [facility] RISK COMP 4 12/09/2022 1:20 PM EDT [facility] LDL Cholesterol, Calculated 147(H) 0 - 99 mg/dL 12/09/2022 1:20 PM EDT [facility] Blood Venipuncture / Unknown 12/09/2022 11:26 AM EDT 12/09/2022 11:26 AM EDT Angela Harman PA-C LAB BLOOD ORDERABLES Fi nal Result [facility] [address] [place] [address], [facility] [phone] from Last 3 Months or Most Recently Relevant to Health Maintenance Insurance BLUE CROSS/BLUE SHIELD BLUE CROSS/BLUE SHIELD [facility] Advance Directives For more information, please contact: [phone] * Full Code (Latest Code Status on [...] 10:15 AM 04/04/2022 4:24 PM Care Teams Cosmetic Chemist Relationship Specialty Start Date End Date Tayler Bravo, DO [address] [place] [address] [address] [place] [address] PCP - General Family Medicine 11/24/22 Tayler Bravo [address] [place] [address] Family Medicine 11/24/22
--- OUTSIDE RECORDS SUMMARY | 2024-09-20 08:58 | XMS_ITS | Data Portability ---
Author Organization [place] - [place] - [place] & [place] [facility] ADMIN Address [address] [place] [id number] Care Team Providers Care Policy Change Clerks Supervisor Name Role Phone TYESHA BRAVO Primary Care Provider Assessment Encounter Date Assessment Date Assessment LastModified by Organization Details LastModified Time 04/18/2024 04/18/2024 -concern for polypharmacy contributing to her hypersomnia -d/c Abilify, d/c Seroquel, limit Gabapentin, d/c Prazosin -continue Kesimpta for RRMS -referral to Endocrinology for fatigue, pituitary adenoma [place] [address] Not available 04/18/2024 15:02:17 Plan of Treatment Reminders Order Date Submit Date Provider Last Modified By Organization Details Last Modified Time Details Appointments OV EST 15 2024 01:45P Gera Bravo, DO Not available Not available Not available OV EST 15 2024 09:30A Gera Baker M.D Not available Not available Not available Lab CMP, serum or plasma [address] [facility] (Lab Registration) , [address] [place] [address] [place], [address], 08/21/2024 13:44:40 TSH + free T4, serum [address] (Lab Registration) , [address] [place] [address] [place], [address], 08/21/2024 13:44:40 lipid panel, serum [email or web address] [facility] (Lab Registration) , [address] [facility] [place], [address], 08/21/2024 13:44:40 drug screen, urine [address] [facility] [facility]- Floor 2, [address], [address], [place], [address], 08/12/2024 15:16:38 TSH + free T4, serum [email or web address] [facility] (Lab Registration) , [address] [facility] [place], [address], 05/21/2024 09:03:51 CMP, serum or plasma [email or web address] [facility] (Lab Registration) , [address] [facility] [place], [address], 05/21/2024 09:03:51 CBC w/ auto diff [email or web address] [facility] (Lab Registration) , [address] [facility] [place], [address], 05/21/2024 09:03:51 lipid panel, serum [email or web address] [facility] (Lab Registration) , [address] [facility] [place], [address], 05/21/2024 09:03:51 prolacti n, serum 2023 024 T[facility]O [facility] (Lab Registration) , [address] [place] [address] [place], [address], 03/12/2024 10:10:56 TSH + free T4, serum 2023 024 [email or web address] [facility] (Lab Registration) , [address] [place] [address] [place], [address], 03/22/2024 12:34:12 lh + FSH, serum [address] (Lab Registration) , [address] [place] [address] [place], [address], 03/22/2024 12:34:13 Referral None recorded . Procedures None recorded . Surgeries None recorded . Imaging MRI, pituitar y, w/wo contrast [address] Central Scheduling, [address] [place] [address] [place], [address], 04/05/2024 15:10:03 Medication Orders alendron ate 70 mg tablet 2024 025 [facility] [address] [place] [address], [address], 08/12/2024 15:16:42 levothyr oxine 25 mcg tablet 2024 025 [facility] [address] [place] [address], [address], 08/12/2024 15:16:43 potassiu m chloride ER 10 mEq capsule, extended release 2024 025 [facility] [address] [place] [address], [address], 08/12/2024 15:16:42 atorvast atin 10 mg tablet 2024 025 [facility] [address] [place] [address], [address], 08/12/2024 15:16:43 fluoxeti ne 20 mg capsule 2024 025 [facility] [address] [place] [address], [address], 08/12/2024 15:16:42 esomepra zole magnesiu m 40 mg capsule, delayed release 2024 025 [facility] #6337, [address] [place] [address], [address], 08/12/2024 15:16:42 buspiron e 15 mg tablet 2024 025 [facility], [address] [place] [address], [address], 08/12/2024 15:16:42 monteluk ast 10 mg tablet 2024 025 [facility], [address] [place] [address], [address], 08/12/2024 15:16:42 levoceti rizine 5 mg tablet 2024 025 [facility] #6337, [address] [place] [address], [address], 08/12/2024 15:16:41 Linzess 72 mcg capsule 2024 025 [facility], [address] [place] [address], [address], 08/12/2024 15:16:42 gabapent in 800 mg tablet 2024 025 [facility], [address] [place] [address], [address], 08/12/2024 15:16:44 alendron ate 70 mg tablet 2024 025 [facility], [address] [place] [address], [address], 05/14/2024 11:02:53 levothyr oxine 25 mcg tablet 2024 025 [facility], [address] [place] [address], [address], 05/14/2024 11:02:55 atorvast atin 10 mg tablet 2024 025 [facility] [address] [place] [address], [address], 05/14/2024 11:02:57 monteluk ast 10 mg tablet 2024 025 [facility] [address] [place] [address], [address], 05/14/2024 11:02:57 fluoxeti ne 20 mg capsule 2024 025 [address] [address] [place] [address], [address], 06/07/2024 14:04:12 esomepra zole magnesiu m 40 mg capsule, delayed release 2024 025 [facility], [address] [place] [address], [address], 05/14/2024 11:02:54 levoceti rizine 5 mg tablet 2024 025 [facility] [address] [place] [address], [address], 05/14/2024 11:02:58 buspiron e 15 mg tablet 2024 025 [facility]337, [address] [place] [address], [address], 05/14/2024 11:02:53 Linzess 72 mcg capsule [address]/Pharmacy #6337, [address] [place] [address], [address], 05/15/2024 16:09:50 gabapent in 800 mg tablet 2024 025 [facility], [address] [place], [address], 05/14/2024 11:03:14 Valium 10 mg tablet 2023 025 [facility], [address] [place], [address], 08/12/2024 14:53:44 Patient TargetsNo targets recorded. Patient InstructionsNo instructions recorded. Reason for Referral None Reported. Results Created Date Observation Date Name Description Value Unit Range Abnormal Flag Note LastModifiedBy Organization Detail LastModifiedTime 03/11/20 24 03/11/2024 T4 FREE T4 free 1.31 NG/dL 0.78-2 .19 Not Available [facility] (Pre-Op Clinic) [address] [place] [address] [place], [address], 03/11/2024 14:50:31 03/11/20 24 03/11/2024 T4 FREE note Emely owen noted testi ng perfo rmed at: [facility] [address] [place] [address] Wily cottrell MD Not Available [facility] (Pre-Op Clinic) [address] [place] [address] [place], [address], 03/11/2024 14:50:31 03/11/20 24 03/11/2024 TSH thyroid stim hormone 6.10 uIU/m L 0.465- 4.68 high Not Available [facility] (Pre-Op Clinic) [address] [place] [address] [place], [address], 03/11/2024 15:59:07 03/11/20 24 03/11/2024 TSH note Emely owen noted testi ng perfo rmed at: [facility] [address] [place] [address] Wily cottrell MD Not Available [facility] (Pre-Op Clinic) [address] [place] [address] [place], [address], 03/11/2024 15:59:07 03/11/20 24 03/11/2024 FSH note Unles s other owen noted testi ng perfo rmed at: [facility] [address] [place] [address] Wily cottrell MD Not Available [facility] (Pre-Op Clinic) [address] [place] [address] [place], [address], 03/12/2024 10:10:53 03/11/20 24 03/12/2024 FSH FSH 65.3 mIU/m L Adult Femal e Range Folli cular phase 3.5 - 12.5 Ovula tion phase 4.7 - 21.5 Lutea l phase 1.7 - 7.7 Postm enopa usal 25.8 - 134.8 Perfo rmed at: [facility] [employer] [facility] [employer] [facility] n [address] [facility] [place] [address] Lab Direc tor: Alfonso bernal PhD, Phone : [phone] Not Available [facility] (Pre-Op Clinic) [address] [place] [address] [place], [address], 03/12/2024 10:10:53 03/11/20 24 03/11/2024 LUTEN IZING HORMO NE (LH) note Emely s other owen noted testi ng perfo rmed at: [facility] [address] [place] [address] Wily cottrell MD Not Available [facility] (Pre-Op Clinic) [address] [place] [address] [place], [address], 03/12/2024 10:10:54 03/11/20 24 03/12/2024 LUTEN IZING HORMO NE (LH) LH 35.7 mIU/m L Adult Femal e Range Folli cular phase 2.4 - 12.6 Ovula tion phase 14.0 - 95.6 Lutea l phase 1.0 - 11.4 Postm enopa usal 7.7 - 58.5 Perfo rmed at: [facility] [address] [place] [address] Lab Direc tor: Alfonso bernal PhD, Phone : [phone] Not Available [facility] (Pre-Op Clinic) [address] [facility] [place], [address], 03/12/2024 10:10:54 03/11/20 24 03/11/2024 PROLA CTIN note Unles s other owen noted testi ng perfo rmed at: [facility] [address] [place] [address] Wily cottrell MD Not Available [facility] (Pre-Op Clinic) [address] [place] [address] [place], [address], 03/12/2024 10:10:56 03/11/20 24 03/12/2024 PROLA CTIN prolactin 29.5 NG/mL 3.6-25 .2 high Perfo rmed at: [facility] [address] [place] [address] Lab Direc tor: Alfonso bernal PhD, Phone : [phone] Not Available [facility] (Pre-Op Clinic) [address] [place] [address] [place], [address], 03/12/2024 10:10:56 03/28/19 25 03/28/2024 C-YESENIA CTIVE PROTE IN (CRP) C-reactive protein 10.9 mg/L -10 high Not Available [facility] (Pre-Op Clinic) [address] [place] [address] [place], [address], 03/28/2024 17:14:09 03/28/19 25 03/28/2024 C-YESENIA CTIVE PROTE IN (CRP) note Unljoe cottrell other owen noted testi ng perfo rmed at: [facility] [address] [place] [address] Wily cottrell MD Not Available [facility] (Pre-Op Clinic) [address] [place] [address] [place], [address], 03/28/2024 17:14:09 03/28/19 25 03/28/2024 SED RATE WESTE RGREN sed rate westergren 24 mm/HR 0-15 high Not Available [facility] (Pre-Op Clinic) [address] [place] [address] [place], [address], 03/28/2024 17:14:10 03/28/19 25 03/28/2024 SED RATE WESTE RGREN note Unles s other owen noted testi ng perfo rmed at: [facility] [address] [place] [address] Wily cottrell MD Not Available [facility] (Pre-Op Clinic) [address] [place] [address] [place], [address], 03/28/2024 17:14:10 03/28/19 25 03/28/2024 RHEUM ATOID ARTHR ITIS FACTO R-RA note Unljoe s other owen noted testi ng perfo rmed at: [facility] [address] [place] [address] Wily cottrell MD Not Available [facility] (Pre-Op Clinic) [address] [place] [address] [place], [address], 03/30/2024 09:09:29 03/28/19 25 03/30/2024 RHEUM ATOID ARTHR ITIS FACTO R-RA RA latex turbid. 10.1 IU/mL <14.0 Perfo rmed at: - [facility] [address] [place] [address] Lab Direc tor: Alfonso bernal PhD, Phone : [phone] Not Available [facility] (Pre-Op Clinic) [address] [place] [address] [place], [address], 03/30/2024 09:09:29 03/28/19 25 03/28/2024 ANIA SCREE N W REFLE X note Unles s other owen noted testi ng perfo rmed at: [facility] [address] [place] [address] Wily cottrell MD Not Available [facility] (Pre-Op Clinic) [address] [place] [address] [place], [address], 04/01/2024 17:09:24 03/28/19 25 04/01/2024 ANIA SCREE N W REFLE X ANIA direct NEGATI VE negati ve Perfo rmed at: - [facility] n [address] [facility], [place] [address] Lab Direc tor: Alfonso bernal PhD, Phone : [phone] Not Available [facility] (Pre-Op Clinic) [address] [place] [address] [place], [address], 04/01/2024 17:09:24 05/17/19 25 05/17/2024 CBC W/ AUTO DIFF WBC 6.42 K/uL 4.5-11 .5 Not Available [facility] (Pre-Op Clinic) [address] [place] [address] [place], [address], 05/17/2024 12:48:18 05/17/19 25 05/17/2024 CBC W/ AUTO DIFF RBC 4.31 M/uL 4.0-5. 4 Not Available [facility] (Pre-Op Clinic) [address] [place] [address] [place], [address], 05/17/2024 12:48:18 05/17/19 25 05/17/2024 CBC W/ AUTO DIFF HGB 11.6 g/dL 12.0-1 5.0 low Not Available [facility] (Pre-Op Clinic) [address] [place] [address] [place], [address], 05/17/2024 12:48:18 05/17/19 25 05/17/2024 CBC W/ AUTO DIFF HCT 36.3 % 35-49 Not Available [facility] (Pre-Op Clinic) [address] [place] [address] [place], [address], 05/17/2024 12:48:18 05/17/19 25 05/17/2024 CBC W/ AUTO DIFF MCV 84.2 fL 80.0-1 00.0 Not Available [facility] (Pre-Op Clinic) [address] [place] [address] [place], [address], 05/17/2024 12:48:18 05/17/19 25 05/17/2024 CBC W/ AUTO DIFF MCH 26.9 pg 26.0-3 2.0 Not Available [facility] (Pre-Op Clinic) [address] [place] [address] [place], [address], 05/17/2024 12:48:18 05/17/19 25 05/17/2024 CBC W/ AUTO DIFF MCHC 32.0 g/dL 32.0-3 6.0 Not Available [facility] (Pre-Op Clinic) [address] [place] [address] [place], [address], 05/17/2024 12:48:18 05/17/19 25 05/17/2024 CBC W/ AUTO DIFF RDW 14.2 % 11.5-1 4.5 Not Available [facility] (Pre-Op Clinic) [address] [place] [address] [place], [address], 05/17/2024 12:48:18 05/17/19 25 05/17/2024 CBC W/ AUTO DIFF platelet count 300 K/uL 142-42 4 Not Available [facility] (Pre-Op Clinic) [address] [place] [address] [place], [address], 05/17/2024 12:48:18 05/17/19 25 05/17/2024 CBC W/ AUTO DIFF MPV 10.8 fL 6.8-10 .2 high Not Available [facility] (Pre-Op Clinic) [address] [place] [address] [place], [address], 05/17/2024 12:48:18 05/17/19 25 05/17/2024 CBC W/ AUTO DIFF neutrophil % 53.4 % 50-70 Not Available [facility] (Pre-Op Clinic) [address] [place] [address] [place], [address], 05/17/2024 12:48:18 05/17/19 25 05/17/2024 CBC W/ AUTO DIFF lymphocyte % 31.8 % 18.0-4 2.0 Not Available [facility] (Pre-Op Clinic) [address] [place] [address] [place], [address], 05/17/2024 12:48:18 05/17/19 25 05/17/2024 CBC W/ AUTO DIFF monocyte % 10.6 % 2.0-11 .0 Not Available [facility] (Pre-Op Clinic) [address] [place] [address] [place], [address], 05/17/2024 12:48:18 05/17/19 25 05/17/2024 CBC W/ AUTO DIFF eosinophil % 2.6 % 1.0-3. 0 Not Available [facility] (Pre-Op Clinic) [address] [place] [address] [place], [address], 05/17/2024 12:48:18 05/17/19 25 05/17/2024 CBC W/ AUTO DIFF basophil % 1.1 % 0.0-2. 0 Not Available [facility] (Pre-Op Clinic) [address] [place] [address] [place], [address], 05/17/2024 12:48:18 05/17/19 25 05/17/2024 CBC W/ AUTO DIFF immature granulocytes % 0.5 % 0.0-0. 8 Not Available [facility] (Pre-Op Clinic) [address] [place] [address] [place], [address], 05/17/2024 12:48:18 05/17/19 25 05/17/2024 CBC W/ AUTO DIFF nucleated red blood cells % 0.0 % Not Available [facility] (Pre-Op Clinic) [address] [place] [address] [place], [address], 05/17/2024 12:48:18 05/17/19 25 05/17/2024 CBC W/ AUTO DIFF neutrophil # 3.43 K/uL Not Available [facility] (Pre-Op Clinic) [address] [facility] [place], [address], 05/17/2024 12:48:18 05/17/19 25 05/17/2024 CBC W/ AUTO DIFF lymphocyte # 2.04 K/uL Not Available [facility] (Pre-Op Clinic) [address] [place] [address] [place], [address], 05/17/2024 12:48:18 05/17/19 25 05/17/2024 CBC W/ AUTO DIFF monocyte # 0.68 K/uL Not Available [facility] (Pre-Op Clinic) [address] [place] [address] [place], [address], 05/17/2024 12:48:18 05/17/19 25 05/17/2024 CBC W/ AUTO DIFF eosinophil # 0.17 K/uL Not Available [facility] (Pre-Op Clinic) [address] [place] [address] [place], [address], 05/17/2024 12:48:18 05/17/19 25 05/17/2024 CBC W/ AUTO DIFF basophil # 0.07 K/uL Not Available [facility] (Pre-Op Clinic) [address] [place] [address] [place], [address], 05/17/2024 12:48:18 05/17/19 25 05/17/2024 CBC W/ AUTO DIFF immature gramulocytes # 0.03 K/uL Not Available [facility] (Pre-Op Clinic) [address] [place] [address] [place], [address], 05/17/2024 12:48:18 05/17/19 25 05/17/2024 CBC W/ AUTO DIFF nucleated red blood cells # 0.00 k/uL Not Available [facility] (Pre-Op Clinic) [address] [place] [address] [place], [address], 05/17/2024 12:48:18 05/17/19 25 05/17/2024 CBC W/ AUTO DIFF manual differential NO Not Available [facility] (Pre-Op Clinic) [address] [facility] [place], [address], 05/17/2024 12:48:18 05/17/19 25 05/17/2024 CBC W/ AUTO DIFF note Unles s other owen noted testi ng perfo rmed at: [facility] [address] [place] [address] Wily cottrell MD Not Available [facility] (Pre-Op Clinic) [address] [facility] [place], [address], 05/17/2024 12:48:18 05/17/19 25 05/17/2024 COMP METAB OLIC PANEL sodium 141 mmol/ L 137-14 7 Not Available [facility] (Pre-Op Clinic) [address] [place] [address] [place], [address], 05/17/2024 13:31:35 05/17/19 25 05/17/2024 COMP METAB OLIC PANEL potassium 4.1 mmol/ L 3.5-5. 1 Not Available [facility] (Pre-Op Clinic) [address] [place] [address] [place], [address], 05/17/2024 13:31:35 05/17/19 25 05/17/2024 COMP METAB OLIC PANEL chloride 104 mmol/ L 98-110 Not Available [facility] (Pre-Op Clinic) [address] [place] [address] [place], [address], 05/17/2024 13:31:35 05/17/19 25 05/17/2024 COMP METAB OLIC PANEL carbon dioxide 23 mmol/ L 21-30 Not Available [facility] (Pre-Op Clinic) [address] [place] [address] [place], [address], 05/17/2024 13:31:35 05/17/19 25 05/17/2024 COMP METAB OLIC PANEL anion gap 14 mmol/ L 6-14 Not Available [facility] (Pre-Op Clinic) [address] [place] [address] [place], [address], 05/17/2024 13:31:35 05/17/19 25 05/17/2024 COMP METAB OLIC PANEL glucose 91 mg/dL 70-115 Not Available [facility] (Pre-Op Clinic) [address] [place] [address] [place], [address], 05/17/2024 13:31:35 05/17/19 25 05/17/2024 COMP METAB OLIC PANEL BUN 12 mg/dL 7-17 Not Available [facility] (Pre-Op Clinic) [address] [place] [address] [place], [address], 05/17/2024 13:31:35 05/17/19 25 05/17/2024 COMP METAB OLIC PANEL creatinine 0.6 mg/dL 0.5-1. 5 Not Available [facility] (Pre-Op Clinic) [address] [place] [address] [place], [address], 05/17/2024 13:31:35 05/17/19 25 05/17/2024 COMP METAB OLIC PANEL BUN/creatini ne ratio 20 10-20 Not Available [facility] (Pre-Op Clinic) [address] [place] [address] [place], [address], 05/17/2024 13:31:35 05/17/19 25 05/17/2024 COMP METAB [...] lam ing kiney funct ion. Not Available [facility] (Pre-Op Clinic) [address] [place] [address] [place], [address], 05/17/2024 13:31:35 05/17/19 25 05/17/2024 COMP METAB OLIC PANEL osmolality (calculated) 292 mosmo l/kg 275-30 1 OSMOL ALITY IS A CALCU LATIO N UTILI ZING THE SERUM /PLAS MA SODIU M, GLUCO SE AND UREA NITRO GEN (BUN) LEVEL S. FOR THE MOST ACCUR ATE RESUL T A MEASU RED SERUM OSMOL ALITY IS SUGGE STED. Not Available [facility] (Pre-Op Clinic) [address] [place] [address] [place], [address], 05/17/2024 13:31:35 05/17/19 25 05/17/2024 COMP METAB OLIC PANEL total protein 6.1 g/dL 6.2-8. 2 low Not Available [facility] (Pre-Op Clinic) [address] [place] [address] [place], [address], 05/17/2024 13:31:35 05/17/19 25 05/17/2024 COMP METAB OLIC PANEL albumin 3.8 g/dL 3.5-5. 0 Not Available [facility] (Pre-Op Clinic) [address] [place] [address] [place], [address], 05/17/2024 13:31:35 05/17/19 25 05/17/2024 COMP METAB OLIC PANEL calcium 8.7 mg/dL 8.5-10 .8 Not Available [facility] (Pre-Op Clinic) [address] [place] [address] [place], [address], 05/17/2024 13:31:35 05/17/19 25 05/17/2024 COMP METAB OLIC PANEL bilirubin total 0.6 mg/dL 0.2-1. 3 Not Available [facility] (Pre-Op Clinic) [address] [place] [address] [place], [address], 05/17/2024 13:31:35 05/17/19 25 05/17/2024 COMP METAB OLIC PANEL AST (SGOT) 22 IU/L 14-36 Not Available [facility] (Pre-Op Clinic) [address] [place] [address] [place], [address], 05/17/2024 13:31:35 05/17/19 25 05/17/2024 COMP METAB OLIC PANEL ALT (SGPT) 9 IU/L 0-35 Pleas e note new refer ence inter suresh for ALT. Due to a recen t manuf actur er metho dolog y lam e, the refer ence inter suresh for ALT is lower effec tive July 16, 2020. Not Available [facility] (Pre-Op Clinic) [address] [place] [address] [place], [address], 05/17/2024 13:31:35 05/17/19 25 05/17/2024 COMP METAB OLIC PANEL alk phosphatase 95 IU/L 38-126 Not Available [facility] (Pre-Op Clinic) [address] [place] [address] [place], [address], 05/17/2024 13:31:35 05/17/19 25 05/17/2024 COMP METAB OLIC PANEL note Unles s other owen noted testi ng perfo [facility] [address] [place] [address] Wily cottrell MD Not Available [facility] (Pre-Op Clinic) [address] [place] [address] [place], [address], 05/17/2024 13:31:35 05/17/19 25 05/17/2024 LIPID PANEL cholesterol 228 mg/dL 0-200 high Not Available [facility] (Pre-Op Clinic) [address] [place] [address] [place], [address], 05/17/2024 13:31:36 05/17/19 25 05/17/2024 LIPID PANEL HDL 58 mg/dL 40- Not Available [facility] (Pre-Op Clinic) [address] [place] [address] [place], [address], 05/17/2024 13:31:36 05/17/19 25 05/17/2024 LIPID PANEL total chol/HDL ratio 3.9 0-4 Not Available [facility] (Pre-Op Clinic) [address] [facility] [place], [address], 05/17/2024 13:31:36 05/17/19 25 05/17/2024 LIPID PANEL triglyceride 150 mg/dL 35-135 high Not Available [facility] (Pre-Op Clinic) [address] [place] [address] Faina [place], [address], 05/17/2024 13:31:36 05/17/19 25 05/17/2024 LIPID PANEL LDL calculated 140 mg/dL 0-130 high Not Available [facility] (Pre-Op Clinic) [address] [place] [address] [place], [address], 05/17/2024 13:31:36 05/17/19 25 05/17/2024 LIPID PANEL VLDL calculated 30 mg/dL 0-40 Not Available [facility] (Pre-Op Clinic) [address] [place] [address] [place], [address], 05/17/2024 13:31:36 05/17/19 25 05/17/2024 LIPID PANEL note Unles s other owen noted testi ng perfo rmed at: [facility] [address] [place] [address] Wily cottrell MD Not Available [facility] (Pre-Op Clinic) [address] [place] [address] [place], [address], 05/17/2024 13:31:36 05/17/19 25 05/17/2024 T4 FREE T4 free 0.91 NG/dL 0.78-2 .19 Not Available [facility] (Pre-Op Clinic) [address] [place] [address] [place], [address], 05/17/2024 13:36:03 05/17/19 25 05/17/2024 T4 FREE note Unles s other owen noted testi ng perfo rmed at: [facility] [address] [place] [address] Wily cottrell MD Not Available [facility] (Pre-Op Clinic) [address] [place] [address] [place], [address], 05/17/2024 13:36:03 05/17/19 25 05/17/2024 TSH thyroid stim hormone 0.94 uIU/m L 0.465- 4.68 Not Available [facility] (Pre-Op Clinic) [address] [place] [address] [place], [address], 05/17/2024 13:53:31 05/17/19 25 05/17/2024 TSH note Unles s other owen noted testi ng [facility] [address] [place] [address] Wily cottrell MD Not Available [facility] (Pre-Op Clinic) [address] [place] [address] [place], [address], 05/17/2024 13:53:31 08/13/19 25 08/12/2024 drug scree n, urine Barbiturates negati ve Not Available [facility]- Floor 2, [address], [place], [address], 08/12/2024 14:56:52 08/13/19 25 08/12/2024 drug scree n, urine Amphetamines negati ve Not Available [facility]- Floor 2, [address], [place], [address], 08/12/2024 14:56:52 08/13/19 25 08/12/2024 drug scree n, urine Buprenorphin e negati ve Not Available [facility]- Floor 2, [address], [place], [address], 08/12/2024 14:56:52 08/13/19 25 08/12/2024 drug scree n, urine Benzodiazepi riki positi ve Not Available [facility]- Floor 2, [address], [place], [address], 08/12/2024 14:56:52 08/13/19 25 08/12/2024 drug scree n, urine Cocaine negati ve Not Available [facility]- Floor 2, [address], [place], [address], 08/12/2024 14:56:52 08/13/19 25 08/12/2024 drug scree n, urine Methamphetam ine negati ve Not Available [facility]- Floor 2, [address], [place], [address], 08/12/2024 14:56:52 08/13/19 25 08/12/2024 drug scree n, urine Ecstasy negati ve Not Available [facility]- Floor 2, [address], [place], [address], 08/12/2024 14:56:52 08/13/19 25 08/12/2024 drug scree n, urine Methadone negati ve Not Available [facility]- Floor 2, [address], [place], [address], 08/12/2024 14:56:52 08/13/19 25 08/12/2024 drug scree n, urine Morphine/ Opiates negati ve Not Available [facility]- Floor 2, [address], [place], [address], 08/12/2024 14:56:52 08/13/19 25 08/12/2024 drug scree n, urine Phencyclidin e negati ve Not Available [facility]- Floor 2, [address], [place], [address], 08/12/2024 14:56:52 08/13/19 25 08/12/2024 drug scree n, urine Oxycodone negati ve Not Available [facility]- Floor 2, [address], [place], [address], 08/12/2024 14:56:52 08/13/19 25 08/12/2024 drug scree n, urine Marijuana negati ve Not Available [facility]- Floor 2, [address] [place] [address], [place], [address], 08/12/2024 14:56:52 03/22/20 24 03/22/2024 mamm scree la nena 2D [facility] [address] [facility] [place] [address] (Phone ) MAMMOG JULIANA REPORT Name: JOHANNE KELLY : 1965 Accoun t #: [id number] Age: 58 Years Patien t Type: Outpat ient Sex: F Access ion#: [id number] Exam Descri ption: MAMM SCREEN ING [...] JOHANNE KELLY : 1965 Accoun t #: [id number] Age: 58 Years Patien t Type: Outpat ient Sex: F Access ion#: [id number] Exam Descri ption: MAMM SCREEN ING 2D [...] onical ly signed by: Bassem Hickey MD 12/27/ 2024 10:57 AM EST RP Workst ation: [id number] Princi pal Interp reter Name: Bassem Hickey Provid er ID: [id number] PAGE 2 OF 2 CC'ed Logic: Orderi ng Provid er: ASHLEY PANDEY CC Provid er: ASHLEY PANDEY Attend ing Provid er: ASHLEY PANDEY Referr ing Provid er: ASHLEY PANDEY Admitt ing Provid er: ASHLEY PANDEY [id number] [facility] (Central Scheduling) [address] [place] [address] [place], [address], 03/22/2024 18:06:09 03/22/20 24 03/22/2024 MAMMO , scree la nena, digit al, bilat eral No observ ation record ed. [facility] Registration [address] [place] [address] [place], [address], 03/26/2024 10:26:11 03/22/20 24 03/22/2024 [facility] densi ty [facility] [address] [place] [address] [phone] (Phone ) MATT Kelly REPORT Name: JOHANNE KELLY : 1965 Accoun t #: [id number] Age: 58 Years Patien t Type: Outpat ient Sex: F Access ion#: [id number] Exam Descri ption: BONE DENSIT Y [...] was perfor med, as approp riate, using [employer] e densit ometer . [...] JOHANNE KELLY : 1965 Accoun t #: [id number] Age: 58 Years Patien t Type: Outpat ient Sex: F Access ion#: [id number] Exam Descri ption: BONE DENSIT Y Exam Reason : Screen ing Order Date/T santi: 2023 10:18: 00 AM RIGHT FOREAR M (RADIU S 33%): BMD (in g/cm*2 ): 0.685. T-scor e: -2.3. Z-scor e: -1.7. FRAX 10-YEA R PROBAB ILITY OF FRACTU RE: 10-yea r fractu re risk is perfor med using the Univer Mark carvajal FRAX calcul ator based on patien [...] OF 3 : 1965 Accoun t #: [id number] Age: 58 Years Patien t Type: Outpat ient Sex: F Access ion#: [id number] Exam Descri ption: BONE DENSIT Y Exam [...] on FRAX calcul ation. - Clinic andi agustín nt and/or patien t prefer ences may indica te treatm ent for people with 10-yea r fractu re probab ilitie s above or below these levels . - Heydi tapia ce on treatm ent can be found at the [facility]'s websit e [...] PANDEY Admitt ing Provid er: ASHLEY PANDEY [email or web address] [facility] ([facility]) [address] [place] [address] [place], [address], 03/25/2024 13:16:45 03/26/20 24 03/26/2024 MRI, brain , w/wo contr ast [facility] [address] [address] (Phone ) MATT Robin REPORT Name: JOHANNE KELLY Tatyana : 1965 Accoun t #: [id number] Age: 58 Years Patien t Type: Outpat ient Sex: F Access ion#: [id number] Exam Descri ption: MRI BRAIN Exam Reason : 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 INDICA TION: D35.2 BENIGN NEOPLA SM OF [...] Slight intras ellar extens ion at the beater boss ior margin to abut the anteri or [...] JOHANNE KELLY : 1965 Accoun t #: [id number] Age: 58 Years Patien t Type: Outpat ient Sex: F Access ion#: [id number] Exam Descri ption: MRI BRAIN WOW - ROUTIN E Exam Reason : D35.2 BENIGN NEOPLA SM OF PITUIT YOUNG Order Date/T santi: 2023 02:54: 00 PM * No hydroc ephalu s, midlin e shift or abnorm al extra- axial fluid collec tion. * Major flow voids are grossl y preser pedro at the lime of [place] . * Mild mucosa l [...] [id number] Princi pal Interp reter Name: Benji Woodardgera kwan Provid er ID: [id number] PAGE 2 OF 2 CC'ed Logic: Orderi ng Provid er: ASHLEY PANDEY CC Provid er: ASHLEY PANDEY Attend ing Provid er: ASHLEY PANDEY Referr ing Provid er: ASHLEY PANDEY Admitt ing Provid er: ASHLEY PANDEY [id number] [facility] (Central Scheduling) [address] [place] [address] [place], [address], 03/28/2024 20:03:16 07/26/19 25 07/24/2024 lab* No observ ation record ed. 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 COMPARISON: 06/19/2023 FINDINGS: * Redemonstrated suprasellar dural based homogeneously enhancing lesion compatible with meningioma measuring 0.8 x 1.5 x 1.5 cm (series 12 image 10/series 10 image 16). Slight intrasellar extension at the posterior margin to abut the anterior margin of the pituitary gland. Pituitary gland demonstrates homogeneous enhancement. Pituitary stalk is near the midline. Normal optic chiasm. * Stable nonspecific dural thickening at the frontal vertex by approximately 5 mm thickness. * No additional pathologic intracranial enhancement. * Similar nonspecific mild to moderate amount of nonspecific T2 hyperintense foci involving the deep, periventricular and subcortical with consideration for chronic ischemic small vessel disease, demyelinating disease, vasculitis and other etiologies. 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 * Major flow voids are grossly preserved at the lime of Munoz. * Mild mucosal thickening of the ethmoids. There is mastoids. IMPRESSION: 1. Similar enhancing extra-axial lesion most compatible with diaphragma sella meningioma. Continued follow-up suggested. 2. Mild to moderate white matter disease compatible with history of multiple sclerosis. No active disease or significant progression. 3. Nonspecific pachymeningeal thickening and enhancement at the frontal vertex. Electronically signed by: Benji Menjivar DO 03/26/2024 09:45 PM [facility] Principal Loss Control Engineer Name: Benji Menjivar Provider ID: [id number] PAGE 2 OF 2 CC'ed Logic: Ordering Provider: MARY KAY ARAMBULA CC Provider: MARY KAY ARAMBULA Attending Provider: MARY KAY ARAMBULA Referring Provider: MARY KAY ARAMBULA Admitting Provider: MARY KAY [place], [place] - [facility] [place] & [place] 03/28/2024 20:03:16 Problems Name Problem SNOMED Code Status Onset Date Resolution Date Notes Provider Name and Address Organization Details Recorded Time [facility] 45831397 Active 2023 Tyesha Bravo DO [address] [facility], [address], [place], [address] , [place] - [facility] [place] 13:17:02 Constipat ion 46376504 Active 2015 Not Available [facility] 3 07:17:25 Migraine without aura, not refractor y 105651430 Active 2018 Not Available [facility] 3 07:17:26 Postmenop ausal osteoporo sis 610884777 Active 2018 Not Available [facility] 3 07:17:25 Restless legs 91454199 Active 2014 Not Available [facility] 3 07:17:25 Headache 52461148 Active 2020 Headache Not Available [facility] 3 07:17:25 Vitamin D deficienc y 12652849 Active 2019 Vitamin D deficienc y Not Available [facility] 3 07:17:25 Status migrainos us 139446004 Active 2021 Not Available [facility] 3 07:17:25 Seasonal allergic rhinitis 935252648 Active 2015 Not Available [facility] 3 07:17:25 Dizziness 893146262 Active 2020 Dizziness Not Available [facility] 3 07:17:26 Solitary nodule of lung 691635547 Active 2020 Solitary nodule of lung Not Available [facility] 3 07:17:26 Clinical finding Active 2020 ICD-10: R93.89 - Abnormal x-ray examinati on Not Available [facility] 3 07:17:25 Cramp in lower limb 892282340 Active 2020 Cramp in lower limb Not Available [facility] 07:17:26 Anxiety disorder 967917023 Active 2021 Anxiety disorder Not Available [facility] 3 07:17:25 Obese class II 09536752165 4105 Active 2019 Obese class II Obese class II Not Available [facility] 3 07:17:26 Multiple sclerosis 27383452 Active 2021 Not Available [facility] 3 07:17:25 Refractor y migraine with aura 608059287 Active 2019 Not Available [facility] 3 07:17:26 Long-term current use of drug therapy 240494542 Active 2021 Long-term current use of drug therapy Not Available [facility] 3 07:17:26 Filling defect of urinary bladder 929695432 Active 2015 Not Available [facility] 3 07:17:25 Pain in throat 438641130 Active 2020 Sore throat Not Available [facility] 3 07:17:25 Pain of joint 14384630 Active 2017 Joint pain Not Available [facility] 3 07:17:26 Breast neoplasm screening status 357259955 Active 2015 Not Available [facility] 3 07:17:25 Bacteriur ia 59062071 Active 2020 Bacteriur ia Not Available [facility] 3 07:17:26 Gastroeso phageal reflux disease 489598565 Active 2015 Not Available [facility] 3 07:17:25 Chronic gastritis 5651085 Active 2015 Not Available [facility] 3 07:17:26 Hypertens wilfredo disorder 41315435 Active 2014 Not Available [facility] 3 07:17:25 Disorder of endocrine system 526444466 Active 2019 Disorder of endocrine system Not Available [facility] 3 07:17:25 Neuropath y 930206467 Active 2019 Neuropath y Not Available [facility] 3 07:17:25 Requires vaccinati on 512819798 Active 2019 Requires vaccinati on Not Available [facility] 3 07:17:26 Osteoarth ritis of knee 483741522 Active 2020 Osteoarth ritis of knee Not Available [facility] 3 07:17:25 Depressiv e disorder 94752426 Active 2014 Not Available [facility] 3 07:17:25 Fatigue 96373750 Active 2019 Fatigue Not Available [facility] 3 07:17:26 Insomnia 260433549 Active 2014 Not Available [facility] 3 07:17:25 Gastritis 0229373 Active 2019 Gastritis Not Available [facility] 3 07:17:26 Migraine 73009106 Active 2019 Migraine Not Available [facility] 3 07:17:25 Anxiety 62973686 Active 2021 Not Available [facility] 3 07:17:26 Body mass index 30+ - obesity 061250587 Active 2021 Not Available [facility] 3 07:17:25 Menopausa l [place]ushing 737809913 Active 2014 Not Available [facility] 3 07:17:25 Patient encounter status 702275414 Active 2021 Not Available [facility] 3 07:17:25 Preoperat wilfredo cardiovas cular examinati on Active 2020 Preoperat wilfredo cardiovas cular examinati on Not Available [facility] 3 07:17:26 Diarrhea 62988386 Active 2019 Diarrhea Not Available [facility] 3 07:17:26 Pain of shoulder region 65288848 Active 2016 Shoulder pain Not Available [facility] 3 07:17:26 Left temporoma ndibular joint disorder 29055166378 231136 Active 2022 Not Available [facility] 3 07:17:25 History of bariatric surgical procedure 459728219 Active 2022 Not Available [facility] 3 07:17:26 Daytime hypersomn ia 61934339046 102 Active 2023 Tyesha Bravo, [address], [address], [place], [address] , [facility] & [place] 4 12:41:16 Notes:Some problems listed i n Document: #[id number] could not be added to this patient's chart. Please review this document and add these problems to the patient's chart manually as needed. Problem Notes None recorded. Procedures Surgical History Date Name Laterality Status Provider Name and Address Organization Details Recorded Time 2023 completed Patricia MORROW - [facility] - [place] & [place] 5 14:25:02 2023 Most Recent Mammogram completed Patricia MORROW - [facility] & [place] 5 14:29:00 2023 Most Recent Bone Density completed Patricia Herr [facility] - [place] 5 14:29:22 2022 laparoscopic sleeve gastrectomy completed Polina MORROW - [facility] [place] & [place] 3 13:37:47 2022 Date of Last Colonoscopy completed Velia MORROW - [facility] - [place] & [place] 3 10:37:10 2022 Colonoscopy completed Velia MORROW - [facility] [place] 4 10:50:27 2022 Injection Fascia/Tendon completed Evelyn Herr [facility] - [place] & [place] 3 08:47:08 2022 Gastrointestinal Surgery completed Velia MORROW - [facility] - [place] & [place] 4 10:48:31 2021 arthroscopic repair of rotator cuff completed Art Herr [facility] - [place] & [place] 2 13:27:55 2021 neurostimulation procedure completed Art Herr [facility] - [place] & [place] 2 13:29:44 2021 esophagogastroduodenoscopy completed Judy Bravo DO [address], [address], [place], [address], [place] - [facility] [place] & [place] 2 11:47:45 2020 total replacement of right knee joint completed Tyesha Bravo DO [address], [address], [place], [address], [place] - [place] [place] & [place] 2 11:46:13 2014 neurostimulation of spinal cord tissue completed Tyesha Bravo [address], [address], [place], [address], [place] - [facility] [place] & [place] 2 11:45:18 2013 total replacement of right hip joint completed Tyesha Bravo [address], [address], [place], [address], [place] [facility] [place] 2 11:45:02 2013 neurostimulation of spinal cord tissue completed Tyesha Bravo [address], [address], [place], [address], [place] [facility] [place] & [place] 2 11:45:42 1999 surgical procedure completed Velia Roamno [place] - [facility] - [place] & [place] 3 10:44:07 1992 Hysterectomy completed Tyesha Bravo [facility] [address], [place], [address], [place] [facility] [place] & [place] 2 11:43:41 1982 Tonsillectomy/Adenoidectomy completed Albert Bravo [address], [address], [place], [address], [place] - [facility] [place] & [place] 2 15:28:55 1977 appendectomy completed Tyesha Bravo [facility] [address], [place], [address], [place] - [facility] [place] 2 11:43:26 Total Colectomy completed Velia MORROW - [facility] & [place] 3 10:44:31 surgical repair completed eVlia Romano [place] - [facility] - [place] & [place] 3 10:45:13 Cholecystectomy completed Tyesha Bravo [address], [address], [place], [address], [facility] & [place] 2 11:44:09 Carpal tunnel surgery completed Juan Carlos Bravo , [address], [address], [place], [address], [facility] & [place] 2 11:44:20 Joint Replacement completed Emely Bravo , [address], [address], [place], [address], [facility] & [place] 2 15:28:56 Imaging Results None recorded. Procedure Notes None recorded. Medical Equipment None Reported. Allergies Allergen ID Allergen Name Allergen Category Reaction Reaction Severity Criticality Documentation Date Start Date Code Code System Note Provider Name and Address Organization Details Recorded Time 712309 tomato allergeni c extract food edema mild Not available 01/20/2023 63050 9 RxNorm Art Augusta [facility] & [place] 3 13:47:52 65001 Product containin g penicilli n (product) medicatio n rash Not available Not available 05/23/2022 79958 8001 SNOMED Velia Romano [facility], [facility] & [place] 3 10:42:02 9224 Penicilli n Not available Not available Not available Not available 12/06/2021 75375 RxNorm React ion: rash, sever ity: Unkno wn Not Available [facility] 2 01:57:11 9228 duloxetin e medicatio n Not available Not available Not available 12/06/2021 38667 RxNorm React ion: Unkno wn, sever ity: Unkno wn Not Available [facility] 2 01:57:11 Medications Name Sig Start Date [...] e Short Pen Needle 31 gauge x 08/09 USE DIRECTED 12/23 completed Not Available Not [...] completed Not Available Not Available Not Available [facility] ODT 75 mg disintegr ating tablet DISSOLVE [...] Updated DateTime 5 160.02 cm 28.1 kg/m2 79732.0 3 g 98 % 98 % 84 /min 18 /min 96.9 [degF] 114 mm[Hg] 72 mm[Hg] Art Augusta Herr [facility] & [place] 5 15:16:36 Date Recorded Body height Body temperature Oxygen saturation Oxygen saturation in Arterial blood by Pulse oximetry Heart rate Systolic blood pressure Diastolic blood pressure Provider Name and Address Organization Details Last Updated DateTime 5 160.02 cm 98 [degF] 96 % 96 % 118 /min 122 mm[Hg] 70 mm[Hg] Evelyn Herr [facility] & [place] 5 14:36:05 Date Recorded Body height Body weight Body temperature Oxygen saturation Oxygen saturation in Arterial blood by Pulse oximetry Heart rate Body mass index (BMI) Respiratory rate Systolic blood pressure Diastolic blood pressure Provider Name and Address Organization Details Last Updated DateTime 5 160.02 cm 70445.3 4 g 96.8 [degF] 99 % 99 % 79 /min 28.3 kg/m2 18 /min 122 mm[Hg] 68 mm[Hg] Art Herr [facility] & [place] 5 10:10:47 Date Recorded Body height Body mass index (BMI) Body weight Oxygen saturation Oxygen saturation in Arterial blood by Pulse oximetry Heart rate Respiratory rate Systolic blood pressure Diastolic blood pressure Provider Name and Address Organization Details Last Updated DateTime 5 160.02 cm 28.9 kg/m2 13100.2 7 g 98 % 98 % 80 /min 18 /min 118 mm[Hg] 78 mm[Hg] Art Herr [facility] & [place] 5 14:52:16 Date Recorded Body height Body mass index (BMI) Body weight Body temperature Oxygen saturation Oxygen saturation in Arterial blood by Pulse oximetry Heart rate Respiratory rate Systolic blood pressure Diastolic blood pressure Provider Name and Address Organization Details Last Updated DateTime 4 160.02 cm 28.1 kg/m2 80008.7 5 g 96.4 [degF] 98 % 98 % 80 /min 18 /min 110 mm[Hg] 66 mm[Hg] Art Deras [place] - [facility] & [place] 15:55:28 Social History Question Answer Notes LastModified by Organizat ion Details LastModified Time Tobacco Smoking Status Never Smoker Not Available [facility] [facility] 12/06/2021 09:52:05 Do You Have An Advance Directive? No [email or web address] Information not available 12/25/2021 Are You Blind [...] anxious, or unable to sleep at night)? [id number] Information not available 05/24/2023 Do you have [...] Stones N Blood Diseases N Hyperthyroidism N Breast Cancer N Blood Transfusion N Hernia N Hypothyroidism N Lung Disease N COPD N Depression N Developmental or Behavioral Disorders [...] Abuse/Domestic Violence N Asthma N Reflux/GERD N Sleep Apnea N Jaundice N GERD/Reflux N Hepatitis N Heart Disease N Pulmonary Embolism N Pre-Eclampsia N Hypertension N Chronic Ear Infections N Osteoporosis N Chicken Pox N Autism Spectrum Disorder (ASD) N Thrombophilias N Gynecological History Statement/Question Response [...] virus, quadrivalent, preservative 3 completed Tyesha Bravo, [address], [address], [place], [address], [place] - [place] & [place] 12/23/2022 20:43:31 Hep A, unspecified formulation 8 completed Not Available [facility] 03/23/2023 07:17:26 zoster recombinant 9 completed Not Available [facility] 03/23/2023 07:17:26 Influenza, recombinant, quadrivalent, PF 0 completed Not Available [facility] 03/23/2023 07:17:26 Influenza, split virus, trivalent, PF 6 completed Not Available [facility] 03/23/2023 07:17:26 Influenza, split virus, quadrivalent, PF 1 completed Not Available [facility] 03/23/2023 07:17:26 COVID-19, mRNA, LNP-S, PF, 30 mcg/0.3 mL dose 1 completed Patricia edgar [place] - [place] & [place] 04/23/2024 14:30:03 Hep A, adult 9 completed Not Available [facility] 03/23/2023 07:17:26 TST-PPD intradermal 5 completed Not [facility] 03/23/2023 07:17:26 COVID-19, mRNA, LNP-S, PF, 30 mcg/0.3 mL dose 1 completed Patricia edgar [place] - [place] 04/23/2024 14:30:03 zoster recombinant 9 completed Not [facility] 03/23/2023 07:17:26 Influenza, split virus, quadrivalent, PF 8 completed Not Available [facility] 03/23/2023 07:17:26 COVID-19, mRNA, LNP-S, PF, 100 mcg/0.5mL dose or 50 mcg/0.25mL dose 1 completed Patricia edgar, [place] 04/23/2024 14:30:03 COVID-19, mRNA, LNP-S, PF, marilu-sucrose, 30 mcg/0.3 mL 4 completed Patricia edgar, [place] 04/23/2024 14:30:03 Influenza, MDCK, trivalent, PF 4 completed Patricia Lopez null, [place] 04/23/2024 14:30:03 COVID-19, mRNA, LNP-S, bivalent, PF, 50 mcg/0.5 mL or 25mcg/0.25 mL dose 2 completed Not Available [facility] 03/23/2023 07:17:26 Influenza, split virus, quadrivalent, PF 2 completed Not Available [facility] 03/23/2023 07:17:26 Past Encounters Encounter ID Performer Location Encounter Start Date Encounter Closed Date Diagnosis/Indication Diagnosis SNOMED-CT Code Diagnosis ICD10 Code Diagnosis Note [id number] Tyesha Bravo DO [facility] Family Medicine- Floor 2, 615 [address] [facility] [address] [place] [address] 12/23/2021 13:14:43 12/23/2021 14:06:05 Anxiety 86880187 F41.9 Constipation 42024794 K5 9.00 Gastroesop hageal reflux disease 466188480 K21.9 Hypertensive disorder 38 076439 I10 Had labs done today Neuropathy 713560739 G62 .9 UDS and MARK reviewed. Restless legs 28009119 G 25.81 Vitamin D deficiency 347 47744 E55.9 Seasonal a llergic rhinitis 030916891 J30.2 Migraine 82480386 G43.90 9 Pain of joint 29860041 M 25.50 Multiple sclerosis 31623 007 G35 Body mass index 30+ - obesity 064132264 Z68.39 [id number] DO LUIGI Barnett Family Medicine- Floor 2, 615 [address] [facility] [address] [place] [address] 02/03/2022 08:10:28 02/03/2022 08:40:10 Body mass index 30+ - obesity 766219880 Z68.39 Continue Saxenda. Hyperesthesia 97659261 R 20.3 Hypertensive disorder 38 386143 I10 [id number] Tyesha Bravo DO [facility] Family Medicine- Floor 2, [address] [place] [address],[place] [address] [place] [address] 03/10/2022 10:22:48 03/10/2022 11:17:07 Neuropathy 590329515 G62.9 UDS and MARK reviewed. Anxiety 80216895 F41.9 Hypertensive disorder 38 541826 I10 Pain of joint 71615370 M 25.50 Multiple sclerosis 15867 007 G35 Gastroesop hageal reflux disease 033293577 K21.9 Seasonal a llergic rhinitis 404148349 J30.2 Body mass index 30+ - obesity 726311978 Z68.39 Continue Saxenda. Migraine 64235878 G43.90 9 Preoperati ve cardiovascular examination 834121550 Z01.810 Apr 04, Rt total shoulder, Dr. Vivas, [facility] CXR and labs 03/22 and then will ok for surgery.No issues with anesthesia in the past.No issues with needing blood transfusio ns in the past.EKG no change from previous Long-term drug therapy 873051215 Z79.899 [id number] Teysha Bravo DO [facility] Family Medicine- Floor 2, [address] [place] [address],[place] [address] [place] [address] 05/23/2022 15:50:13 05/23/2022 16:48:12 Body mass index 30+ - obesity 610552500 Z68.39 Continue Saxenda.BM I now 35.5 Hypertensive disorder 38 496236 I10 [id number] Tyesha Bravo DO [facility] Family Medicine- Floor 2, [address] [place] [address],[place] [address] [place] [address] 05/31/2022 09:31:17 05/31/2022 09:48:03 Serous otitis media 87573175 H65.92 Body mass index 30+ - obesity 737819757 Z68.34 [id number] Tyesha Bravo DO [facility] Family Medicine- Floor 2, [address] [place] [address],[place] [address] [place] [address] 06/17/2022 10:38:52 06/17/2022 11:16:36 Temporomandibular joint disorder 14771318 M26.609 leftAlread y on Diclofenac [id number] YARELY CASTRO MD [facility] ENT [address], [place] [address] 07/15/2022 07:58:54 07/15/2022 08:13:18 Left temporomandibular joint disorder 3191803516 7951291 M26.602 - It was explained to the [...] referral- Return to clinic in 1 month [id number] Tyesha Bravo, [facility] Family Medicine- Floor 2, [address] [place] [address],[facility] [address], [place] [address] 07/18/2022 15:20:13 07/18/2022 16:04:47 Migraine 35206406 G43.909 Pain in lower limb 28229 006 M79.604 M79.605 [id number] YARELY CASTRO MD [facility] ENT [address], [place] [address] 08/12/2022 08:11:29 08/12/2022 08:21:31 Left temporomandibular joint disorder 5780077387 7331458 M26.602 - 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 Given her pain seems to be associated with joint inflammati on rather than muscle pain this is going to be more helpful for her as opposed to stretching exercises- If symptoms still not improved at follow up will refer to oral surgeon for possible joint injection- Refill for mobic sent to pharmacy [id number] Daniela Queen DPM [facility] [address] [place] [address],[facility] [address] [address] 09/02/2022 08:09:36 09/02/2022 08:54:40 Pain in left foot 3167785348 25029 M79.672 Radiograph s performed today. Findings reviewed [...] ing.Methyl prednisolo ne Acetate 400mg per 10ml. Lot#[id number] . [facility]# [id number] -03. Expiration 07/19. Achilles tendinitis 1165 4001 M76.62 Pain posterior heel < plantar heel. Consider PT pending progress. [id number] Tyesha Bravo DO [facility] Family Medicine- Floor 2, [address] [place] [address],[facility] [address] [place] [address] 09/15/2022 14:30:12 09/15/2022 15:04:09 Neuropathy 965104875 G62.9 UDS and MARK reviewed. Anxiety 78754779 F41.9 Hypertensive disorder 38 720082 I10 Pain of joint 73253485 M 25.50 Multiple sclerosis 60143 007 G35 Gastroesop hageal reflux disease 977532410 K21.9 Seasonal a llergic rhinitis 933474649 J30.2 Body mass index 30+ - obesity 043164548 Z68.39 Migraine 18856342 G43.90 9 [id number] Daniela Queen DPM [facility] [address] [place] [address],[facility] [address] [place] [employer] [address] 10/17/2022 08:39:51 10/17/2022 09:17:37 Pain in left foot 2374388315 47390 M79.672 Plantar fasciitis 20271027 003 M72.2 Discussed treatment options including PT and Medrol pack versus rest in BK boot. Pt elects for boot. Feels her symptoms are becoming more constant with WBing.Disp ensed pneumatic walking boot with instructio ns for applicatio n and use. An arch pad was added for comfort. Patient may remove pneumatic boot to bathe and sleep. This medical data analyst is medically necessary to treat this patient's [...] tendinitis 1165 4001 M76.62 Strain of foot 359416374 0 9 S96.912A reduce WBing activities in BK boot until symptoms improve [id number] YARELY CASTRO MD [facility] ENT [address] [place] [address] 11/14/2022 08:08:01 11/14/2022 08:57:53 Left temporomandibular joint disorder 0442030231 3730226 M26.602 - Continues to have pain over left TMJ. Seems largely associated with the joint capsule rather than muscular. Has failed treatment with bite guard, NSAIDs, and warm compresses - Will refer to orofacial pain clinic for evaluation [id number] Francheska Azul APRN [facility] Immediate Care- Floor 1, 607 [address] [facility],[place] [address] [place] [address] 12/04/2022 09:19:45 12/04/2022 10:12:26 Submental lymphadenopathy 574820189 R59.0 Complete medication as directed. Push fluids, especially water. Encouraged salt water gargles BID. Acute pharyngitis 047299 003 J02.9 Take medication as directed. Monitor BP as we discussed, discontinu e with elevated readings. [id number] Tyesha Bravo DO [facility] Family Medicine- Floor 2, 615 [address] [facility],[place] [address] [place] [address] 12/23/2022 08:23:06 12/23/2022 09:01:06 Hypertensive disorder 39491420 I10 Anxiety 67293409 F41.9 Pain of joint 13057003 M 25.50 Neuropathy 941725033 G62 .9 UDS and MARK reviewed. Gastroesop hageal reflux disease 982973951 K21.9 Failed Lansoprazo le Seasonal a llergic rhinitis 426081360 J30.2 Influenza vaccine needed 1080115951 106 Z23 Body mass index 30+ - obesity 119961583 Z68.36 Screening for malignant neoplasm of breast 576610426 Z12.39 [id number] Tyesha Bravo DO [facility] Family Medicine- Floor 2, [address] [place] [address] Drive,[place] [address] [place] [address] 01/20/2023 13:38:12 01/20/2023 14:10:22 Insomnia 997576712 G47.00 Stop Amitriptyl ine [id number] Tyesha Bravo DO [facility] Family Medicine- Floor 2, [address] [place] [address] Drive,[place] [address] [place] [address] 02/20/2023 13:23:22 02/20/2023 14:21:04 Insomnia 747810704 G47.00 Stopped Amitriptyl ineSeroque l doing well. History of bariatric surgical procedure 760227263 Z98.84 [id number] Daniela Queen DPM [facility] [address] [facility],[place] [address] [place] [address] 02/10/2023 08:36:28 02/10/2023 09:28:23 Pain in left foot 1144148911 53246 M79.672 Counseled regarding potential benefit of anti-infla mmatories to reduce symptoms. Discussed varieties available including topical forms, OTC and prescripti on options and natural remedies including risks and benefits of each. Also provided recommenda tions for dosing. Plantar fasciitis 20271027 003 M72.2 Discussed benefit of increased support with ambulation . Demonstrat ed power step inserts in office today. [...] 1 week. Achilles tendinitis 1165 4001 M76.62 Demonstrat ed again and dispensed handout regarding appropriat e stretching program for his/her condition. Instructed patient to perform without shoe gear at least twice daily. Also discussed benefit of anti-infla mmatories, ice massage and arch support. [id number] Tyesha Bravo DO [facility] Medicine- Floor 2, [address] [place] [address],[facility] [address] [place] [address] 04/20/2023 08:34:10 04/20/2023 09:25:04 Insomnia 236863574 G47.00 Seroquel doing well. Cough 26974248 R05.1 Acute bronchitis 0838581 2 J20.9 Work note today and tomorrow. [id number] Joey Baker M.D [facility] Neurology [address] [place] [address] 05/17/2023 10:39:55 05/17/2023 11:36:57 Chronic intractable migraine without aura 1337615433 33872 G43.719 Attacks of weakness 2482 68255 R53.1 Demyelinat ing disease of central nervous system 8045208 G37.9 Mixed anxi ety and depressive disorder 826221942 F41.8 [id number] Tyesha Bravo DO [facility]- Floor 2, [address] [place] [address] [address] [place] [address] 06/14/2023 09:02:48 06/14/2023 10:04:30 Insomnia 239139090 G47.00 Hypertensive disorder 38 655012 I10 Seasonal a llergic rhinitis 932345900 J30.2 Anxiety 07196879 F41.9 Pain of joint 31357211 M 25.50 Low back pain 480880248 M54.50 [id number] Joaquin Ramirez [facility] Neurology [address] [place] [address] 07/18/2023 13:25:42 07/18/2023 14:05:36 Refractory migraine without aura 799640996 G43.019 Idiopathic hypersomnia 0133020739 107 G47.11 Multiple sclerosis 66716 007 G35 [id number] Tyesha Bravo DO [facility] Family Medicine- Floor 2, [address],[place] [address] [place] [address] 08/28/2023 15:33:40 08/28/2023 16:47:29 Neuropathy 301002268 G62.9 Hypertensive disorder 38 999407 I10 Anxiety 14128710 F41.9 Pain of joint 35169523 M 25.50 Gastroesop hageal reflux disease 179511310 K21.9 Failed Lansoprazo le Seasonal a llergic rhinitis 718714561 J30.2 Insomnia 979518830 G47.0 0 Acute sinusitis 95768762 J01.90 Cough 09439720 R05.1 Long-term current use of drug therapy 959457499 Z79.494 [id number] Tyesha Bravo DO [facility] Medicine- Floor 2, [address],[place] [address] [place] [address] 09/25/2023 15:52:36 09/25/2023 17:11:18 Chronic obstructive pulmonary disease 24237482 J44.9 Sample for Trelegy 100 Lesion of skin of face 7662571805 06 L98.9 Left side of face [id number] Tyesha Bravo DO [facility] Medicine- Floor 2, [address],[place] [address] [place] [address] 10/10/2023 15:38:32 10/10/2023 16:25:17 Cough 09116986 R05.1 Stop Phentermin e.GI cocktail.O nly thing I can add is thinking could be GI related. Will add H2 parker and give GI cocktail. [id number] Tyesha Bravo DO [facility] Medicine- Floor 2, [address],[place] [address] [place] [address] 10/24/2023 11:10:23 10/24/2023 11:50:06 Unexplained chronic cough 5300368355 R05.3 Fatigue 92532227 R53.83 Cut Seroquel in 1/2Do labs that were ordered, hasn't done yetNo drivingDr. [facility] Nuv[facility] and sleep referralOf f work 4 wks. Daytime hypersomnia 3177 845122 3527 G47.19 [id number] Tyesha Bravo DO [facility] Family Medicine- Floor 2, [address],[place] [address] [place] [address] 2023 10:24:57 2023 11:00:12 Hypertensive disorder 61320419 I10 Seasonal a llergic rhinitis 948975233 J30.2 Cough 73244824 R05.1 Anxiety 28136884 F41.9 Neuropathy 375011406 G62 .9 Hyperlipidemia 23584153 E78.5 Long-term current use of drug therapy 219895097 Z79.899 Excessive daytime sleepiness - normal night sleep 221515698 G47.19 Undergoing sleep study and further testing with Dr. Monet [id number] [facility] [address] [place] [address] 11/01/2023 15:10:13 11/01/2023 16:14:04 Hypersomnia 99084688 G47.10 Pro.found hypersomni a. I do not [...] awhile to get an accurate test. Migraine 03335039 G43.90 9 [id number] Tyesha Bravo DO [facility] Family Medicine- Floor 2, [address],[place] [address] [place] [address] 02/20/2024 08:00:10 02/20/2024 08:29:39 Neuropathy 579064928 G62.9 Anxiety disorder 9124720 06 F41.9 Constipation 05440365 K5 9.00 From pain meds (pain pump) Screening for osteoporosis 516197641 Z13.820 Screening for malignant neoplasm of breast 275045758 Z12.39 [id number] [facility] [address] [place] [address] 11/30/2023 15:04:03 11/30/2023 16:00:22 Hypersomnia 98976571 G47.10 She has a very positive MSLT. [...] me. I will see her in my [facility] face-to-fa ce at which time we will urine drug screen if this is not effective then she will most likely need referral to sleep Medicine physicians who specialize in narcolepsy or hypersomni a to make definitive diagnosis. [id number] Manoj Monet MD [facility] [address] [facility] [place] [address] 01/02/2024 14:48:06 01/02/2024 15:19:57 Idiopathic hypersomnia 1551009768 107 G47.11 Continue on modafinil and Ritalin 5 mg for breakthrou gh hypersomni a symptoms. Clinical improvemen t reported by the patient. She is a follow-up in 3 months. She is already interested into a controlled substance contract with my clinic for this particular medication s. Long-term drug therapy 074831430 Z79.900 [id number] Tyesha Bravo, [facility] Family Medicine- Floor 2, [address] [place] [address],[facility] [address] [facility] [address] 01/03/2024 08:21:07 01/03/2024 09:07:03 Soft tissue swelling of knee joint 543030585 M25.469 Edema of l ower extremity 023900855 R60.0 leftCompre ssion stocking [id number] Manoj Monet MD [facility] [address] [facility] [address] [place] [address] 02/08/2024 09:39:16 02/08/2024 10:13:08 Idiopathic hypersomnia 4566191925 107 G47.11 Add Effexor. I think I am going to have her evaluated by a sleep neurologis t to see if she will be a candidate for xyrem. [id number] Tyesha Bravo DO [facility] Family Medicine- Floor 2, [address] [place] [address] 03/08/2024 15:44:25 03/08/2024 16:24:24 Pituitary microadenoma 872906282 D35.2 [id number] Joey Baker M.D [facility] Neu[facility] [address] [place] [address] 04/18/2024 13:57:04 04/18/2024 15:10:33 Idiopathic hypersomnia 8625186700 107 G47.11 At [facility] risk of polypharmacy 792687560 Z91.89 Intracrani al meningioma 342785258 D32.0 Pituitary adenoma 755745 000 D35.2 Multiple sclerosis 36794 007 G35 [id number] Tyesha Bravo DO [facility] Family Medicine- Floor 2, [address] [place] [address] 04/18/2024 15:09:24 04/18/2024 15:42:50 Pituitary adenoma 962349965 D35.2 Has referral to Endocrine (from Neurologis t) Intracrani al meningioma 669974338 D32.0 Will be fitted for radiation mask soon. Hypersomnia 55141844 G47 .10 Still do no recc driving or rtw at this time. [id number] Tyesha Bravo DO [facility] Family Medicine- Floor 2, [address] [place] [address] 05/14/2024 09:29:10 05/14/2024 11:08:43 Anxiety disorder 355253837 F41.9 Will stop Sertraline 150mg and change to Fluoxetine (anxious about upcoming radiation) Cough 27655174 R05.1 Constipation 54374172 K5 9.00 From pain meds (pain pump) Subclinica l hypothyroidism 63284471 E02 Seasonal a llergic rhinitis 858262051 J30.2 Neuropathy 080030659 G62 .9 Gastroesop hageal reflux disease 804399384 K21.9 Failed Lansoprazo le Pituitary microadenoma 430591308 D35.2 Anxiety 07739660 F41.9 Hypertensive disorder 38 439100 I10 Osteoporosis 18212568 M8 1.0 [id number] DO LUIGI Barnett Family Medicine- Floor 2, [address] [place] [address],[place] [address] [place] [address] 08/12/2024 14:40:03 08/12/2024 15:20:28 Left temporomandibular joint disorder 0886877177 7549445 M26.602 Hypertensive disorder 38 764948 I10 Constipation 19827103 K5 9.00 From pain meds (pain pump) Subclinica l hypothyroidism 09164741 E02 Seasonal a llergic rhinitis 462359967 J30.2 Neuropathy 887773712 G62 .9 Anxiety disorder 0110761 06 F41.9 Gastroesop hageal reflux disease 175531441 K21.9 Failed Lansoprazo le Anxiety 45511879 F41.9 Osteoporosis 55958785 M8 1.0 Long-term current use of drug therapy 248174404 Z79.899 Pt has script for Diazepam prn Health Concerns Section Related Observation LastModified by Organization Detai ls LastModified Time None Recorded Concern Status LastModified by Organization Details LastModified Time None Recorded Advance Directives Directive N: Payers Insurance Date Sequence Insurance Name Policy Number Policy Davis Covered Member ID Davis Member ID Guarantor Name 05/04/2024 2 [place] [facility] - FFS/TRADITIONAL Johanne Kelly [id number] Johanne Kelly 02/20/2024 SLIDING FEE SCHEDULE - DISCOUNT Johanne Kelly 11/16/2023 3 [employer]ERENCE (MEDICARE SUPPLEMENT) Johanne Kelly [id number] Johanne Kelly 11/16/2023 3 [place] Johanne Kelly [id number] Johanne Kelly 11/16/2023 1 [employer] (MEDICARE REPLACEMENT/ADV ANTAGE - HMO) Johanne Gates [id number] Johanne Kelly 11/16/2023 1 [employer] (MEDICARE REPLACEMENT/ADV ANTAGE - PPO) Johanne Gates [id number] Johanne Joe Robin 08/09/2024 2 [facility] [place] - [place]) [id number] Johanne Joe Robin [id number] Johanne Joe Robin 11/16/2023 1 AETNA (POS) [id number] Johanne Joe Robin [id number] Johanne Joe Robin 11/16/2023 2 [employer] [id number] Johanne Joe Gates [id number] Johanne Joe Robin 11/16/2023 2 [employer] (PPO) Johanne Joe Robin [id number] Johanne Joe Robin 11/16/2023 3 [place] [facility] - FFS/TRADITIONAL Johanne Joe Robin [id number] Johanne Joe Robin 11/16/2023 2 [employer] - PHCS (PPO) Johanne Hollowayer [id number] Johanne Joe Robin 11/16/2023 1 ADMINISTRATIVE CONCEPTS - MULTIPLAN (INDEMNITY) Johanne Joe Robin [id number] Johanne Joe Robin 11/16/2023 3 [employer] (MEDICARE SUPPLEMENT) Johanne Gates [id number] Johanne Joe Robin 11/16/2023 3 [place] Johanne Gates [id number] Johanne Joe Robin 11/16/2023 3 [employer] (MEDICARE SUPPLEMENT) Johanne Gates [id number] Johanne Joe Robin 08/10/2024 1 [place] [id number] Johanne Joe Robin [id number] Johanne Joe Robin 11/16/2023 3 [place] Johanne Gates [id number] Johanne Hollowayer Notes Date Note Type Note Provider Name and Address Organization Details Recorded Time 4 text/htm l Pt states Dr. Monet referred to Dr. Stoner (Neurology/[facility]). --May appt (couldn't wait).Pulm/Sleep: Silverio ([facility]) seenWanted to do repeat sleep study, Dr. [...] 6 months along with neurosurgical consultation. Tyesha Bravo DO [address], [address], [place], [address], [facility] & [place] 03/13/2024 14:54:51 5 text/htm l Ms. Johanne [...] to have hypersomnia. Joey Baker M.D [address], [address], [place], [address], [facility] & [place] 04/18/2024 15:02:52 5 text/htm l Pt needs [...] Tyesha Bravo, [address], [address], [place], [address], [facility] & [place] 04/23/2024 11:40:42 5 text/htm l F/u neuropathy: [...] until insurance approves radiation treatment. Tyesha Bravo, DO [address], [address], [place], [address], [facility] 05/15/2024 16:13:02 5 text/htm l F/u neuropathy: [...] legally blindNeuroopthalmolgist at September 11 Tyesha Bravo, DO [address], [address], [place], [address], [facility] - [facility] - [place] & [place] 08/12/2024 16:16:14 OBGyn Episode No OBEpisode recorded.
--- OUTSIDE RECORDS SUMMARY | 2024-09-20 08:58 | XMS_ITS | Patient Health Record ---
Author Organization [facility] [place] Address [address] [place] [address] Care Team Providers Care Pharmaceutical Sales Name Role Phone LILIANE HUSSEIN Primary Care Provider Liliane Hussein MD Unavailable Unavailable Reason For Referral No Information Medications Medication SIG (Take, Route, Frequency, Duration) Notes Start Date End Date Status Estradiol 1 (one) tablet(s) or 07/14/2011 03/27/18 Active Restoril 1 (one) tablet(s) or 07/14/2011 03/27/18 Active Xanax 2 to 3 times daily 07/14/2011 Active Atenolol 1 (one) tablet(s) or 07/14/2011 03/27/18 Active Multiple Vitamins 1 (one) tablet(s) or 07/14/2011 Active Fioricet 1 tab Q 8 hrs as nee 07/14/2011 03/27/18 Active Valproic Acid 1 (one) tablet(s) or 07/14/201103/1899 Active Synthroid 75 mcg (0.075 mg) 1 (one) tablet(s) or orally once a day for thirty 09/15/2011 Active Folic Acid 3 mg daily 07/14/2011 Active Percocet 3 to 4 times daily a 07/14/2011 03/27/18 Active Problems Problem Type SNOMED Code ICD Code Onset Dates Problem Status W/U Status Risk Notes Problem Type II diabetes mellitus without complication (766623453) Diabetes mellitus without mention of complication, type II or unspecified type, not stated as uncontrolled (250.00) 07/14/19 Active confirmed Harsha-Bin Problem Benign essential hypertension (7713180) Essential hypertension, benign (401.1) 07/14/19 12 Active confirmed Harsha-Bin Problem Multiple sclerosis (69968416) Multiple sclerosis (G35) Active confirmed Problem Artificial knee joint present (995566216590) Presence of right artificial knee joint (Z96.651) Active confirmed Problem Anxiety (43141382) Anxiety (F41.9) Active confirmed Problem Diabetes mellitus type 2 (72237557) Diabetes mellitus type 2, uncontrolled (E11.65) Active confirmed Problem Chronic pain syndrome (687904841) Chronic pain disorder (G89.4) Active confirmed Problem Osteoarthritis of knee (235126446) Knee arthropathy (M17.10) Active confirmed Plan Of Treatment No Information Insurance Providers Payer Name Payer Address Payer Phone Subscriber Number Group Number Insured Name Patient Relationship to Insured Coverage Start Date Coverage End Date [facility] [address] [place] [phone] [id number] Johanne Stevens Self - patient is the insured Medical (General) History Surgical History Surgery Date(Month/Year) Knee Surgery - Right Appendix Heart Surgery Gallbladder Hysterectomy
--- OUTSIDE RECORDS SUMMARY | 2024-09-20 08:58 | XMS_ITS | Encounter Summary ---
Author Organization [employer] Address [address] [place] [address] Care Team Providers Care Beam Builder Name Role Phone Tayler Bravo DO Primary Care Provider + Tayler Bravo DO Unavailable [phone] Reason for Visit * Reason Comments Medication Refill Encounter Details Date Type Department Care Team (Late st Contact Info) Description 09/08/2024 Refill [facility] Cardiology [address] [address] Unruly Sterling, PANemesioC [address] [place] [address] Social History Tobacco Use Types Packs/Day Years [...] Date Mak rded Speak language other than British at home Not on file 04/07/2023 Want [...] CDT Gender Identity Female 02/14/2023 11:29 AM GROUP DYNAMICS INSTRUCTOR Sexual Orientation Straight 02/14/2023 11 :29 AM GROUP DYNAMICS INSTRUCTOR documented as of this encounter Plan of Treatment Upcoming Encounters Date Type Department Care Team (Late st Contact Info) Description 11/05/2024 12:00 PM EDT Office Visit [facility] Cardiology [place] [address] [place] [address] Go Schwartz DO [address] [place] [address] 02/26/2025 8:30 AM EST Office Visit [facility] Bariatric Services [address] [place] [address] Thelma Arrington MD [address] [facility] [address] [place] [address] documented as of this encounter Visit Diagnoses Not on filedocumented in this encounter Care Teams Beam Builder Relationship Specialty Start Date End Date Tayler Bravo DO [address] [place] [address] PCP - General Family Medicine 11/24/22 Tayler Bravo DO [address] [place] [address] Family Medicine 11/24/22 documented as of this encounter
--- OUTSIDE RECORDS SUMMARY | 2024-09-20 08:58 | XMS_ITS | Clinical Summary ---
Author Organization Healthcare Address [address] [place] [address] Care Team Providers Care Director Of Pupil Personnel Program Name Role Phone Teresa Isidro DDS Primary Care Provider [phone] Allergies Active Allergy Reactions Criticality Noted Date Comments Duloxetine Hallucinations Medium 12/23/2021 Zombie like Penicillins Rash Low 12/29/2011 Medications amitriptyline (Elavil) 50 MG tablet 12/11/2022 Active ARIPiprazole (Abilify) 10 MG tablet Take 1 tablet (10 mg) by mouth 1 (one) time each day. 12/01/2022 Active atorvastatin (Lipitor) 10 MG tablet 12/06/2022 Active busPIRone (Buspar) 15 MG tablet 12/11/2022 Active diclofenac (Voltaren) 75 MG EC tablet 12/06/2022 Active fingolimod (Gilenya) 0.5 MG capsule 06/10/2022 Active FLUoxetine (PROzac) 20 MG capsule 12/06/2022 Active gabapentin (Neurontin) 800 MG tablet Take 1 tablet (800 mg) by mouth 3 times a day. 12/23/2021 Active lansoprazole (Prevacid) [address] capsule 12/06/2022 Active levocetirizine (Xyzal) 5 MG tablet 12/11/2022 Active lisinopril 10 MG tablet 12/06/2022 Active ubrogepant (Ubrelvy) 100 MG tablet Take 1 tablet (100 mg) by mouth 1 (one) time each day if needed. 09/15/2022 Active Active Problems Problem Noted Date Diagnosed Date S/P reverse total shoulder arthroplasty, right 0 04/20/2022 12/15/2022 Anxiety 04/04/2022 12/15/2022 Depression 04/04/2022 12/15/2022 Gastroesophageal reflux disease 04/04/2022 12/15/2022 Overview (12/15/2022): CONTROLLED BECERRA (headache) 04/04/2022 12/15/2022 Overview (12/15/2022): MIGRAINE HLD (hyperlipidemia) 04/04/2022 12/15/2022 HTN (hypertension) 04/04/2022 12/15/2022 Primary osteoarthritis of right shoulder 022 12/15/2022 Encounters Date Type Department Care Team Description 09/04/2024 Travel from Last 3 Months Social History Tobacco Use Types Packs/Day Years Used Date Smoking Tobacco: Never Smokeless Tobacco: Never Tobacco Cessation:Counseling Given: Not Answered Alcohol Use Standard Drinks/Week Comments Never 0 (1 standard drink = 0.6 oz pur e alcohol) Comments Unknown Sex and Gender Information Value Date Recorded Sex Assigned at Not on file Legal Sex Female 8:14 PM EDT Gender Identity Not on file Sexual Orientation Not on file Last Filed Vital Signs Vital Sign Reading Time Taken Comments Blood Pressure 117/82 12/15/2022 10:25 AM EDT Pulse 95 12/15/2022 10:25 AM EDT Temperature 35.6 C (96 F) 12/15/2022 10:25 AM EDT Respiratory Rate - - Oxygen Saturation 96% 12/15/2022 10:25 AM EDT Inhaled Oxygen Concentration - - Weight 92.4 kg (203 lb 9.6 oz) 12/15/2022 10:25 AM EDT Height 157.5 cm (5' 2 ) 12/15/2022 10:25 AM EDT Body Mass Index 37.24 12/15/2022 10:25 AM EDT Plan of Treatment Upcoming Encounters Date Type Department Care Team (Late st Contact Info) Description 11/13/2024 1:15 PM EDT Office Visit [facility] [address] [place] [address] Nicolette Cervantes MD [address] [place] [address] Health Maintenance Due Date Last Done Comments Dental Oral Exam 1965 Dental Prophylaxis 1965 Dental X-Ray: Bitewings 1965 Dental X-Ray: Full Mouth 1965 [facility]-Depression Screening 1967 [facility]-HIV Screening 1967 [facility]-Hepatitis C Screening 1967 [facility]-Infant/Child/Adol SDOH Screenings 1965 [facility]- SDOH Screenings 11/19/1985 [facility]-Adult SDOH Screenings 11/19/1985 [facility]-DTaP,Tdap,and Td Vaccines (1 - Tdap) 11/19/1986 [facility]-Hepatitis B Vaccines (1 of 3 - 19+ 3-dose series) 11/19/1986 [facility]-Pap Smear 09/03/1994 09/04/1991 [facility]-Cervical Cancer Screening 11/19/1997 [facility]-HPV/Cotest 11/19/1997 09/04/1991 CT Colonography 11/19/2012 Colonoscopy 11/19/2012 FIT-DNA 11/19/2012 FIT 11/19/2012 FOBT 11/19/2012 Sigmoidoscopy 11/19/2012 [facility]-Colorectal Cancer Screening 11/19/2012 [facility]-Breast Cancer Screening 11/19/2017 [facility]-Pneumococcal Vaccine: 50+ Years (1 of 1 - PCV) 11/19/2017 [facility]-Zoster Vaccines (1 of 2) 11/19/2017 [facility]-Obesity Intervention Completed 12/15/2022, 11/26 [id number] Vaccine Completed 12/09/2023, 12/23/2021, 02/09/2021, Additional history exists [facility]-Influenza Vaccine Completed 12/09/2023, 022 HPV Vaccines Aged Out No longer eligi ble based on patient's age to complete this topic [facility]-HIB Vaccines Aged Out No longer e ligible based on patient's age to complete this topic [facility]-Hepatitis A Vaccines Aged Out No longer eligible based on patient's age to complete this topic [facility]-IPV Vaccines Aged Out No longer e ligible based on patient's age to complete this topic [facility]-Rotavirus Vaccines Aged Out No lo nger eligible based on patient's age to complete this topic Procedures Procedure Name Priority Date/Time Associated Diagnosis Comments CYTO DATA CONVERSION Routine 09/04/1991 12:00 AM EDT from Last 3 Months or Most Recently Relevant to Health Maintenance Results * Cytology (09/04/1991 12:00 AM EDT) 09/04/1991 09/04/1991 Narrative [facility] - 09/06/1991 12:00 AM EDT [facility] MR #: [id number] [facility] [address] [place], [place] [address] 1965 (Age: 25) FW Collect Date: 09/04/1991 00:00 Receipt Date: 09/04/1991 00:00 Page 1 DEPARTMENT OF PATHOLOGY AND LABORATORY MEDICINE CYTOPATHOLOGY REPORT Email: [email or web address] * Converted Case * This report may not match the original report format ATTENDING MD/Practitioner: Tiffanie Jay MD Service: OB Location: Reported: 09/06/1991 00:00 Collected: 09/04/1991 00:00 INTERPRETATION CERVICAL SCRAPE/ENDOCERVICAL SWAB WITHIN NORMAL LIMITS. SATISFACTORY FOR INTERPRETATION. Electronically Signed Out VÍCTOR Potts (ASCP) Patrica Talamantes MD Cervical cytology is a screening test primarily for squamous cancers and precursors and has associated false negative and positive results. New technologies such as liquid based sampling may decrease but will not eliminate all false negative results. Regular screening and follow-up of unexplained clinical signs and symptoms are recommended to minimize false negative results. Please see the ASCCP website (www.asccp.org) for followup recommendations. If HPV testing was requested, correlation with the results is suggested (please call Microbiology at [phone] for results). CLINICAL INFORMATION: Menstrual History: {Not Provided} Date of Last Menstrual Period: {Not Provided} PAP SMEAR PERFORMED BY SPECIMEN DESCRIPTION: A: CERVICAL/VAGINAL SMEAR, PAP ICD: F: {Not Entered} SNOMED CODES: 1; H6H621 [id number] [id number] In cases where a pathologist has signed out the report, the service has been rendered in part by a resident. The signing pathologist has performed and is responsible for the reported pathologic evaluation. us Historical Provider MD LAB PATHOLOGY ORDERABLES Final Result SUNQUEST from Last 3 Months or Most Recently Relevant to Health Maintenance Insurance ANTH Care Teams Director Of Pupil Personnel Program Relationship Specialty Start Date End Date Teresa Isidro DDS [id number] [place] [address] PCP - General Dentist 12/15/22
[2024-09-20 09:03] VITALS: BP 126/75; PULSE 77; RESP 18; O2SAT 98; BMI 28.8
--- NOTE | 2024-09-20 09:08 | EXP.PAIN.PRO ---
Procedure Date: 09/20/24 Time: 09:18 Anesthesiologist:: Lyndsay Siegel APRN Complications:: None Pre-procedure Diagnosis:: Degenerative disc disease of lumbar spine, chronic back pain Post-procedure Diagnosis:: Same Indications for Procedure:: Patient is a pleasant 58-year-old female who presents today for intrathecal refill and reprogram. Today she rates her pain a 4 or 5 out of 10. She denies any new falls or injuries. Patient is asking if we can go up a little bit on her pump. Patient is currently managed with morphine 1 mg/mL with a daily dose of 0.1853 mg/day.She denies any side effects. She does state that she has had a couple episodes when she goes to give herself a bolus that she felt a little bit more nauseous. Patient denies any other changes. She is prescribed gabapentin from an outside provider. Her Tommy has been reviewed and is appropriate. Physical Exam: General: Alert and oriented x3, no acute distress, pleasant and cooperative Lungs: Respirations even and unlabored, symmetrical chest expansion Eyes: PERRL Musculoskeletal: Flexion and extension of lumbar [spine] somewhat guarded secondary to pain, [antalgic gait noted] Neurological: Speech clear, no gross sensory deficit Procedure Details:: Informed consent was obtained and the risk and benefits of the procedure were explained to the patient. The patient had noninvasive monitoring placed including noninvasive blood pressure cuff and pulse oximeter. Patient's pump was interrogated. The area over the pump was cleansed with chlorhexidine as a cleansing solution. In sterile fashion the pump was accessed with a 22-gauge needle. Approximately 7.5 mls of the pump solution was removed and discarded appropriately. The pump was then refilled with 20 mL's of morphine 1 mg/mL. The needle was withdrawn and a bandage was placed over the puncture site. The infusion rate was reprogrammed and increased 10% to morphine 0.2037 mg/day. The patient tolerated well with no complication. Plan and Disposition:: Patient tolerated the procedure well with no complications and was discharged neurologically intact. We did also adjust her bolus amount and decrease her potassium to see if this helped with the feeling of being nauseous after giving herself a bolus. We will follow-up with this upcoming visits. Patient was counseled to call us if she needs anything additional between now and her next visit. Patient agrees with this plan of care. Patient will return to clinic on or before their next intrathecal refill date. We will see the patient back in the clinic at the next intrathecal refill. Patient has been instructed to contact the clinic with any concerns before the next appointment. Dr. Rondon has reviewed this note and agrees with this plan of care. This note was dictated using voice recognition software and make contain errors or omissions. -- It Is medically necessary for this patient to continue to have their intrathecal pump refilled at regular intervals. This patient had an intrathecal pain pump implanted after meeting criteria of chronic intractable pain for greater than 3 months and failing conservative treatments. Patient has committed and been compliant to the treatment plan and all planned follow up care. Since implantation of the intrathecal pain pump, the patient has had decreased pain and been more functional. Oral medications have been reduced including intake of oral opioids. Patient continues to do well with intrathecal therapy with decrease in pain symptoms and increase in functional status. Stopping intrathecal medications can lead to life threatening withdrawal, seizures, cardiac arrest, severe pain, and possible . Pumps that are not refilled at regular intervals can be damages and cause and need for replacement. We continually titrate dose and concentration to optimize pain relief and function. We are limited in concentration for certain drugs to safely deliver medications through the pump and stay within the recommendations from the Polyanalgesic Consensus Committee Guidelines. Depending on dose and concentration these pumps may need to be refilled sooner than 3 months as we titrate. A UDS is needed to verify patient's compliance with our office pain contract. This is ordered based off specific treatments related to chronic pain with the potential to abuse certain medications.
[2024-09-20 09:11] VITALS: BP 124/77; PULSE 71; RESP 18; O2SAT 99
[2024-09-20 09:26] VITALS: BP 111/68; PULSE 73; RESP 18; O2SAT 99
== END 2024-09-20 09:25 | disposition home or self-care (01) ==
PROVIDERS: PCP Family Medicine; Visit Provider Nurse Practitioner Family
DX: Z45.1 Encounter for adjustment and management of infusion pump (principal); G89.29 Other chronic pain; M54.50 Low back pain, unspecified; M51.369 Other intervertebral disc degeneration, lumbar region without mention of lumbar back pain or lower extremity pain; E03.9 Hypothyroidism, unspecified; E78.5 Hyperlipidemia, unspecified; F32.A Depression, unspecified; G35 Multiple sclerosis; G43.909 Migraine, unspecified, not intractable, without status migrainosus; I10 Essential (primary) hypertension; Z88.0 Allergy status to penicillin; Z88.8 Allergy status to other drugs, medicaments and biological substances; Z79.890 Hormone replacement therapy; Z79.899 Other long term (current) drug therapy
CPT/HCPCS: 62370

== ENCOUNTER 2024-11-15 09:39 | Day surgery (SDC) | payer BC, OTHER, SELFPAY ==
--- NOTE | 2024-11-15 09:48 | EXP.PM.HP ---
History of Present Illness *Admission Date: 11/15/24 *Reason for visit:: Intrathecal refill; DDD *History of present illness: Same [facility] Disclaimer: The information contained in this section may have been updated after the patient was seen, as this information can be updated by other users. Medical History History of DVT (deep vein thrombosis) History of pituitary adenoma Hypothyroid Migraine Multiple sclerosis HTN (hypertension) Vitamin D deficiency HLD (hyperlipidemia) Depression Surgical History History of gastric bypass Hx of cholecystectomy Hx of tonsillectomy H/O: hysterectomy History of right shoulder replacement History of lumbar surgery History of colonoscopy History of right hip replacement History of bilateral knee replacement History of appendectomy Family History Other Family history of cancer Family history of diabetes mellitus Family history of heart disease Social History Smoking Status: Never smoker alcohol intake: never substance use type: denies use current occupational status: other Travel in the last 8 weeks?: None Have you lived/traveled outside US in past 30 days?: No Contact w/someone who lives/traveled outside US past 30 days?: No Exposure to someone with infectious disease in past 14 days?: No Do you have a fever (greater than 100.4 F or 38 C)?: No Have you tested positive for COVID-19?: No Exposed to someone with COVID-19 in past 14 days?: No Do you have a sore throat?: No Do you have a cough?: No Do you have any weakness?: No Do you have any diarrhea?: No Are you experiencing any unusual bleeding?: No Do you have any muscle aches/pain?: No Do you have any abdominal pain?: No Are you experiencing loss of taste or smell?: No Other Medical History Have you received the Flu Vaccine for this season: No Have you received the Pneumonia Vaccine: No Meds Home Medications and Allergies Home Medications ?Medication ?Instructions ?Recorded ?Confirmed ?Type atorvastatin 10 mg tablet 10 mg PO DAILY 07/02/23 09/20/24 History buspirone 15 mg tablet 15 mg PO BID 07/02/23 09/20/24 History fremanezumab-vfrm 225 mg/1.5 mL See Rx Instructions .Route .COMPLEX 07/02/23 09/20/24 History subcutaneous auto-injector (Ajovy) gabapentin 800 mg tablet See Rx Instructions .Route .COMPLEX 07/02/23 09/20/24 History levocetirizine 5 mg tablet 5 mg PO DAILY 07/02/23 09/20/24 History potassium chloride 10 mEq 10 meq PO DAILY 07/02/23 09/20/24 History capsule,extended release ofatumumab 20 mg/0.4 mL 20 mg SQ MONTHLY 11/16/23 09/20/24 History subcutaneous pen injector (Kesimpta Pen) morphine (PF) 1 mg/mL injection 1 mg intrathecal CONT Pain 11/22/23 09/20/24 History solution potassium chloride 10 mEq 10 meq PO DAILY 01/17/24 09/20/24 History tablet,extended release (Klor-Con) alendronate 70 mg tablet 70 mg PO WEEKLY 07/24/24 09/20/24 History cabergoline 0.5 mg tablet 0.5 mg PO DAILY 07/24/24 09/20/24 History dexamethasone 1.5 mg (39 tabs) 1.5 mg PO DAILY 07/24/24 09/20/24 History tablets in a dose pack fluoxetine 20 mg capsule 20 mg PO DAILY 07/24/24 09/20/24 History levothyroxine 25 mcg tablet 25 mcg PO DAILY 07/24/24 09/20/24 History linaclotide 72 mcg capsule 72 mcg PO DAILY 07/24/24 09/20/24 History (Linzess) montelukast 10 mg tablet 10 mg PO DAILY 07/24/24 09/20/24 History rimegepant 75 mg disintegrating 75 mg PO WEEKLY 07/24/24 09/20/24 History tablet (Nurtec ODT) New Prescriptions to Start Prescriptions: Allergies Allergy/AdvReac Type Severity Reaction Status Date / Time duloxetine (From Cymbalta) Allergy Other Verified 08/02/24 08:38 Penicillins Allergy Rash Verified 08/02/24 08:38 Exam Constitutional Constitutional: no acute distress *Routine HEENT Exam Head: Present normocephalic and atraumatic Eye: Present PERRL ENT: Present mucous membranes moist *Routine Neck Exam Neck: Present supple *Routine Respiratory Exam Respiratory: Present CTA bilaterally *Routine Cardiovascular Exam Cardiovascular: Present RRR *Routine Abdominal Exam Abdominal: Present soft *Routine Rectal Exam Rectal:: deferred *Routine Genitalia Exam Genitalia:: deferred Routine Back/Spine/Pelvis Exam Back/Spine: Present pain with flexion *Routine Skin Exam Skin: Present intact and warm *Routine Neurological Exam Neurological: Present alert and oriented X3
[2024-11-15 09:49] VITALS: BP 149/75; PULSE 78; RESP 18; O2SAT 95; BMI 31.1
--- NOTE | 2024-11-15 09:49 | P.PCN_ITS ---
Procedure Date: 11/15/24 Time: 10:09 Anesthesiologist:: Lyndsay Siegel APRN Complications:: None Pre-procedure Diagnosis:: Degenerative disc disease of lumbar spine with lumbar radiculopathy symptoms, chronic back pain Post-procedure Diagnosis:: Same Indications for Procedure:: Patient is a pleasant 58-year-old female who presents today for intrathecal refill and reprogram. Today she rates her pain a 2 out of 10. Patient does state from her last appointment she ended up just getting done with a knee revision where they did also do a blaise placement. Patient states that she ended up having a reaction to the adhesive they had used for her knee replacement originally and ended up having a lot of blistering as well as they were concerned that her leg was going crooked. Patient is doing better from that procedure. Patient has had a recent prescription of oxycodone 5 mg with 28 table ts from the previous surgery.Her Tommy has been reviewed and is appropriate. Patient is currently managed with morphine 1 mg/mL with a daily dose of 0.2037 mg/day. Physical Exam: General: Alert and oriented x3, no acute distress, pleasant and cooperative Lungs: Respirations even and unlabored, symmetrical chest expansion Eyes: PERRL Musculoskeletal: Flexion and extension of lumbar [spine] somewhat guarded secondary to pain, [antalgic gait noted] Neurological: Speech clear, no gross sensory deficit Procedure Details:: Informed consent was obtained and the risk and benefits of the procedure were explained to the patient. The patient had noninvasive monitoring placed including noninvasive blood pressure cuff and pulse oximeter. Patient's pump was interrogated. The area over the pump was cleansed with chlorhexidine as a cleansing solution. In sterile fashion the pump was accessed with a 22-gauge needle. Approximately 8 mls of the pump solution was removed and discarded appropriately. The pump was then refilled with 20 mL's of morphine 2 mg/mL. The needle was withdrawn and a bandage was placed over the puncture site. The infusion rate was reprogrammed and continued. The patient tolerated well with no complication. Plan and Disposition:: Patient tolerated the procedure well with no complications and was discharged neurologically intact. I did discuss with the patient due to the concentration change that during the time of the bridge bolus she will not be able to use her bolus device however once it completes then she will have its available as needed. Patient acknowledges understanding and agrees with plan of care. Patient will return to clinic on or before their next intrathecal refill date. We will see the patient back in the clinic at the next intrathecal refill. Patient has been instructed to contact the clinic with any concerns before the next appointment. Dr. Rondon has reviewed this note and agrees with this plan of care. This note was dictated using voice recognition software and make contain errors or omissions. -- It Is medically necessary for this patient to continue to have their intrathecal pump refilled at regular intervals. This patient had an intrathecal pain pump implanted after meeting criteria of chronic intractable pain for greater than 3 months and failing conservative treatments. Patient has committed and been compliant to the treatment plan and all planned follow up care. Since implantation of the intrathecal pain pump, the patient has had decreased pain and been more functional. Oral medications have been reduced including intake of oral opioids. Patient continues to do well with intrathecal therapy with decrease in pain symptoms and increase in functional status. Stopping intrathecal medications can lead to life threatening withdrawal, seizures, cardiac arrest, severe pain, and possible . Pumps that are not refilled at regular intervals can be damages and cause and need for replacement. We continually titrate dose and concentration to optimize pain relief and function. We are limited in concentration for certain drugs to safely deliver medications through the pump and stay within the recommendations from the [employer] Guidelines. Depending on dose and concentration these pumps may need to be refilled sooner than 3 months as we titrate. A UDS is needed to verify patient's compliance with our office pain contract. This is ordered based off specific treatments related to chronic pain with the potential to abuse certain medications.
[2024-11-15 10:07] VITALS: BP 118/81; PULSE 75; RESP 18; O2SAT 99
[2024-11-15 10:16] VITALS: BP 116/73; PULSE 71; RESP 18; O2SAT 98
== END 2024-11-15 10:16 | disposition home or self-care (01) ==
PROVIDERS: PCP Family Medicine; Visit Provider Nurse Practitioner Family
DX: Z45.1 Encounter for adjustment and management of infusion pump (principal); M51.16 Intervertebral disc disorders with radiculopathy, lumbar region; G89.29 Other chronic pain; F32.A Depression, unspecified; E78.5 Hyperlipidemia, unspecified; I10 Essential (primary) hypertension; E03.9 Hypothyroidism, unspecified; G35 Multiple sclerosis; Z88.0 Allergy status to penicillin; Z88.8 Allergy status to other drugs, medicaments and biological substances; Z79.890 Hormone replacement therapy; Z79.891 Long term (current) use of opiate analgesic; Z79.52 Long term (current) use of systemic steroids; Z79.899 Other long term (current) drug therapy
CPT/HCPCS: 62370